=== PATIENT | male | born 1965 | race Caucasian/White ===

== ENCOUNTER 2024-01-01 14:56 | Outpatient (POV) | payer OTHER, SELFPAY ==
--- NOTE | 2024-01-01 15:05 | EXP.PAIN.OV ---
HPI Data of Consult Patient: new to practice Consult date: 01/01/24 Requesting Physician: Vanessa Sanchez APRN Consult Narrative History of present illness: Mr. Thomson is a 58 year old male who presents today as a new patient. He is a referral from the [facility] location. Today he rates his pain a 5 out of 10. Patient states he continues to have pain in his low back. We were previously treating the patient for low back pain, degenerative disc disease of lumbar spine with lumbar spinal stenosis, bilateral hip pain. Patient describes this as an aching, throbbing sensation. He does state the pain interferes with his ability to perform activities of daily living such as cooking and cleaning. Patient has had injections including a lumbar RFA in the past from Dr. Thomas. At the last appointment with Dr. Thomas he was positive for bilateral SI pain however insurance denied these injections. Patient does state today he continues to have the low back pain that is the most bothersome however he does continue to have leg weakness. Patient has tried [id number] medications, heat and ice, topicals, previous PT with no additional improvement. Patient has tried multiple injections however they are temporary. He is currently prescribed tramadol 50 mg 4 times a day and pregabalin 150 mg 3 times a day from an outside provider. Patient does state that he is in the process of getting weight loss surgery and is seeing a provider next week during [place]. Patient does also state he has recently had an injection in his left shoulder due to a fall and that his orthopedic provider was talked about ordering advanced imaging of this joint. His Julian has been reviewed and is appropriate. CC: Vanessa Sanchez APRN [facility] Disclaimer: The information contained in this section may have been updated after the patient was seen, as this information can be updated by other users. Medical History (Updated 01/01/24 @ 15:43 by Vanessa Sanchez APRN) Migraine History of chest pain CAD (coronary artery disease) HLD (hyperlipidemia) HTN (hypertension) Family History (Updated 01/01/24 @ 15:25 by Belgica Cochran RN) Other No significant family history Social History Smoking Status: Unknown if ever smoked alcohol intake: never current occupational status: other Travel in the last 8 weeks: None Review of Systems Review of Systems Review of systems:: pertinent systems reviewed and negative unless documented below Review of systems (narrative): Review of Systems: General: No recent weight changes, no fever, no sleep disturbances Respiratory: No cough, no shortness of air, no recurring pulmonary infections Cardiovascular/peripheral vascular: No chest pain, no palpitations, no edema, no shortness of breath Gastrointestinal: No new onset incontinence, normal bowel movements reported Genitourinary: No new onset incontinence Musculoskeletal: Low back pain, leg pain Psychiatric: [Normal mood/affect] Neurological: [Denies weakness in extremities], [denies balance issues] Meds Home Medications and Allergies Home Medications Medication Instructions Recorded Confirmed Type atorvastatin 40 mg tablet 40 mg PO HS 01/01/24 01/01/24 History cholecalciferol (vitamin D3) 1,250 1,250 mcg PO DAILY 01/01/24 01/01/24 History mcg (50,000 unit) capsule clopidogrel 75 mg tablet 75 mg PO DAILY 01/01/24 01/01/24 History lisinopril 40 mg tablet 40 mg PO DAILY 01/01/24 01/01/24 History metoprolol succinate 100 mg 100 mg PO DAILY 01/01/24 01/01/24 History tablet,extended release 24 hr pregabalin 150 mg capsule 150 - 300 mg PO BID 01/01/24 01/01/24 History New Prescriptions to Start Prescriptions: Allergies Allergy/AdvReac Type Severity Reaction Status Date / Time No Known Allergies Allergy Verified 01/01/24 15:21 Objective Narrative: Physical Exam: General: Alert and oriented x3, no acute distress, pleasant and cooperative Lungs: Respirations even and unlabored, symmetrical chest expansion Eyes: PERRL Musculoskeletal: Flexion and extension of lumbar [spine] somewhat guarded secondary to pain, [antalgic gait noted] Neurological: Speech clear, no gross sensory deficit Assessment and Plan *Assessment and plan (1) Chronic pain syndrome: Status: Acute Category: Medical Code(s): G89.4 - Chronic pain syndrome (2) Degenerative disc disease, lumbar: Status: Acute Category: Medical Code(s): M51.36 - Other intervertebral disc degeneration, lumbar region (3) Lumbar radiculopathy: Status: Acute Category: Medical Code(s): M54.16 - Radiculopathy, lumbar region (4) Lumbar facet arthropathy: Status: Acute Category: Medical Code(s): M47.816 - Spondylosis without myelopathy or radiculopathy, lumbar region Plan Patient continues to experience significant pain throughout his low back and his legs. Patient had limited range of motion of his lumbar spine. I did discuss with the patient that he may benefit from additional lumbar epidurals and/or intrathecal pain pump trial in the future. Risk and benefits were discussed with the patient and he would like to proceed forward with the intrathecal pain pump trial. I have given him a brochure regarding this device. We will submit for a psychological evaluation and if he is deemed an appropriate candidate we will proceed forward with this trial at a later date. Patient will return to clinic in 1 month for reevaluation of symptoms and plan of care. We will also reach out to [facility] for a copy of his last lumbar MRI. Patient has been instructed to contact the clinic with any concerns before the next appointment. Dr. Thomas has reviewed this note and agrees with this plan of care. This note was dictated using voice recognition software and make contain errors or omissions.
[2024-01-01 15:21] VITALS: BP 186/100; PULSE 71; RESP 20; O2SAT 94; BMI 58.6
== END 2024-01-01 23:59 ==
LOC: SC.PAIN 14:58
PROVIDERS: Visit Provider Nurse Practitioner Family
DX: G89.4 Chronic pain syndrome (principal); M51.16 Intervertebral disc disorders with radiculopathy, lumbar region; M47.26 Other spondylosis with radiculopathy, lumbar region
CPT/HCPCS: 99202; G0463

== ENCOUNTER 2024-02-02 14:11 | Outpatient (POV) | payer OTHER, SELFPAY ==
[2024-02-02 14:20] VITALS: BP 143/75; PULSE 78; RESP 18; O2SAT 94; BMI 55.7
--- NOTE | 2024-02-02 15:05 | EXP.PAIN.SOA ---
[facility] Pain Management SOAP Note Subjective:: Patient is a pleasant 58-year-old male who presents today for follow-up of psychological evaluation. Patient rates his pain today a 4 out of 10. He denies any new trauma or injury from our last visit. He does state that he continues to experience chronic pain throughout his low back. He states that this pain is a aching, throbbing sensation that does interfere with his ability perform activities of daily living such as cooking and cleaning. Patient does state that he went last week for her psychological evaluation and that the provider did say that he was an appropriate candidate. Patient does state that he reviewed over the additional materials that we did give him at his last visit regarding this procedure and he would like to proceed forward with intrathecal trial. Patient has tried and failed conservative therapy such as oral medication, heat and ice, topicals, previous physical therapy with no additional relief and continued at home exercise and stretching. Patient is prescribed tramadol and pregabalin from outside providers. He denies any side effects from this medication however states this only minimally helps his symptoms. Patient does continue to use a cane to help with ambulation. Patient is currently on Plavix that is written by his manager academic at [place]. His Julian has been reviewed and is appropriate. Review of Systems: General: No recent weight changes, no fever, no sleep disturbances Respiratory: No cough, no shortness of air, no recurring pulmonary infections Cardiovascular/peripheral vascular: No chest pain, no palpitations, no edema, no shortness of breath Gastrointestinal: No new onset incontinence, normal bowel movements reported Genitourinary: No new onset incontinence Musculoskeletal: Chronic low back pain Psychiatric: [Normal mood/affect] Neurological: [Denies weakness in extremities], [denies balance issues] Objective:: Physical Exam: General: Alert and oriented x3, no acute distress, pleasant and cooperative Lungs: Respirations even and unlabored, symmetrical chest expansion Eyes: PERRL Musculoskeletal: Flexion and extension of lumbar [spine] somewhat guarded secondary to pain, [antalgic gait noted] Neurological: Speech clear, no gross sensory deficit Assessment:: Degenerative disc disease of lumbar spine with lumbar radiculopathy symptoms, chronic low back pain, lumbar spinal stenosis, bilateral hip pain Plan:: Patient continues to experience significant pain in his low back with limited range of motion. I have reviewed over the risk and benefits of the intrathecal pain pump trial and he would like to proceed forward with this plan of care. Patient is currently on Plavix written by his manager academic in [place]. We will reach out to this office and confirm that he can stop this medication prior to this procedure. I will also reach out to [employer] for a copy of his lumbar imaging. Patient has tried and failed conservative therapies such as oral medication, heat and ice, topicals prior physical therapy and at home stretching and exercise for longer than 6 weeks. Patients psychological evaluation has not yet gotten into the computer and we will reach out to their office to confirm that he was an appropriate patient and that we get a copy of these findings to submit to insurance. Patient will be submitted for intrathecal pain pump trial under fluoroscopy. Patient has been instructed to contact the clinic with any concerns before the next appointment. Dr. Thomas has reviewed this note and agrees with this plan of care. This note was dictated using voice recognition software and make contain errors or omissions. [facility] Disclaimer: The information contained in this section may have been updated after the patient was seen, as this information can be updated by other users. Medical History (Updated 01/01/24 @ 15:43 by Vanessa Sanchez APRN) Migraine History of chest pain CAD (coronary artery disease) HLD (hyperlipidemia) HTN (hypertension) Family History (Updated 01/01/24 @ 15:25 by Belgica Cochran RN) Other No significant family history Social History (Updated 01/01/24 @ 15:44 by Vanessa Sanchez APRN) Smoking Status: Unknown if ever smoked alcohol intake: never current occupational status: unemployed Travel in the last 8 weeks: None
== END 2024-02-02 23:59 ==
LOC: SC.PAIN 14:11
PROVIDERS: PCP Nurse Practitioner Family; Visit Provider Nurse Practitioner Family
DX: M51.16 Intervertebral disc disorders with radiculopathy, lumbar region (principal); M54.50 Low back pain, unspecified; G89.29 Other chronic pain; M48.061 Spinal stenosis, lumbar region without neurogenic claudication; M25.551 Pain in right hip; M25.552 Pain in left hip
CPT/HCPCS: 99212; G0463

== ENCOUNTER 2024-05-28 09:13 | Day surgery (SDC) | payer BC, SELFPAY ==
[2024-05-28 09:35] VITALS: BP 159/80; PULSE 80; RESP 18; TEMP 36.4; O2SAT 93; BMI 60.6
--- NOTE | 2024-05-28 11:02 | PC.NURSE ---
pt sitting up in chair, family in room with pt. Pt states no needs at this time.
[2024-05-28] MEDS: CEFAZOLIN SODIUM 1 GM in 0.9 % SODIUM CHLORIDE 50 ML IV (11:18)
[2024-05-28] MEDS: LIDOCAINE 1% 30ML PF VIAL 30 ML (11:19)
[2024-05-28 11:22] VITALS: BP 145/95; PULSE 85; RESP 18; O2SAT 95
[2024-05-28 11:23] VITALS: BP 145/95; PULSE 85; RESP 18; O2SAT 97
[2024-05-28 11:41] VITALS: BP 152/83; PULSE 83; RESP 18; O2SAT 93
--- NOTE | 2024-05-28 11:59 | PC.NURSE ---
Pain pump trial procedure aborted. Refer to Dr. Thomas note.
[2024-05-28 12:03] VITALS: BP 152/80; PULSE 84; RESP 20; TEMP 36.7; O2SAT 91
--- NOTE | 2024-05-28 12:16 | PC.NURSE ---
1205-pt reports pain 01/03. Pt pushed out in wheelchair to car.
--- NOTE | 2024-05-28 12:28 | EXP.PAIN.PRO ---
Procedure Date: 05/28/24 Time: 12:28 Anesthesiologist:: Liu Thomas MD Complications:: None Pre-procedure Diagnosis:: Degenerative disc disease of lumbar spine with lumbar radiculopathy symptoms Post-procedure Diagnosis:: Same Indications for Procedure:: This patient is a pleasant 58-year-old white male who we are seeing for low back pain with lumbar radiculopathy symptoms. He has failed all other conservative therapy he is not gotten long-term relief from injections he has failed physical therapy. He is not a surgical candidate. He had a successful psychological evaluation. He presents for intrathecal pump trial today. Procedure Details:: Informed consent was obtained risk and benefits of the procedure explained the patient. Patient was taken to the procedure room. He is placed prone on the procedure table. Was prepped and draped in sterile fashion. C-arm fluoroscopy was used to view the lumbar spine. After multiple attempts at trying to access the intrathecal space at L4-5 and L5-S1 we aborted the trial. The patient stated weight is 430 pounds. Due to his size and BMI we did not have a needle long enough to access the intrathecal space. Patient was taken back to recovery in stable condition. Patient tolerated the procedure well no complications. Plan and Disposition:: Due to the patient's size we were not able to access the intrathecal space or do the intrathecal pump trial. This patient given his size as not a candidate for intrathecal therapy. I did talk to him about oral medication. We will start him on hydrocodone 7.5 mg twice a day. Patient needs to be under 400 pounds before we attempt any other procedures. Will give him a 1 month supply. Julian and drug screen are all appropriate. Will follow-up with him in 1 month.
== END 2024-05-28 12:05 | disposition home or self-care (01) ==
PROVIDERS: Visit Provider Anesthesiology
DX: M51.16 Intervertebral disc disorders with radiculopathy, lumbar region (principal); Z53.8 Procedure and treatment not carried out for other reasons
CPT/HCPCS: 62323; J0690; J3010

== ENCOUNTER 2024-06-24 09:34 | Outpatient (POV) | payer BC, SELFPAY ==
[2024-06-24 09:51] VITALS: BP 146/93; PULSE 68; RESP 18; O2SAT 92; BMI 60.6
--- NOTE | 2024-06-24 10:28 | EXP.PAIN.SOA ---
[facility] Disclaimer: The information contained in this section may have been updated after the patient was seen, as this information can be updated by other users. Medical History Migraine History of chest pain CAD (coronary artery disease) HLD (hyperlipidemia) HTN (hypertension) Family History Other No significant family history Social History Smoking Status: Unknown if ever smoked alcohol intake: never current occupational status: unemployed Travel in the last 8 weeks: None PM Subjective & Objective Subjective Subjective:: Patient is a pleasant 59-year-old male who presents today for 1 month follow-up. He rates his pain today a 2 out of 10. Patient denies any new trauma or injury. We did try and get him in for a intrathecal pain pump trial however due to his weight we were not unable to perform the procedure. Patient was prescribed [place] 7.5 mg twice a day. He denies any side effects from this medication and does state that it helps take the edge off. He does however state that he has had Percocet in the past and that that medication did seem to help more and is asking if there is anything we could do to change the medication if possible however he does state that the [place] is fine and that it does at least help somewhat. Patient is currently going through the process of gastric bypass surgery. He states he does not have a date and that they are still working on getting this surgery in the future. He is going through [facility]. He is prescribed pregabalin from an outside provider. His Julian has been reviewed and is appropriate. Review of Systems: General: No recent weight changes, no fever, no sleep disturbances Respiratory: No cough, no shortness of air, no recurring pulmonary infections Cardiovascular/peripheral vascular: No chest pain, no palpitations, no edema, no shortness of breath Gastrointestinal: No new onset incontinence, normal bowel movements reported Genitourinary: No new onset incontinence Musculoskeletal: Low back pain Psychiatric: [Normal mood/affect] Neurological: [Denies weakness in extremities], [denies balance issues] Pain at rest (0-10 scale): 2 Objective Objective:: Physical Exam: General: Alert and oriented x3, no acute distress, pleasant and cooperative Lungs: Respirations even and unlabored, symmetrical chest expansion Eyes: PERRL Musculoskeletal: Flexion and extension of lumbar [spine] somewhat guarded secondary to pain, [antalgic gait noted] Neurological: Speech clear, no gross sensory deficit Has patient had previous pain injection?: No Conservative treatment options previously tried: Home exercise plan Length of treatment: Longer than 6 weeks Meds Home Medications and Allergies Home Medications ?Medication ?Instructions ?Recorded ?Confirmed ?Type atorvastatin 40 mg tablet 40 mg PO HS 01/01/24 06/24/24 History cholecalciferol (vitamin D3) 1,250 1,250 mcg PO DAILY 01/01/24 06/24/24 History mcg (50,000 unit) capsule clopidogrel 75 mg tablet 75 mg PO DAILY 01/01/24 06/24/24 History lisinopril 40 mg tablet 40 mg PO DAILY 01/01/24 06/24/24 History metoprolol succinate 100 mg 100 mg PO DAILY 01/01/24 06/24/24 History tablet,extended release 24 hr pregabalin 150 mg capsule 150 - 300 mg PO BID 01/01/24 06/24/24 History tramadol 50 mg tablet 50 mg PO Q6HP PRN Pain 02/02/24 06/24/24 History hydrocodone 5 mg-acetaminophen 325 1 tab PO BID 15 days #30 tabs 05/28/24 06/24/24 Rx mg tablet hydrocodone 7.5 mg-acetaminophen 1 tab PO BID #60 tabs 05/28/24 06/24/24 Rx 325 mg tablet naloxone 4 mg/actuation nasal spray 4 mg intranasal Q2M PRN opioid 06/03/24 06/24/24 Rx overdose #2 ea New Prescriptions to Start Prescriptions: Allergies Allergy/AdvReac Type Severity Reaction Status Date / Time No Known Allergies Allergy Verified 01/01/24 15:21 Assessment and Plan *Assessment and plan (1) Lumbar radiculopathy: Status: Acute Category: Medical Code(s): M54.16 - Radiculopathy, lumbar region (2) Lumbar facet arthropathy: Status: Acute Category: Medical Code(s): M47.816 - Spondylosis without myelopathy or radiculopathy, lumbar region (3) Degenerative disc disease, lumbar: Status: Acute Category: Medical Code(s): M51.36 - Other intervertebral disc degeneration, lumbar region Plan At this time we will keep his current prescription the same. Patient will be sent in with a 1 month supply of the [place]. Patient will return to clinic in 1 month for reevaluation of symptoms and plan of care. Risks and benefits of the medication have been explained in detail to the patient. The patient does understand the risk of dependence on the medication when given over a prolonged period. Patient has been advised of risks of oversedation with the prescribed medication. Narcan has been offered to the paitent in the event of oversedation. Patient has been advised that a family member should also be educated regarding administration of Narcan. The patient has been advised to consult with his/her primary care provider and pharmacist regarding drug-drug interaction of medications currently prescribed. Patient has been prescribed a controlled substance after being counseled on the medication, medication safety, and possible side effects. Opioid contract was reviewed and signed by the patient, and that they have agreed to all of the terms set forth by our compliance program. Patient has been instructed to contact the clinic with any concerns before the next appointment. Dr. Thomas has reviewed this note and agrees with this plan of care. This note was dictated using voice recognition software and make contain errors or omissions.
== END 2024-06-24 23:59 | disposition home or self-care (01) ==
PROVIDERS: Visit Provider Nurse Practitioner Family
DX: M47.26 Other spondylosis with radiculopathy, lumbar region (principal); M51.36 Other intervertebral disc degeneration, lumbar region
CPT/HCPCS: 99212; G0463

== ENCOUNTER 2024-07-22 09:18 | Outpatient (POV) | payer BC, SELFPAY ==
--- NOTE | 2024-07-22 09:38 | A.OFFVIS_ITS ---
[facility] Disclaimer: The information contained in this section may have been updated after the patient was seen, as this information can be updated by other users. Medical History Migraine History of chest pain CAD (coronary artery disease) HLD (hyperlipidemia) HTN (hypertension) Family History Other No significant family history Social History Smoking Status: Unknown if ever smoked alcohol intake: never current occupational status: unemployed Travel in the last 8 weeks: None PM Subjective & Objective Subjective Subjective:: Patient is a pleasant 59-year-old male who presents today for medication refill. Today he rates his pain a 2 out of 10. He denies any new changes. He does state overall he is still in the process of trying to get the gastric bypass surgery scheduled. He is currently managed with [place] 7.5 mg twice a day from our office. He denies any side effects from this medication. His Julian has been reviewed and is appropriate. Review of Systems: General: No recent weight changes, no fever, no sleep disturbances Respiratory: No cough, no shortness of air, no recurring pulmonary infections Cardiovascular/peripheral vascular: No chest pain, no palpitations, no edema, no shortness of breath Gastrointestinal: No new onset incontinence, normal bowel movements reported Genitourinary: No new onset incontinence Musculoskeletal: Low back pain Psychiatric: [Normal mood/affect] Neurological: [Denies weakness in extremities], [denies balance issues] Pain at rest (0-10 scale): 2 Objective Objective:: Physical Exam: General: Alert and oriented x3, no acute distress, pleasant and cooperative Lungs: Respirations even and unlabored, symmetrical chest expansion Eyes: PERRL Musculoskeletal: Flexion and extension of lumbar [spine] somewhat guarded secondary to pain, [antalgic gait noted] Neurological: Speech clear, no gross sensory deficit Has patient had previous pain injection?: No Conservative treatment options previously tried: Home exercise plan Length of treatment: Longer than 6 weeks Meds Home Medications and Allergies Home Medications ?Medication ?Instructions ?Recorded ?Confirmed ?Type atorvastatin 40 mg tablet 40 mg PO HS 01/01/24 06/24/24 History cholecalciferol (vitamin D3) 1,250 1,250 mcg PO DAILY 01/01/24 06/24/24 History mcg (50,000 unit) capsule clopidogrel 75 mg tablet 75 mg PO DAILY 01/01/24 06/24/24 History lisinopril 40 mg tablet 40 mg PO DAILY 01/01/24 06/24/24 History metoprolol succinate 100 mg 100 mg PO DAILY 01/01/24 06/24/24 History tablet,extended release 24 hr pregabalin 150 mg capsule 150 - 300 mg PO BID 01/01/24 06/24/24 History tramadol 50 mg tablet 50 mg PO Q6HP PRN Pain 02/02/24 06/24/24 History hydrocodone 5 mg-acetaminophen 325 1 tab PO BID 15 days #30 tabs 05/28/24 06/24/24 Rx mg tablet naloxone 4 mg/actuation nasal spray 4 mg intranasal Q2M PRN opioid 06/03/24 06/24/24 Rx overdose #2 ea hydrocodone 7.5 mg-acetaminophen 1 tab PO BID #60 tabs 06/24/24 Rx 325 mg tablet New Prescriptions to Start Prescriptions: Allergies Allergy/AdvReac Type Severity Reaction Status Date / Time No Known Allergies Allergy Verified 01/01/24 15:21 Assessment and Plan *Assessment and plan (1) Lumbar radiculopathy: Status: Acute Category: Medical Code(s): M54.16 - Radiculopathy, lumbar region (2) Degenerative disc disease, lumbar: Status: Acute Category: Medical Code(s): M51.36 - Other intervertebral disc degeneration, lumbar region Plan I will refill his Bishop and provide a 1 month supply of this medication. Patient will return to clinic in 1 month for reevaluation of symptoms and plan of care. Risks and benefits of the medication have been explained in detail to the patient. The patient does understand the risk of dependence on the medication when given over a prolonged period. Patient has been advised of risks of oversedation with the prescribed medication. Narcan has been offered to the paitent in the event of oversedation. Patient has been advised that a family member should also be educated regarding administration of Narcan. The patient has been advised to consult with his/her primary care provider and pharmacist regarding drug-drug interaction of medications currently prescribed. Patient has been prescribed a controlled substance after being counseled on the medication, medication safety, and possible side effects. Opioid contract was reviewed and signed by the patient, and that they have agreed to all of the terms set forth by our compliance program. Patient has been instructed to contact the clinic with any concerns before the next appointment. Dr. Thomas has reviewed this note and agrees with this plan of care. This note was dictated using voice recognition software and make contain errors or omissions.
[2024-07-22 09:46] VITALS: BP 152/84; PULSE 73; RESP 18; O2SAT 92; BMI 60.0
== END 2024-07-22 23:59 | disposition home or self-care (01) ==
PROVIDERS: PCP Nurse Practitioner Family; Visit Provider Nurse Practitioner Family
DX: M51.16 Intervertebral disc disorders with radiculopathy, lumbar region (principal)
CPT/HCPCS: 99212; G0463

== ENCOUNTER 2024-08-23 08:38 | Outpatient (POV) | payer BC, SELFPAY ==
--- NOTE | 2024-08-23 09:01 | A.OFFVIS_ITS ---
[facility] Disclaimer: The information contained in this section may have been updated after the patient was seen, as this information can be updated by other users. Medical History Migraine History of chest pain CAD (coronary artery disease) HLD (hyperlipidemia) HTN (hypertension) Family History Other No significant family history Social History Smoking Status: Unknown if ever smoked alcohol intake: never current occupational status: unemployed Travel in the last 8 weeks: None PM Subjective & Objective Subjective Subjective:: Patient is a pleasant 59-year-old male who presents today for medication refill. Today he rates his pain a 3 out of 10. He states he has been doing well the last month and denies any new changes. Patient is currently managed with [place] 7.5 mg twice a day from our office. He denies any side effects. His Julian has been reviewed and is appropriate. Review of Systems: General: No recent weight changes, no fever, no sleep disturbances Respiratory: No cough, no shortness of air, no recurring pulmonary infections Cardiovascular/peripheral vascular: No chest pain, no palpitations, no edema, no shortness of breath Gastrointestinal: No new onset incontinence, normal bowel movements reported Genitourinary: No new onset incontinence Musculoskeletal: Low back pain Psychiatric: [Normal mood/affect] Neurological: [Denies weakness in extremities], [denies balance issues] Pain at rest (0-10 scale): 3 Objective Objective:: Physical Exam: General: Alert and oriented x3, no acute distress, pleasant and cooperative Lungs: Respirations even and unlabored, symmetrical chest expansion Eyes: PERRL Musculoskeletal: Flexion and extension of lumbar [spine] somewhat guarded secondary to pain, [antalgic gait noted] Neurological: Speech clear, no gross sensory deficit Has patient had previous pain injection?: No Conservative treatment options previously tried: Prescription medications Length of treatment: Longer than 6 weeks Meds Home Medications and Allergies Home Medications ?Medication ?Instructions ?Recorded ?Confirmed ?Type atorvastatin 40 mg tablet 40 mg PO HS 01/01/24 07/22/24 History cholecalciferol (vitamin D3) 1,250 1,250 mcg PO DAILY 01/01/24 07/22/24 History mcg (50,000 unit) capsule clopidogrel 75 mg tablet 75 mg PO DAILY 01/01/24 07/22/24 History lisinopril 40 mg tablet 40 mg PO DAILY 01/01/24 07/22/24 History metoprolol succinate 100 mg 100 mg PO DAILY 01/01/24 07/22/24 History tablet,extended release 24 hr pregabalin 150 mg capsule 150 - 300 mg PO BID 01/01/24 07/22/24 History tramadol 50 mg tablet 50 mg PO Q6HP PRN Pain 02/02/24 07/22/24 History hydrocodone 5 mg-acetaminophen 325 1 tab PO BID 15 days #30 tabs 05/28/24 07/22/24 Rx mg tablet naloxone 4 mg/actuation nasal spray 4 mg intranasal Q2M PRN opioid 06/03/24 07/22/24 Rx overdose #2 ea hydrocodone 7.5 mg-acetaminophen 1 tab PO BID #60 tabs 07/22/24 Rx 325 mg tablet New Prescriptions to Start Prescriptions: Allergies Allergy/AdvReac Type Severity Reaction Status Date / Time No Known Allergies Allergy Verified 01/01/24 15:21 Assessment and Plan *Assessment and plan (1) Lumbar facet arthropathy: Status: Acute Category: Medical Code(s): M47.816 - Spondylosis without myelopathy or radiculopathy, lumbar region (2) Lumbar radiculopathy: Status: Acute Category: Medical Code(s): M54.16 - Radiculopathy, lumbar region (3) Degenerative disc disease, lumbar: Status: Acute Category: Medical Code(s): M51.36 - Other intervertebral disc degeneration, lumbar region Plan I will refill the patient's [place] and provide a 1 month supply of this medication. Patient will return to clinic in 1 month for reevaluation of symptoms and plan of care. Risks and benefits of the medication have been explained in detail to the patien t. The patient does understand the risk of dependence on the medication when given over a prolonged period. Patient has been advised of risks of oversedation with the prescribed medication. Narcan has been offered to the paitent in the event of oversedation. Patient has been advised that a family member should also be educated regarding administration of Narcan. The patient has been advised to consult with his/her primary care provider and pharmacist regarding drug-drug interaction of medications currently prescribed. Patient has been prescribed a controlled substance after being counseled on the medication, medication safety, and possible side effects. Opioid contract was reviewed and signed by the patient, and that they have agreed to all of the terms set forth by our compliance program. Patient has been instructed to contact the clinic with any concerns before the next appointment. Dr. Thomas has reviewed this note and agrees with this plan of care. This note was dictated using voice recognition software and make contain errors or omissions.
[2024-08-23 09:36] VITALS: BP 153/96; PULSE 69; RESP 18; O2SAT 93; BMI 60.6
== END 2024-08-23 23:59 | disposition home or self-care (01) ==
PROVIDERS: PCP Nurse Practitioner Family; Visit Provider Nurse Practitioner Family
DX: M47.26 Other spondylosis with radiculopathy, lumbar region (principal); M51.16 Intervertebral disc disorders with radiculopathy, lumbar region
CPT/HCPCS: 99212; G0463

== ENCOUNTER 2024-09-27 08:55 | Outpatient (POV) | payer BC, SELFPAY ==
[2024-09-27 09:15] VITALS: BP 145/82; PULSE 71; RESP 14; O2SAT 93; BMI 60.6
--- NOTE | 2024-09-27 09:33 | EXP.PAIN.SOA ---
[facility] Disclaimer: The information contained in this section may have been updated after the patient was seen, as this information can be updated by other users. Medical History Migraine History of chest pain CAD (coronary artery disease) HLD (hyperlipidemia) HTN (hypertension) Family History Other No significant family history Social History Smoking Status: Unknown if ever smoked alcohol intake: never current occupational status: other PM Subjective & Objective Subjective Subjective:: Patient is a pleasant 59-year-old male who presents today for 1 month follow-up and medication refill. Today he rates his pain a 3 out of 10. He denies any new changes or new injuries. Patient is currently managed with [place] 7.5 mg twice a day from our office. He denies any side effects. His Julian has been reviewed and is appropriate. Review of Systems: General: No recent weight changes, no fever, no sleep disturbances Respiratory: No cough, no shortness of air, no recurring pulmonary infections Cardiovascular/peripheral vascular: No chest pain, no palpitations, no edema, no shortness of breath Gastrointestinal: No new onset incontinence, normal bowel movements reported Genitourinary: No new onset incontinence Musculoskeletal: Low back pain Psychiatric: [Normal mood/affect] Neurological: [Denies weakness in extremities], [denies balance issues] Pain at rest (0-10 scale): 3 Objective Objective:: Physical Exam: General: Alert and oriented x3, no acute distress, pleasant and cooperative Lungs: Respirations even and unlabored, symmetrical chest expansion Eyes: PERRL Musculoskeletal: Flexion and extension of lumbar [spine] somewhat guarded secondary to pain, [antalgic gait noted] Neurological: Speech clear, no gross sensory deficit Has patient had previous pain injection?: No Conservative treatment options previously tried: Home exercise plan Length of treatment: longer than 12-week Meds Home Medications and Allergies Home Medications ?Medication ?Instructions ?Recorded ?Confirmed ?Type atorvastatin 40 mg tablet 40 mg PO HS 01/01/24 09/27/24 History cholecalciferol (vitamin D3) 1,250 1,250 mcg PO DAILY 01/01/24 09/27/24 History mcg (50,000 unit) capsule clopidogrel 75 mg tablet 75 mg PO DAILY 01/01/24 09/27/24 History lisinopril 40 mg tablet 40 mg PO DAILY 01/01/24 09/27/24 History metoprolol succinate 100 mg 100 mg PO DAILY 01/01/24 09/27/24 History tablet,extended release 24 hr pregabalin 150 mg capsule 150 - 300 mg PO BID 01/01/24 09/27/24 History tramadol 50 mg tablet 50 mg PO Q6HP PRN Pain 02/02/24 09/27/24 History hydrocodone 5 mg-acetaminophen 325 1 tab PO BID 15 days #30 tabs 05/28/24 09/27/24 Rx mg tablet naloxone 4 mg/actuation nasal spray 4 mg intranasal Q2M PRN opioid 06/03/24 09/27/24 Rx overdose #2 ea hydrocodone 7.5 mg-acetaminophen 1 tab PO BID #60 tabs 08/23/24 09/27/24 Rx 325 mg tablet New Prescriptions to Start Prescriptions: Allergies Allergy/AdvReac Type Severity Reaction Status Date / Time No Known Allergies Allergy Verified 01/01/24 15:21 Assessment and Plan *Assessment and plan (1) Lumbar facet arthropathy: Status: Acute Category: Medical Code(s): M47.816 - Spondylosis without myelopathy or radiculopathy, lumbar region (2) Lumbar radiculopathy: Status: Acute Category: Medical Code(s): M54.16 - Radiculopathy, lumbar region (3) Degenerative disc disease, lumbar: Status: Acute Category: Medical Code(s): M51.36 - Other intervertebral disc degeneration, lumbar region Plan Patient will be refilled on his [place] and provided a 1 month supply of this medication. Patient will return to clinic in 1 month for reevaluation of symptoms and plan of care. Risks and benefits of the medication have been explained in detail to the patient. The patient does understand the risk of dependence on the medication when given over a prolonged period. Patient has been advised of risks of oversedation with the prescribed medication. Narcan has been offered to the paitent in the event of oversedation. Patient has been advised that a family member should also be educated regarding administration of Narcan. The patient has been advised to consult with his/her primary care provider and pharmacist regarding drug-drug interaction of medications currently prescribed. Patient has been prescribed a controlled substance after being counseled on the medication, medication safety, and possible side effects. Opioid contract was reviewed and signed by the patient, and that they have agreed to all of the terms set forth by our compliance program. Patient has been instructed to contact the clinic with any concerns before the next appointment. Dr. Thomas has reviewed this note and agrees with this plan of care. This note was dictated using voice recognition software and make contain errors or omissions.
== END 2024-09-27 23:59 | disposition home or self-care (01) ==
PROVIDERS: PCP Nurse Practitioner Family; Visit Provider Nurse Practitioner Family
DX: M47.26 Other spondylosis with radiculopathy, lumbar region (principal); M51.16 Intervertebral disc disorders with radiculopathy, lumbar region; Z79.891 Long term (current) use of opiate analgesic
CPT/HCPCS: 99212; G0463

== ENCOUNTER 2024-10-28 10:00 | Outpatient (POV) | payer OTHER, SELFPAY ==
--- NOTE | 2024-10-28 10:09 | A.OFFVIS_ITS ---
[facility] Disclaimer: The information contained in this section may have been updated after the patient was seen, as this information can be updated by other users. Medical History Migraine History of chest pain CAD (coronary artery disease) HLD (hyperlipidemia) HTN (hypertension) Family History Other No significant family history Social History Smoking Status: Unknown if ever smoked alcohol intake: never current occupational status: other Travel in the last 8 weeks: None PM Subjective & Objective Subjective Subjective:: Patient is a pleasant 59-year-old male who presents today for 1 month follow-up and medication refill. Today he rates his pain a 2 out of 10. He he states he did undergo gastric bypass surgery on the and he has officially lost 30 po unds total. Patient is hoping that this will continue. Patient is currently managed with [place] 7.5 mg twice a day from our office. He denies any side effects. His Julian has been reviewed and is appropriate. Review of Systems: General: No recent weight changes, no fever, no sleep disturbances Respiratory: No cough, no shortness of air, no recurring pulmonary infections Cardiovascular/peripheral vascular: No chest pain, no palpitations, no edema, no shortness of breath Gastrointestinal: No new onset incontinence, normal bowel movements reported Genitourinary: No new onset incontinence Musculoskeletal: Low back pain Psychiatric: [Normal mood/affect] Neurological: [Denies weakness in extremities], [denies balance issues] Pain at rest (0-10 scale): 2 Objective Objective:: Physical Exam: General: Alert and oriented x3, no acute distress, pleasant and cooperative Lungs: Respirations even and unlabored, symmetrical chest expansion Eyes: PERRL Musculoskeletal: Flexion and extension of lumbar [spine] somewhat guarded secondary to pain, [antalgic gait noted] Neurological: Speech clear, no gross sensory deficit Has patient had previous pain injection?: No Conservative treatment options previously tried: Home exercise plan Length of treatment: Longer than 12 weeks and Prescription medications Length of treatment: Longer than 12 weeks Meds Home Medications and Allergies Home Medications ?Medication ?Instructions ?Recorded ?Confirmed ?Type atorvastatin 40 mg tablet 40 mg PO HS 01/01/24 09/27/24 History cholecalciferol (vitamin D3) 1,250 1,250 mcg PO DAILY 01/01/24 09/27/24 History mcg (50,000 unit) capsule clopidogrel 75 mg tablet 75 mg PO DAILY 01/01/24 09/27/24 History lisinopril 40 mg tablet 40 mg PO DAILY 01/01/24 09/27/24 History metoprolol succinate 100 mg 100 mg PO DAILY 01/01/24 09/27/24 History tablet,extended release 24 hr pregabalin 150 mg capsule 150 - 300 mg PO BID 01/01/24 09/27/24 History tramadol 50 mg tablet 50 mg PO Q6HP PRN Pain 02/02/24 09/27/24 History hydrocodone 5 mg-acetaminophen 325 1 tab PO BID 15 days #30 tabs 05/28/24 09/27/24 Rx mg tablet naloxone 4 mg/actuation nasal spray 4 mg intranasal Q2M PRN opioid 06/03/24 09/27/24 Rx overdose #2 ea hydrocodone 7.5 mg-acetaminophen 1 tab PO BID #60 tabs 09/27/24 Rx 325 mg tablet New Prescriptions to Start Prescriptions: Allergies Allergy/AdvReac Type Severity Reaction Status Date / Time No Known Allergies Allergy Verified 01/01/24 15:21 Assessment and Plan *Assessment and plan (1) Lumbar facet arthropathy: Status: Acute Category: Medical Code(s): M47.816 - Spondylosis without myelopathy or radiculopathy, lumbar region (2) Lumbar radiculopathy: Status: Acute Category: Medical Code(s): M54.16 - Radiculopathy, lumbar region (3) Degenerative disc disease, lumbar: Status: Acute Category: Medical Code(s): M51.369 - Other intervertebral disc degeneration, lumbar region without mention of lumbar back pain or lower extremity pain (4) Chronic pain syndrome: Status: Acute Category: Medical Code(s): G89.4 - Chronic pain syndrome Plan We will refill the patient's [place] and provide a 1 month supply of this medication. Patient will return to clinic in 1 month for reevaluation of symptoms and plan of care. Risks and benefits of the medication have been explained in detail to the patient. The patient does understand the risk of dependence on the medication when given over a prolonged period. Patient has been advised of risks of oversedation with the prescribed medication. Narcan has been offered to the paitent in the event of oversedation. Patient has been advised that a family member should also be educated regarding administration of Narcan. The patient has been advised to consult with his/her primary care provider and pharmacist regarding drug-drug interaction of medications currently prescribed. Patient has been prescribed a controlled substance after being counseled on the medication, medication safety, and possible side effects. Opioid contract was reviewed and signed by the patient, and that they have agreed to all of the terms set forth by our compliance program. A UDS is needed to verify patient's compliance with our office pain contract. This is ordered based off specific treatments related to chronic pain with the potential to abuse certain medications. Patient has been instructed to contact the clinic with any concerns before the next appointment. Dr. Thomas has reviewed this note and agrees with this plan of care. This note was dictated using voice recognition software and make contain errors or omissions.
[2024-10-28 10:56] VITALS: BP 140/78; PULSE 78; RESP 16; O2SAT 92; BMI 55.6
== END 2024-10-28 23:59 | disposition home or self-care (01) ==
PROVIDERS: PCP Nurse Practitioner Family; Visit Provider Nurse Practitioner Family
DX: M47.26 Other spondylosis with radiculopathy, lumbar region (principal); M51.16 Intervertebral disc disorders with radiculopathy, lumbar region; G89.4 Chronic pain syndrome
CPT/HCPCS: 99212; G0463

== ENCOUNTER 2024-11-29 10:03 | Outpatient (POV) | payer OTHER, SELFPAY ==
--- NOTE | 2024-11-29 10:15 | EXP.PAIN.SOA ---
[facility] Disclaimer: The information contained in this section may have been updated after the patient was seen, as this information can be updated by other users. Medical History Migraine History of chest pain CAD (coronary artery disease) HLD (hyperlipidemia) HTN (hypertension) Family History Other No significant family history Social History Smoking Status: Unknown if ever smoked alcohol intake: never current occupational status: other Travel in the last 8 weeks: None Have you lived/traveled outside [place] in past 30 days?: No Contact w/someone who lives/traveled outside [place] past 30 days?: No Exposure to someone with infectious disease in past 14 days?: No Do you have a fever (greater than 100.4 F or 38 C)?: No Have you tested positive for COVID-19: No Exposed to someone with COVID-19 in past 14 days?: No Do you have a sore throat?: No Do you have a cough?: No Do you have any weakness?: No Do you have any diarrhea?: No Are you experiencing any unusual bleeding?: No Do you have any muscle aches/pain?: No Do you have any abdominal pain?: No Are you experiencing loss of taste or smell?: No PM Subjective & Objective Subjective Subjective:: Patient is a pleasant 59-year-old male who presents today for 1 month follow-up and medication refill. Today he rates his pain a 3 out of 10. He he states he did undergo gastric bypass surgery on the and he has officially lost 50 pounds total now. Patient is currently managed with [place] 7.5 mg twice a day from our office. He denies any side effects. His Julian has been reviewed and is appropriate. Review of Systems: General: No recent weight changes, no fever, no sleep disturbances Respiratory: No cough, no shortness of air, no recurring pulmonary infections Cardiovascular/peripheral vascular: No chest pain, no palpitations, no edema, no shortness of breath Gastrointestinal: No new onset incontinence, normal bowel movements reported Genitourinary: No new onset incontinence Musculoskeletal: Low back pain Psychiatric: [Normal mood/affect] Neurological: [Denies weakness in extremities], [denies balance issues] Pain at rest (0-10 scale): 3 Objective Objective:: Physical Exam: General: Alert and oriented x3, no acute distress, pleasant and cooperative Lungs: Respirations even and unlabored, symmetrical chest expansion Eyes: PERRL Musculoskeletal: Flexion and extension of lumbar [spine] somewhat guarded secondary to pain, [antalgic gait noted] Neurological: Speech clear, no gross sensory deficit Has patient had previous pain injection?: No Conservative treatment options previously tried: Prescription medications Length of treatment: Longer than 12 weeks Meds Home Medications and Allergies Home Medications ?Medication ?Instructions ?Recorded ?Confirmed ?Type atorvastatin 40 mg tablet 40 mg PO HS 01/01/24 10/28/24 History cholecalciferol (vitamin D3) 1,250 1,250 mcg PO DAILY 01/01/24 10/28/24 History mcg (50,000 unit) capsule clopidogrel 75 mg tablet 75 mg PO DAILY 01/01/24 10/28/24 History lisinopril 40 mg tablet 40 mg PO DAILY 01/01/24 10/28/24 History metoprolol succinate 100 mg 100 mg PO DAILY 01/01/24 10/28/24 History tablet,extended release 24 hr pregabalin 150 mg capsule 150 - 300 mg PO BID 01/01/24 10/28/24 History tramadol 50 mg tablet 50 mg PO Q6HP PRN Pain 02/02/24 10/28/24 History hydrocodone 5 mg-acetaminophen 325 1 tab PO BID 15 days #30 tabs 05/28/24 10/28/24 Rx mg tablet naloxone 4 mg/actuation nasal spray 4 mg intranasal Q2M PRN opioid 06/03/24 10/28/24 Rx overdose #2 ea hydrocodone 7.5 mg-acetaminophen 1 tab PO BID #60 tabs 10/28/24 Rx 325 mg tablet New Prescriptions to Start Prescriptions: Allergies Allergy/AdvReac Type Severity Reaction Status Date / Time No Known Allergies Allergy Verified 01/01/24 15:21 Assessment and Plan *Assessment and plan (1) Lumbar facet arthropathy: Status: Acute Category: Medical Code(s): M47.816 - Spondylosis without myelopathy or radiculopathy, lumbar region (2) Lumbar radiculopathy: Status: Acute Category: Medical Code(s): M54.16 - Radiculopathy, lumbar region (3) Degenerative disc disease, lumbar: Status: Acute Category: Medical Code(s): M51.369 - Other intervertebral disc degeneration, lumbar region without mention of lumbar back pain or lower extremity pain Plan I will refill his [place] and provide a 1 month supply of this medication. Patient will return to clinic in 1 month. I did discuss with patient if he would still like to proceed forward with the pump trial and that option in future we can definitely do this. Patient was deemed an appropriate candidate in the past however due to his BMI we did have difficulty accessing the epidural space. Patient acknowledges understanding agrees with plan of care. Risks and benefits of the medication have been explained in detail to the patient. The patient does understand the risk of dependence on the medication when given over a prolonged period. Patient has been advised of risks of oversedation with the prescribed medication. Narcan has been offered to the paitent in the event of oversedation. Patient has been advised that a family member should also be educated regarding administration of Narcan. The patient has been advised to consult with his/her primary care provider and pharmacist regarding drug-drug interaction of medications currently prescribed. Patient has been prescribed a controlled substance after being counseled on the medication, medication safety, and possible side effects. Opioid contract was reviewed and signed by the patient, and that they have agreed to all of the terms set forth by our compliance program. A UDS is needed to verify patient's compliance with our office pain contract. This is ordered based off specific treatments related to chronic pain with the potential to abuse certain medications. Patient has been instructed to contact the clinic with any concerns before the next appointment. Dr. Thomas has reviewed this note and agrees with this plan of care. This note was dictated using voice recognition software and make contain errors or omissions.
[2024-11-29 10:22] VITALS: BP 152/76; PULSE 75; RESP 14; O2SAT 93; BMI 50.9
== END 2024-11-29 23:59 | disposition home or self-care (01) ==
PROVIDERS: PCP Nurse Practitioner Family; Visit Provider Nurse Practitioner Family
DX: M47.26 Other spondylosis with radiculopathy, lumbar region (principal); M51.16 Intervertebral disc disorders with radiculopathy, lumbar region
CPT/HCPCS: 99212; G0463

== ENCOUNTER 2024-12-27 11:27 | Outpatient (POV) | payer OTHER, MEDICARE, SELFPAY ==
--- NOTE | 2024-12-27 11:39 | A.OFFVIS_ITS ---
[facility] Disclaimer: The information contained in this section may have been updated after the patient was seen, as this information can be updated by other users. Medical History Migraine History of chest pain CAD (coronary artery disease) HLD (hyperlipidemia) HTN (hypertension) Family History Other No significant family history Social History Smoking Status: Unknown if ever smoked alcohol intake: never current occupational status: other Travel in the last 8 weeks: None PM Subjective & Objective Subjective Subjective:: Patient is a pleasant 59-year-old male who presents today for medication refill. Today he rates his pain a 3 out of 10. He denies any new falls or injuries. He states he is still continuing to lose weight. Patient is currently managed with [place] 7.5 mg twice a day from our office. He denies any side effects. His Julian has been reviewed and is appropriate. Review of Systems: General: No recent weight changes, no fever, no sleep disturbances Respiratory: No cough, no shortness of air, no recurring pulmonary infections Cardiovascular/peripheral vascular: No chest pain, no palpitations, no edema, no shortness of breath Gastrointestinal: No new onset incontinence, normal bowel movements reported Genitourinary: No new onset incontinence Musculoskeletal: Low back pain Psychiatric: [Normal mood/affect] Neurological: [Denies weakness in extremities], [denies balance issues] Pain at rest (0-10 scale): 3 Objective Objective:: Physical Exam: General: Alert and oriented x3, no acute distress, pleasant and cooperative Lungs: Respirations even and unlabored, symmetrical chest expansion Eyes: PERRL Musculoskeletal: Flexion and extension of lumbar [spine] somewhat guarded secondary to pain, [antalgic gait noted] Neurological: Speech clear, no gross sensory deficit Has patient had previous pain injection?: No Conservative treatment options previously tried: Prescription medications Length of treatment: Longer than 12 weeks Meds Home Medications and Allergies Home Medications ?Medication ?Instructions ?Recorded ?Confirmed ?Type atorvastatin 40 mg tablet 40 mg PO HS 01/01/24 11/29/24 History cholecalciferol (vitamin D3) 1,250 1,250 mcg PO DAILY 01/01/24 11/29/24 History mcg (50,000 unit) capsule clopidogrel 75 mg tablet 75 mg PO DAILY 01/01/24 11/29/24 History lisinopril 40 mg tablet 40 mg PO DAILY 01/01/24 11/29/24 History metoprolol succinate 100 mg 100 mg PO DAILY 01/01/24 11/29/24 History tablet,extended release 24 hr pregabalin 150 mg capsule 150 - 300 mg PO BID 01/01/24 11/29/24 History tramadol 50 mg tablet 50 mg PO Q6HP PRN Pain 02/02/24 11/29/24 History hydrocodone 5 mg-acetaminophen 325 1 tab PO BID 15 days #30 tabs 05/28/24 11/29/24 Rx mg tablet naloxone 4 mg/actuation nasal spray 4 mg intranasal Q2M PRN opioid 06/03/24 11/29/24 Rx overdose #2 ea hydrocodone 7.5 mg-acetaminophen 1 tab PO BID #60 tabs 11/29/24 Rx 325 mg tablet New Prescriptions to Start Prescriptions: Allergies Allergy/AdvReac Type Severity Reaction Status Date / Time No Known Allergies Allergy Verified 01/01/24 15:21 Assessment and Plan *Assessment and plan (1) Degenerative disc disease, lumbar: Status: Acute Category: Medical Code(s): M51.369 - Other intervertebral disc degeneration, lumbar region without mention of lumbar back pain or lower extremity pain (2) Lumbar radiculopathy: Status: Acute Category: Medical Code(s): M54.16 - Radiculopathy, lumbar region Plan I will refill his [place] and provide a 1 month supply of this medication. Patient will return to clinic in 1 month. Risks and benefits of the medication have been explained in detail to the patient. The patient does understand the risk of dependence on the medication when given over a prolonged period. Patient has been advised of risks of oversedation with the prescribed medication. Narcan has been offered to the paitent in the event of oversedation. Patient has been advised that a family member should also be educated regarding administration of Narcan. The patient has been advised to consult with his/her primary care provider and pharmacist regarding drug-drug interaction of medications currently prescribed. Patient has been prescribed a controlled substance after being counseled on the medication, medication safety, and possible side effects. Opioid contract was reviewed and signed by the patient, and that they have agreed to all of the terms set forth by our compliance program. A UDS is needed to verify patient's compliance with our office pain contract. This is ordered based off specific treatments related to chronic pain with the potential to abuse certain medications. Patient has been instructed to contact the clinic with any concerns before the next appointment. Dr. Thomas has reviewed this note and agrees with this plan of care. This note was dictated using voice recognition software and make contain errors or omissions.
[2024-12-27 11:44] VITALS: BP 157/93; PULSE 65; RESP 16; O2SAT 93; BMI 49.2
== END 2024-12-27 23:59 | disposition home or self-care (01) ==
PROVIDERS: Visit Provider Nurse Practitioner Family
DX: M51.16 Intervertebral disc disorders with radiculopathy, lumbar region (principal)
CPT/HCPCS: 99212; G0463

== ENCOUNTER 2025-01-27 09:38 | Outpatient (POV) | payer MEDICARE, OTHER, SELFPAY ==
--- NOTE | 2025-01-27 10:00 | EXP.PAIN.SOA ---
[facility] Disclaimer: The information contained in this section may have been updated after the patient was seen, as this information can be updated by other users. Medical History Migraine History of chest pain CAD (coronary artery disease) HLD (hyperlipidemia) HTN (hypertension) Family History Other No significant family history Social History Smoking Status: Unknown if ever smoked alcohol intake: never current occupational status: other Travel in the last 8 weeks: None Have you lived/traveled outside [place] in past 30 days?: No Contact w/someone who lives/traveled outside [place] past 30 days?: No Exposure to someone with infectious disease in past 14 days?: No Do you have a fever (greater than 100.4 F or 38 C)?: No Have you tested positive for COVID-19: No Exposed to someone with COVID-19 in past 14 days?: No Do you have a sore throat?: No Do you have a cough?: No Do you have any weakness?: No Do you have any diarrhea?: No Are you experiencing any unusual bleeding?: No Do you have any muscle aches/pain?: No Do you have any abdominal pain?: No Are you experiencing loss of taste or smell?: No PM Subjective & Objective Subjective Subjective:: Patient is a pleasant 59-year-old male who presents today for medication refill and follow-up. Today he rates his pain a 3 out of 10. He does state that his low back is bothering him today however the medicine we do prescribe is continuing to help. Patient has also still been losing weight and he is now down 90 pounds. Patient denies any other changes. Patient is currently managed with [place] 7.5 mg twice a day from our office. His Julian has been reviewed and is appropriate. Review of Systems: General: No recent weight changes, no fever, no sleep disturbances Respiratory: No cough, no shortness of air, no recurring pulmonary infections Cardiovascular/peripheral vascular: No chest pain, no palpitations, no edema, no shortness of breath Gastrointestinal: No new onset incontinence, normal bowel movements reported Genitourinary: No new onset incontinence Musculoskeletal: Low back pain Psychiatric: [Normal mood/affect] Neurological: [Denies weakness in extremities], [denies balance issues] Pain at rest (0-10 scale): 3 Objective Objective:: Physical Exam: General: Alert and oriented x3, no acute distress, pleasant and cooperative Lungs: Respirations even and unlabored, symmetrical chest expansion Eyes: PERRL Musculoskeletal: Flexion and extension of lumbar [spine] somewhat guarded secondary to pain, [antalgic gait noted] Neurological: Speech clear, no gross sensory deficit Has patient had previous pain injection?: No Conservative treatment options previously tried: Home exercise plan Length of treatment: Longer than 12 weeks Meds Home Medications and Allergies Home Medications ?Medication ?Instructions ?Recorded ?Confirmed ?Type atorvastatin 40 mg tablet 40 mg PO HS 01/01/24 12/27/24 History cholecalciferol (vitamin D3) 1,250 1,250 mcg PO DAILY 01/01/24 12/27/24 History mcg (50,000 unit) capsule clopidogrel 75 mg tablet 75 mg PO DAILY 01/01/24 12/27/24 History lisinopril 40 mg tablet 40 mg PO DAILY 01/01/24 12/27/24 History metoprolol succinate 100 mg 100 mg PO DAILY 01/01/24 12/27/24 History tablet,extended release 24 hr pregabalin 150 mg capsule 150 - 300 mg PO BID 01/01/24 12/27/24 History tramadol 50 mg tablet 50 mg PO Q6HP PRN Pain 02/02/24 12/27/24 History hydrocodone 5 mg-acetaminophen 325 1 tab PO BID 15 days #30 tabs 05/28/24 12/27/24 Rx mg tablet naloxone 4 mg/actuation nasal spray 4 mg intranasal Q2M PRN opioid 06/03/24 12/27/24 Rx overdose #2 ea hydrocodone 7.5 mg-acetaminophen 1 tab PO BID #60 tabs 12/27/24 Rx 325 mg tablet New Prescriptions to Start Prescriptions: Allergies Allergy/AdvReac Type Severity Reaction Status Date / Time No Known Allergies Allergy Verified 01/01/24 15:21 Assessment and Plan *Assessment and plan (1) Lumbar facet arthropathy: Status: Acute Category: Medical Code(s): M47.816 - Spondylosis without myelopathy or radiculopathy, lumbar region (2) Lumbar radiculopathy: Status: Acute Category: Medical Code(s): M54.16 - Radiculopathy, lumbar region (3) Degenerative disc disease, lumbar: Status: Acute Category: Medical Code(s): M51.369 - Other intervertebral disc degeneration, lumbar region without mention of lumbar back pain or lower extremity pain (4) Chronic pain syndrome: Status: Acute Category: Medical Code(s): G89.4 - Chronic pain syndrome Plan I will refill the patient's [place] and provide a 1 month supply of this medication. Patient will return to clinic in 1 month. Risks and benefits of the medication have been explained in detail to the patient. The patient does understand the risk of dependence on the medication when given over a prolonged period. Patient has been advised of risks of oversedation with the prescribed medication. Narcan has been offered to the paitent in the event of oversedation. Patient has been advised that a family member should also be educated regarding administration of Narcan. The patient has been advised to consult with his/her primary care provider and pharmacist regarding drug-drug interaction of medications currently prescribed. Patient has been prescribed a controlled substance after being counseled on the medication, medication safety, and possible side effects. Opioid contract was reviewed and signed by the patient, and that they have agreed to all of the terms set forth by our compliance program. A UDS is needed to verify patient's compliance with our office pain contract. This is ordered based off specific treatments related to chronic pain with the potential to abuse certain medications. Patient has been instructed to contact the clinic with any concerns before the next appointment. Dr. Thomas has reviewed this note and agrees with this plan of care. This note was dictated using voice recognition software and make contain errors or omissions.
[2025-01-27 10:01] VITALS: BP 135/80; PULSE 62; RESP 14; O2SAT 95; BMI 48.1
== END 2025-01-27 23:59 | disposition home or self-care (01) ==
PROVIDERS: PCP Nurse Practitioner Family; Visit Provider Nurse Practitioner Family
DX: G89.4 Chronic pain syndrome (principal); M47.26 Other spondylosis with radiculopathy, lumbar region; M51.16 Intervertebral disc disorders with radiculopathy, lumbar region
CPT/HCPCS: 99212; G0463

== ENCOUNTER 2025-02-24 09:45 | Outpatient (POV) | payer MEDICARE, OTHER, SELFPAY ==
--- OUTSIDE RECORDS SUMMARY | 2025-02-24 09:48 | XMS_ITS | Continuity of Care Document ---
Author Organization [facility] & [place], [facility] Address [address] [place] [address] [place] [address] Care Team Providers Care Tents Assembler Name Role Phone LANDEN IYER Primary Care Provider [phone] Assessment No assessment recorded. Plan of Treatment Reminders Order Date Submit Date Provider Last Modified By Organization Details Last Modified Time Details Appointments INJ ONLY 15 2024 01:00P M STACEY COYNE NP Not available Not available Not available OV EST 2024 09:20A M Ruddy Acharya, DNP, CAR RACER, DROP MACHINE OPERATOR-C Not available Not available Not available INJ ONLY 15 2024 09:15A M Stanislaw Medeiros MD Not available Not available Not available Lab None recorded. Referral None recorded. Procedures None recorded. Surgeries None recorded. Imaging XR, knee 2024 025 [email or web address] [facility], [address] [place] [address] [place], [address], 02/03/2025 07:36:03 Medication Orders Kenalog 10 mg/mL suspensio n for injection 2024 025 [email or web address] Not available 02/03/2025 07:36:03 bupivacai ne HCl 0.5 % (5 mg/mL) injection solution 2024 025 [email or web address] Not available 02/03/2025 07:36:03 Kenalog 10 mg/mL suspensio n for injection 2024 025 [email or web address] Not available 02/03/2025 07:36:03 bupivacai ne HCl 0.5 % (5 mg/mL) injection solution 2024 025 [email or web address] Not available 02/03/2025 07:36:03 Patient TargetsNo targets recorded. Patient InstructionsNo instructions recorded. Reason for Referral None Reported. Results Created Date Observation Date Name Description Value Unit Range Abnormal Flag Note LastModifiedBy Organization Detail LastModifiedTime 02/02/20 25 XR, knee No observ ation record ed. DRAGAN Evangelista [facility] [address] [facility] , [place], [address], 02/01/2025 11:40:02 Result Notes None recorded. Problems Name Problem SNOMED Code Status Onset Date Resolution Date Notes Provider Name and Address Organization Details Recorded Time Postoperat jose pain 374895349 Active 2023 MARIANA Rosen [address] [facility], [place], [address] , [place] - [facility] - [place] & [place] 4 09:18:44 Cyst of scalp 971500406 Active 2021 Chela [place]ray, [place] [facility] [place] & [place] 3 14:04:29 Mass of subcutaneo us tissue 1064854434189 9102 Active 2021 Chela Langley null[place] [facility] [place] 3 14:04:29 Morbid obesity 120204950 Active 2018 Chel[place] null[place] [facility] [place] 3 14:04:00 Unintentio nal weight gain 2415568205526 04 Active 2022 Chela Langley null, [place] [facility] - [place] & [place] 3 14:04:29 Disorder of function of stomach 833587326 Active 2022 Chela [place] - [place] [place] & [place] 3 14:04:29 Hyperlipid emia 13638223 Active 2022 Chela Korin null[place] & [place] 3 14:04:29 Essential hypertensi on 93123246 Active 2019 Chela Calvinis null[place] [place] & [place] 3 14:04:01 Pain in bilateral legs 8032699174704 9108 Active 2022 Chela Calvinis null[place] [place] & [place] 3 14:04:29 Congestive heart failure 77193168 Active 2021 Chela Calvinis null[place] [facility] [place] & [place] 3 14:04:01 Long-term current use of anticoagul ant 738105158 Active 2022 Chela Langley null[place] [facility] - [place] & [place] 3 14:04:30 Degenerati on of lumbar interverte bral disc 37611954 Active 2021 Chela [place]angley null[place] [facility] [place] & [place] 3 14:04:00 Compressio n of lumbar nerve root 258854281 Active 2021 Chela [place]angle[place] null[place] [facility] [place] & [place] 3 14:04:00 Hypertensi ve disorder 72946806 Active 2018 Chela [place] null[place] [place] & [place] 3 14:04:01 History of cardiac catheteriz ation 3581458530633 0 Active Chela [place] null[place] [facility] [place] & [place] 3 14:04:01 Prediabete s 878449524 Active 2021 Chela [place] null[place] & [place] 3 14:04:01 Iron deficiency 52076699 Active 2022 Chela aLngley null, [place] [facility] [place] & [place] 3 14:04:29 Vitamin D deficiency 38136491 Active 2022 Chela [place] null[place] [facility] - [place] & [place] 3 14:04:29 Preinfarct ion syndrome 8829412 Active Chela murray, PERRY Hollis [facility] - [place] & [place] 3 14:04:29 Migraine 70658527 Active 2022 PERRY Lewis [facility] - [place] & [place] 3 14:04:29 Notes:Some problems listed i n Documents: #[id number], #[id number], #[id number] could not be added to this patient's chart. Please review these documents and add these problems to the patient's chart manually as needed. Problem Notes None recorded. Procedures Surgical History Date Name Laterality Status Provider Name and Address Organization Details Recorded Time cardiac [facility]ization [facility] [place] [facility] [place] & [place] 3 08:15:10 Other completed Ruddy Acharya, DNP, CAR RACER, DROP MACHINE OPERATOR-C [address] [facility], [place], [address] , [place] - [facility] - [place] & [place] 3 10:33:42 esophagogastroduodenoscopy completed Soniakaiden AMADOR - NT [facility] & [place] 4 10:05:16 Colonoscopy completed Sonia AMADOR - [place] - [place] & [place] 4 10:05:25 procedure on duodenum completed Bandar in Ghazal AMADOR - LP[facility] & [place] 4 08:12:56 Imaging Results Imaging Date Name Status LastModified by Organiz ation Details LastModified Time 02/01/2025 XR, knee completed DRAGAN Evangelista [facility] [address] [facility] , [place], [address], 02/01/2025 11:40:02 Procedure Notes None recorded. Medical Equipment None Reported. Allergies No known drug allergies Medications Name Sig Start Date Stop Date Status Note LastModified by Organization Details LastModified Time cyclobenzap rine 10 mg tablet TAKE 1 TABLET BY MOUTH THREE (3) TIMES DAILY NEEDED 09/02 completed Not Available Not Available Not Available amoxicillin 500 mg capsule TAKE TWO (2) CAPSULES EVERY 12 HOURS BY ORAL ROUTE FOR 14 DAYS. 09/21 completed Not Available Not Available Not Available atorvastati n 40 mg tablet TAKE ONE (1) TABLET (40 MG) BY ORAL ROUTE ONCE DAILY AT BED TIME 11/26 completed Not Available Not Available Not Available methocarbam ol 500 mg tablet 12/31 completed Not Available Not Available Not Available clonidine HCl 0.1 mg tablet TAKE ONE (1) TABLET FOR BLOOD PRESSURE GREATER THAN 160/100 MAY REPEAT DOSE IN 30 MINUTES IF REMAINS ELEVATED. 06/04 completed Not Available Not Available Not Available metoprolol succinate ER 50 mg tablet,exte nded release 24 hr Take 1 tablet every day by oral route as directed for 30 days. 04/16 completed Not Available Not Available Not Available hydrochloro thiazide 50 mg tablet Take 1 tablet every day by oral route for 30 days. 04/24 completed Not Available Not Available Not Available clarithromy janette 500 mg tablet TAKE ONE (1) TABLET EVERY 12 HOURS BY ORAL ROUTE FOR 14 DAYS. 09/21 completed Not Available Not Available Not Available sumatriptan 100 mg tablet TAKE ONE (1) TABLET BY MOUTH AT ONSET OF MIGRAINE, MAY REPEAT IN TWO (2) HOURS IF NEEDED (MAX TWO (2) TABS/24 HOURS) active Not Available Not Available No t Available lisinopril 20 mg tablet TAKE 1 TABLET BY MOUTH EVERY DAY 09/02 completed Not Available Not Available Not Available bupivacaine HCl 0.5 % (5 mg/mL) injection solution Take 10 mg by injection route. 2024 active Not Available Not Available Not Avai lable prednisone 20 mg tablet TAKE 1 TABLET BY MOUTH TWICE DAILY 07/11 completed Not Available Not Available Not Available isosorbide mononitrate ER 30 mg tablet,exte nded release 24 hr TAKE ONE TABLET BY MOUTH EVERY MORNING active Not Available Not Available No t Available metoprolol succinate ER 100 mg tablet,exte nded release 24 hr TAKE ONE TABLET BY MOUTH EVERY DAY active Not Available Not Available No t Available phentermine 37.5 mg tablet Take 1 tablet every day by oral route. 04/24 completed Not Available Not Available Not Available clopidogrel 75 mg tablet TAKE ONE TABLET BY MOUTH EVERY DAY active Not Available Not Available No t Available amlodipine 5 mg tablet TAKE ONE (1) TABLET BY ORAL ROUTE ONCE DAILY 10/10 completed Not Available Not Available Not Available sulfamethox azole 800 mg-trimetho prim 160 mg tablet Take 2 tablets every 12 hours by oral route for 10 days. 03/01 completed Not Available Not Available Not Available aspirin 81 mg tablet,marge yed release TAKE ONE TABLET BY MOUTH EVERY DAY active Not Available Not Available No t Available tramadol 50 mg tablet TAKE ONE (1) TABLET EVERY SIX (6) HOURS BY ORAL ROUTE NEEDED FOR 30 DAYS. 05/07 completed Not Available Not Available Not Available amoxicillin 500 mg tablet Take 2 tablets every 12 hours by oral route for 14 days. 09/21 completed Not Available Not Available Not Available simvastatin 40 mg tablet 40 mg by oral route. 08/22 completed Not Available Not Available Not Available ceftriaxone 1 gram solution for injection Take 1 g by injection route. 12/08 completed Not Available Not Available Not Available famotidine 20 mg tablet TAKE 1 TABLET BY MOUTH TWICE DAILY 09/21 completed Not Available Not Available Not Available ascorbic acid (vitamin C) 500 mg tablet 500 mg by oral route. 05/07 completed Not Available Not Available Not Available aspirin 325 mg tablet,marge yed release 325 mg by oral route. 08/22 completed Not Available Not Available Not Available Kenalog 10 mg/mL suspension for injection Take 20 mg by injection route. 2024 active Not Available Not Available Not Avai lable hydrocodone 7.5 mg-acetamin ophen 325 mg tablet TAKE ONE TABLET BY MOUTH TWICE DAILY active Not Available Not Available No t Available cephalexin 500 mg capsule Take 1 capsule every 6 hours by oral route. 12/08 completed Not Available Not Available Not Available pantoprazol e 40 mg tablet,marge yed release 40 mg by oral route. 08/22 completed Not Available Not Available Not Available cyanocobala min (vit B-12) 1,000 mcg/mL injection solution INJECT ONE (1) ML EVERY WEEK BY SUBCUTANE OUS ROUTE FOR 42 DAYS. 09/21 completed Not Available Not Available Not Available ferrous sulfate 325 mg (65 mg iron) tablet 325 mg by oral route. 05/07 completed Not Available Not Available Not Available lisinopril 10 mg tablet 10 mg by oral route. 08/22 completed Not Available Not Available Not Available BD Luer-Ailyn Syringe 3 mL 25 gauge x 1 DIRECTED 09/21 completed Not Available Not Available Not Available nitroglycer in 0.[address] 0.4 mg by sublingua l route. 09/21 completed Not Available Not Available Not Available gabapentin 300 mg capsule 300 mg by oral route. 02/10 completed Not Available Not Available Not Available omeprazole 20 mg capsule,del ayed release TAKE ONE (1) CAPSULE EVERY DAY BY MOUTH active Not Available Not Available No t Available aspirin 81 mg chewable tablet 81 mg by oral route. 12/31 completed Not Available Not Available Not Available bumetanide 1 mg tablet TAKE ONE (1) TABLET TWICE A DAY BY ORAL ROUTE active Not Available Not Available No t Available hydrochloro thiazide 25 mg tablet Take 1 tablet every day by oral route for 30 days. 07/17 completed Not Available Not Available Not Available mupirocin 2 % topical ointment APPLY A SMALL AMOUNT TO THE AFFECTED AREA BY TOPICAL ROUTE THREE (3) TIMES PER DAY 11/26 completed Not Available Not Available Not Available furosemide 20 mg tablet TAKE ONE (1) TABLET (20 MG) BY ORAL ROUTE ONCE DAILY 09/02 completed Not Available Not Available Not Available metoprolol succinate ER 25 mg tablet,exte nded release 24 hr 25 mg by oral route. 08/22 completed Not Available Not Available Not Available methylpredn isolone 4 mg tablets in a dose pack TAKE ONE (1) DOSE PACKET BY ORAL ROUTE. 05/07 completed Not Available Not Available Not Available celecoxib 100 mg capsule TAKE 1 CAPSULE BY MOUTH TWICE DAILY 11/26 completed Not Available Not Available Not Available lisinopril 40 mg tablet TAKE ONE TABLET BY MOUTH EVERY DAY active Not Available Not Available No t Available cefdinir 300 mg capsule TAKE ONE (1) CAPSULE EVERY 12 HOURS BY ORAL ROUTE FOR 10 DAYS. 05/07 completed Not Available Not Available Not Available enoxaparin 60 mg/0.6 mL subcutaneou s syringe Inject 0.6 mL every 12 hours by subcutane ous route. 11/26 completed Not Available Not Available Not Available bupivacaine (PF) 0.25 % (2.5 mg/mL) injection solution Take 2 mg by injection route. 12/31 completed Not Available Not Available Not Available bupivacaine (PF) 0.5 % (5 mg/mL) injection solution Take 2 mL by injection route. 10/13 completed Not Available Not Available Not Available pregabalin 75 mg capsule Take by oral route for 30 days. 05/07 completed Not Available Not Available Not Available pregabalin 150 mg capsule TAKE TWO (2) CAPSULES BY MOUTH TWICE A DAY 09/21 completed Not Available Not Available Not Available pregabalin 300 mg capsule TAKE ONE CAPSULE BY MOUTH TWICE DAILY active Not Available Not Available No t Available aspirin 81mg 01/24 completed Not Available Not Available Not Available clopidogrel 01/24 completed Not Available Not Available Not Available peg 3350-electr olytes 236 gram-22.74 gram-6.74 gram-5.86 gram solution MIX AND TAKE DIRECTED 05/07 completed Not Available Not Available Not Available cholecalcif clovis (vitamin D3) 1,250 mcg (50,000 unit) capsule TAKE ONE (1) CAPSULE EVERY WEEK BY ORAL ROUTE. 11/26 completed Not Available Not Available Not Available melatonin 5 mg tablet TAKE ONE (1) TABLET EVERY DAY BY ORAL ROUTE AT BEDTIME FOR 30 DAYS. 08/26 completed Not Available Not Available Not Available Suprep Bowel Prep Kit 17.5 gram-3.13 gram-1.6 gram oral solution take as directed per office instructi ons active Not Available Not Available No t Available potassium chloride ER 20 mEq tablet,exte nded release TAKE ONE TABLET BY MOUTH TWICE DAILY FOR FIVE DAYS THEN ONCE DAILY FOR FIVE DAYS active Not Available Not Available No t Available naloxone 4 mg/actuatio n nasal spray FOUR (4) MG INTRANASA LLY EVERY TWO (2) MINUTES NEEDED FOR OPIOID OVERDOSE; SPRAY ONE (1) DOSE INTO ONE NOSTRIL; ALTERNATE NOSTRILS WEEKLY EACH DOSE UNTIL HELP ARRIVES 09/21 completed Not Available Not Available Not Available Wegovy 0.25 mg/0.5 mL subcutaneou s pen injector Inject 0.25 mg every week by subcutane ous route for 28 days. 05/07 completed Not Available Not Available Not Available aspirin 81 mg capsule Take 1 capsule every day by oral route. 04/09 completed Not Available Not Available Not Available Vitals None Recorded Social History Question Answer Notes LastModified by Organizat ion Details LastModified Time Tobacco Smoking Status Former Smoker Chela [place]ray, [place] - [facility] - [place] & [place] 04/11/2023 08:53:09 Do You Have An Advance Directive? No Information not available 01/09/2023 What Is Your Level Of Alcohol Consumption? None Information not available 01/09/2023 Are You Blind Or Do You Have Difficulty Seeing? No Information not available 01/09/2023 What Was The Date Of Your Most Recent Tobacco Screening? 12/31/2022 Information not available 04/11/2023 Are You Passively Exposed To Smoke? No Information no t available 01/09/2023 Do You Or Have You Ever Used Smokeless Tobacco? Currently Chews Tobacco Information not available 04/11/2023 How Much Tobacco Do You Smoke? 1 PPD Information not available 04/11/2023 Do You Feel Stressed (tense, Restless, Nervous, Or Anxious, Or Unable To Sleep At Night)? [id number] Information not available 04/11/2023 Do You Use Any Illicit Or Recreational Drugs? No Information not available 01/09/2023 How Many Years Have You Smoked Tobacco? 8 Yrs Information not available 04/11/2023 Sex: Male Functional Status Question Answer Note LastModified by Organizat ion Details LastModified Time What is your exercise level? Occasional Information not available 01/09/2023 Mental Status None recorded. Family History Relationship Description Onset Age of this Age Resolved Age Notes LastModified by Organization Details LastModified Time Mother Diabetes mellitus [email or web address] Not available 2024 10:38:38 Mother Heart disease CHART_[email or web address] Not available 06/28 10:17:14 Mother Disorder of endocrine system pt. added direct ly (09/14) [email or web address] Not available 09/14/2024 12:19:58 Father Heart disease CHART_MERGE Not available 06/28 10:17:14 Father Essential hypertension [email or web address] Not available 05/2025 10:38:38 Brother Heart disease CHART_MERGE Not available 06/28 10:17:14 Son Disorder of endocrine system pt. added direct ly (09/14) [email or web address] Not available 09/14/2024 12:19:58 Daughter Disorder of endocrine system pt. added direct ly (09/14) [email or web address] Not available 09/14/2024 12:19:58 Medical History Condition Response Muscle, Joint, or Bone Problems Y Other Y Congestive Heart Failure (CHF) Y Back Problems Y Reflux/GERD Y High Cholesterol Y Heart Attack (MA) Y Heart Disease Y Headaches Y Hypertension Y Obstructive Sleep Apnea Y Immunizations Vaccine Type Date Status Note Provider Nam e and Address Organization Details Recorded Time Influenza, split virus, quadrivalent, preservative 0 completed PERRY Lewis - [facility] & [place] 10/13/2023 14:04:35 Influenza, split virus, quadrivalent, preservative 2 completed PERRY Lewis - [facility] - [place] & [place] 10/13/2023 14:04:35 Past Encounters Encounter ID Performer Location Encounter Start Date Encounter Closed Date Diagnosis/Indication Diagnosis SNOMED-CT Code Diagnosis ICD10 Code Diagnosis Note [id number] Ruddy Acharya, DNP, CAR RACER, DROP MACHINE OPERATOR-C [facility] [address] [place] [address] [address] [place] [address] 01/24/2025 14:45:59 01/24/2025 15:26:50 History of bariatric surgical procedure 100624344 Z98.84 The patient is doing well. The patient is instructed to continue their vitamins as directed. They are to continue advancing their diet as directed. They may start exercising but keep lifting less than 25 pounds for 2 more weeks. I will see them back in 3 weeks or one month from surgery. We will order their first set of labs at that time. I summarized the expectatio ns for the upcoming year. We will check labs at their one month visit from surgery, 3 months from surgery as well as at 6, 9, and 12 months from surgery. These labs will be ordered on the day of their appointmen t. They have the option to come to the appointmen t fasting and labs can be drawn that day at the hospital. If not, I expect these labs to be drawn within the week of ordering them. If they choose to have them drawn at another [facility] they are to make sure that the labs are sent to my office. These labs will be reviewed once received and the patient will be called with any significan t abnormalit ies and how they should be addressed. If they would like a copy of their labs they are welcome to request these and we will send a copy to them. If their labs and vitamin levels are adequate at 12 months then they will need lab checks every 6mth-12mth . They consent to understand this plan and agree to comply. Intentiona l weight loss 936293566 R63.8 History of gastrectomy 491618600 Z90.3 Advised qid intake 50% protein 6619-8092 calories/d y less than 100 carbs/dy Long discussion today of [employer] results including PBF(percen t body fat) SMM (skeletal muscle mass) Visceral fat level level BMR Segmental Fat Analysis and Segmental Lean Analysis. Encouraged pt to take minimal calories as per BMR and to anticipate changes in SMM and PBF values not just total weight. Follow-up with Repeat NIDHI in 3mth suggested Patient is status post bariatric surgery and at increased risk for vitamin deficienci es and malnutriti on. Bariatric vitamin panel ordered today. Patient will be contacted to correct any vitamin deficienci es. [facility] risk of nutritional deficit 552276270 Z91.89 Congestive heart failure 98611641 I50.9 Essential hypertension 64926069 I10 Hyperlipidemia 82520303 E78.5 Iron deficiency 27775246 E61.1 Prediabetes 565078330 R7 3.03 Vitamin D deficiency 347 47261 E55.9 [id number] Stanislaw Medeiros MD MV Nuria albrecht [facility] [address] [place] [address] 02/01/2025 10:36:27 02/01/2025 12:06:12 Osteoarthritis of right knee joint 2156400853 67462 M17.11 Primary go narthrosis, bilateral 995706762 M17.0 Osteoarthr itis of joint of right ankle and/or foot 2986880643 07314 M19.071 Health Concerns Section Related Observation LastModified by Organization Detai ls LastModified Time None Recorded Concern Status LastModified by Organization Details LastModified Time None Recorded Payers Encounter Date Sequence Insurance Name Policy Number Policy Finn Covered Member ID Finn Member ID Guarantor Name 02/01/[address] [facility] - DUAL COMPLETE - DUAL ELIGIBLE - [place] (MEDICARE-MEDI CAID REPLACEMENT HMO) [id number] Addy Alix [id number] Addy Thomson Notes Date Note Type Note Provider Name and Address Organization Details Recorded Time 02/01/2025 text/html This 59 year old male patient presents in the office today for RIGHT knee pain that has been ongoing for over 1 week. He denies injury. He describes aching sensation to the RIGHT knee and has been taking tylenol as needed. We are getting x-rays of the RIGHT knee. He also is here for follow up post injections to LEFT knee and RIGHT ankle that he reports was effective in relieving his pain. CHE1 Stanislaw Medeiros MD [address] [place] [address],[address], [place], [address], [place] [facility] - [place] & [place] 02/02/2025 07:56:15
--- OUTSIDE RECORDS SUMMARY | 2025-02-24 09:48 | XMS_ITS | Data Portability ---
Author Organization [facility] ADMIN Address [address] [place] [id number] Care Team Providers Care Rustic Fence Builder Name Role Phone LANDEN IYER Primary Care Provider Assessment No assessment recorded. Plan of Treatment Reminders Order Date Submit Date Provider Last Modified By Organization Details Last Modified Time Details Appointments INJ ONLY 15 2024 01:00P M STACEY COYNE NP Not available Not available Not available OV EST 20 2024 09:20A M Ruddy Acharya, DNP, CLOTH WEIGHER, BONE COOKING OPERATOR-C Not available Not available Not available INJ ONLY 15 2024 09:15A M Stanislaw Medeiros MD Not available Not available Not available Lab vitamin D, 25-hydrox y, total, serum 2024 025 [email or web address] [facility], [address], [address], [place], [address], 01/31/2025 15:07:46 HbA1c (hemoglob in A1c), blood 2024 025 [email or web address] [facility], [address], [address], [place], [address], 01/31/2025 15:07:46 copper, serum or plasma 2024 025 [email or web address] [facility], [address], [address], [place], [address], 01/31/2025 15:07:45 selenium, quantitat jose, blood 2024 025 [email or web address] [facility], [address], [address], [place], [address], 01/31/2025 15:07:45 zinc, serum or plasma 2024 025 [facility], [address], [address], [place], [address], 01/31/2025 15:07:45 iron + TIBC + ferritin, serum 2024 025 [email or web address] [facility], [address], [address], [place], [address], 01/31/2025 15:07:45 folate, serum 2024 025 [facility], [address], [address], [place], [address], 01/31/2025 15:07:46 vitamin E, serum 2024 025 [email or web address] [facility], [address], [address], [place], [address], 01/31/2025 15:07:46 vitamin A (retinol) , serum 2024 025 [email or web address] [facility], [address], [address], [place], [address], 01/31/2025 15:07:46 prealbumi n, serum 2024 025 [email or web address] [facility], [address], [address], [place], [address], 01/31/2025 15:07:46 thiamine, QN, blood 2024 025 [email or web address] [facility], [address], [address], [place], [address], 01/31/2025 15:07:46 methylmal linh, QN, serum or plasma 2024 025 [email or web address] [facility], [address], [address], [place], [address], 01/31/2025 15:07:46 CBC w/ auto diff 2024 025 [email or web address] [facility], [address], [address], [place], [address], 01/31/2025 15:07:46 CMP, serum or plasma 2024 025 [email or web address] [facility], [address], [address], [place], [address], 01/31/2025 15:07:46 TSH + free T4, serum 2024 025 [email or web address] [facility], [address], [address], [place], [address], 01/31/2025 15:07:47 lipid panel, serum 2024 025 [email or web address] [facility], [address], [address], [place], [address], 01/31/2025 15:07:47 iron + TIBC + ferritin, serum 2024 025 DRAGAN [facility], [address], [address], [place], [address], 12/03/2024 03:37:23 folate, serum 2024 025 DRAGAN [facility], [address], [address], [place], [address], 12/03/2024 03:37:30 vitamin D, 25-hydrox y, total, serum 2024 025 DRAGAN [facility], [address], [address], [place], [address], 12/03/2024 03:37:32 HbA1c (hemoglob in A1c), blood 2024 025 DRAGAN [facility], [address], [address], [place], [address], 12/03/2024 03:37:29 copper, serum or plasma 2024 025 DRAGAN [facility], [address], [address], [place], [address], 12/03/2024 03:37:34 selenium, quantitat jose, blood 2024 025 DRAGAN [facility], [address], [address], [place], [address], 12/03/2024 03:37:37 zinc, serum or plasma 2024 025 DRAGAN [facility], [address], [address], [place], [address], 12/03/2024 03:37:35 vitamin E, serum 2024 025 DRAGAN [facility], [address], [address], [place], [address], 12/03/2024 03:37:28 vitamin A (retinol) , serum 2024 025 DRAGAN [facility], [address], [address], [place], [address], 12/03/2024 03:37:31 prealbumi n, serum 2024 025 DRAGAN [facility], [address], [address], [place], [address], 12/03/2024 03:37:36 thiamine, QN, blood 2024 025 DRAGAN [facility], [address], [address], [place], [address], 12/03/2024 03:37:33 methylmal linh, QN, serum or plasma 2024 025 MORAN [facility], [address], [address], [place], [address], 12/03/2024 03:37:33 CBC w/ auto diff 2024 025 DRAGAN [facility], [address], [address], [place], [address], 12/03/2024 03:37:25 CMP, serum or plasma 2024 025 MORAN [facility], [address], [address], [place], [address], 12/03/2024 03:37:26 TSH + free T4, serum 2024 025 MORAN [facility], [address], [address], [place], [address], 12/03/2024 03:37:24 lipid panel, serum 2024 025 MORAN [facility], [address], [address], [place], [address], 12/03/2024 03:37:27 Referral None recorded. Procedures None recorded. Surgeries None recorded. Imaging XR, knee 2024 025 calin [facility], [address] [place] [address] [place], [address], 02/03/2025 07:36:03 Medication Orders Kenalog 10 mg/mL suspensio n for injection 2024 025 Not available 02/03/2025 07:36:03 bupivacai ne HCl 0.5 % (5 mg/mL) injection solution 2024 025 Not available 02/03/2025 07:36:03 Kenalog 10 mg/mL suspensio n for injection 2024 025 Not available 02/03/2025 07:36:03 bupivacai ne HCl 0.5 % (5 mg/mL) injection solution 2024 025 Not available 02/03/2025 07:36:03 Kenalog 10 mg/mL suspensio n for injection 2023 [email or web address], [address], 01/24/2025 14:58:37 bupivacai ne HCl 0.5 % (5 mg/mL) injection solution 2023 [email or web address], [address], 01/24/2025 14:58:29 Kenalog 10 mg/mL suspensio n for injection 2023 025 [email or web address] Not available 01/24/2025 14:58:37 bupivacai ne HCl 0.5 % (5 mg/mL) injection solution 2023 025 [email or web address] Not available 01/24/2025 14:58:29 Patient TargetsNo targets recorded. Patient InstructionsNo instructions recorded. Reason for Referral None Reported. Results Created Date Observation Date Name Description Value Unit Range Abnormal Flag Note LastModifiedBy Organization Detail LastModifiedTime 11/26/19 25 11/27/2024 FE+TI BC+FE R iron bind.cap.(TI BC) 254 ug/dL 250-45 0 normal Not Available [facility] ([facility]) [address] [facility], [place], [address], 12/03/2024 03:37:23 11/26/19 25 11/27/2024 FE+TI BC+FE R UIBC 221 ug/dL 111-34 3 normal Not Available [facility] ([facility]) [address] [facility], [place], [address], 12/03/2024 03:37:23 11/26/19 25 11/27/2024 FE+TI BC+FE R iron 33 ug/dL 38-169 below low normal Not Available [facility] ([facility]) [address] [place], [address], 12/03/2024 03:37:23 11/26/19 25 11/27/2024 FE+TI BC+FE R iron saturation 13 % 15-55 below low normal Not Available [facility] ([facility]) [address] [place], [address], 12/03/2024 03:37:23 11/26/19 25 11/27/2024 FE+TI BC+FE R ferritin 154 NG/mL 30-400 normal Not Available [facility] ([facility]) [address] [place], [address], 12/03/2024 03:37:23 11/26/19 25 11/27/2024 TSH+F REE T4 TSH 2.920 uIU/m L 0.450- 4.500 normal Not Available [facility] ([facility]) [address] [place], [address], 12/03/2024 03:37:24 11/26/19 25 11/27/2024 TSH+F REE T4 T4,free(dire ct) 1.44 NG/dL 0.82-1 .77 normal Not Available [facility] ([facility]) [address] [place], [address], 12/03/2024 03:37:24 11/26/19 25 11/27/2024 CBC WITH DIFFE RENTI AL/PL ATELE T WBC 9.0 x10e3 /uL 3.4-10 .8 normal Not Available [facility] ([facility]) [address] [place], [address], 12/03/2024 03:37:25 11/26/19 25 11/27/2024 CBC WITH DIFFE RENTI AL/PL ATELE T RBC 5.49 x10e6 /uL 4.14-5 .80 normal Not Available [facility] ([facility]) [address] [place], [address], 12/03/2024 03:37:25 11/26/19 25 11/27/2024 CBC WITH DIFFE RENTI AL/PL ATELE T hemoglobin 15.4 g/dL 13.0-1 7.7 normal Not Available [facility] ([facility]) [address] [place], [address], 12/03/2024 03:37:25 11/26/19 25 11/27/2024 CBC WITH DIFFE RENTI AL/PL ATELE T hematocrit 48.5 % 37.5-5 1.0 normal Not Available [facility] ([facility]) [address] [place], [address], 12/03/2024 03:37:25 11/26/19 25 11/27/2024 CBC WITH DIFFE RENTI AL/PL ATELE T MCV 88 fL 79-97 normal Not Available [facility] ([facility]) [address] [place], [address], 12/03/2024 03:37:25 11/26/19 25 11/27/2024 CBC WITH DIFFE RENTI AL/PL ATELE T MCH 28.1 pg 26.6-3 3.0 normal Not Available [facility] ([facility]) [address] [place], [address], 12/03/2024 03:37:25 11/26/19 25 11/27/2024 CBC WITH DIFFE RENTI AL/PL ATELE T MCHC 31.8 g/dL 31.5-3 5.7 normal Not Available [facility] ([facility]) [address] [place], [address], 12/03/2024 03:37:25 11/26/19 25 11/27/2024 CBC WITH DIFFE RENTI AL/PL ATELE T RDW 13.4 % 11.6-1 5.4 Not Available [facility] ([facility]) [address] [facility], [place], [address], 12/03/2024 03:37:25 11/26/19 25 11/27/2024 CBC WITH DIFFE RENTI AL/PL ATELE T platelets 253 x10e3 /uL 150-45 0 normal Not Available [facility] ([facility]) [address] [facility], [place], [address], 12/03/2024 03:37:25 11/26/19 25 11/27/2024 CBC WITH DIFFE RENTI AL/PL ATELE T neutrophils 72 % not estab. normal Not Available [facility] ([facility]) [address] [facility], [place], [address], 12/03/2024 03:37:25 11/26/19 25 11/27/2024 CBC WITH DIFFE RENTI AL/PL ATELE T lymphs 19 % not estab. normal Not Available [facility] ([facility]) [address] [place], [address], 12/03/2024 03:37:25 11/26/19 25 11/27/2024 CBC WITH DIFFE RENTI AL/PL ATELE T monocytes 7 % not estab. normal Not Available [facility] ([facility]) [address] [place], [address], 12/03/2024 03:37:25 11/26/19 25 11/27/2024 CBC WITH DIFFE RENTI AL/PL ATELE T eos 2 % not estab. normal Not Available [facility] ([facility]) [address] [place], [address], 12/03/2024 03:37:25 11/26/19 25 11/27/2024 CBC WITH DIFFE RENTI AL/PL ATELE T basos 0 % not estab. normal Not Available [facility] ([facility]) [address] [facility], [place], [address], 12/03/2024 03:37:25 11/26/19 25 11/27/2024 CBC WITH DIFFE RENTI AL/PL ATELE T immature cells BONE COOKING OPERATOR Not Available [facility] ([facility]) [address] [place], [address], 12/03/2024 03:37:25 11/26/19 25 11/27/2024 CBC WITH DIFFE RENTI AL/PL ATELE T neutrophils (absolute) 6.4 x10e3 /uL 1.4-7. 0 normal Not Available [facility] ([facility]) [address] [place], [address], 12/03/2024 03:37:25 11/26/19 25 11/27/2024 CBC WITH DIFFE RENTI AL/PL ATELE T lymphs (absolute) 1.7 x10e3 /uL 0.7-3. 1 normal Not Available [facility] ([facility]) [address] [place], [address], 12/03/2024 03:37:25 11/26/19 25 11/27/2024 CBC WITH DIFFE RENTI AL/PL ATELE T monocytes(ab solute) 0.7 x10e3 /uL 0.1-0. 9 normal Not Available [facility] ([facility]) [address] [place], [address], 12/03/2024 03:37:25 11/26/19 25 11/27/2024 CBC WITH DIFFE RENTI AL/PL ATELE T eos (absolute) 0.2 x10e3 /uL 0.0-0. 4 normal Not Available [facility] ([facility]) [address] [place], [address], 12/03/2024 03:37:25 11/26/19 25 11/27/2024 CBC WITH DIFFE RENTI AL/PL ATELE T baso (absolute) 0.0 x10e3 /uL 0.0-0. 2 normal Not Available [facility] ([facility]) [address] [facility], [place], [address], 12/03/2024 03:37:25 11/26/19 25 11/27/2024 CBC WITH DIFFE RENTI AL/PL ATELE T immature granulocytes 0 % not estab. Not Available [facility] ([facility]) [address] [place], [address], 12/03/2024 03:37:25 11/26/19 25 11/27/2024 CBC WITH DIFFE RENTI AL/PL ATELE T immature grans (abs) 0.0 x10e3 /uL 0.0-0. 1 Not Available [facility] ([facility]) [address] [place], [address], 12/03/2024 03:37:25 11/26/19 25 11/27/2024 CBC WITH DIFFE RENTI AL/PL ATELE T NRBC BONE COOKING OPERATOR Not Available [facility] ([facility]) [address] [place], [address], 12/03/2024 03:37:25 11/26/19 25 11/27/2024 CBC WITH DIFFE RENTI AL/PL ATELE T hematology comments: BONE COOKING OPERATOR Not Available [facility] ([facility]) [address] [place], [address], 12/03/2024 03:37:25 11/26/19 25 11/27/2024 COMP. METAB OLIC PANEL (14) glucose 92 mg/dL 70-99 normal Not Available [facility] ([facility]) [address] [place], [address], 12/03/2024 03:37:26 11/26/19 25 11/27/2024 COMP. METAB OLIC PANEL (14) BUN 15 mg/dL 6-24 normal Not Available [facility] ([facility]) [address] [place], [address], 12/03/2024 03:37:26 11/26/19 25 11/27/2024 COMP. METAB OLIC PANEL (14) creatinine 0.72 mg/dL 0.76-1 .27 below low normal Not Available [facility] ([facility]) [address] [place], [address], 12/03/2024 03:37:26 11/26/19 25 11/27/2024 COMP. METAB OLIC PANEL (14) eGFR 106 mL/mi n/1.7 3 >59 normal Not Available [facility] ([facility]) [address] [place], [address], 12/03/2024 03:37:26 11/26/19 25 11/27/2024 COMP. METAB OLIC PANEL (14) BUN/creatini ne ratio 21 9-20 above high normal Not Available [facility] ([facility]) [address] [place], [address], 12/03/2024 03:37:26 11/26/19 25 11/27/2024 COMP. METAB OLIC PANEL (14) sodium 140 mmol/ L 134-14 4 normal Not Available [facility] ([facility]) [address] [place], [address], 12/03/2024 03:37:26 11/26/19 25 11/27/2024 COMP. METAB OLIC PANEL (14) potassium 3.7 mmol/ L 3.5-5. 2 normal Not Available [facility] ([facility]) [address] [place], [address], 12/03/2024 03:37:26 11/26/19 25 11/27/2024 COMP. METAB OLIC PANEL (14) chloride 97 mmol/ L 96-106 normal Not Available [facility] ([facility]) [address] [place], [address], 12/03/2024 03:37:26 11/26/19 25 11/27/2024 COMP. METAB OLIC PANEL (14) carbon dioxide, total 27 mmol/ L 20-29 normal Not Available [facility] ([facility]) [address] [place], [address], 12/03/2024 03:37:26 11/26/19 25 11/27/2024 COMP. METAB OLIC PANEL (14) calcium 9.3 mg/dL 8.7-10 .2 normal Not Available [facility] ([facility]) [address] [place], [address], 12/03/2024 03:37:26 11/26/19 25 11/27/2024 COMP. METAB OLIC PANEL (14) protein, total 7.3 g/dL 6.0-8. 5 normal Not Available [facility] ([facility]) [address] [place], [address], 12/03/2024 03:37:26 11/26/19 25 11/27/2024 COMP. METAB OLIC PANEL (14) albumin 4.3 g/dL 3.8-4. 9 normal Not Available [facility] ([facility]) [address] [place], [address], 12/03/2024 03:37:26 11/26/19 25 11/27/2024 COMP. METAB OLIC PANEL (14) globulin, total 3.0 g/dL 1.5-4. 5 Not Available [facility] ([facility]) [address] [place], [address], 12/03/2024 03:37:26 11/26/19 25 11/27/2024 COMP. METAB OLIC PANEL (14) bilirubin, total 0.8 mg/dL 0.0-1. 2 normal Not Available [facility] ([facility]) [address] [facility] [place], [address], 12/03/2024 03:37:26 11/26/19 25 11/27/2024 COMP. METAB OLIC PANEL (14) alkaline phosphatase 81 IU/L 44-121 normal Not Available [facility] ([facility]) [address] [facility] [place], [address], 12/03/2024 03:37:26 11/26/19 25 11/27/2024 COMP. METAB OLIC PANEL (14) AST (SGOT) 22 IU/L 0-40 normal Not Available [facility] ([facility]) [address] [place], [address], 12/03/2024 03:37:26 11/26/19 25 11/27/2024 COMP. METAB OLIC PANEL (14) ALT (SGPT) 23 IU/L 0-44 normal Not Available [facility] ([facility]) [address] [place], [address], 12/03/2024 03:37:26 11/26/19 25 11/27/2024 LIPID PANEL cholesterol, total 168 mg/dL 100-19 9 normal Not Available [facility] ([facility]) [address] [place], [address], 12/03/2024 03:37:27 11/26/19 25 11/27/2024 LIPID PANEL triglyceride s 183 mg/dL 0-149 above high normal Not Available [facility] ([facility]) [address] [place], [address], 12/03/2024 03:37:27 11/26/19 25 11/27/2024 LIPID PANEL HDL cholesterol 24 mg/dL >39 below low normal Not Available [facility] ([facility]) [address] [place], [address], 12/03/2024 03:37:27 11/26/19 25 11/27/2024 LIPID PANEL VLDL cholesterol trey 33 mg/dL 5-40 Not Available [facility] ([facility]) [address] [place], [address], 12/03/2024 03:37:27 11/26/19 25 11/27/2024 LIPID PANEL LDL chol calc ([facility]) 111 mg/dL 0-99 above high normal Not Available [facility] ([facility]) [address] [place], [address], 12/03/2024 03:37:27 11/26/19 25 11/27/2024 LIPID PANEL LDL calc comment: BONE COOKING OPERATOR Not Available [facility] ([facility]) [address] [place], [address], 12/03/2024 03:37:27 11/26/19 25 12/02/2024 VITAM IN E vitamin E(alpha tocopherol) 8.2 mg/L 7.0-25 .1 Not Available [facility] ([facility]) [address] [place], [address], 12/03/2024 03:37:28 11/26/19 25 12/02/2024 VITAM IN E vitamin E(gamma tocopherol) 0.8 mg/L 0.5-5. 5 Refer ence inter vals for alpha and gamma -toco phero l deter mined from [facility]ion Exami natio n Surve y, 2004- 2005. Indiv idual s with alpha -toco phero l level s less than 5.0 mg/L are consi dered vitam in E defic ient. Not Available [facility] ([facility]) [address] [place], [address], 12/03/2024 03:37:28 11/26/1911/27/2024 HEMOG LOBIN A1C hemoglobin A1C 5.8 % 4.8-5. 6 above high normal Predi abete s: 5.7 - 6.4 Diabe cecille: >6.4 Glyce rhona contr ol for adult s with diabe cecille: <7.0 Not Available [facility] ([facility]) [address] [facility], [place], [address], 12/03/2024 03:37:29 11/26/19 25 11/27/2024 FOLAT E (FOLI C ACID) , SERUM folate (folic acid), serum 9.0 NG/mL >3.0 normal A serum folat e michele ntrat ion of less than 3.1 ng/mL is consi dered to repre sent clini trey defic iency . Not Available [facility] ([facility]) [address] [facility], [place], [address], 12/03/2024 03:37:30 11/26/1912/02/2024 VITAM IN A, SERUM vitamin A 33.5 ug/dL 20.1-6 2.0 Refer ence inter vals for vitam in A deter mined from [facility] inter nal studi es. Indiv idual s with vitam in A less than 20 ug/dL are consi dered vitam in A defic ient and those with serum michele ntrat ions less than 10 ug/dL are consi dered sever yesenia defic ient. This test was devel oped and its perfo rmanc e marlys cteri stics deter mined by [facility]. It has not been clear ed or appro wendy by the Food and Drug Admin istra tion. Not Available [facility] ([facility]) [address] [facility], [place], [address], 12/03/2024 03:37:31 11/26/19 25 11/27/2024 VITAM IN D, 25-HY DROXY vitamin D, 25-hydroxy 47.8 NG/mL 30.0-1 00.0 Vitam in D defic iency has been defin ed by the Insti tute of Medic ine and an Endoc rine Socie ty pract ice guide line as a level of serum 25-OH vitam in D less than 20 ng/mL (1,2) . The Endoc rine Socie ty went on to [facility] er defin e vitam in D insuf ficie ncy as a level betwe en 21 and 29 ng/mL (2). 1. IOM (Inst itute of Medic ine). 2010. Dieta ry refer ence intak es for calci um and D. Baylee acosta [place]: [facility] . 2. Marcela argueta [place], Brigid packer [place], Jing off-F shyam i CARCAMO, et al. Evalu ation , treat ment, and preve ntion of vitam in D defic iency : an Endoc rine Socie ty clini trey pract ice guide line. JCEM. 2010; 96(7) :1911 -30. Not Available [facility] ([facility]) [address] [place], [address], 12/03/2024 03:37:32 11/26/19 25 12/01/2024 VITAM IN B1 (THIA MINE) , BLOOD vit. B1, whole blood 186.1 nmol/ L 66.5-2 00.0 Not Available [facility] ([facility]) [address] [place], [address], 12/03/2024 03:37:33 11/26/19 25 11/30/2024 METHY LMALO ARLETTE ACID, SERUM methylmaloni c acid, serum 134 nmol/ L 0-378 Not Available [facility] ([facility]) [address] [place], [address], 12/03/2024 03:37:33 11/26/19 25 11/29/2024 COPPE R, SERUM OR PLASM A copper, serum or plasma 114 ug/dL 69-132 Detec tion Limit = 5 Not Available [facility] ([facility]) [address] [place], [address], 12/03/2024 03:37:34 11/26/19 25 11/29/2024 ZINC, PLASM A OR SERUM zinc, plasma or serum 62 ug/dL 44-115 normal Detec tion Limit = 5 Not Available [facility] ([facility]) [address] [place], [address], 12/03/2024 03:37:35 11/26/19 25 11/27/2024 PREAL BUMIN prealbumin 16 mg/dL 10-36 Not Available [facility] ([facility]) [address] [place], [address], 12/03/2024 03:37:36 11/26/19 25 12/02/2024 SELEN IUM, BLOOD selenium, blood 126 ug/L 100-34 0 Detec tion Limit = 10 Not Available [facility] ([facility]) [address] [facility], [place], [address], 12/03/2024 03:37:37 01/25/20 25 01/25/2025 FE+TI BC+FE R iron bind.cap.(TI BC) 229 ug/dL 250-45 0 below low normal Not Available [facility] ([facility]) [address] [place], [address], 01/31/2025 16:14:00 01/25/20 25 01/25/2025 FE+TI BC+FE R UIBC 201 ug/dL 111-34 3 normal Not Available [facility] ([facility]) [address] [place], [address], 01/31/2025 16:14:00 01/25/20 25 01/25/2025 FE+TI BC+FE R iron 28 ug/dL 38-169 below low normal Not Available [facility] ([facility]) [address] [place], [address], 01/31/2025 16:14:00 01/25/20 25 01/25/2025 FE+TI BC+FE R iron saturation 12 % 15-55 below low normal Not Available [facility] ([facility]) [address] [place], [address], 01/31/2025 16:14:00 01/25/20 25 01/25/2025 FE+TI BC+FE R ferritin 148 NG/mL 30-400 normal Not Available [facility] ([facility]) [address] [place], [address], 01/31/2025 16:14:00 01/25/20 25 01/25/2025 TSH+F REE T4 TSH 2.470 uIU/m L 0.450- 4.500 normal Not Available [facility] ([facility]) [address] [place], [address], 01/31/2025 16:14:01 01/25/20 25 01/25/2025 TSH+F REE T4 T4,free(dire ct) 1.37 NG/dL 0.82-1 .77 normal Not Available [facility] ([facility]) [address] [place], [address], 01/31/2025 16:14:01 01/25/20 25 01/25/2025 CBC WITH DIFFE RENTI AL/PL ATELE T WBC 8.6 x10e3 /uL 3.4-10 .8 normal Not Available [facility] ([facility]) [address] [place], [address], 01/31/2025 16:14:02 01/25/20 25 01/25/2025 CBC WITH DIFFE RENTI AL/PL ATELE T RBC 5.17 x10e6 /uL 4.14-5 .80 normal Not Available [facility] ([facility]) [address] [place], [address], 01/31/2025 16:14:02 01/25/20 25 01/25/2025 CBC WITH DIFFE RENTI AL/PL ATELE T hemoglobin 14.2 g/dL 13.0-1 7.7 normal Not Available [facility] ([facility]) [address] [place], [address], 01/31/2025 16:14:02 01/25/20 25 01/25/2025 CBC WITH DIFFE RENTI AL/PL ATELE T hematocrit 44.5 % 37.5-5 1.0 normal Not Available [facility] ([facility]) [address] [place], [address], 01/31/2025 16:14:02 01/25/20 25 01/25/2025 CBC WITH DIFFE RENTI AL/PL ATELE T MCV 86 fL 79-97 normal Not Available [facility] ([facility]) [address] [place], [address], 01/31/2025 16:14:02 01/25/20 25 01/25/2025 CBC WITH DIFFE RENTI AL/PL ATELE T MCH 27.5 pg 26.6-3 3.0 normal Not Available [facility] ([facility]) [address] [place], [address], 01/31/2025 16:14:02 01/25/20 25 01/25/2025 CBC WITH DIFFE RENTI AL/PL ATELE T MCHC 31.9 g/dL 31.5-3 5.7 normal Not Available [facility] ([facility]) [address] [place], [address], 01/31/2025 16:14:02 01/25/20 25 01/25/2025 CBC WITH DIFFE RENTI AL/PL ATELE T RDW 14.3 % 11.6-1 5.4 Not Available [facility] ([facility]) [address] [place], [address], 01/31/2025 16:14:02 01/25/20 25 01/25/2025 CBC WITH DIFFE RENTI AL/PL ATELE T platelets 265 x10e3 /uL 150-45 0 normal Not Available [facility] ([facility]) [address] [place], [address], 01/31/2025 16:14:02 01/25/20 25 01/25/2025 CBC WITH DIFFE RENTI AL/PL ATELE T neutrophils 71 % not estab. normal Not Available [facility] ([facility]) [address] [facility], [place], [address], 01/31/2025 16:14:02 01/25/20 25 01/25/2025 CBC WITH DIFFE RENTI AL/PL ATELE T lymphs 19 % not estab. normal Not Available [facility] [facility] [address] [place], [address], 01/31/2025 16:14:02 01/25/20 25 01/25/2025 CBC WITH DIFFE RENTI AL/PL ATELE T monocytes 7 % not estab. normal Not Available [facility] ([facility]) [address] [place], [address], 01/31/2025 16:14:02 01/25/20 25 01/25/2025 CBC WITH DIFFE RENTI AL/PL ATELE T eos 2 % not estab. normal Not Available [facility] ([facility]) [address] [place], [address], 01/31/2025 16:14:02 01/25/20 25 01/25/2025 CBC WITH DIFFE RENTI AL/PL ATELE T basos 1 % not estab. 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 0 normal Not Available [facility] ([facility]) [address] [facility], [place], [address], 01/31/2025 16:14:02 01/25/20 25 01/25/2025 CBC WITH DIFFE RENTI AL/PL ATELE T lymphs (absolute) 1.6 x10e3 /uL 0.7-3. 1 normal Not Available [facility] ([facility]) [address] [facility], [place], [address], 01/31/2025 16:14:02 01/25/20 25 01/25/2025 CBC WITH DIFFE RENTI AL/PL ATELE T monocytes(ab solute) 0.6 x10e3 /uL 0.1-0. 9 normal Not Available [facility] ([facility]) [address] [place], [address], 01/31/2025 16:14:02 01/25/20 25 01/25/2025 CBC WITH DIFFE RENTI AL/PL ATELE T eos (absolute) 0.2 x10e3 /uL 0.0-0. 4 normal Not Available [facility] ([facility]) [address] [facility], [place], [address], 01/31/2025 16:14:02 01/25/20 25 01/25/2025 CBC WITH DIFFE RENTI AL/PL ATELE T baso (absolute) 0.0 x10e3 /uL 0.0-0. 2 normal Not Available [facility] ([facility]) [address] [place], [address], 01/31/2025 16:14:02 01/25/20 25 01/25/2025 CBC WITH DIFFE RENTI AL/PL ATELE T immature granulocytes 0 % not estab. Not Available [facility] ([facility]) [address] [facility], [place], [address], 01/31/2025 16:14:02 01/25/20 25 01/25/2025 CBC WITH DIFFE RENTI AL/PL ATELE T immature grans (abs) 0.0 x10e3 /uL 0.0-0. 1 Not Available [facility] ([facility]) [address] [facility], [place], [address], 01/31/2025 16:14:02 01/25/20 25 01/25/2025 CBC WITH DIFFE RENTI AL/PL ATELE T NRBC BONE COOKING OPERATOR Not Available [facility] ([facility]) [address] [facility], [place], [address], 01/31/2025 16:14:02 01/25/20 25 01/25/2025 CBC WITH DIFFE RENTI AL/PL ATELE T hematology comments: BONE COOKING OPERATOR Not Available [facility] ([facility]) [address] [facility], [place], [address], 01/31/2025 16:14:02 01/25/20 25 01/25/2025 COMP. METAB OLIC PANEL (14) glucose 88 mg/dL 70-99 normal Not Available [facility] ([facility]) [address] [facility], [place], [address], 01/31/2025 16:14:04 01/25/20 25 01/25/2025 COMP. METAB OLIC PANEL (14) BUN 13 mg/dL 6-24 normal Not Available [facility] ([facility]) [address] [facility], [place], [address], 01/31/2025 16:14:04 01/25/20 25 01/25/2025 COMP. METAB OLIC PANEL (14) creatinine 0.64 mg/dL 0.76-1 .27 below low normal Not Available [facility] ([facility]) [address], [place], [address], 01/31/2025 16:14:04 01/25/20 25 01/25/2025 COMP. METAB OLIC PANEL (14) eGFR 110 mL/mi n/1.7 3 >59 normal Not Available [facility] ([facility]) [address], [place], [address], 01/31/2025 16:14:04 01/25/20 25 01/25/2025 COMP. METAB OLIC PANEL (14) BUN/creatini ne ratio 20 9-20 normal Not Available [facility] ([facility]) [address] [facility], [place], [address], 01/31/2025 16:14:04 01/25/20 25 01/25/2025 COMP. METAB OLIC PANEL (14) sodium 142 mmol/ L 134-14 4 normal Not Available [facility] ([facility]) [address] [facility], [place], [address], 01/31/2025 16:14:04 01/25/20 25 01/25/2025 COMP. METAB OLIC PANEL (14) potassium 3.4 mmol/ L 3.5-5. 2 below low normal Not Available [facility] ([facility]) [address] [facility], [place], [address], 01/31/2025 16:14:04 01/25/20 25 01/25/2025 COMP. METAB OLIC PANEL (14) chloride 100 mmol/ L 96-106 normal Not Available [facility] ([facility] [place] [facility]) [address] [place], [address], 01/31/2025 16:14:04 01/25/20 25 01/25/2025 COMP. METAB OLIC PANEL (14) carbon dioxide, total 28 mmol/ L 20-29 normal Not Available [facility] ([facility]) [address] [place], [address], 01/31/2025 16:14:04 01/25/20 25 01/25/2025 COMP. METAB OLIC PANEL (14) calcium 8.8 mg/dL 8.7-10 .2 normal Not Available [facility] ([facility]) [address] [facility], [place], [address], 01/31/2025 16:14:04 01/25/20 25 01/25/2025 COMP. METAB OLIC PANEL (14) protein, total 6.5 g/dL 6.0-8. 5 normal Not Available [facility] ([facility]) [address] [facility] [place], [address], 01/31/2025 16:14:04 01/25/20 25 01/25/2025 COMP. METAB OLIC PANEL (14) albumin 4.0 g/dL 3.8-4. 9 normal Not Available [facility] ([facility]) [address] [place], [address], 01/31/2025 16:14:04 01/25/20 25 01/25/2025 COMP. METAB OLIC PANEL (14) globulin, total 2.5 g/dL 1.5-4. 5 Not Available [facility] ([facility]) [address] [facility], [place], [address], 01/31/2025 16:14:04 01/25/20 25 01/25/2025 COMP. METAB OLIC PANEL (14) bilirubin, total 0.7 mg/dL 0.0-1. 2 normal Not Available [facility] ([facility]) [address] [place], [address], 01/31/2025 16:14:04 01/25/20 25 01/25/2025 COMP. METAB OLIC PANEL (14) alkaline phosphatase 76 IU/L 44-121 normal Not Available [facility] ([facility]) [address] [place], [address], 01/31/2025 16:14:04 03/31/20 25 01/25/2025 COMP. METAB OLIC PANEL (14) AST (SGOT) 24 IU/L 0-40 normal Not Available [facility] ([facility]) [address] [place], [address], 01/31/2025 16:14:04 01/25/20 25 01/25/2025 COMP. METAB OLIC PANEL (14) ALT (SGPT) 20 IU/L 0-44 normal Not Available [facility] ([facility]) [address] [place], [address], 01/31/2025 16:14:04 01/25/20 25 01/25/2025 LIPID PANEL cholesterol, total 147 mg/dL 100-19 9 normal Not Available [facility] ([facility]) [address] [place], [address], 01/31/2025 16:14:05 01/25/20 25 01/25/2025 LIPID PANEL triglyceride s 168 mg/dL 0-149 above high normal Not Available [facility] ([facility]) [address] [place], [address], 01/31/2025 16:14:05 01/25/20 25 01/25/2025 LIPID PANEL HDL cholesterol 21 mg/dL >39 below low normal Not Available [facility] ([facility]) [address] [place], [address], 01/31/2025 16:14:05 01/25/20 25 01/25/2025 LIPID PANEL VLDL cholesterol trey 30 mg/dL 5-40 Not Available [facility] ([facility]) [address] [place], [address], 01/31/2025 16:14:05 01/25/20 25 01/25/2025 LIPID PANEL LDL chol calc ([facility]) 96 mg/dL 0-99 Not Available [facility] ([facility]) [address] [place], [address], 01/31/2025 16:14:05 01/25/20 25 01/25/2025 LIPID PANEL LDL calc comment: BONE COOKING OPERATOR Not Available [facility] ([facility]) [address] [facility], [place], [address], 01/31/2025 16:14:05 01/25/20 25 01/27/2025 VITAM IN E vitamin E(alpha tocopherol) 7.9 mg/L 7.0-25 .1 Not Available [facility] ([facility]) [address] [facility], [place], [address], 01/31/2025 16:14:06 01/25/20 25 01/27/2025 VITAM IN E vitamin E(gamma tocopherol) 0.8 mg/L 0.5-5. 5 Refer ence inter vals for alpha and gamma -toco phero l deter mined from [facility] and Nutri tion Exami natio n Surve y, 2004- 2005. Indiv idual s with alpha -toco phero l level s less than 5.0 mg/L are consi dered vitam in E defic ient. Not Available [facility] ([facility]) [address] [facility], [place], [address], 01/31/2025 16:14:06 01/25/20 25 01/25/2025 HEMOG LOBIN A1C hemoglobin A1C 5.8 % 4.8-5. 6 above high normal Predi abete s: 5.7 - 6.4 Diabe cecille: >6.4 Glyce rhona contr ol for adult s with diabe cecille: <7.0 Not Available [facility] ([facility]) [address] [facility], [place], [address], 01/31/2025 16:14:07 01/25/20 25 01/25/2025 FOLAT E (FOLI C ACID) , SERUM folate (folic acid), serum 12.2 NG/mL >3.0 normal A serum folat e michele ntrat ion of less than 3.1 ng/mL is consi dered to repre sent clini trey defic iency . Not Available [facility] ([facility]) [address] [facility], [place], [address], 01/31/2025 16:14:09 01/25/20 25 01/27/2025 VITAM IN A, SERUM vitamin A 29.2 ug/dL 20.1-6 2.0 Refer ence inter vals for vitam in A deter mined from [facility] inter nal studi es. Indiv idual s with vitam in A less than 20 ug/dL are consi dered vitam in A defic ient and those with serum michele ntrat ions less than 10 ug/dL are consi dered sever yesenia defic ient. This test was devel oped and its perfo rmanc e marlys cteri stics deter mined by [facility]. It has not been clear ed or appro wendy by the Food and Drug Admin istra tion. Not Available [facility] ([facility]) [address] [facility], [place], [address], 01/31/2025 16:14:10 01/25/20 25 01/25/2025 VITAM IN D, 25-HY DROXY vitamin D, 25-hydroxy 41.5 NG/mL 30.0-1 00.0 Vitam in D defic iency has been defin ed by the Insti tute of Medic ine and an Endoc rine Socie ty pract ice guide line as a level of serum 25-OH vitam in D less than 20 ng/mL (1,2) . The Endoc rine Socie ty went on to furth er defin e vitam in D insuf ficie ncy as a level betwe en 21 and 29 ng/mL (2). 1. IOM (Inst itute of Medic ine). 2009. Dieta ry refer ence intak es for calci um and D. Baylee acosta [place]: The Natio nal [facility] Press . 2. Marcela argueta MF, Brigid ey [place], Jing off-F errar i CARCAMO, et al. Evalu ation , treat ment, and preve ntion of vitam in D defic iency : an Endoc rine Socie ty clini trey pract ice guide line. JCEM. 2010; 96(7) :1911 -30. Not Available [facility] ([facility]) [address] [facility], [place], [address], 01/31/2025 16:14:11 01/25/20 25 01/27/2025 VITAM IN B1 (THIA MINE) , BLOOD vit. B1, whole blood 192.8 nmol/ L 66.5-2 00.0 Not Available [facility] ([facility]) [address] [place], [address], 01/31/2025 16:14:12 01/25/20 25 01/31/2025 METHY LMALO ARLETTE ACID, SERUM methylmaloni c acid, serum 164 nmol/ L 0-378 Not Available [facility] ([facility]) [address] [place], [address], 01/31/2025 16:14:13 01/25/20 25 01/28/2025 COPPE R, SERUM OR PLASM A copper, serum or plasma 107 ug/dL 69-132 Detec tion Limit = 5 Not Available [facility] ([facility]) [address] [place], [address], 01/31/2025 16:14:14 01/25/20 25 01/28/2025 ZINC, PLASM A OR SERUM zinc, plasma or serum 47 ug/dL 44-115 normal Detec tion Limit = 5 Not Available [facility] ([facility]) [address] [place], [address], 01/31/2025 16:14:15 01/25/20 25 01/25/2025 PREAL BUMIN prealbumin 14 mg/dL 10-36 Not Available [facility] ([facility]) [address] [place], [address], 01/31/2025 16:14:16 01/25/20 25 01/26/2025 SELEN IUM, BLOOD selenium, blood 137 ug/L 100-34 0 Detec tion Limit = 10 Not Available [facility] ([facility]) [address], [place], [address], 01/31/2025 16:14:18 02/02/20 25 XR, knee No observ ation record ed. DRAGAN [facility] [address] [facility] , [place], [address], 02/01/2025 11:40:02 Result Notes None recorded. Problems Name Problem SNOMED Code Status Onset Date Resolution Date Notes Provider Name and Address Organization Details Recorded Time Postoperat jose pain 937341978 Active 2023 MARIANA Rosen [address], [place], [address] , [place] [facility] [place] 4 09:18:44 Cyst of scalp 039994493 Active 2021 Chela Korin null, [place] [facility] [place] 3 14:04:29 Mass of subcutaneo us tissue 2781098041524 9102 Active 2021 Chela [place] [facility] [place] 3 14:04:29 Morbid obesity 055930298 Active 2018 Chel[place] [facility] [place] 3 14:04:00 Unintentio nal weight gain 4698387353792 04 Active 2022 Chela [place] [facility] [place] 3 14:04:29 Disorder of function of stomach 450851758 Active 2022 Chela Calvinis [place] [facility] [place] 3 14:04:29 Hyperlipid emia 65804624 Active 2022 Chela [place]angle[place] [facility] [place] 3 14:04:29 Essential hypertensi on 43210665 Active 2019 Chela [place] [facility] [place] 3 14:04:01 Pain in bilateral legs 2073214432364 9108 Active 2022 Chela [place] [facility] [place] 3 14:04:29 Congestive heart failure 34569338 Active 2021 Chela [place] [facility] [place] 3 14:04:01 Long-term current use of anticoagul ant 170434812 Active 2022 Chela [place] [facility] [place] 3 14:04:30 Degenerati on of lumbar interverte bral disc 27796908 Active 2021 Chela [place]angle[place] null, [place] [facility] [place] 3 14:04:00 Compressio n of lumbar nerve root 003177088 Active 2021 Chela [place] [facility] [place] 3 14:04:00 Hypertensi ve disorder 58420415 Active 2018 Chela [place] [facility] [place] 3 14:04:01 History of cardiac catheteriz ation 4922660040010 0 Active Chela [place] [facility] [place] 3 14:04:01 Prediabete s 768367974 Active 2021 Chela [place] [facility] [place] 3 14:04:01 Iron deficiency 49188096 Active 2022 Chela [place] [facility] [place] 3 14:04:29 Vitamin D deficiency 54802156 Active 2022 Chela [place] [facility] [place] 3 14:04:29 Preinfarct ion syndrome 9265119 Active Chela [place] [facility] [place] 3 14:04:29 Migraine 39236365 Active 2022 Chela murray, [facility] & [place] 3 14:04:29 Notes:Some problems listed i n Documents: #[id number], #[id number], #[id number] could not be added to this patient's chart. Please review these documents and add these problems to the patient's chart manually as needed. Problem Notes None recorded. Procedures Surgical History Date Name Laterality Status Provider Name and Address Organization Details Recorded Time cardiac catheterization completed R obin [facility] & [place] 3 08:15:10 Other completed Ruddy Acharya, DNP, CLOTH WEIGHER, BONE COOKING OPERATOR-C [address], [place], [address] , [facility] & [place] 3 10:33:42 esophagogastroduodenoscopy completed Sonia Jensen [facility] & [place] 4 10:05:16 Colonoscopy completed Sonia Jensen [facility] & [place] 4 10:05:25 procedure on duodenum completed Bandar in [facility] & [place] 4 08:12:56 Imaging Results Imaging Date Name Status LastModified by Organiz ation Details LastModified Time 02/01/2025 XR, knee completed [facility] [address] [place] [address] , [place], [address], 02/01/2025 11:40:02 Procedure Notes None recorded. Medical [...] Not Available Not Available Not Available cholecalcif colvis (vitamin D3) 1,250 mcg (50,000 unit) capsule [...] Not Available Not Available Not Available Vitals Date Recorded Body height Body mass index (BMI) Body weight Body temperature Heart rate Systolic blood pressure Diastolic blood pressure Provider Name and Address Organization Details Last Updated DateTime 5 180.34 cm 51.3 kg/m2 746600. 99 g 99.1 [degF] 78 /min 148 mm[Hg] 85 mm[Hg] Marleni AMADOR [facility] & [place] 5 14:25:10 Date Recorded Body height Body temperature Heart rate Body mass index (BMI) Body weight Systolic blood pressure Diastolic blood pressure Provider Name and Address Organization Details Last Updated DateTime 5 180.34 cm 97.8 [degF] 57 /min 48.5 kg/m2 694759. 71 g 133 mm[Hg] 83 mm[Hg] Marleni AMADOR [facility] & [place] 5 15:00:25 Social History Question Answer Notes LastModified by Organizat ion Details LastModified Time Tobacco Smoking Status Former Smoker PERRY Lewis [facility] & [place] 04/11/2023 08:53:09 Do You Have An Advance [...] Anxious, Or Unable To Sleep At Night)? [id number] Information not available 04/11/2023 Do You Use [...] Y Reflux/GERD Y High Cholesterol Y Heart Disease Y Heart Attack ([place]) Y Headaches Y Obstructive Sleep Apnea Y Hypertension Y Immunizations Vaccine Type Date Status Note Provider Nam e and Address Organization Details Recorded Time Influenza, split virus, quadrivalent, preservative 0 completed Chela murray, PERR[facility] - [facility] [place] & [place] 10/13/2023 14:04:35 Influenza, split virus, quadrivalent, preservative 2 completed Chela murray, PERR[facility] - [facility] - [place] & [place] 10/13/2023 14:04:35 Past Encounters Encounter ID Performer Location Encounter Start Date Encounter Closed Date Diagnosis/Indication Diagnosis SNOMED-CT Code Diagnosis ICD10 Code Diagnosis Note [id number] MD GABI [facility] [address] [place] [address] 09/02/2022 13:24:44 09/02/2022 14:19:15 Cyst of scalp 272855842 L72.9 57-year-ol d male with 2 scalp cysts that he would like to have removed. I have reviewed the procedure with him including the risks, benefits, complicati ons and alternativ es. He had an opportunit y to ask questions have them answered. He is scheduled for an office surgery next week for removal of these. [id number] MD GABI [facility] [address] [place] [address],[address] [address] 09/09/2022 09:20:57 09/09/2022 09:49:42 Mass of subcutaneous tissue 4222185747 0999845 R22.9 patient was taken the procedure room and placed in the beach chair position. The hair over the left-sided scalp lesion was clipped and then both lesions were prepped with Betadine and draped with a fenestrate d drape. 1% lidocaine with epinephrin e was instilled for local anesthesia . Attention was turned to the left-sided lesion 1st. Incision was made over the lesion and this was carried down into the subcutaneo us tissue and the lesion was excised intact and was consistent with a pilar cyst. Skin was closed with 4 0 nylon vertical mattress sutures. Attention was then turned to the right-side d lesion which was anesthetiz ed in a similar fashion. Incision was made over this was carried down to the lesion. It was clearly be multi lobular and with careful sharp and blunt dissection it was dissected free along with a small ellipse of overlying skin. skin was then closed with 4 0 nylon vertical mattress sutures. Both specimens were placed in individual containers and were sent to pathology for evaluation . incisions were covered with antibiotic ointment. Postproced ure instructio ns were discussed with the patient. He is to call for seen problems otherwise follow-up in a week for suture removal and review of pathology. Cyst of scalp 245036038 L72.9 57-year-ol d male with 2 scalp cysts that he would like to have removed. I have reviewed the procedure with him including the risks, benefits, complicati ons and alternativ es. He had an opportunit y to ask questions have them answered. He is scheduled for an office surgery next week for removal of these. [id number] MD GABI [facility]ones [facility] [address] [facility] [address] [place] [address] 09/16/2022 09:56:17 09/16/2022 10:04:32 Postoperative visit [id number] Z09 57-year-ol d male here for 1st postoperat jose visit. Incisions are well-heale d sutures removed. Pathology showed pilar cyst. I told him these were benign and nothing to worry about follow-up as needed. [id number] Ruddy Acharya, DNP, CLOTH WEIGHER, BONE COOKING OPERATOR-C [facility] [address] [facility] [address] [facility] [place] [address] 01/02/2023 07:50:08 01/02/2023 12:22:27 Obesity 593968121 E66.9 The patient will be scheduled for the following. Initial intake lab work, cardiac clearance, and EGD. All risks complicati ons and alternativ es of the upper endoscopy were discussed with the patient and agreed upon. These include but are not limited to, over sedation, bleeding, perforatio n. Patient will be educated by the surgical weight loss team regarding if any medical managed weight loss will be required and they will follow this according to their recommenda tions. patient will follow-up in office after all testing has been completed Disorder o f function of stomach 650682818 K31.89 Morbid obesity 186160128 E66.01 Unintentio nal weight gain 1391006276 71260 R63.5 Congestive heart failure 12462234 I50.9 Essential hypertension 67229125 I10 Hyperlipidemia 58056472 E78.5 Pain in bi lateral legs 5746580945 6849114 M79.604 Long-term current use of anticoagulant 675778888 Z79.01 [id number] MD GABI Elder [facility] [address] [place] [address] 01/09/2023 07:59:23 01/09/2023 09:12:06 Pain of right ankle joint 6595019539 8444743 M25.571 Localized, primary osteoarthritis of the ankle and/or foot 158230244 M19.079 [id number] [facility] [address] [place] [address] 9 04/11/2023 08:41:20 04/11/2023 09:14:48 Localized, primary osteoarthritis of the ankle and/or foot 874587308 M19.079 Osteoarthr itis of left knee joint 2387224147 19340 M17.12 [id number] [facility] [address] [place] [address] 9 07/14/2023 13:21:01 07/14/2023 14:48:05 Localized, primary osteoarthritis of the ankle and/or foot 138738120 M19.079 Osteoarthr itis of left knee joint 3439374975 44925 M17.12 [id number] [facility] [address] [place] [address] 9 10/13/2023 13:44:44 10/13/2023 14:33:08 Localized, primary osteoarthritis of the ankle and/or foot 458461084 M19.079 Osteoarthr itis of left knee joint 5631968011 30392 M17.12 Impingemen t syndrome of left shoulder region 0657399118 65218 M75.42 [id number] MD GABI [facility] [place] [address] 9 11/10/2023 12:52:48 11/10/2023 13:46:16 Cervical radiculitis 88859912 M54.12 [id number] [facility] [address] [place] [address] 9 01/01/2024 08:58:27 01/01/2024 09:35:17 Pain of left shoulder joint 4396429758 3551738 M25.512 Shoulder g irdle weakness 196468587 M99.07 Injury of left shoulder 1961366470 0411275 S49.92XD [id number] [facility] [address] [place] [address] 9 01/12/2024 13:50:12 01/12/2024 14:15:53 Localized, primary osteoarthritis of the ankle and/or foot 965684834 M19.079 Osteoarthr itis of left knee joint 2552728006 47097 M17.12 [id number] [facility] [address] [place] [address] 04/12/2024 13:57:44 04/12/2024 14:31:31 Localized, primary osteoarthritis of the ankle and/or foot 069430239 M19.079 Osteoarthr itis of left knee joint 0849648621 15612 M17.12 [id number] Ruddy Acharya, DNP, CLOTH WEIGHER, BONE COOKING OPERATOR-C [facility] [address] [facility] [address] [place] [address] 05/07/2024 09:59:25 05/07/2024 11:48:13 Congestive heart failure 49460906 I50.9 Essential hypertension 15692004 I10 Hyperlipidemia 40010230 E78.5 Iron deficiency 20769653 E61.1 Long-term current use of anticoagulant 485189304 Z79.01 Prediabetes 797231553 R7 3.03 Vitamin D deficiency 347 06457 E55.9 Morbid obesity 894749729 E66.01 The patient will be scheduled for the following. Initial intake lab work, cardiac clearance, pulmonary clearance, and EGD. All risks complicati ons and alternativ es of the upper endoscopy were discussed with the patient and agreed upon. These include but are not limited to, over sedation, bleeding, perforatio n.Patient will be educated by the surgical weight loss team regarding if any medical managed weight loss will be required and they will follow this according to their recommenda tions. I spent a total of [ 15 ] minutes during this real-time clinical encounter started at [ 1005 ] and ended at [ 1020 ]. Consent was obtained to engage in telehealth service. Greater than 50% of the time spent was devoted to counseling and coordinati ng care including review of patient record, patient lab data and studies as well as discussing diagnostic evaluation and workup, planned therapeuti c interventi on and further dispositio n of care. This include any additional research needed to obtain further informatio n in formulatin g the plan of care for this patient. This includes counseling the patient about their disease and diagnosis, specifical ly as above. The patient was also counseled on the precaution for COVID-19 including importance of hand washing and social distancing . Unintentio nal weight gain 9869612028 04975 R63.5 Pre-surger y evaluation 242093626 Z01.818 Disorder o f function of stomach 642651352 K31.89 [id number] Stanislaw Medeiros MD [facility] [address] [place] [address] 07/13/2024 08:04:01 07/13/2024 08:29:55 Localized, primary osteoarthritis of the ankle and/or foot 267204536 M19.079 Osteoarthr itis of left knee joint 5243659183 01683 M17.12 [id number] Jamee Ware M.D [facility] [address] [place] [address] 09/21/2024 12:50:34 09/21/2024 13:40:37 Preoperative pulmonary examination 073153674 Z01.811 Morbid obesity 358252259 E66.01 Obstructiv e sleep apnea of adult 5537199060 103 G47.33 [id number] VIRIDIANA ANGEL MD [facility] [address] [facility] [address] [place] [address] 10/13/2024 07:46:27 10/13/2024 14:13:28 Essential hypertension 38475465 I10 Congestive heart failure 03337305 I50.9 Morbid obesity 056124113 E66.01 Pre-surger y evaluation 117207333 Z01.818 Postoperative pain 19498 9007 G89.18 Patient will continue Lyrica for postoperat jose pain.Lisa gonzalez also has hydrocodon e 7.5/325 mg prescribed b.i.d. Prophylact ic anticoagulation given 4635529053 57520 Z76.89 Patient is on chronic anticoagul ation Plavix for CAD/PTCA. Patient will stop this 5-7 days prior to surgery and resume postop day 2 to further help prevent DVT due to BMI being greater than 50. They understand the risk of bleeding and will be educated on how to administer this during their hospital stay. They are instructed this is to start once they are discharged from the hospital. [id number] HALLEY ANTONIO [facility] [address] [place] [address] 12/06/2024 12:54:18 12/06/2024 13:37:13 Localized, primary osteoarthritis of the ankle and/or foot 452618570 M19.079 Osteoarthr itis of left knee joint 3152959355 36645 M17.12 [id number] Ruddy Acharya, DNP, CLOTH WEIGHER, BONE COOKING OPERATOR-C [facility] [address] [facility] [address] [place] [address] 10/26/2024 07:59:19 10/26/2024 10:06:20 History of bariatric surgical procedure 255266490 Z98.84 The patient is doing well. The [...] choose to have them drawn at another [facility] they are to make sure that [...] understand this plan and agree to comply. Essential hypertension 00015424 I10 Hyperlipidemia 57749441 E78.5 Iron deficiency 47914229 E61.1 Congestive heart failure 72596570 I50.9 Prediabetes 473266468 R7 3.03 Vitamin D deficiency 347 58529 E55.9 Morbid obesity 476811161 E66.01 [id number] Ruddy Acharya, DNP, CLOTH WEIGHER, BONE COOKING OPERATOR-C [facility] [address] [facility] [place] [address] 11/26/2024 13:44:01 11/26/2024 14:56:49 History of bariatric surgical procedure 969939550 Z98.84 The patient is doing well. The [...] choose to have them drawn at another [facility] they are to make sure that [...] agree to comply. Intentiona l weight loss 668672949 R63.8 History of gastrectomy 058558972 Z90.3 Advised qid intake 50% protein 0020-6814 calories/d y less than 100 carbs/dy Long [...] to correct any vitamin deficienci es. At [facility] risk of nutritional deficit 733198225 Z91.89 Congestive heart failure 71581504 I50.9 Essential hypertension 06912584 I10 Hyperlipidemia 14899461 E78.5 Iron deficiency 60788584 E61.1 Vitamin D deficiency 347 92640 E55.9 Prediabetes 474054290 R7 3.[id number], LD [facility] [address] [facility] [address] [place] [address] 11/26/2024 14:50:10 11/26/2024 15:15:57 Morbid obesity 837257092 E66.01 BMI 51.3 wt loss 17.6# [id number] Ruddy Acharya, DNP, CLOTH WEIGHER, BONE COOKING OPERATOR-C [facility] [address] [facility] [address] [place] [address] 01/24/2025 14:45:59 01/24/2025 15:26:50 History of bariatric surgical procedure 030546879 Z98.84 The patient is doing well. The [...] choose to have them drawn at another institutio n they are to make sure that the [...] agree to comply. Intentiona l weight loss 731728819 R63.8 History of gastrectomy 112369486 Z90.3 Advised qid intake 50% protein 3685-1337 calories/d y less than 100 carbs/dy Long [...] to correct any vitamin deficienci es. At [facility] risk of nutritional deficit 668847530 Z91.89 Congestive heart failure 30439851 I50.9 Essential hypertension 39853004 I10 Hyperlipidemia 48169838 E78.5 Iron deficiency 35751226 E61.1 Prediabetes 663532880 R7 3.03 Vitamin D deficiency 347 11077 E55.9 [id number] MD GABI Elder [address] [address] 02/01/2025 10:36:27 02/01/2025 12:06:12 Osteoarthritis of right knee joint 9335923606 41281 M17.11 Primary go narthrosis, bilateral 586972127 M17.0 Osteoarthr itis of joint of right ankle and/or foot 5944587960 53057 M19.071 Health Concerns Section Related Observation LastModified by Organization Detai ls LastModified Time None Recorded Concern Status LastModified by Organization Details LastModified Time None Recorded Advance Directives Directive N: Payers Encounter Date Sequence Insurance Name Policy Number Policy Finn Covered Member ID Finn Member ID Guarantor Name 11/26/2024 1 [place] [id number] Addy Montelongo Alix [id number] Addy Thomson 11/26/2024 1 [place] [id number] Addy Montelongo Alix [id number] [place]y [place] 12/06/2024 2 [facility] [id number] Addy Alix [id number] Addy Alix 01/24/2025 2 [facility] [id number]y [place] [id number] Addy Alix 01/24/2025 1 [place] Addy Jayda Alix [id number] Addy [place] 02/01/2025 1 [facility] DUAL COMPLETE - DUAL ELIGIBLE - [place] (MEDICARE-MEDI CAID REPLACEMENT HMO) [id number] Addy [place] [id number] Addy Thomson Notes Date Note Type Note Provider Name and Address Organization Details Recorded Time 11/26/2024 text/html Patient presents the office today for routine 1 month follow-up status post bariatric gastric duodenal switch ROBOTIC ASSISTED performed on 2023. Patient doing well. Reports q.i.d. small meal intake. Reports 60g/dy protein intake and good hydration.Patient is drinking 64 ounces of water a day.Daily Calories 800-1000Taking routine vitamins as advised.Heartburn/gas troesophageal reflux: deniesPt Denies : abdominal pain, prandial issues Nausea, Vomiting, bowel or bladder issuesTotal Weight loss Since last office visit has been 31.8 lbsPt is happy with their quality of life after Weight loss Surgery. Ruddy Acharya, VAIBHAV, CLOTH WEIGHER, BONE COOKING OPERATOR-C [address], [place], [address], [facility] - [place] & [place] 11/26/2024 14:51:18 11/26/2024 text/html ADIME TemplateA: RADHA met w/Lito Thomson for 1 month f/up via office visit s/p Favian Cullen Pt weight at MD Consult: 417.1#Current Weight: 399.5#Total Weight Change: -17.6#Notes on weight: Signs/SymptomsN/V/C/D : none Pertinent Labs/Meds/Vitamin regimen: taking vitamins as recommended Physical activity: walking Tracking food/beverages consumed: not tracking Est. daily kcal intake: Est. daily protein intake: 60-70 gm Est. daily fluid intake: 64 oz Meal Pattern: Eating 2 times a day Additional notes/concerns: Encouraged patient to eat every two hours and to start tracking intake. Recommended crystal light and protein powder to help increase protein intake. Patient stated he will try protein water. I: RDN Recommendations/Goals :1. Eat 5-6 times a day2. Try unflavored protein powder to increase protein intake3. Try protein water4. Try smoothies to increase protein and kcal5. Work toward 800-1000 kcal, 85 gm protein Pt verbally agreed to recommendations and goals. Denied further questions/concerns. M/E: RDN will monitor weight loss, labs, and lifestyle modifications. Will f/up as scheduled or PRN. . MARIA DE JESUS ALANIZ RD, LD [address] [facility], [place], [address], [place] [facility] - [place] & [place] 11/26/2024 15:15:32 12/06/2024 text/html 9.17.24- left kn ee and right ankle injectionsKnee injection helped 3 months and ankle injection helped 1.5 [email or web address] Stanislaw Medeiros MD [address] [facility],[address], [place], [address], [place] [facility] - [place] & [place] 12/09/2024 16:12:01 01/24/2025 text/html Patient presents the office today for routine 3 month follow-up status post bariatric gastric duodenal switch ROBOTIC ASSISTED performed on 2023. Patient doing well. Reports q.i.d. small meal intake. Reports 80 g/dy protein intake and good hydration.Patient is drinking 64 ounces of water a day.Daily Calories 1000Taking routine vitamins as advised. Hx of Iron and Vit D deficiencyHeartburn/g astroesophageal reflux: deniesPt Denies : abdominal pain, prandial issues Nausea, Vomiting, bowel or bladder issuesTotal Weight loss Since last office visit has been 69.5 lbsPt is happy with their quality of life after Weight loss Surgery.He has been able to tolerate all foods.Seen [facility] this month and good with results. Today's InBody reveals a skeletal muscle mass = 92.8 lb,body fat mass = 177.4 lb,BMI = 48.5Percent body fat = 51.0Basal Metabolic Rate = 2038 kilo calories Ruddy Acharya, DNP, CLOTH WEIGHER, BONE COOKING OPERATOR-C [address] [facility], [place], [address], [facility] & [place] 01/24/2025 16:00:35 02/01/2025 text/html This 59 year old male [...] relieving his pain. CHE1 Stanislaw Medeiros MD [address] [facility],[address], [place], [address], [facility] & [place] 02/02/2025 07:56:15
--- OUTSIDE RECORDS SUMMARY | 2025-02-24 09:48 | XMS_ITS | Continuity of Care Document ---
Author Organization [facility] Address [address] [facility] [address] [place] [address] Care Team Providers Care Service Station Cashier Name Role Phone LANDEN IYER Primary Care Provider Assessment No assessment recorded. Plan of Treatment Reminders Order Date Submit Date Provider Last Modified By Organization Details Last Modified Time Details Appointments INJ ONLY 15 2024 01:00P M STACEY COYNE NP Not available Not available Not available OV EST 20 2024 09:20A M Ruddy Acharya, DNP, CULTURE ROOM WORKER, CREDIT ANALYSIS MANAGER-C Not available Not available Not available INJ ONLY 15 2024 09:15A M Stanislaw Medeiros MD Not available Not available Not available Lab vitamin D, 25-hydro xy, total, serum 2024 025 [email or web address] [facility], [address], [place], [address], 01/31/2025 15:07:46 HbA1c (hemoglo bin A1c), blood 2024 025 [email or web address] [facility], [address], [address], [place], [address], 01/31/2025 15:07:46 copper, serum or plasma 2024 025 [email or web address] [facility], [address], [address], [place], [address], 01/31/2025 15:07:45 selenium , quantita tive, blood 2024 025 [id number] [facility], [address], [address], [place], [address], 01/31/2025 15:07:45 zinc, serum or plasma 2024 025 [email or web address] [facility], [address], [address], [place], [address], 01/31/2025 15:07:45 iron + TIBC + ferritin , serum 2024 025 [email or web address] [facility], [address], [address], [place], [address], 01/31/2025 15:07:45 folate, serum 2024 025 [email or web address] [facility], [address], [address], [place], [address], 01/31/2025 15:07:46 vitamin E, serum 2024 025 [id number] [facility], [address], [address], [place], [address], 01/31/2025 15:07:46 vitamin A (retinol ), serum 2024 025 [facility], [address], [address], [place], [address], 01/31/2025 15:07:46 prealbum in, serum 2024 025 [email or web address] [facility], [address], [address], [place], [address], 01/31/2025 15:07:46 thiamine , QN, blood 2024 025 [id number] [facility], [address], [address], [place], [address], 01/31/2025 15:07:46 methylma lonate, QN, serum or plasma 2024 025 [email or web address] [facility], [address], [address], [place], [address], 01/31/2025 15:07:46 CBC w/ auto diff 2024 025 [email or web address] [facility], [address], [address], [place], [address], 01/31/2025 15:07:46 CMP, serum or plasma 2024 025 [email or web address] [facility], [address], [address], [place], [address], 01/31/2025 15:07:46 TSH + free T4, serum 2024 025 [facility], [address], [address], [place], [address], 01/31/2025 15:07:47 lipid panel, serum 2024 025 [email or web address] [facility], [address], [address], [place], [address], 01/31/2025 15:07:47 Referral None recorded . Procedures None recorded . Surgeries None recorded . Imaging None recorded . Medication Orders None recorded . Patient TargetsNo targets recorded. Patient InstructionsNo instructions recorded. Reason for Referral None Reported. Results Created Date Observation Date Name Description Value Unit Range Abnormal Flag Note LastModifiedBy Organization Detail LastModifiedTime 02/02/20 25 XR, knee No observ ation record ed. DRAGAN Evangelista [address] , [place], [address], 02/01/2025 11:40:02 Result Notes None recorded. Problems Name Problem SNOMED Code Status Onset Date Resolution Date Notes Provider Name and Address Organization Details Recorded Time Postoperat jose pain 446455309 Active 2023 MARIANA Rosen [address] , [place], [address] , [place] - [facility] - [place] & [place] 4 09:18:44 Cyst of scalp 483314683 Active 2021 Chela Langley null, [place] [facility] [place] & [place] 3 14:04:29 Mass of subcutaneo us tissue 7867524793964 9102 Active 2021 Chela Langley null, [place] [facility] [place] & [place] 3 14:04:29 Morbid obesity 632098849 Active 2018 Chela Langley null, [place] [facility] [place] & [place] 3 14:04:00 Unintentio nal weight gain 1991182715313 04 Active 2022 Chela Langley null[place] [place] 3 14:04:29 Disorder of function of stomach 103243216 Active 2022 Chela [place]angle[place] null[place] [place] 3 14:04:29 Hyperlipid emia 39959679 Active 2022 Chela [place]angle[place] null, [place] [place] & [place] 3 14:04:29 Essential hypertensi on 76127292 Active 2019 Chela Langley null, [place] [facility] [place] & [place] 3 14:04:01 Pain in bilateral legs 6789859243644 9108 Active 2022 Chela Langley null, [place] [facility] [place] 3 14:04:29 Congestive heart failure 15883732 Active 2021 Chela Langley null, [place] [facility] [place] & [place] 3 14:04:01 Long-term current use of anticoagul ant 631836597 Active 2022 Chela murray, [place] - [facility] - [place] & [place] 3 14:04:30 Degenerati on of lumbar interverte bral disc 16888440 Active 2021 Chela Langley null, [place] - [facility] - [place] & [place] 3 14:04:00 Compressio n of lumbar nerve root 987840223 Active 2021 Chela Langley null, [place] - [facility] - [place] & [place] 3 14:04:00 Hypertensi ve disorder 74732927 Active 2018 Chela Langley null, [place] - [facility] - [place] & [place] 3 14:04:01 History of cardiac catheteriz ation 9497098527540 0 Active Chela Langley null, [place] - [facility] - [place] & [place] 3 14:04:01 Prediabete s 883615037 Active 2021 Chela Langley null, [place] - [facility] - [place] & [place] 3 14:04:01 Iron deficiency 07850106 Active 2022 Chela Langley null, [place] - [facility] - [place] & [place] 3 14:04:29 Vitamin D deficiency 27329931 Active 2022 Chela Langley null, [place] - [facility] - [place] & [place] 3 14:04:29 Preinfarct ion syndrome 7105538 Active Chela Langley null, [place] - [facility] - [place] & [place] 3 14:04:29 Migraine 83436874 Active 2022 Chela Langley null, [place] - [facility] - [place] & [place] 3 14:04:29 Notes:Some problems listed i n Documents: #[id number], #[id number], #[id number] could not be added to this patient's chart. Please review these documents and add these problems to the patient's chart manually as needed. Problem Notes None recorded. Procedures Surgical History Date Name Laterality Status Provider Name and Address Organization Details Recorded Time cardiac catheterization completed [place] - [place] - [facility] & [place] 3 08:15:10 Other completed Ruddy Acharya, DNP, CULTURE ROOM WORKER, CREDIT ANALYSIS MANAGER-C [address], [place], [address] , [place] - [facility] - [place] & [place] 3 10:33:42 esophagogastroduodenoscopy completed Sonia AMAD[place] - [facility] & [place] 4 10:05:16 Colonoscopy completed Sonia AMADOR - [facility] & [place] 4 10:05:25 procedure on duodenum completed Bandar in [facility] [place] - [facility] - [place] & [place] 4 08:12:56 Imaging Results None recorded. Procedure Notes None recorded. Medical Equipment None [...] Available Vitals Date Recorded Body height Body temperature Heart rate Body mass index (BMI) Body weight Systolic blood pressure Diastolic blood pressure Provider Name and Address Organization Details Last Updated DateTime 5 180.34 cm 97.8 [degF] 57 /min 48.5 kg/m2 699092. 71 g 133 mm[Hg] 83 mm[Hg] Marleni Bashir [facility] & [place] 15:00:25 Social History Question Answer Notes LastModified by Organizat ion Details LastModified Time Tobacco Smoking Status Former Smoker Chela murray [facility] & [place] 04/11/2023 08:53:09 Do You Have An Advance [...] Anxious, Or Unable To Sleep At Night)? [id number] Information not available 04/11/2023 Do You Use [...] Reflux/GERD Y High Cholesterol Y Heart Attack ([place]) Y Heart Disease Y Headaches Y Obstructive Sleep Apnea Y Hypertension Y Immunizations Vaccine Type Date Status Note Provider Dino kitchen and Address Organization Details Recorded Time Influenza, split virus, quadrivalent, preservative 0 completed PERRY Lewis - [place] & [place] 10/13/2023 14:04:35 Influenza, split virus, quadrivalent, preservative 2 completed PERRY Lewis - [place] & [place] 10/13/2023 14:04:35 Past Encounters Encounter ID Performer Location Encounter Start Date Encounter Closed Date Diagnosis/Indication Diagnosis SNOMED-CT Code Diagnosis ICD10 Code Diagnosis Note [id number] Ruddy Acharya, DNP, CULTURE ROOM WORKER, CREDIT ANALYSIS MANAGER-C [facility] [address] [place] [address] 01/24/2025 14:45:59 01/24/2025 15:26:50 History of bariatric surgical procedure 907274773 Z98.84 The patient is doing well. The [...] choose to have them drawn at another [facility] they are to make sure that [...] agree to comply. Intentiona l weight loss 061541734 R63.8 History of gastrectomy 269654804 Z90.3 Advised qid intake 50% protein 1342-6615 calories/d y less than 100 carbs/dy Long [...] to correct any vitamin deficienci es. At [facility] risk of nutritional deficit 068345909 Z91.89 Congestive heart failure 67892730 I50.9 Essential hypertension 07065846 I10 Hyperlipidemia 01137530 E78.5 Iron deficiency 81547965 E61.1 Prediabetes 381097951 R7 3.03 Vitamin D deficiency 347 02730 E55.9 Health Concerns Section Related Observation LastModified by Organization Detai ls LastModified Time None Recorded Concern Status LastModified by Organization Details LastModified Time None Recorded Payers Encounter Date Sequence Insurance Name Policy Number Policy Finn Covered Member ID Finn Member ID Guarantor Name 01/24/2025 2 [facility] [place] Addy Thomson [id number] Addy Thomson 01/24/2025 1 [place] Addy Thomson [id number] Addy Thomson Notes Date Note Type Note Provider Name and Address Organization Details Recorded Time 01/24/2025 text/html Patient presents the office today for routine 3 month follow-up status post bariatric gastric duodenal switch ROBOTIC ASSISTED performed on 2023. Patient doing well. Reports q.i.d. small meal intake. Reports 80 g/dy protein intake and good hydration.Patient is drinking 64 ounces of water a day.Daily Calories 1000Taking routine vitamins as advised. Hx of Iron and Vit D deficiencyHeartbu rn/gastroesophage al reflux: deniesPt Denies : abdominal pain, prandial [...] 51.0Basal Metabolic Rate = 2038 kilo calories Rudyd Acharya, DNP, CULTURE ROOM WORKER, CREDIT ANALYSIS MANAGER-C [address], [place], [address], [facility] - [place] - [place] & [place] 01/24/2025 16:00:35
--- NOTE | 2025-02-24 10:07 | EXP.PAIN.SOA ---
[facility] Disclaimer: The information contained in this section may have been updated after the patient was seen, as this information can be updated by other users. Medical History Migraine History of chest pain CAD (coronary artery disease) HLD (hyperlipidemia) HTN (hypertension) Family History Other No significant family history Social History Smoking Status: Unknown if ever smoked alcohol intake: never current occupational status: other Travel in the last 8 weeks?: None PM Subjective & Objective Subjective Subjective:: Patient is a pleasant 59-year-old male who presents today for 1 month follow-up and medication refill. Today he rates his pain a 3 out of 10. He denies any new falls or injuries. He is currently managed with Mackinaw 7.5 mg twice a day from our office. He denies any side effects or changes to his pharmacy. His Julian has been reviewed and is appropriate. Review of Systems: General: No recent weight changes, no fever, no sleep disturbances Respiratory: No cough, no shortness of air, no recurring pulmonary infections Cardiovascular/peripheral vascular: No chest pain, no palpitations, no edema, no shortness of breath Gastrointestinal: No new onset incontinence, normal bowel movements reported Genitourinary: No new onset incontinence Musculoskeletal: Low back pain Psychiatric: [Normal mood/affect] Neurological: [Denies weakness in extremities], [denies balance issues] Pain at rest (0-10 scale): 3 Objective Objective:: Physical Exam: General: Alert and oriented x3, no acute distress, pleasant and cooperative Lungs: Respirations even and unlabored, symmetrical chest expansion Eyes: PERRL Musculoskeletal: Flexion and extension of lumbar [spine] somewhat guarded secondary to pain, [antalgic gait noted] Neurological: Speech clear, no gross sensory deficit Has patient had previous pain injection?: No Conservative treatment options previously tried: Prescription medications Length of treatment: Longer than 12 weeks Meds Home Medications and Allergies Home Medications ?Medication ?Instructions ?Recorded ?Confirmed ?Type atorvastatin 40 mg tablet 40 mg PO HS 01/01/24 01/27/25 History cholecalciferol (vitamin D3) 1,250 1,250 mcg PO DAILY 01/01/24 01/27/25 History mcg (50,000 unit) capsule clopidogrel 75 mg tablet 75 mg PO DAILY 01/01/24 01/27/25 History lisinopril 40 mg tablet 40 mg PO DAILY 01/01/24 01/27/25 History metoprolol succinate 100 mg 100 mg PO DAILY 01/01/24 01/27/25 History tablet,extended release 24 hr pregabalin 150 mg capsule 150 - 300 mg PO BID 01/01/24 01/27/25 History tramadol 50 mg tablet 50 mg PO Q6HP PRN Pain 02/02/24 01/27/25 History hydrocodone 5 mg-acetaminophen 325 1 tab PO BID 15 days #30 tabs 05/28/24 01/27/25 Rx mg tablet naloxone 4 mg/actuation nasal spray 4 mg intranasal Q2M PRN opioid 06/03/24 01/27/25 Rx overdose #2 ea hydrocodone 7.5 mg-acetaminophen 1 tab PO BID #60 tabs 01/27/25 Rx 325 mg tablet New Prescriptions to Start Prescriptions: Allergies Allergy/AdvReac Type Severity Reaction Status Date / Time No Known Allergies Allergy Verified 01/01/24 15:21 Assessment and Plan *Assessment and plan (1) Degenerative disc disease, lumbar: Status: Acute Category: Medical Code(s): M51.369 - Other intervertebral disc degeneration, lumbar region without mention of lumbar back pain or lower extremity pain (2) Lumbar radiculopathy: Status: Acute Category: Medical Code(s): M54.16 - Radiculopathy, lumbar region Plan I will refill the patient's Mackinaw and provide a 1 month supply of this medication. Patient will return to clinic in 1 month. Risks and benefits of the medication have been explained in detail to the patient. The patient does understand the risk of dependence on the medication when given over a prolonged period. Patient has been advised of risks of oversedation with the prescribed medication. Narcan has been offered to the paitent in the event of oversedation. Patient has been advised that a family member should also be educated regarding administration of Narcan. The patient has been advised to consult with his/her primary care provider and pharmacist regarding drug-drug interaction of medications currently prescribed. Patient has been prescribed a controlled substance after being counseled on the medication, medication safety, and possible side effects. Opioid contract was reviewed and signed by the patient, and that they have agreed to all of the terms set forth by our compliance program. A UDS is needed to verify patient's compliance with our office pain contract. This is ordered based off specific treatments related to chronic pain with the potential to abuse certain medications. Patient has been instructed to contact the clinic with any concerns before the next appointment. Dr. Thomas has reviewed this note and agrees with this plan of care. This note was dictated using voice recognition software and make contain errors or omissions.
[2025-02-24 10:21] VITALS: BP 118/68; PULSE 66; RESP 16; O2SAT 96; BMI 46.0
== END 2025-02-24 23:59 | disposition home or self-care (01) ==
PROVIDERS: PCP Nurse Practitioner Family; Visit Provider Nurse Practitioner Family
DX: M51.16 Intervertebral disc disorders with radiculopathy, lumbar region (principal)
CPT/HCPCS: 99212; G0463

== ENCOUNTER 2025-03-28 11:36 | Outpatient (POV) | payer MEDICARE, SELFPAY ==
--- OUTSIDE RECORDS SUMMARY | 2025-03-28 11:43 | XMS_ITS | Continuity of Care Document ---
Author Organization [place] - [facility] & [place], [facility] Address [address] [place] [address] Care Team Providers Care Chicle Grinder Feeder Name Role Phone LANDEN IYER Primary Care Provider Assessment No assessment recorded. Plan of Treatment Reminders Order Date Submit Date Provider Last Modified By Organization Details Last Modified Time Details Appointments OV EST 20 2024 09:20A M Ruddy Acharya, DNP, ANALYTICS CONSULTANT, GETTER FILLER-C Not available Not available Not available INJ ONLY 15 2024 09:15A M Stanislaw Medeiros MD Not available Not available Not available Lab None recorded. Referral None recorded. Procedures None recorded. Surgeries None recorded. Imaging XR, knee 2024 025 [email or web address] [facility], [address] [place], [address], 02/03/2025 07:36:03 Medication Orders Kenalog 10 mg/mL suspensio n for injection 2024 025 [email or web address] Not available 02/03/2025 07:36:03 bupivacai ne HCl 0.5 % (5 mg/mL) injection solution 2024 025 [id number] Not available 02/03/2025 07:36:03 Kenalog 10 mg/mL suspensio n for injection 2024 025 Not available 02/03/2025 07:36:03 bupivacai ne HCl 0.5 % (5 mg/mL) injection solution 2024 025 Not available 02/03/2025 07:36:03 Patient TargetsNo targets recorded. Patient InstructionsNo instructions recorded. Reason for Referral None Reported. Results Created Date Observation Date Name Description Value Unit Range Abnormal Flag Note LastModifiedBy Organization Detail LastModifiedTime 02/02/20 25 XR, knee No observ ation record ed. DRAGAN Evangelista [facility] [address] , [place], [address], 02/01/2025 11:40:02 Result Notes None recorded. Problems Name Problem SNOMED Code Status Onset Date Resolution Date Notes Provider Name and Address Organization Details Recorded Time Postoperat jose pain 094095146 Active 2023 MARIANA Rosen [address] [facility], [place], [address] , [place] - [facility] - [place] & [place] 4 09:18:44 Cyst of scalp 014760762 Active 2021 hCela Langley null, [place] - [facility] & [place] 3 14:04:29 Mass of subcutaneo us tissue 7591512520858 9102 Active 2021 Chela Langley null, [place] [facility] [place] 3 14:04:29 Morbid obesity 847195073 Active 2018 Chela Langley [place], [place] [facility] & [place] 3 14:04:00 Unintentio nal weight gain 5375525510493 04 Active 2022 Chela Langley [place], [place] [facility] [place] & [place] 3 14:04:29 Disorder of function of stomach 057874138 Active 2022 Chela Langley [place], [place] [facility] & [place] 3 14:04:29 Hyperlipid emia 50663030 Active 2022 Chela Langle[place] [facility] & [place] 3 14:04:29 Essential hypertensi on 86739181 Active 2019 Chela Langley [place] [facility] [place] & [place] 3 14:04:01 Pain in bilateral legs 1717703201635 9108 Active 2022 Chela Calvinis [place] [facility] [place] & [place] 3 14:04:29 Congestive heart failure 12260359 Active 2021 Chela Langley [place] [facility] [place] & [place] 3 14:04:01 Long-term current use of anticoagul ant 483819960 Active 2022 Chela Langley [place], [place] [facility] [place] & [place] 3 14:04:30 Degenerati on of lumbar interverte bral disc 23817998 Active 2021 Chela Langley [place], [place] [facility] [place] & [place] 3 14:04:00 Compressio n of lumbar nerve root 296729962 Active 2021 Chela Langley [place] [facility] [place] & [place] 3 14:04:00 Hypertensi ve disorder 71765051 Active 2018 Chela Langley [place] [facility] [place] & [place] 3 14:04:01 History of cardiac catheteriz ation 1739603904074 0 Active Chela Langley [place] [facility] [place] & [place] 3 14:04:01 Prediabete s 854927532 Active 2021 Chela Langley [place] [facility] [place] & [place] 3 14:04:01 Iron deficiency 96970546 Active 2022 Chela Calvinis [place] [facility] [place] 3 14:04:29 Vitamin D deficiency 75301507 Active 2022 Chela Langley [place] [facility] [place] & [place] 3 14:04:29 Preinfarct ion syndrome 9542100 Active Chela Langley [place] [facility] [place] 3 14:04:29 Migraine 26835086 Active 2022 Chela murray, [facility] & [place] 3 14:04:29 Notes:Some problems listed i n Documents: #[id number], #[id number], #[id number] could not be added to this patient's chart. Please review these documents and add these problems to the patient's chart manually as needed. Problem Notes None recorded. Procedures Surgical History Date Name Laterality Status Provider Name and Address Organization Details Recorded Time cardiac catheterization completed [facility] & [place] 3 08:15:10 Other completed Ruddy Acharya, DNP, ANALYTICS CONSULTANT, GETTER FILLER-C [address] [facility], [place], [address] , [facility] & [place] 3 10:33:42 esophagogastroduodenoscopy completed Sonia Jensen [facility] & [place] 4 10:05:16 Colonoscopy completed Sonia Jensen [facility] & [place] 4 10:05:25 procedure on duodenum completed [facility] & [place] 4 08:12:56 Imaging Results None recorded. Procedure [...] Time Tobacco Smoking Status Former Smoker Chela Langley [facility], [place] - [facility] - [place] & [place] 04/11/2023 08:53:09 Do You Have An Advance Directive? No Information not available 01/09/2023 Are You Blind Or Do You Have Difficulty Seeing? No Information not available 01/09/2023 What Was The Date Of Your Most Recent Tobacco Screening? 12/31/2022 Information not available 04/11/2023 Are You Passively Exposed To Smoke? No Information not available 01/09/2023 How Much Tobacco Do You Smoke? 1 PPD Information not available 04/11/2023 How Many Years Have You Smoked Tobacco? 8 Yrs Information not available 04/11/2023 Sex: Male Functional Status Question Answer Note LastModified by Organizat ion Details LastModified Time Do you use any illicit or recreational drugs? No Information not available 01/09/2023 What is your level of alcohol consumption? None Information not available 01/09/2023 Do you or have you ever used smokeless tobacco? Currently chews tobacco Information not available 04/11/2023 What is your exercise level? Occasional Information not available 01/09/2023 Mental Status Question Answer Note LastModified by Organization D etails LastModified Time Do you feel stressed (tense, restless, nervous, or anxious, or unable to sleep at night)? [id number] Information not available 04/11/2023 Family History Relationship Description Onset Age of [...] available 09/14/2024 12:19:58 Medical History Condition Response Other Y Obstructive Sleep Apnea Y Muscle, Joint, or Bone Problems Y High Cholesterol Y Headaches Y Heart Attack (PA) Y Congestive Heart Failure (CHF) Y Back Problems Y Reflux/GERD Y Heart Disease Y Hypertension Y Immunizations Vaccine Type Date Status Note Provider Dino kitchen and Address Organization Details Recorded Time Influenza, split virus, quadrivalent, preservative 0 completed PERRY Lewis - JOMAR [facility] & [place] 10/13/2023 14:04:35 Influenza, split virus, quadrivalent, preservative 2 completed Chela murray, PERRY - [facility] - [place] & [place] 10/13/2023 14:04:35 Past Encounters Encounter ID Performer Location Encounter Start Date Encounter Closed Date Diagnosis/Indication Diagnosis SNOMED-CT Code Diagnosis ICD10 Code Diagnosis Note [id number] Ruddy Acharya, DNP, ANALYTICS CONSULTANT, GETTER FILLER-C [facility] [address] [facility] [address] [place] [address] 01/24/2025 14:45:59 01/24/2025 15:26:50 History of bariatric surgical procedure 154584083 Z98.84 The patient is doing well. The [...] choose to have them drawn at another [facility] they are to make sure that the [...] agree to comply. Intentiona l weight loss 099560516 R63.8 History of gastrectomy 778024658 Z90.3 Advised qid intake 50% protein 1156-4122 calories/d y less than 100 carbs/dy Long [...] to correct any vitamin deficienci es. At [facility] risk of nutritional deficit 897380637 Z91.89 Congestive heart failure 81681182 I50.9 Essential hypertension 89745422 I10 Hyperlipidemia 53874973 E78.5 Iron deficiency 14196107 E61.1 Prediabetes 678186227 R7 3.03 Vitamin D deficiency 347 49872 E55.9 [id number] [facility] [address] [address] 02/01/2025 10:36:27 02/01/2025 12:06:12 Osteoarthritis of right knee joint 1936160098 85086 M17.11 Primary go narthrosis, bilateral 963421912 M17.0 Osteoarthr itis of joint of right ankle and/or foot 6559394148 26064 M19.071 Health Concerns Section Related Observation LastModified by Organization Detai ls LastModified Time None Recorded Concern Status LastModified by Organization Details LastModified Time None Recorded Payers Encounter Date Sequence Insurance Name Policy Number Policy Finn Covered Member ID Finn Member ID Guarantor Name 02/01/2025 1 [facility] - DUAL ELIGIBLE (MEDICARE REPLACEMENT/A DVANTAGE - HMO) [id number] Addy Thomson [id number] Addy Thomson Notes Date Note Type Note [...] relieving his pain. CHE1 Stanislaw Medeiros MD [address] [place] [address],[address], [place], [address], [place] - [facility] [place] & [place] 02/02/2025 07:56:15
--- OUTSIDE RECORDS SUMMARY | 2025-03-28 11:43 | XMS_ITS | Data Portability ---
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 Plan of Treatment Reminders Order Date Submit Date Provider Last Modified By Organization Details Last Modified Time Details Appointments OV EST 20 2024 09:20A M Ruddy Acharya, DNP, EMULSION COATER, FLATTENING PRESS OPERATOR-C Not available Not available Not available INJ ONLY 15 2024 09:15A M Stanislaw Medeiros MD Not available Not available Not available Lab vitamin D, 25-hydrox y, total, serum 2024 025 [facility], [address], [address], [place], [address], 01/31/2025 15:07:46 HbA1c (hemoglob in A1c), blood 2024 025 [email or web address] [facility], [address], [address], [place], [address], 01/31/2025 15:07:46 copper, serum or plasma 2024 025 [email or web address] [facility], [address], [address], [place], [address], 01/31/2025 15:07:45 selenium, quantitat jose, blood 2024 025 [email or web address] [facility], [address], [address], [place], [address], 01/31/2025 15:07:45 zinc, serum or plasma 2024 025 [email or web address] [facility], [address], [address], [place], [address], 01/31/2025 15:07:45 iron + TIBC + ferritin, serum 2024 025 [email or web address] [facility], [address], [address], [place], [address], 01/31/2025 15:07:45 folate, serum 2024 025 [email or web address] [facility], [address], [address], [place], [address], 01/31/2025 15:07:46 vitamin E, serum 2024 025 [email or web address] [facility], [address], [address], [place], [address], 01/31/2025 15:07:46 vitamin A (retinol) , serum 2024 [email or web address] [facility], [address], [address], [place], [address], 01/31/2025 15:07:46 prealbumi n, serum 2024 025 [facility], [address], [address], [place], [address], 01/31/2025 15:07:46 thiamine, QN, blood 2024 [facility], [address], [address], [place], [address], 01/31/2025 15:07:46 methylmal linh, QN, serum or plasma 2024 025 [email or web address] [facility], [address], [address], [place], [address], 01/31/2025 15:07:46 CBC w/ auto diff 2024 025 [email or web address] [facility], [address], [address], [place], [address], 01/31/2025 15:07:46 CMP, serum or plasma 2024 025 [email or web address] [facility], [address], [address], [place], [address], 01/31/2025 15:07:46 TSH + free T4, serum 2024 025 [email or web address] [facility], [address], [address], [place], [address], 01/31/2025 15:07:47 lipid panel, serum 2024 025 [email or web address] [facility], [address], [address], [place], [address], 01/31/2025 15:07:47 iron + TIBC + ferritin, serum 2024 025 DRAGAN [facility], [address], [address], [place], [address], 12/03/2024 03:37:23 folate, serum 2024 025 DRAGAN [facility], [address], [address], [place], [address], 12/03/2024 03:37:30 vitamin D, 25-hydrox y, total, serum 2024 025 DRAGAN [facility], [address], [address], [place], [address], 12/03/2024 03:37:32 HbA1c (hemoglob in A1c), blood 2024 025 DRAGAN [facility], [address], [address], [place], [address], 12/03/2024 03:37:29 copper, serum or plasma 2024 025 DRAGAN [facility], [address], [address], [place], [address], 12/03/2024 03:37:34 selenium, quantitat jose, blood 2024 025 DRAGAN [facility], [address], [address], [place], [address], 12/03/2024 03:37:37 zinc, serum or plasma 2024 025 DRAGAN [facility], [address], [address], [place], [address], 12/03/2024 03:37:35 vitamin E, serum 2024 025 DARGAN [facility], [address], [address], [place], [address], 12/03/2024 03:37:28 vitamin A (retinol) , serum 2024 025 DRAGAN [facility], [address], [address], [place], [address], 12/03/2024 03:37:31 prealbumi n, serum 2024 025 DRAGAN [facility], [address], [address], [place], [address], 12/03/2024 03:37:36 thiamine, QN, blood 2024 025 DRAGAN [facility], [address], [address], [place], [address], 12/03/2024 03:37:33 methylmal linh, QN, serum or plasma 2024 025 DRAGAN [facility], [address], [address], [place], [address], 12/03/2024 03:37:33 CBC w/ auto diff 2024 025 DRAGAN [facility], [address], [address], [place], [address], 12/03/2024 03:37:25 CMP, serum or plasma 2024 025 ALL[place]ON [facility], [address], [address], [place], [address], 12/03/2024 03:37:26 TSH + free T4, serum 2024 025 [place] [facility], [address], [address], [place], [address], 12/03/2024 03:37:24 lipid panel, serum 2024 025 [place], [address], [address], [place], [address], 12/03/2024 03:37:27 Referral None recorded. Procedures None recorded. Surgeries None recorded. Imaging XR, knee 2024 025 calin [facility], [address] [place] [address] , [place], [address], 02/03/2025 07:36:03 Medication Orders Kenalog 10 mg/mL suspensio n for injection 2024 Kaatrina layton Not available 02/03/2025 07:36:03 bupivacai ne HCl 0.5 % (5 mg/mL) injection solution 2024 025 [email or web address] Not available 02/03/2025 07:36:03 Kenalog 10 mg/mL suspensio n for injection 2024 025 [email or web address] Not available 02/03/2025 07:36:03 bupivacai ne HCl 0.5 % (5 mg/mL) injection solution 2024 025 [email or web address] Not available 02/03/2025 07:36:03 Kenalog 10 mg/mL suspensio n for injection 2023 [email or web address], [address], 01/24/2025 14:58:37 bupivacai ne HCl 0.5 % (5 mg/mL) injection solution 2023 [email or web address], [address], 01/24/2025 14:58:29 Kenalog 10 mg/mL suspensio n for injection 2023 025 Not available 01/24/2025 14:58:37 bupivacai ne HCl 0.5 % (5 mg/mL) injection solution 2023 025 [email or web address] Not available 01/24/2025 14:58:29 Patient TargetsNo targets recorded. Patient InstructionsNo instructions recorded. Reason for Referral None Reported. Results Created Date Observation Date Name Description Value Unit Range Abnormal Flag Note LastModifiedBy Organization Detail LastModifiedTime 11/26/1911/27/2024 FE+TI BC+FE R iron bind.cap.(TI BC) 254 ug/dL 250-45 0 normal Not Available [facility] ([facility]) [address] [facility], [place], [address], 12/03/2024 03:37:23 11/26/19 25 11/27/2024 FE+TI BC+FE R UIBC 221 ug/dL 111-34 3 normal Not Available [facility] ([facility]) [address] [place], [address], 12/03/2024 03:37:23 11/26/19 25 11/27/2024 FE+TI BC+FE R iron 33 ug/dL 38-169 below low normal Not Available [facility] ([facility]) [address] [place], [address], 12/03/2024 03:37:23 11/26/19 25 11/27/2024 FE+TI BC+FE R iron saturation 13 % 15-55 below low normal Not Available [facility] ([facility]) [address] [place], [address], 12/03/2024 03:37:23 11/26/19 25 11/27/2024 FE+TI BC+FE R ferritin 154 NG/mL 30-400 normal Not Available [facility] ([facility]) [address] [place], [address], 12/03/2024 03:37:23 11/26/19 25 11/27/2024 TSH+F REE T4 TSH 2.920 uIU/m L 0.450- 4.500 normal Not Available [facility] ([facility]) [address] [place], [address], 12/03/2024 03:37:24 11/26/19 25 11/27/2024 TSH+F REE T4 T4,free(dire ct) 1.44 NG/dL 0.82-1 .77 normal Not Available [facility] ([facility]) [address] [place], [address], 12/03/2024 03:37:24 11/26/19 25 11/27/2024 CBC WITH DIFFE RENTI AL/PL ATELE T WBC 9.0 x10e3 /uL 3.4-10 .8 normal Not Available [facility] ([facility]) [address] [place], [address], 12/03/2024 03:37:25 11/26/19 25 11/27/2024 CBC WITH DIFFE RENTI AL/PL ATELE T RBC 5.49 x10e6 /uL 4.14-5 .80 normal Not Available [facility] ([facility]) [address] [facility], [place], [address], 12/03/2024 03:37:25 11/26/19 25 11/27/2024 CBC WITH DIFFE RENTI AL/PL ATELE T hemoglobin 15.4 g/dL 13.0-1 7.7 normal Not Available [facility] ([facility]) [address] [facility], [place], [address], 12/03/2024 03:37:25 11/26/19 25 11/27/2024 CBC WITH DIFFE RENTI AL/PL ATELE T hematocrit 48.5 % 37.5-5 1.0 normal Not Available [facility] ([facility]) [address] [place], [address], 12/03/2024 03:37:25 11/26/19 25 11/27/2024 CBC WITH DIFFE RENTI AL/PL ATELE T MCV 88 fL 79-97 normal Not Available [facility] ([facility]) [address] [place], [address], 12/03/2024 03:37:25 11/26/19 25 11/27/2024 CBC WITH DIFFE RENTI AL/PL ATELE T MCH 28.1 pg 26.6-3 3.0 normal Not Available [facility] ([facility]) [address] [place], [address], 12/03/2024 03:37:25 11/26/19 25 11/27/2024 CBC WITH DIFFE RENTI AL/PL ATELE T MCHC 31.8 g/dL 31.5-3 5.7 normal Not Available [facility] ([facility]) [address] [facility], [place], [address], 12/03/2024 03:37:25 11/26/19 25 11/27/2024 CBC WITH DIFFE RENTI AL/PL ATELE T RDW 13.4 % 11.6-1 5.4 Not Available [facility] ([facility]) [address] [facility], [place], [address], 12/03/2024 03:37:25 11/26/19 25 11/27/2024 CBC WITH DIFFE RENTI AL/PL ATELE T platelets 253 x10e3 /uL 150-45 0 normal Not Available [facility] ([facility]) [address] [facility], [place], [address], 12/03/2024 03:37:25 11/26/19 25 11/27/2024 CBC WITH DIFFE RENTI AL/PL ATELE T neutrophils 72 % not estab. normal Not Available [facility] ([facility]) [address] [facility], [place], [address], 12/03/2024 03:37:25 11/26/19 25 11/27/2024 CBC WITH DIFFE RENTI AL/PL ATELE T lymphs 19 % not estab. normal Not Available [facility] ([facility]) [address] [facility], [place], [address], 12/03/2024 03:37:25 11/26/19 25 11/27/2024 CBC WITH DIFFE RENTI AL/PL ATELE T monocytes 7 % not estab. normal Not Available [facility] ([facility]) [address] [place], [address], 12/03/2024 03:37:25 11/26/19 25 11/27/2024 CBC WITH DIFFE RENTI AL/PL ATELE T eos 2 % not estab. normal Not Available [facility] ([facility]) [address] [facility], [place], [address], 12/03/2024 03:37:25 11/26/19 25 11/27/2024 CBC WITH DIFFE RENTI AL/PL ATELE T basos 0 % not estab. normal Not Available [facility] ([facility]) [address] [facility], [place], [address], 12/03/2024 03:37:25 11/26/19 25 11/27/2024 CBC WITH DIFFE RENTI AL/PL ATELE T immature cells FLATTENING PRESS OPERATOR Not Available [facility] ([facility]) [address] [place], [address], 12/03/2024 03:37:25 11/26/19 25 11/27/2024 CBC WITH DIFFE RENTI AL/PL ATELE T neutrophils (absolute) 6.4 x10e3 /uL 1.4-7. 0 normal Not Available [facility] ([facility]) [address] [place], [address], 12/03/2024 03:37:25 11/26/19 25 11/27/2024 CBC WITH DIFFE RENTI AL/PL ATELE T lymphs (absolute) 1.7 x10e3 /uL 0.7-3. 1 normal Not Available [facility] ([facility]) [address] [place], [address], 12/03/2024 03:37:25 11/26/19 25 11/27/2024 CBC WITH DIFFE RENTI AL/PL ATELE T monocytes(ab solute) 0.7 x10e3 /uL 0.1-0. 9 normal Not Available [facility] ([facility]) [address] [place], [address], 12/03/2024 03:37:25 11/26/19 25 11/27/2024 CBC WITH DIFFE RENTI AL/PL ATELE T eos (absolute) 0.2 x10e3 /uL 0.0-0. 4 normal Not Available [facility] ([facility]) [address] [facility], [place], [address], 12/03/2024 03:37:25 11/26/19 25 11/27/2024 CBC WITH DIFFE RENTI AL/PL ATELE T baso (absolute) 0.0 x10e3 /uL 0.0-0. 2 normal Not Available [facility] ([facility]) [address] [facility], [place], [address], 12/03/2024 03:37:25 11/26/19 25 11/27/2024 CBC WITH DIFFE RENTI AL/PL ATELE T immature granulocytes 0 % not estab. Not Available [facility] ([facility]) [address] [place], [address], 12/03/2024 03:37:25 11/26/19 25 11/27/2024 CBC WITH DIFFE RENTI AL/PL ATELE T immature grans (abs) 0.0 x10e3 /uL 0.0-0. 1 Not Available [facility] ([facility]) [address] [place], [address], 12/03/2024 03:37:25 11/26/19 25 11/27/2024 CBC WITH DIFFE RENTI AL/PL ATELE T NRBC FLATTENING PRESS OPERATOR Not Available [facility] ([facility]) [address] [place], [address], 12/03/2024 03:37:25 11/26/19 25 11/27/2024 CBC WITH DIFFE RENTI AL/PL ATELE T hematology comments: FLATTENING PRESS OPERATOR Not Available [facility] ([facility]) [address] [place], [address], 12/03/2024 03:37:25 11/26/19 25 11/27/2024 COMP. METAB OLIC PANEL (14) glucose 92 mg/dL 70-99 normal Not Available [facility] ([facility]) [address] [place], [address], 12/03/2024 03:37:26 11/26/19 25 11/27/2024 COMP. METAB OLIC PANEL (14) BUN 15 mg/dL 6-24 normal Not Available [facility] ([facility]) [address] [facility] [place], [address], 12/03/2024 03:37:26 11/26/19 25 11/27/2024 COMP. METAB OLIC PANEL (14) creatinine 0.72 mg/dL 0.76-1 .27 below low normal Not Available [facility] ([facility]) [address] [place], [address], 12/03/2024 03:37:26 11/26/19 25 11/27/2024 COMP. METAB OLIC PANEL (14) eGFR 106 mL/mi n/1.7 3 >59 normal Not Available [facility] ([facility]) [address] [place], [address], 12/03/2024 03:37:26 11/26/19 25 11/27/2024 COMP. METAB OLIC PANEL (14) BUN/creatini ne ratio 21 9-20 above high normal Not Available [facility] ([facility]) [address] [place], [address], 12/03/2024 03:37:26 11/26/19 25 11/27/2024 COMP. METAB OLIC PANEL (14) sodium 140 mmol/ L 134-14 4 normal Not Available [facility] ([facility]) [address] [place], [address], 12/03/2024 03:37:26 11/26/19 25 11/27/2024 COMP. METAB OLIC PANEL (14) potassium 3.7 mmol/ L 3.5-5. 2 normal Not Available [facility] ([facility]) [address] [place], [address], 12/03/2024 03:37:26 11/26/19 25 11/27/2024 COMP. METAB OLIC PANEL (14) chloride 97 mmol/ L 96-106 normal Not Available [facility] ([facility]) [address] [place], [address], 12/03/2024 03:37:26 11/26/19 25 11/27/2024 COMP. METAB OLIC PANEL (14) carbon dioxide, total 27 mmol/ L 20-29 normal Not Available [facility] ([facility]) [address] [place], [address], 12/03/2024 03:37:26 11/26/19 25 11/27/2024 COMP. METAB OLIC PANEL (14) calcium 9.3 mg/dL 8.7-10 .2 normal Not Available [facility] ([facility]) [address] [place], [address], 12/03/2024 03:37:26 11/26/19 25 11/27/2024 COMP. METAB OLIC PANEL (14) protein, total 7.3 g/dL 6.0-8. 5 normal Not Available [facility] ([facility]) [address] [place], [address], 12/03/2024 03:37:26 11/26/19 25 11/27/2024 COMP. METAB OLIC PANEL (14) albumin 4.3 g/dL 3.8-4. 9 normal Not Available [facility] ([facility]) [address] [place], [address], 12/03/2024 03:37:26 11/26/19 25 11/27/2024 COMP. METAB OLIC PANEL (14) globulin, total 3.0 g/dL 1.5-4. 5 Not Available [facility] ([facility]) [address] [place], [address], 12/03/2024 03:37:26 11/26/19 25 11/27/2024 COMP. METAB OLIC PANEL (14) bilirubin, total 0.8 mg/dL 0.0-1. 2 normal Not Available [facility] ([facility]) [address] [place], [address], 12/03/2024 03:37:26 11/26/19 25 11/27/2024 COMP. METAB OLIC PANEL (14) alkaline phosphatase 81 IU/L 44-121 normal Not Available [facility] ([facility]) [address] [place], [address], 12/03/2024 03:37:26 11/26/19 25 11/27/2024 COMP. METAB OLIC PANEL (14) AST (SGOT) 22 IU/L 0-40 normal Not Available [facility] ([facility]) [address] [place], [address], 12/03/2024 03:37:26 11/26/19 25 11/27/2024 COMP. METAB OLIC PANEL (14) ALT (SGPT) 23 IU/L 0-44 normal Not Available [facility] ([facility]) [address] [place], [address], 12/03/2024 03:37:26 11/26/19 25 11/27/2024 LIPID PANEL cholesterol, total 168 mg/dL 100-19 9 normal Not Available [facility] ([facility]) [address] [place], [address], 12/03/2024 03:37:27 11/26/19 25 11/27/2024 LIPID PANEL triglyceride s 183 mg/dL 0-149 above high normal Not Available [facility] ([facility]) [address] [place], [address], 12/03/2024 03:37:27 11/26/19 25 11/27/2024 LIPID PANEL HDL cholesterol 24 mg/dL >39 below low normal Not Available [facility] ([facility]) [address] [facility], [place], [address], 12/03/2024 03:37:27 11/26/19 25 11/27/2024 LIPID PANEL VLDL cholesterol trey 33 mg/dL 5-40 Not Available [facility] ([facility]) [address] [place], [address], 12/03/2024 03:37:27 11/26/19 25 11/27/2024 LIPID PANEL LDL chol calc ([facility]) 111 mg/dL 0-99 above high normal Not Available [facility] ([facility]) [address] [place], [address], 12/03/2024 03:37:27 11/26/19 25 11/27/2024 LIPID PANEL LDL calc comment: FLATTENING PRESS OPERATOR Not Available [facility] ([facility]) [address] [place], [address], 12/03/2024 03:37:27 11/26/19 25 12/02/2024 VITAM IN E vitamin E(alpha tocopherol) 8.2 mg/L 7.0-25 .1 Not Available [facility] ([facility]) [address] [facility], [place], [address], 12/03/2024 03:37:28 11/26/19 25 12/02/2024 VITAM IN [...] in E defic ient. Not Available [facility] ([facility]) [address] [facility], [place], [address], 12/03/2024 03:37:28 11/26/19 25 11/27/2024 HEMOG LOBIN A1C hemoglobin A1C 5.8 % 4.8-5. 6 above high normal Predi abete s: 5.7 - 6.4 Diabe cecille: >6.4 Glyce rhona contr ol for adult s with diabe cecille: <7.0 Not Available [facility] ([facility]) [address] [facility], [place], [address], 12/03/2024 03:37:29 11/26/1911/27/2024 FOLAT E (FOLI C ACID) , SERUM folate (folic acid), serum 9.0 NG/mL >3.0 normal A serum folat e michele ntrat ion of less than 3.1 ng/mL is consi dered to repre sent clini trey defic iency . Not Available [facility] ([facility]) [address] [facility], [place], [address], 12/03/2024 03:37:30 11/26/1912/02/2024 VITAM IN A, SERUM [...] e marlys cteri stics deter mined by [employer]. It has not been clear ed or appro wendy by the Food and Drug Admin istra tion. Not Available [facility] ([facility]) [address] [facility], [place], [address], 12/03/2024 03:37:31 11/26/1911/27/2024 VITAM IN D, 25-HY DROXY vitamin D, [...] Medic ine). 2010. Dieta ry refer ence monroe es for calci um and D. Baylee acosta [place]: The [facility] . 2. Marcela argueta [place], Brigid packer [place], Bisch off-F errar i CARCAMO, et al. Evalu ation , treat ment, and preve ntion of vitam in D defic iency : an Endoc rine Socie ty clini trey pract ice guide line. JCEM. 2010; 96(7) :1911 -30. Not Available [facility] ([facility]) [address] [place], [address], 12/03/2024 03:37:32 11/26/19 25 12/01/2024 VITAM IN B1 (THIA MINE) , BLOOD vit. B1, whole blood 186.1 nmol/ L 66.5-2 00.0 Not Available [facility] ([facility]) [address] [place], [address], 12/03/2024 03:37:33 11/26/19 25 11/30/2024 METHY LMALO ARLETTE ACID, SERUM methylmaloni c acid, serum 134 nmol/ L 0-378 Not Available [facility] ([facility]) [address] [place], [address], 12/03/2024 03:37:33 11/26/19 25 11/29/2024 COPPE R, SERUM OR PLASM A copper, serum or plasma 114 ug/dL 69-132 Detec tion Limit = 5 Not Available [facility] ([facility]) [address] [place], [address], 12/03/2024 03:37:34 11/26/19 25 11/29/2024 ZINC, PLASM A OR SERUM zinc, plasma or serum 62 ug/dL 44-115 normal Detec tion Limit = 5 Not Available [facility] ([facility]) [address] [place], [address], 12/03/2024 03:37:35 11/26/19 25 11/27/2024 PREAL BUMIN prealbumin 16 mg/dL 10-36 Not Available [facility] ([facility]) [address] [place], [address], 12/03/2024 03:37:36 11/26/19 25 12/02/2024 SELEN IUM, BLOOD selenium, blood 126 ug/L 100-34 0 Detec tion Limit = 10 Not Available [facility] ([facility]) [address] [place], [address], 12/03/2024 03:37:37 01/25/20 25 01/25/2025 FE+TI BC+FE R iron bind.cap.(TI BC) 229 ug/dL 250-45 0 below low normal Not Available [facility] ([facility]) [address] [place], [address], 01/31/2025 16:14:00 01/25/20 25 01/25/2025 FE+TI BC+FE R UIBC 201 ug/dL 111-34 3 normal Not Available [facility] ([facility]) [address] [place], [address], 01/31/2025 16:14:00 01/25/20 25 01/25/2025 FE+TI BC+FE R iron 28 ug/dL 38-169 below low normal Not Available [facility] ([facility]) [address] [place], [address], 01/31/2025 16:14:00 01/25/20 25 01/25/2025 FE+TI BC+FE R iron saturation 12 % 15-55 below low normal Not Available [facility] ([facility]) [address] [place], [address], 01/31/2025 16:14:00 01/25/20 25 01/25/2025 FE+TI BC+FE R ferritin 148 NG/mL 30-400 normal Not Available [facility] ([facility]) [address] [place], [address], 01/31/2025 16:14:00 01/25/20 25 01/25/2025 TSH+F REE T4 TSH 2.470 uIU/m L 0.450- 4.500 normal Not Available [facility] ([facility]) [address] [place], [address], 01/31/2025 16:14:01 01/25/20 25 01/25/2025 TSH+F REE T4 T4,free(dire ct) 1.37 NG/dL 0.82-1 .77 normal Not Available [facility] ([facility]) [address] [place], [address], 01/31/2025 16:14:01 01/25/20 25 01/25/2025 CBC WITH DIFFE RENTI AL/PL ATELE T WBC 8.6 x10e3 /uL 3.4-10 .8 normal Not Available [facility] ([facility]) [address] [place], [address], 01/31/2025 16:14:02 01/25/20 25 01/25/2025 CBC WITH DIFFE RENTI AL/PL ATELE T RBC 5.17 x10e6 /uL 4.14-5 .80 normal Not Available [facility] ([facility]) [address] [place], [address], 01/31/2025 16:14:02 01/25/20 25 01/25/2025 CBC WITH DIFFE RENTI AL/PL ATELE T hemoglobin 14.2 g/dL 13.0-1 7.7 normal Not Available [facility] ([facility]) [address] [facility], [place], [address], 01/31/2025 16:14:02 01/25/20 25 01/25/2025 CBC WITH DIFFE RENTI AL/PL ATELE T hematocrit 44.5 % 37.5-5 1.0 normal Not Available [facility] ([facility]) [address] [facility], [place], [address], 01/31/2025 16:14:02 01/25/20 25 01/25/2025 CBC WITH DIFFE RENTI AL/PL ATELE T MCV 86 fL 79-97 normal Not Available [facility] ([facility]) [address] [facility], [place], [address], 01/31/2025 16:14:02 01/25/20 25 01/25/2025 CBC WITH DIFFE RENTI AL/PL ATELE T MCH 27.5 pg 26.6-3 3.0 normal Not Available [facility] ([facility]) [address] [place], [address], 01/31/2025 16:14:02 01/25/20 25 01/25/2025 CBC WITH DIFFE RENTI AL/PL ATELE T MCHC 31.9 g/dL 31.5-3 5.7 normal Not Available [facility] ([facility]) [address] [place], [address], 01/31/2025 16:14:02 01/25/20 25 01/25/2025 CBC WITH DIFFE RENTI AL/PL ATELE T RDW 14.3 % 11.6-1 5.4 Not Available [facility] ([facility]) [address] [place], [address], 01/31/2025 16:14:02 01/25/20 25 01/25/2025 CBC WITH DIFFE RENTI AL/PL ATELE T platelets 265 x10e3 /uL 150-45 0 normal Not Available [facility] ([facility]) [address], [place], [address], 01/31/2025 16:14:02 01/25/20 25 01/25/2025 CBC WITH DIFFE RENTI AL/PL ATELE T neutrophils 71 % not estab. normal Not Available [facility] ([facility]) [address] [facility] [facility], [place], [address], 01/31/2025 16:14:02 01/25/20 25 01/25/2025 CBC WITH DIFFE RENTI AL/PL ATELE T lymphs 19 % not estab. normal Not Available [facility] ([facility]) [address] [facility], [place], [address], 01/31/2025 16:14:02 01/25/20 25 01/25/2025 CBC WITH DIFFE RENTI AL/PL ATELE T monocytes 7 % not estab. normal Not Available [facility] ([facility]) [address] [facility], [place], [place], [address], 01/31/2025 16:14:02 01/25/20 25 01/25/2025 CBC WITH DIFFE RENTI AL/PL ATELE T eos 2 % not estab. normal Not Available [facility] ([facility]) [address] [facility], [place], [address], 01/31/2025 16:14:02 01/25/20 25 01/25/2025 CBC WITH DIFFE RENTI AL/PL ATELE T basos 1 % not estab. 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 0 normal Not Available [facility] ([facility]) [address] [facility], [place], [address], 01/31/2025 16:14:02 01/25/20 25 01/25/2025 CBC WITH DIFFE RENTI AL/PL ATELE T lymphs (absolute) 1.6 x10e3 /uL 0.7-3. 1 normal Not Available [facility] ([facility]) [address] [place], [address], 01/31/2025 16:14:02 01/25/20 25 01/25/2025 CBC WITH DIFFE RENTI AL/PL ATELE T monocytes(ab solute) 0.6 x10e3 /uL 0.1-0. 9 normal Not Available [facility] ([facility]) [address] [facility], [place], [address], 01/31/2025 16:14:02 01/25/20 25 01/25/2025 CBC WITH DIFFE RENTI AL/PL ATELE T eos (absolute) 0.2 x10e3 /uL 0.0-0. 4 normal Not Available [facility] ([facility]) [address] [place], [address], 01/31/2025 16:14:02 01/25/20 25 01/25/2025 CBC WITH DIFFE RENTI AL/PL ATELE T baso (absolute) 0.0 x10e3 /uL 0.0-0. 2 normal Not Available [facility] ([facility]) [address] [place], [address], 01/31/2025 16:14:02 01/25/20 25 01/25/2025 CBC WITH DIFFE RENTI AL/PL ATELE T immature granulocytes 0 % not estab. Not Available [facility] ([facility]) [address] [facility], [place], [address], 01/31/2025 16:14:02 01/25/20 25 01/25/2025 CBC WITH DIFFE RENTI AL/PL ATELE T immature grans (abs) 0.0 x10e3 /uL 0.0-0. 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 METAB OLIC PANEL (14) glucose 88 mg/dL 70-99 normal Not Available [facility] ([facility]) [address] [facility], [place], [address], 01/31/2025 16:14:04 01/25/20 25 01/25/2025 COMP. METAB OLIC PANEL (14) BUN 13 mg/dL 6-24 normal Not Available [facility] ([facility]) [address] [facility], [place], [address], 01/31/2025 16:14:04 01/25/20 25 01/25/2025 COMP. METAB OLIC PANEL (14) creatinine 0.64 mg/dL 0.76-1 .27 below low normal Not Available [facility] ([facility]) [address] [facility], [place], [address], 01/31/2025 16:14:04 01/25/20 25 01/25/2025 COMP. METAB OLIC PANEL (14) eGFR 110 mL/mi n/1.7 3 >59 normal Not Available [facility] ([facility]) [address] [facility], [place], [address], 01/31/2025 16:14:04 01/25/20 25 01/25/2025 COMP. METAB OLIC PANEL (14) BUN/creatini ne ratio 20 9-20 normal Not Available [facility] ([facility]) [address] [facility], [place], [address], 01/31/2025 16:14:04 01/25/20 25 01/25/2025 COMP. METAB OLIC PANEL (14) sodium 142 mmol/ L 134-14 4 normal Not Available [facility] ([facility]) [address] [facility], [place], [address], 01/31/2025 16:14:04 01/25/20 25 01/25/2025 COMP. METAB OLIC PANEL (14) potassium 3.4 mmol/ L 3.5-5. 2 below low normal Not Available [facility] ([facility]) [address] [place], [address], 01/31/2025 16:14:04 01/25/20 25 01/25/2025 COMP. METAB OLIC PANEL (14) chloride 100 mmol/ L 96-106 normal Not Available [facility] ([facility]) [address] [place], [address], 01/31/2025 16:14:04 01/25/20 25 01/25/2025 COMP. METAB OLIC PANEL (14) carbon dioxide, total 28 mmol/ L 20-29 normal Not Available [facility] ([facility]) [address] [place], [address], 01/31/2025 16:14:04 01/25/20 25 01/25/2025 COMP. METAB OLIC PANEL (14) calcium 8.8 mg/dL 8.7-10 .2 normal Not Available [facility] ([facility]) [address] [place], [address], 01/31/2025 16:14:04 01/25/20 25 01/25/2025 COMP. METAB OLIC PANEL (14) protein, total 6.5 g/dL 6.0-8. 5 normal Not Available [facility] ([facility]) [address] [place], [address], 01/31/2025 16:14:04 01/25/20 25 01/25/2025 COMP. METAB OLIC PANEL (14) albumin 4.0 g/dL 3.8-4. 9 normal Not Available [facility] ([facility]) [address] [place], [address], 01/31/2025 16:14:04 01/25/20 25 01/25/2025 COMP. METAB OLIC PANEL (14) globulin, total 2.5 g/dL 1.5-4. 5 Not Available [facility] ([facility]) [address] [place], [address], 01/31/2025 16:14:04 01/25/20 25 01/25/2025 COMP. METAB OLIC PANEL (14) bilirubin, total 0.7 mg/dL 0.0-1. 2 normal Not Available [facility] ([facility]) [address] [place], [address], 01/31/2025 16:14:04 01/25/20 25 01/25/2025 COMP. METAB OLIC PANEL (14) alkaline phosphatase 76 IU/L 44-121 normal Not Available [facility] ([facility]) [address] [place], [address], 01/31/2025 16:14:04 01/25/20 25 01/25/2025 COMP. METAB OLIC PANEL (14) AST (SGOT) 24 IU/L 0-40 normal Not Available [facility] ([facility]) [address] [place], [address], 01/31/2025 16:14:04 01/25/20 25 01/25/2025 COMP. METAB OLIC PANEL (14) ALT (SGPT) 20 IU/L 0-44 normal Not Available [facility] ([facility]) [address] [facility], [place], [address], 01/31/2025 16:14:04 01/25/20 25 01/25/2025 LIPID PANEL cholesterol, total 147 mg/dL 100-19 9 normal Not Available [facility] ([facility]) [address] [place], [address], 01/31/2025 16:14:05 01/25/20 25 01/25/2025 LIPID PANEL triglyceride s 168 mg/dL 0-149 above high normal Not Available [facility] ([facility]) [address] [place], [address], 01/31/2025 16:14:05 01/25/20 25 01/25/2025 LIPID PANEL HDL cholesterol 21 mg/dL >39 below low normal Not Available [facility] ([facility]) [address] [place], [address], 01/31/2025 16:14:05 01/25/20 25 01/25/2025 LIPID PANEL VLDL cholesterol trey 30 mg/dL 5-40 Not Available [facility] ([facility]) [address] [place], [address], 01/31/2025 16:14:05 01/25/20 25 01/25/2025 LIPID PANEL LDL chol calc ([facility]) 96 mg/dL 0-99 Not Available [facility] ([facility]) [address] [place], [address], 01/31/2025 16:14:05 01/25/20 25 01/25/2025 LIPID PANEL LDL calc comment: FLATTENING PRESS OPERATOR Not Available [facility] ([facility]) [address] [facility], [place], [address], 01/31/2025 16:14:05 01/25/20 25 01/27/2025 VITAM IN E vitamin E(alpha tocopherol) 7.9 mg/L 7.0-25 .1 Not Available [facility] ([facility]) [address] [facility], [place], [address], 01/31/2025 16:14:06 01/25/20 25 01/27/2025 VITAM IN [...] in E defic ient. Not Available [facility] ([facility]) [address] [facility], [place], [address], 01/31/2025 16:14:06 01/25/20 25 01/25/2025 HEMOG LOBIN A1C hemoglobin A1C 5.8 % 4.8-5. 6 above high normal Predi abete s: 5.7 - 6.4 Diabe cecille: >6.4 Glyce rhona contr ol for adult s with diabe cecille: <7.0 Not Available [facility] ([facility]) [address] [facility], [place], [address], 01/31/2025 16:14:01/25/20 25 01/25/2025 FOLAT E (FOLI C ACID) , SERUM folate (folic acid), serum 12.2 NG/mL >3.0 normal A serum folat e michele ntrat ion of less than 3.1 ng/mL is consi dered to repre sent clini trey defic iency . Not Available [facility] ([facility]) [address] [facility], [place], [address], 01/31/2025 16:14:09 01/25/20 25 01/27/2025 VITAM IN [...] yesenia defic ient. This test was devel katina and its perfo rmanc e marlys cteri stics deter mined by [facility]. It has not been clear ed or appro wendy by the Food and Drug Admin istra tion. Not Available [facility] ([facility]) [address] [facility], [place], [address], 01/31/2025 16:14:10 01/25/20 25 01/25/2025 VITAM IN [...] Baylee acosta DC: The Natio nal [facility] Press . 2. Marcela argueta MF, Brigid ey [place], Jing off-F errar i CARCAMO, et al. Evalu ation , treat ment, and preve ntion of vitam in D defic iency : an Endoc rine Socie ty clini trey pract ice guide line. JCEM. 2010; 96(7) :1911 -30. Not Available [facility] ([facility]) [address] [place], [address], 01/31/2025 16:14:11 01/25/20 25 01/27/2025 VITAM IN B1 (THIA MINE) , BLOOD vit. B1, whole blood 192.8 nmol/ L 66.5-2 00.0 Not Available [facility] ([facility]) [address] [place], [address], 01/31/2025 16:14:12 01/25/20 25 01/31/2025 METHY LMALO ARLETTE ACID, SERUM methylmaloni c acid, serum 164 nmol/ L 0-378 Not Available [facility] ([facility]) [address] [facility], [place], [address], 01/31/2025 16:14:13 01/25/20 25 01/28/2025 COPPE R, SERUM OR PLASM A copper, serum or plasma 107 ug/dL 69-132 Detec tion Limit = 5 Not Available [facility] ([facility]) [address] [place], [address], 01/31/2025 16:14:14 01/25/20 25 01/28/2025 ZINC, PLASM A OR SERUM zinc, plasma or serum 47 ug/dL 44-115 normal Detec tion Limit = 5 Not Available [facility] ([facility]) [address] [place], [address], 01/31/2025 16:14:15 01/25/20 25 01/25/2025 PREAL BUMIN prealbumin 14 mg/dL 10-36 Not Available [facility] ([facility]) [address] [place], [address], 01/31/2025 16:14:16 01/25/20 25 01/26/2025 SELEN IUM, BLOOD selenium, blood 137 ug/L 100-34 0 Detec tion Limit = 10 Not Available [facility] ([facility]) [address], [place], [address], 01/31/2025 16:14:18 02/02/20 25 XR, knee No observ ation record ed. DRAGAN Evangelista [facility] [address] [facility] , [place], [address], 02/01/2025 11:40:02 Result Notes None recorded. Problems Name Problem SNOMED Code Status Onset Date Resolution Date Notes Provider Name and Address Organization Details Recorded Time Postoperat jose pain 774569712 Active 2023 MARIANA Rosen [address], [place], [address] , [place] [facility] [place] & [place] 4 09:18:44 Cyst of scalp 209857266 Active 2021 Chela Langley null, [place] 3 14:04:29 Mass of subcutaneo us tissue 7890432288068 9102 Active 2021 Chela Korin [place] 3 14:04:29 Morbid obesity 722677098 Active 2018 Chela [place] 3 14:04:00 Unintentio nal weight gain 0303149459885 04 Active 2022 Chela [place] 3 14:04:29 Disorder of function of stomach 197666096 Active 2022 Chela Calvinis [place] 3 14:04:29 Hyperlipid emia 90461453 Active 2022 Chela [place] 3 14:04:29 Essential hypertensi on 53219463 Active 2019 Chela [place] 3 14:04:01 Pain in bilateral legs 7791475250654 9108 Active 2022 Chela Calvinis [place] 3 14:04:29 Congestive heart failure 46665495 Active 2021 Chela [place] 3 14:04:01 Long-term current use of anticoagul ant 954318220 Active 2022 Chela [place] 3 14:04:30 Degenerati on of lumbar interverte bral disc 83974645 Active 2021 Chela [place] 3 14:04:00 Compressio n of lumbar nerve root 297441524 Active 2021 Chela [place] 3 14:04:00 Hypertensi ve disorder 06194433 Active 2018 Chela [place] 3 14:04:01 History of cardiac catheteriz ation 1388903222758 0 Active Chela [place] 3 14:04:01 Prediabete s 921332211 Active 2021 Chela [place] 3 14:04:01 Iron deficiency 37284762 Active 2022 Chela [place] 3 14:04:29 Vitamin D deficiency 98526297 Active 2022 Chela Calvinis [place] 3 14:04:29 Preinfarct ion syndrome 9049525 Active Chela [place] 3 14:04:29 Migraine 15917156 Active 2022 Chela Korin [place] 3 14:04:29 Notes:Some problems listed i n Documents: #[id number], #[id number], #[id number] could not be added to this patient's chart. Please review these documents and add these problems to the patient's chart manually as needed. Problem Notes None recorded. Procedures Surgical History Date Name Laterality Status Provider Name and Address Organization Details Recorded Time cardiac catheterization completed R obin [facility] & [place] 3 08:15:10 Other completed Ruddy Acharya, DNP, EMULSION COATER, FLATTENING PRESS OPERATOR-C [address] [facility], [place], [address] , [facility] & [place] 3 10:33:42 esophagogastroduodenoscopy completed Sonia Jensen [facility] & [place] 4 10:05:16 Colonoscopy completed Sonia Jensen [facility] & [place] 4 10:05:25 procedure on duodenum completed [place] in [facility] & [place] 4 08:12:56 Imaging Results None recorded. Procedure [...] Updated DateTime 5 180.34 cm 51.3 kg/m2 299273. 99 g 99.1 [degF] 78 /min 148 mm[Hg] 85 mm[Hg] Marleni AMADOR - [place] - [place] & [place] 5 14:25:10 Date Recorded Body height Body temperature Heart rate Body mass index (BMI) Body weight Systolic blood pressure Diastolic blood pressure Provider Name and Address Organization Details Last Updated DateTime 5 180.34 cm 97.8 [degF] 57 /min 48.5 kg/m2 516811. 71 g 133 mm[Hg] 83 mm[Hg] Marleni Camejo [facility] & [place] 5 15:00:25 Social History Question Answer Notes LastModified by [employer] Details LastModified Time Tobacco Smoking Status Former Smoker Chela murray, PERRY Hollis [facility] & [place] 04/11/2023 08:53:09 Do You Have An Advance [...] Functional Status Question Answer Note LastModified by [employer] Details LastModified Time Do you use any [...] anxious, or unable to sleep at night)? [id number] Information not available 04/11/2023 Family History Relationship [...] Reflux/GERD Y High Cholesterol Y Heart Attack ([place]) Y Heart Disease Y Headaches Y Hypertension Y Obstructive Sleep Apnea Y Immunizations Vaccine Type Date Status Note Provider Nam e and Address Organization Details Recorded Time Influenza, split virus, quadrivalent, preservative 0 completed Chela Langley null, [place] [facility] & [place] 10/13/2023 14:04:35 Influenza, split virus, quadrivalent, preservative 2 completed Chela Langle[place] [facility] & [place] 10/13/2023 14:04:35 Past Encounters Encounter ID Performer Location Encounter Start Date Encounter Closed Date Diagnosis/Indication Diagnosis SNOMED-CT Code Diagnosis ICD10 Code Diagnosis Note [id number] MD GABI Quinones [facility] [address] [place] [address],[address] [address] 09/02/2022 13:24:44 09/02/2022 14:19:15 Cyst of scalp 507649087 L72.9 57-year-ol d male with 2 scalp cysts that he would like to have removed. I have reviewed the procedure with him including the risks, benefits, complicati ons and alternativ es. He had an opportunit y to ask questions have them answered. He is scheduled for an office surgery next week for removal of these. [id number] MD GABI Quinones [facility] [address] [place] [address] 09/09/2022 09:20:57 09/09/2022 09:49:42 Mass of subcutaneous tissue 7501729971 8762691 R22.9 patient was taken the procedure room [...] and review of pathology. Cyst of scalp 528281421 L72.9 57-year-ol d male with 2 scalp cysts that he would like to have removed. I have reviewed the procedure with him including the risks, benefits, complicati ons and alternativ es. He had an opportunit y to ask questions have them answered. He is scheduled for an office surgery next week for removal of these. [id number] MD GABI Quinones [facility] [address] [place] [address],[address] [address] 09/16/2022 09:56:17 09/16/2022 10:04:32 Postoperative visit 360761343 Z09 57-year-ol d male here for 1st postoperat jose visit. Incisions are well-heale d sutures removed. Pathology showed pilar cyst. I told him these were benign and nothing to worry about follow-up as needed. [id number] Ruddy Acharya, DNP, EMULSION COATER, FLATTENING PRESS OPERATOR-C [facility] [address] [place] [address] 01/02/2023 07:50:08 01/02/2023 12:22:27 Obesity 509647497 E66.9 The patient will be scheduled for [...] completed Disorder o f function of stomach 936952962 K31.89 Morbid obesity 150495062 E66.01 Unintentio nal weight gain 1966679438 34188 R63.5 Congestive heart failure 61165906 I50.9 Essential hypertension 76739143 I10 Hyperlipidemia 33788945 E78.5 Pain in bi lateral legs 3973545132 4981099 M79.604 Long-term current use of anticoagulant 988693393 Z79.01 [id number] [facility] [address] [address] 01/09/2023 07:59:23 01/09/2023 09:12:06 Pain of right ankle joint 3941790280 3583645 M25.571 Localized, primary osteoarthritis of the ankle and/or foot 994461337 M19.079 [id number] [facility] [address] [address] 04/11/2023 08:41:20 04/11/2023 09:14:48 Localized, primary osteoarthritis of the ankle and/or foot 041151987 M19.079 Osteoarthr itis of left knee joint 4685527347 92328 M17.12 [id number] [facility] [address] [place] [address] 9 07/14/2023 13:21:01 07/14/2023 14:48:05 Localized, primary osteoarthritis of the ankle and/or foot 393515531 M19.079 Osteoarthr itis of left knee joint 2297856009 68029 M17.12 [id number] STACEY COYNE NP [facility] [address] [place] [address] 9 10/13/2023 13:44:44 10/13/2023 14:33:08 Localized, primary osteoarthritis of the ankle and/or foot 451574978 M19.079 Osteoarthr itis of left knee joint 1590788964 58213 M17.12 Impingemen t syndrome of left shoulder region 6048222977 78786 M75.42 [id number] Stanislaw Medeiros MD [facility] [address] [place] [address] 9 11/10/2023 12:52:48 11/10/2023 13:46:16 Cervical radiculitis 23001766 M54.12 [id number] STACEY COYNE NP [facility] [address] [place] [address] 9 01/01/2024 08:58:27 01/01/2024 09:35:17 Pain of left shoulder joint 0277499820 9372284 M25.512 Shoulder g irdle weakness 885205519 M99.07 Injury of left shoulder 2296346611 0930582 S49.92XD [id number] [facility] [address] [place] [address] 9 01/12/2024 13:50:12 01/12/2024 14:15:53 Localized, primary osteoarthritis of the ankle and/or foot 039511077 M19.079 Osteoarthr itis of left knee joint 0876897573 67541 M17.12 [id number] [facility] [address] [place] [address] 04/12/2024 13:57:44 04/12/2024 14:31:31 Localized, primary osteoarthritis of the ankle and/or foot 102919960 M19.079 Osteoarthr itis of left knee joint 4595187918 45171 M17.12 [id number] Ruddy Acharya, DNP, EMULSION COATER, FLATTENING PRESS OPERATOR-C [facility] [address] [place] [address] 05/07/2024 09:59:25 05/07/2024 11:48:13 Congestive heart failure 60306047 I50.9 Essential hypertension 88098729 I10 Hyperlipidemia 62864867 E78.5 Iron deficiency 97180548 E61.1 Long-term current use of anticoagulant 708034562 Z79.01 Prediabetes 709655017 R7 3.03 Vitamin D deficiency 347 34851 E55.9 Morbid obesity 711966564 E66.01 The patient will be scheduled for [...] social distancing . Unintentio nal weight gain 6271590780 22448 R63.5 Pre-surger y evaluation 404932126 Z01.818 Disorder o f function of stomach 499435224 K31.89 [id number] MD GABI [facility] [address] [place] [address] 07/13/2024 08:04:01 07/13/2024 08:29:55 Localized, primary osteoarthritis of the ankle and/or foot 037853138 M19.079 Osteoarthr itis of left knee joint 7138339162 16540 M17.12 [id number] Jamee Ware M.D [facility] [address] [place] [address] 09/21/2024 12:50:34 09/21/2024 13:40:37 Preoperative pulmonary examination 274269230 Z01.811 Morbid obesity 195511069 E66.01 Obstructiv e sleep apnea of adult 8585445346 103 G47.33 [id number] VIRIDIANA ANGEL MD [facility] [address] [facility] [address] [place] [address] 10/13/2024 07:46:27 10/13/2024 14:13:28 Essential hypertension 30990899 I10 Congestive heart failure 10999867 I50.9 Morbid obesity 293371261 E66.01 Pre-surger y evaluation 150079415 Z01.818 Postoperative pain 08395 9007 G89.18 Patient will continue Lyrica for postoperat jose pain.Lisa nt also has hydrocodon e 7.5/325 mg prescribed b.i.d. Prophylact ic anticoagulation given 5070476193 32361 Z76.89 Patient is on chronic anticoagul ation [...] once they are discharged from the hospital. [id number] [facility] [address] [place] [address] 12/06/2024 12:54:18 12/06/2024 13:37:13 Localized, primary osteoarthritis of the ankle and/or foot 895098887 M19.079 Osteoarthr itis of left knee joint 3818485472 78352 M17.12 [id number] Ruddy Acharya DNP, FELISHA, FLATTENING PRESS OPERATOR-C [facility] [address] [facility] [address] [facility] [place] [address] 10/26/2024 07:59:19 10/26/2024 10:06:20 History of bariatric surgical procedure 585797435 Z98.84 The patient is doing well. The [...] plan and agree to comply. Essential hypertension 78940427 I10 Hyperlipidemia 32757875 E78.5 Iron deficiency 06202185 E61.1 Congestive heart failure 60129503 I50.9 Prediabetes 460024386 R7 3.03 Vitamin D deficiency 347 36684 E55.9 Morbid obesity 933052896 E66.01 [id number] Ruddy Acharya DNP, FELISHA, FLATTENING PRESS OPERATOR-C [facility] [address] [facility] [address] [facility] [place] [address] 11/26/2024 13:44:01 11/26/2024 14:56:49 History of bariatric surgical procedure 501149438 Z98.84 The patient is doing well. The [...] agree to comply. Intentiona l weight loss 899151297 R63.8 History of gastrectomy 012441064 Z90.3 Advised qid intake 50% protein 4010-1735 calories/d y less than 100 carbs/dy Long [...] to correct any vitamin deficienci es. At increas ed risk of nutritional deficit 646980191 Z91.89 Congestive heart failure 33530592 I50.9 Essential hypertension 87621716 I10 Hyperlipidemia 73968545 E78.5 Iron deficiency 87596607 E61.1 Vitamin D deficiency 347 90683 E55.9 Prediabetes 915167538 R7 3.03 [id number] MARIA DE [address]US [address], LD [facility] n [facility] [address] [facility] [address] [place] [address] 11/26/2024 14:50:10 11/26/2024 15:15:57 Morbid obesity 629536761 E66.01 BMI 51.3 wt loss 17.6# [id number] Ruddy Acharya, DNP, EMULSION COATER, FLATTENING PRESS OPERATOR-C [facility] n [facility] [address] [facility] [address] [place] [address] 01/24/2025 14:45:59 01/24/2025 15:26:50 History of bariatric surgical procedure 736114691 Z98.84 The patient is doing well. The [...] agree to comply. Intentiona l weight loss [id number] R63.8 History of gastrectomy 430776175 Z90.3 Advised qid intake 50% protein 9431-0692 calories/d y less than 100 carbs/dy Long [...] to correct any vitamin deficienci es. At [facility] risk of nutritional deficit [id number] Z91.89 Congestive heart failure [id number] I50.9 Essential hypertension 68100782 I10 Hyperlipidemia 86877407 E78.5 Iron deficiency 45616466 E61.1 Prediabetes 141766517 R7 3.03 Vitamin D deficiency 347 09018 E55.9 [id number] Stanislaw Medeiros MD Nuria albrecht [facility] [address] [place], [place] [address] 02/01/2025 10:36:27 02/01/2025 12:06:12 Osteoarthritis of right knee joint [id number] 65045 M17.11 Primary go narthrosis, bilateral 377402265 M17.0 Osteoarthr itis of joint of right ankle and/or foot [id number] 22645 M19.071 Health Concerns Section Related Observation LastModified by Organization Detai ls LastModified Time None Recorded Concern Status LastModified by Organization Details LastModified Time None Recorded Advance Directives Directive N: Payers Insurance Date Sequence Insurance Name Policy Number Policy Finn Covered Member ID Finn Member ID Guarantor Name 02/01/2025 2 [facility] Thomson [id number] Addy Thomson 04/09/2024 1 [facility] Addy Thomson [id number] Addy Thomson 03/04/2025 1 [facility] - DUAL ELIGIBLE (MEDICARE REPLACEMENT/A DVANTAGE - HMO) PREETHINP Addy Alix [id number] Addy Thomson 02/01/2025 2 MEDICAID-[facility] CHO[facility] - FFS/TRADITION AL Addy Thomson [id number] Addy Thomson 12/06/2024 1 [place] [id number] Addy Montelongo Alix [id number] Addy Thomson 01/26/2025 1 [place] Addy Jayda Alix [id number] Addy Thomson 02/20/2025 1 [facility] [place] DVANTAGE - HMO) [id number] Addy H Alix [id number] Addy Thomson Notes Date Note Type Note [...] life after Weight loss Surgery. Ruddy Acharya, DNP, EMULSION COATER, FLATTENING PRESS OPERATOR-C [address] [facility], [place], [address], [facility] [place] & [place] 11/26/2024 14:51:18 11/26/2024 text/html ADIME TemplateA: RADHA [...] . [address], LD [address] , [place], [address], [facility] & [place] 11/26/2024 15:15:32 12/06/2024 text/html 9.17.24- left kn ee and right ankle injectionsKnee injection helped 3 months and ankle injection helped 1.5 [id number] Stanislaw Medeiros MD [address] [facility],[address], [place], [address], [facility] & [place] 12/09/2024 16:12:01 01/24/2025 text/html Patient presents the [...] = 2038 kilo calories Ruddy Acharya, DNP, EMULSION COATER, FLATTENING PRESS OPERATOR-C [address] [facility], [place], [address], [facility] & [place] 01/24/2025 16:00:35 02/01/2025 text/html This 59 year [...] his pain. CHE1 Stanislaw Medeiros MD [address] [facility],[address], [place], [address], [facility] & [place] 02/02/2025 07:56:15
--- NOTE | 2025-03-28 11:52 | A.OFFVIS_ITS ---
[facility] Disclaimer: The information contained in this section may have been updated after the patient was seen, as this information can be updated by other users. Medical History Migraine History of chest pain CAD (coronary artery disease) HLD (hyperlipidemia) HTN (hypertension) Family History Other No significant family history Social History Smoking Status: Unknown if ever smoked alcohol intake: never current occupational status: other Travel in the last 8 weeks?: None PM Subjective & Objective Subjective Subjective:: Patient is a pleasant 59-year-old male who presents today for 1 month follow-up. Today he rates his pain at 3 out of 10. He denies any new trauma or injury. He does state that he still has the chronic back pain and still would like in future to progress forward to the intrathecal pump. Patient is still continuing to lose weight and does have a 6-month follow-up with that office coming up to see his total overall weight loss. Patient is currently managed with Gardena 7.5 mg twice a day from our office. He denies any side effects. His Julian has been reviewed and is appropriate. Review of Systems: General: No recent weight changes, no fever, no sleep disturbances Respiratory: No cough, no shortness of air, no recurring pulmonary infections Cardiovascular/peripheral vascular: No chest pain, no palpitations, no edema, no shortness of breath Gastrointestinal: No new onset incontinence, normal bowel movements reported Genitourinary: No new onset incontinence Musculoskeletal: Low back pain Psychiatric: [Normal mood/affect] Neurological: [Denies weakness in extremities], [denies balance issues] Pain at rest (0-10 scale): 3 Objective Objective:: Physical Exam: General: Alert and oriented x3, no acute distress, pleasant and cooperative Lungs: Respirations even and unlabored, symmetrical chest expansion Eyes: PERRL Musculoskeletal: Flexion and extension of lumbar [spine] somewhat guarded secondary to pain, [antalgic gait noted] Neurological: Speech clear, no gross sensory deficit Has patient had previous pain injection?: No Conservative treatment options previously tried: Prescription medications Length of treatment: Longer than 12 weeks Meds Home Medications and Allergies Home Medications ?Medication ?Instructions ?Recorded ?Confirmed ?Type atorvastatin 40 mg tablet 40 mg PO HS 01/01/24 5 History cholecalciferol (vitamin D3) 1,250 1,250 mcg PO DAILY 01/01/24 02/24/25 History mcg (50,000 unit) capsule clopidogrel 75 mg tablet 75 mg PO DAILY 01/01/2411/20 History lisinopril 40 mg tablet 40 mg PO DAILY 01/01/2411/20 History metoprolol succinate 100 mg 100 mg PO DAILY 01/01/24 0 02/24/25 History tablet,extended release 24 hr pregabalin 150 mg capsule 150 - 300 mg PO BID 01/01/24 02/24/25 History tramadol 50 mg tablet 50 mg PO Q6HP PRN Pain 02/0102/24/25 History hydrocodone 5 mg-acetaminophen 325 1 tab PO BID 15 day s #30 tabs 05/28/24 02/24/25 Rx mg tablet naloxone 4 mg/actuation nasal spray 4 mg intranasal Q2 M PRN opioid 06/03/24 02/24/25 Rx overdose #2 ea hydrocodone 7.5 mg-acetaminophen 1 tab PO BID #60 tabs 02/24/25 Rx 325 mg tablet New Prescriptions to Start Prescriptions: Allergies Allergy/AdvReac Type Severity Reaction Status Date / Time No Known Allergies Allergy Verified 01/01/24 15:21 Assessment and Plan *Assessment and plan (1) Lumbar radiculopathy: Status: Acute Category: Medical Code(s): M54.16 - Radiculopathy, lumbar region (2) Degenerative disc disease, lumbar: Status: Acute Category: Medical Code(s): M51.369 - Other intervertebral disc degeneration, lumbar region without mention of lumbar back pain or lower extremity pain Plan I will refill the patient's Gardena and provide a 1 month supply of this medication. Patient will return to clinic in 1 month for reevaluation of symptoms and plan of care. I did also discuss with patient that I do believe he would still be a very beneficial candidate of the pump trial and that we can proceed forward with this option at a later date that we would just verify his updated BMI. Patient agrees with this plan of care. Risks and benefits of the medication have been explained in detail to the patient. The patient does understand the risk of dependence on the medication when given over a prolonged period. Patient has been advised of risks of oversedation with the prescribed medication. Narcan has been offered to the paitent in the event of oversedation. Patient has been advised that a family member should also be educated regarding administration of Narcan. The patient has been advised to consult with his/her primary care provider and pharmacist regarding drug-drug interaction of medications currently prescribed. Patient has been prescribed a controlled substance after being counseled on the medication, medication safety, and possible side effects. Opioid contract was reviewed and signed by the patient, and that they have agreed to all of the terms set forth by our compliance program. A UDS is needed to verify patient's compliance with our office pain contract. This is ordered based off specific treatments related to chronic pain with the potential to abuse certain medications. Patient has been instructed to contact the clinic with any concerns before the next appointment. Dr. Thomas has reviewed this note and agrees with this plan of care. This note was dictated using voice recognition software and make contain errors or omissions.
[2025-03-28 13:03] VITALS: BP 122/69; PULSE 70; RESP 14; O2SAT 94; BMI 44.6
== END 2025-03-28 23:59 | disposition home or self-care (01) ==
PROVIDERS: PCP Nurse Practitioner Family; Visit Provider Nurse Practitioner Family
DX: M51.16 Intervertebral disc disorders with radiculopathy, lumbar region (principal)
CPT/HCPCS: 99212; G0463

== ENCOUNTER 2025-04-27 09:30 | Outpatient (POV) | payer MEDICARE, SELFPAY ==
--- OUTSIDE RECORDS SUMMARY | 2025-04-27 09:34 | XMS_ITS | Clinical Summary ---
Author Organization [facility] Address [address] [place] [address] Care Team Providers Care Medical Economics Consultant Name Role Phone Unavailable Primary Care Provider Unavailabl e Social History Tobacco Use Types Packs/Day Years Used Date Smoking Tobacco: Never Assessed Sex and Gender Information Value Date Recorded Sex Assigned at Not on file Legal Sex Male 2:45 PM EST Gender Identity Not on file Sexual Orientation Not on file Plan of Treatment Health Maintenance Due Date Last Done Comments COLOGUARD 1966 FIT 1966 HEP C SCREENING 1966 SIGMOIDOSCOPY 1966 ANNUAL WELLNESS EXAM 1969 DTAP/TDAP/TD VACCINE (1 - Tdap) 1985 Shingles Vaccine (Shingrix) (1 of 2) 2016 INFLUENZA VACCINE (#1) 2025 2, 08/15/2020 COLONOSCOPY 09/25/2033 09/25/2023 Colorectal Screening Combination 09/25/2033 HEP A VACCINE Aged Out No longer elig ible based on patient's age to complete this topic HIB VACCINE Aged Out No longer eligi ble based on patient's age to complete this topic ROTOVIRUS VACCINE Aged Out No longer eligible based on patient's age to complete this topic [facility] [employer] [place]
--- OUTSIDE RECORDS SUMMARY | 2025-04-27 09:34 | XMS_ITS | Data Portability ---
Author Organization [place] - [facility] & [facility] ADMIN Address [address] [place] [id number] Care Team Providers Care Furnace Builder Name Role Phone LANDEN IYER Primary Care Provider [phone] Assessment Encounter Date Assessment Date Assessment LastModified by Organization Details LastModified Time 04/26/2025 04/26/2025 A total of 5 minutes was spent with the pt today. Recommendations: 1. Increase protein to 90 g per day 2. Get back to tracking meal intakes 3. Add in additional physical activity as tolerated such as chair exercises 3-4x/week 4. F/U with RD as needed Pt doing well overall. Addressed concerns today. Pt was reassured at today's visit. Pt verbally agreed to recommendations and goals. Denied further questions/concerns . RDN will monitor weight loss, labs, meds, and lifestyle modifications. Will f/up as scheduled or PRN. [email or web address] Not available 04/26/2025 09:57:26 Plan of Treatment Reminders Order Date Submit Date Provider Last Modified By Organization Details Last Modified Time Details Appointments INJ ONLY 15 2024 09:15A M Stanislaw Medeiros MD Not available Not available Not available OV EST 20 2024 10:20A M Ruddy Acharya, DNP, MACHINE MAINTENANCE SUPERVISOR, PUBLIC ADDRESS SYSTEM OPERATOR-C Not available Not available Not available Lab iron + TIBC + ferritin, serum 2024 025 DRAGAN [facility], [address], [address], [place], [address], 04/26/2025 09:27:58 folate, serum 2024 025 DRAGAN [facility], [address], [address], [place], [address], 04/26/2025 09:28:02 vitamin D, 25-hydrox y, total, serum 2024 025 DRAGAN [facility], [address], [address], [place], [address], 04/26/2025 09:27:57 HbA1c (hemoglob in A1c), blood 2024 025 DRAGAN [facility], [address], [address], [place], [address], 04/26/2025 09:28:01 TSH + free T4, serum 2024 025 DRAGAN [facility], [address], [address], [place], [address], 04/26/2025 09:27:59 copper, serum or plasma 2024 025 DRAGAN [facility], [address], [address], [place], [address], 04/26/2025 09:28:00 selenium, quantitat jose, blood 2024 025 DRAGAN [facility], [address], [address], [place], [address], 04/26/2025 09:27:58 zinc, serum or plasma 2024 025 DRAGAN [facility], [address], [address], [place], [address], 04/26/2025 09:28:00 vitamin E, serum 2024 025 DRAGAN [facility], [address], [address], [place], [address], 04/26/2025 09:27:58 vitamin A (retinol) , serum 2024 025 DRAGAN [facility], [address], [address], [place], [address], 04/26/2025 09:28:00 prealbumi n, serum 2024 025 DRAGAN [facility], [address], [address], [place], [address], 04/26/2025 09:27:57 thiamine, QN, blood 2024 025 DRAGAN [facility], [address], [address], [place], [address], 04/26/2025 09:27:59 methylmal linh, QN, serum or plasma 2024 025 DRAGAN [facility], [address], [address], [place], [address], 04/26/2025 09:28:01 CBC w/ auto diff 2024 025 DRAGAN [facility], [address], [address], [place], [address], 04/26/2025 09:28:01 CMP, serum or plasma 2024 025 DRAGAN [facility], [address], [address], [place], [address], 04/26/2025 09:27:57 lipid panel, serum 2024 025 DRAGAN [facility], [address], [address], [place], [address], 04/26/2025 09:27:58 vitamin D, 25-hydrox y, total, serum 2024 025 [email or web address] [facility], [address], [address], [place], [address], 01/31/2025 15:07:46 HbA1c (hemoglob in A1c), blood 2024 025 [email or web address] [facility], [address], [address], [place], [address], 01/31/2025 15:07:46 copper, serum or plasma 2024 025 [email or web address] [facility], [address], [address], [place], [address], 01/31/2025 15:07:45 selenium, quantitat jose, blood 2024 025 [facility], [address], [address], [place], [address], 01/31/2025 15:07:45 zinc, serum or plasma 2024 025 [email or web address] [facility], [address], [address], [place], [address], 01/31/2025 15:07:45 iron + TIBC + ferritin, serum 2024 025 [email or web address] [facility], [address], [address], [place], [address], 01/31/2025 15:07:45 folate, serum 2024 [email or web address] [facility], [address], [address], [place], [address], 01/31/2025 15:07:46 vitamin E, serum 2024 025 [facility], [address], [address], [place], [address], 01/31/2025 15:07:46 vitamin A (retinol) , serum 2024 025 [email or web address] [facility], [address], [address], [place], [address], 01/31/2025 15:07:46 prealbumi n, serum 2024 025 [email or web address] [facility], [address], [address], [place], [address], 01/31/2025 15:07:46 thiamine, QN, blood 2024 025 [email or web address] [facility], [address], [address], [place], [address], 01/31/2025 15:07:46 methylmal linh, QN, serum or plasma 2024 025 [email or web address] [facility], [address], [address], [place], [address], 01/31/2025 15:07:46 CBC w/ auto diff 2024 025 [email or web address] [facility], [address], [address], [place], [address], 01/31/2025 15:07:46 CMP, serum or plasma 2024 025 [email or web address] [facility], [address], [address], [place], [address], 01/31/2025 15:07:46 TSH + free T4, serum 2024 025 [email or web address] [facility], [address], [address], [place], [address], 01/31/2025 15:07:47 lipid panel, serum 2024 025 [facility], [address], [address], [place], [address], 01/31/2025 15:07:47 Referral None recorded. Procedures None recorded. Surgeries None recorded. Imaging XR, knee 2024 025 [email or web address] [facility], [address] [place] [address], [place], [address], 02/03/2025 07:36:03 Medication Orders Kenalog 10 mg/mL suspensio n for injection 2024 025 [email or web address] Not available 02/03/2025 07:36:03 bupivacai ne HCl 0.5 % (5 mg/mL) injection solution 2024 025 Not available 02/03/2025 07:36:03 Kenalog 10 mg/mL suspensio n for injection 2024 025 [email or web address] Not available 02/03/2025 07:36:03 bupivacai ne HCl 0.5 % (5 mg/mL) injection solution 2024 025 [email or web address] Not available 02/03/2025 07:36:03 Kenalog 10 mg/mL suspensio n for injection 2023 [email or web address], [address], 01/24/2025 14:58:37 bupivacai ne HCl 0.5 % (5 mg/mL) injection solution 2023 [email or web address], [address], 01/24/2025 14:58:29 Kenalog 10 mg/mL suspensio n for injection 2023 025 [email or web address] Not available 01/24/2025 14:58:37 bupivacai ne HCl 0.5 % (5 mg/mL) injection solution 2023 025 [email or web address] Not available 01/24/2025 14:58:29 Patient TargetsNo targets recorded. Patient InstructionsNo instructions recorded. Reason for Referral None Reported. Results Created Date Observation Date Name Description Value Unit Range Abnormal Flag Note LastModifiedBy Organization Detail LastModifiedTime 11/26/1911/27/2024 FE+TI BC+FE R iron bind.cap.(TI BC) 254 ug/dL 250-45 0 normal Not Available [facility] ([facility]) [address] [place], [address], 12/03/2024 03:37:23 11/26/19 25 11/27/2024 FE+TI BC+FE R UIBC 221 ug/dL 111-34 3 normal Not Available [facility] ([facility]) [address] [place], [address], 12/03/2024 03:37:23 11/26/19 25 11/27/2024 FE+TI BC+FE R iron 33 ug/dL 38-169 below low normal Not Available [facility] ([facility]) [address] [place], [address], 12/03/2024 03:37:23 11/26/19 25 11/27/2024 FE+TI BC+FE R iron saturation 13 % 15-55 below low normal Not Available [facility] ([facility]) [address] [place], [address], 12/03/2024 03:37:23 11/26/19 25 11/27/2024 FE+TI BC+FE R ferritin 154 NG/mL 30-400 normal Not Available [facility] ([facility]) [address] [place], [address], 12/03/2024 03:37:23 11/26/19 25 11/27/2024 TSH+F REE T4 TSH 2.920 uIU/m L 0.450- 4.500 normal Not Available [facility] ([facility]) [address] [place], [address], 12/03/2024 03:37:24 11/26/19 25 11/27/2024 TSH+F REE T4 T4,free(dire ct) 1.44 NG/dL 0.82-1 .77 normal Not Available [facility] ([facility]) [address] [place], [address], 12/03/2024 03:37:24 11/26/19 25 11/27/2024 CBC WITH DIFFE RENTI AL/PL ATELE T WBC 9.0 x10e3 /uL 3.4-10 .8 normal Not Available [facility] ([facility]) [address] [place], [address], 12/03/2024 03:37:25 11/26/19 25 11/27/2024 CBC WITH DIFFE RENTI AL/PL ATELE T RBC 5.49 x10e6 /uL 4.14-5 .80 normal Not Available [facility] ([facility]) [address] [place], [address], 12/03/2024 03:37:25 11/26/19 25 11/27/2024 CBC WITH DIFFE RENTI AL/PL ATELE T hemoglobin 15.4 g/dL 13.0-1 7.7 normal Not Available [facility] ([facility]) [address] [place], [address], 12/03/2024 03:37:25 11/26/19 25 11/27/2024 CBC WITH DIFFE RENTI AL/PL ATELE T hematocrit 48.5 % 37.5-5 1.0 normal Not Available [facility] ([facility]) [address] [place], [address], 12/03/2024 03:37:25 11/26/19 25 11/27/2024 CBC WITH DIFFE RENTI AL/PL ATELE T MCV 88 fL 79-97 normal Not Available [facility] ([facility]) [address] [place], [address], 12/03/2024 03:37:25 11/26/19 25 11/27/2024 CBC WITH DIFFE RENTI AL/PL ATELE T MCH 28.1 pg 26.6-3 3.0 normal Not Available [facility] ([facility]) [address] [facility], [place], [address], 12/03/2024 03:37:25 11/26/19 25 11/27/2024 CBC WITH DIFFE RENTI AL/PL ATELE T MCHC 31.8 g/dL 31.5-3 5.7 normal Not Available [facility] ([facility]) [address] [facility], [place], [address], 12/03/2024 03:37:25 11/26/19 25 11/27/2024 CBC WITH DIFFE RENTI AL/PL ATELE T RDW 13.4 % 11.6-1 5.4 Not Available [facility] ([facility]) [address] [place], [address], 12/03/2024 03:37:25 11/26/19 25 11/27/2024 CBC WITH DIFFE RENTI AL/PL ATELE T platelets 253 x10e3 /uL 150-45 0 normal Not Available [facility] ([facility]) [address] [place], [address], 12/03/2024 03:37:25 11/26/19 25 11/27/2024 CBC WITH DIFFE RENTI AL/PL ATELE T neutrophils 72 % not estab. normal Not Available [facility] ([facility]) [address] [place], [address], 12/03/2024 03:37:25 11/26/19 25 11/27/2024 CBC WITH DIFFE RENTI AL/PL ATELE T lymphs 19 % not estab. normal Not Available [facility] ([facility]) [address] [place], [address], 12/03/2024 03:37:25 11/26/19 25 11/27/2024 CBC WITH DIFFE RENTI AL/PL ATELE T monocytes 7 % not estab. normal Not Available [facility] ([facility]) [address] [place], [address], 12/03/2024 03:37:25 11/26/19 25 11/27/2024 CBC WITH DIFFE RENTI AL/PL ATELE T eos 2 % not estab. normal Not Available [facility] ([facility]) [address] [place], [address], 12/03/2024 03:37:25 11/26/19 25 11/27/2024 CBC WITH DIFFE RENTI AL/PL ATELE T basos 0 % not estab. normal Not Available [facility] ([facility]) [address] [place], [address], 12/03/2024 03:37:25 11/26/19 25 11/27/2024 CBC WITH DIFFE RENTI AL/PL ATELE T immature cells PUBLIC ADDRESS SYSTEM OPERATOR Not Available [facility] ([facility]) [address] [place], [address], 12/03/2024 03:37:25 11/26/19 25 11/27/2024 CBC WITH DIFFE RENTI AL/PL ATELE T neutrophils (absolute) 6.4 x10e3 /uL 1.4-7. 0 normal Not Available [facility] ([facility]) [address] [place], [address], 12/03/2024 03:37:25 11/26/19 25 11/27/2024 CBC WITH DIFFE RENTI AL/PL ATELE T lymphs (absolute) 1.7 x10e3 /uL 0.7-3. 1 normal Not Available [facility] ([facility]) [address] [place], [address], 12/03/2024 03:37:25 11/26/19 25 11/27/2024 CBC WITH DIFFE RENTI AL/PL ATELE T monocytes(ab solute) 0.7 x10e3 /uL 0.1-0. 9 normal Not Available [facility] ([facility]) [address] [facility], [place], [address], 12/03/2024 03:37:25 11/26/19 25 11/27/2024 CBC WITH DIFFE RENTI AL/PL ATELE T eos (absolute) 0.2 x10e3 /uL 0.0-0. 4 normal Not Available [facility] ([facility]) [address] [facility], [place], [address], 12/03/2024 03:37:25 11/26/19 25 11/27/2024 CBC WITH DIFFE RENTI AL/PL ATELE T baso (absolute) 0.0 x10e3 /uL 0.0-0. 2 normal Not Available [facility] ([facility]) [address] [place], [address], 12/03/2024 03:37:25 11/26/19 25 11/27/2024 CBC WITH DIFFE RENTI AL/PL ATELE T immature granulocytes 0 % not estab. Not Available [facility] ([facility]) [address] [facility], [place], [address], 12/03/2024 03:37:25 11/26/19 25 11/27/2024 CBC WITH DIFFE RENTI AL/PL ATELE T immature grans (abs) 0.0 x10e3 /uL 0.0-0. 1 Not Available [facility] ([facility]) [address] [facility], [place], [address], 12/03/2024 03:37:25 11/26/19 25 11/27/2024 CBC WITH DIFFE RENTI AL/PL ATELE T NRBC PUBLIC ADDRESS SYSTEM OPERATOR Not Available [facility] ([facility]) [address], [place], [address], 12/03/2024 03:37:25 11/26/19 25 11/27/2024 CBC WITH DIFFE KATIA AL/PL LYNDSAYLE T hematology comments: PUBLIC ADDRESS SYSTEM OPERATOR Not Available [facility] ([facility]) [address] [facility], [place], [address], 12/03/2024 03:37:25 11/26/19 25 11/27/2024 COMP. METAB OLIC PANEL (14) glucose 92 mg/dL 70-99 normal Not Available [facility] ([facility]) [address] [place], [address], 12/03/2024 03:37:26 11/26/19 25 11/27/2024 COMP. METAB OLIC PANEL (14) BUN 15 mg/dL 6-24 normal Not Available [facility] ([facility]) [address] [place], [address], 12/03/2024 03:37:26 11/26/19 25 11/27/2024 COMP. METAB OLIC PANEL (14) creatinine 0.72 mg/dL 0.76-1 .27 below low normal Not Available [facility] ([facility]) [address] [place], [address], 12/03/2024 03:37:26 11/26/19 25 11/27/2024 COMP. METAB OLIC PANEL (14) eGFR 106 mL/mi n/1.7 3 >59 normal Not Available [facility] ([facility]) [address] [place], [address], 12/03/2024 03:37:26 11/26/19 25 11/27/2024 COMP. METAB OLIC PANEL (14) BUN/creatini ne ratio 21 9-20 above high normal Not Available [facility] ([facility]) [address] [place], [address], 12/03/2024 03:37:26 11/26/19 25 11/27/2024 COMP. METAB OLIC PANEL (14) sodium 140 mmol/ L 134-14 4 normal Not Available [facility] ([facility]) [address] [place], [address], 12/03/2024 03:37:26 11/26/19 25 11/27/2024 COMP. METAB OLIC PANEL (14) potassium 3.7 mmol/ L 3.5-5. 2 normal Not Available [facility] ([facility]) [address] [place], [address], 12/03/2024 03:37:26 11/26/19 25 11/27/2024 COMP. METAB OLIC PANEL (14) chloride 97 mmol/ L 96-106 normal Not Available [facility] ([facility]) [address] [place], [address], 12/03/2024 03:37:26 11/26/19 25 11/27/2024 COMP. METAB OLIC PANEL (14) carbon dioxide, total 27 mmol/ L 20-29 normal Not Available [facility] ([facility]) [address] [place], [address], 12/03/2024 03:37:26 11/26/19 25 11/27/2024 COMP. METAB OLIC PANEL (14) calcium 9.3 mg/dL 8.7-10 .2 normal Not Available [facility] ([facility]) [address] [place], [address], 12/03/2024 03:37:26 11/26/19 25 11/27/2024 COMP. METAB OLIC PANEL (14) protein, total 7.3 g/dL 6.0-8. 5 normal Not Available [facility] ([facility]) [address] [place], [address], 12/03/2024 03:37:26 11/26/19 25 11/27/2024 COMP. METAB OLIC PANEL (14) albumin 4.3 g/dL 3.8-4. 9 normal Not Available [facility] ([facility]) [address] [place], [address], 12/03/2024 03:37:26 11/26/19 25 11/27/2024 COMP. METAB OLIC PANEL (14) globulin, total 3.0 g/dL 1.5-4. 5 Not Available [facility] ([facility]) [address] [place], [address], 12/03/2024 03:37:26 11/26/19 25 11/27/2024 COMP. METAB OLIC PANEL (14) bilirubin, total 0.8 mg/dL 0.0-1. 2 normal Not Available [facility] ([facility]) [address] [place], [address], 12/03/2024 03:37:26 11/26/19 25 11/27/2024 COMP. METAB OLIC PANEL (14) alkaline phosphatase 81 IU/L 44-121 normal Not Available [facility]) [address] [place], [address], 12/03/2024 03:37:26 11/26/19 25 11/27/2024 COMP. METAB OLIC PANEL (14) AST (SGOT) 22 IU/L 0-40 normal Not Available [facility] ([facility]) [address] [place], [address], 12/03/2024 03:37:26 11/26/19 25 11/27/2024 COMP. METAB OLIC PANEL (14) ALT (SGPT) 23 IU/L 0-44 normal Not Available [facility] ([facility]) [address] [place], [address], 12/03/2024 03:37:26 11/26/19 25 11/27/2024 LIPID PANEL cholesterol, total 168 mg/dL 100-19 9 normal Not Available [facility] ([facility]) [address] [place], [address], 12/03/2024 03:37:27 11/26/19 25 11/27/2024 LIPID PANEL triglyceride s 183 mg/dL 0-149 above high normal Not Available [facility] ([facility]) [address] [place], [address], 12/03/2024 03:37:27 11/26/19 25 11/27/2024 LIPID PANEL HDL cholesterol 24 mg/dL >39 below low normal Not Available [facility] ([facility]) [address] [place], [address], 12/03/2024 03:37:27 11/26/19 25 11/27/2024 LIPID PANEL VLDL cholesterol trey 33 mg/dL 5-40 Not Available [facility] ([facility]) [address] [place], [address], 12/03/2024 03:37:27 11/26/19 25 11/27/2024 LIPID PANEL LDL chol calc ([facility]) 111 mg/dL 0-99 above high normal Not Available [facility] ([facility]) [address] [place], [address], 12/03/2024 03:37:27 11/26/19 25 11/27/2024 LIPID PANEL LDL calc comment: PUBLIC ADDRESS SYSTEM OPERATOR Not Available [facility] ([facility]) [address] [place], [address], 12/03/2024 03:37:27 11/26/19 25 12/02/2024 VITAM IN E vitamin E(alpha tocopherol) 8.2 mg/L 7.0-25 .1 Not Available [facility] ([facility]) [address] [place], [address], 12/03/2024 03:37:28 01/31/12/02/2024 VITAM IN E vitamin E(gamma tocopherol) 0.8 mg/L 0.5-5. 5 Refer ence inter vals for alpha and gamma -toco phero l deter mined from [facility] Nut[facility] tion Exami natio n Surve y, 2004- 2005. Indiv idual s with alpha -toco phero l level s less than 5.0 mg/L are consi dered vitam in E defic ient. Not Available [facility] ([facility]) [address] [facility], [place], [address], 12/03/2024 03:37:28 11/26/19 25 11/27/2024 HEMOG LOBIN A1C hemoglobin A1C 5.8 % 4.8-5. 6 above high normal Predi abete s: 5.7 - 6.4 Diabe cecille: >6.4 Glyce rhona contr ol for adult s with diabe cecille: <7.0 Not Available [facility] ([facility]) [address] [facility], [place], [address], 12/03/2024 03:37:29 11/26/19 25 11/27/2024 FOLAT E (FOLI C ACID) , SERUM folate (folic acid), serum 9.0 NG/mL >3.0 normal A serum folat e michele ntrat ion of less than 3.1 ng/mL is consi dered to repre sent clini trey defic iency . Not Available [facility] ([facility]) [address] [facility], [place], [address], 12/03/2024 03:37:30 11/26/19 25 12/02/2024 VITAM IN A, SERUM vitamin A 33.5 [...] Drug Admin istra tion. Not Available [facility] ([facility]) [address] [facility], [place], [address], 12/03/2024 03:37:31 11/26/19 25 11/27/2024 VITAM IN [...] um and D. Baylee acosta [place]: [facility] . 2. Marcela argueta MF, Brigid packer [place], Jing off-F shyam i CARCAMO, et al. Evalu ation , treat ment, and preve ntion of vitam in D defic iency : an Endoc rine Socie ty clini trey pract ice guide line. JCEM. 2010; 96(7) :1911 -30. Not Available [facility] ([facility]) [address] [facility], [place], [address], 12/03/2024 03:37:32 11/26/19 25 12/01/2024 VITAM IN B1 (THIA MINE) , BLOOD vit. B1, whole blood 186.1 nmol/ L 66.5-2 00.0 Not Available [facility] ([facility]) [address] [facility], [place], [address], 12/03/2024 03:37:33 11/26/19 25 11/30/2024 METHY LMALO ARLETTE ACID, SERUM methylmaloni c acid, serum 134 nmol/ L 0-378 Not Available [facility] ([facility]) [address] [place], [address], 12/03/2024 03:37:33 11/26/19 25 11/29/2024 COPPE R, SERUM OR PLASM A copper, serum or plasma 114 ug/dL 69-132 Detec tion Limit = 5 Not Available [facility] ([facility]) [address] [place], [address], 12/03/2024 03:37:34 11/26/19 25 11/29/2024 ZINC, PLASM A OR SERUM zinc, plasma or serum 62 ug/dL 44-115 normal Detec tion Limit = 5 Not Available [facility] ([facility]) [address] [place], [address], 12/03/2024 03:37:35 11/26/19 25 11/27/2024 PREAL BUMIN prealbumin 16 mg/dL 10-36 Not Available [facility] ([facility]) [address] [place], [address], 12/03/2024 03:37:36 11/26/19 25 12/02/2024 SELEN IUM, BLOOD selenium, blood 126 ug/L 100-34 0 Detec tion Limit = 10 Not Available [facility] ([facility]) [address] [place], [address], 12/03/2024 03:37:37 01/25/20 25 01/25/2025 FE+TI BC+FE R iron bind.cap.(TI BC) 229 ug/dL 250-45 0 below low normal Not Available [facility] ([facility]) [address] [place], [address], 01/31/2025 16:14:00 01/25/20 25 01/25/2025 FE+TI BC+FE R UIBC 201 ug/dL 111-34 3 normal Not Available [facility] ([facility]) [address] [place], [address], 01/31/2025 16:14:00 01/25/20 25 01/25/2025 FE+TI BC+FE R iron 28 ug/dL 38-169 below low normal Not Available [facility] ([facility]) [address] [place], [address], 01/31/2025 16:14:00 01/25/20 25 01/25/2025 FE+TI BC+FE R iron saturation 12 % 15-55 below low normal Not Available [facility] ([facility]) [address] [place], [address], 01/31/2025 16:14:00 01/25/20 25 01/25/2025 FE+TI BC+FE R ferritin 148 NG/mL 30-400 normal Not Available [facility] ([facility]) [address] [place], [address], 01/31/2025 16:14:00 01/25/20 25 01/25/2025 TSH+F REE T4 TSH 2.470 uIU/m L 0.450- 4.500 normal Not Available [facility] ([facility]) [address] [place], [address], 01/31/2025 16:14:01 01/25/20 25 01/25/2025 TSH+F REE T4 T4,free(dire ct) 1.37 NG/dL 0.82-1 .77 normal Not Available [facility] ([facility]) [address] [place], [address], 01/31/2025 16:14:01 01/25/20 25 01/25/2025 CBC WITH DIFFE RENTI AL/PL ATELE T WBC 8.6 x10e3 /uL 3.4-10 .8 normal Not Available [facility] ([facility]) [address] [facility], [place], [address], 01/31/2025 16:14:02 01/25/20 25 01/25/2025 CBC WITH DIFFE RENTI AL/PL ATELE T RBC 5.17 x10e6 /uL 4.14-5 .80 normal Not Available [facility] ([facility]) [address] [facility], [place], [address], 01/31/2025 16:14:02 01/25/20 25 01/25/2025 CBC WITH DIFFE RENTI AL/PL ATELE T hemoglobin 14.2 g/dL 13.0-1 7.7 normal Not Available [facility] ([facility]) [address] [facility], [place], [address], 01/31/2025 16:14:02 01/25/20 25 01/25/2025 CBC WITH DIFFE RENTI AL/PL ATELE T hematocrit 44.5 % 37.5-5 1.0 normal Not Available [facility] ([facility]) [address] [facility], [place], [address], 01/31/2025 16:14:02 01/25/20 25 01/25/2025 CBC WITH DIFFE RENTI AL/PL ATELE T MCV 86 fL 79-97 normal Not Available [facility] ([facility]) [address] [place], [address], 01/31/2025 16:14:02 01/25/20 25 01/25/2025 CBC WITH DIFFE RENTI AL/PL ATELE T MCH 27.5 pg 26.6-3 3.0 normal Not Available [facility] ([facility]) [address] [facility], [place], [address], 01/31/2025 16:14:02 01/25/20 25 01/25/2025 CBC WITH DIFFE RENTI AL/PL ATELE T MCHC 31.9 g/dL 31.5-3 5.7 normal Not Available [facility] ([facility]) [address] [facility], [place], [address], 01/31/2025 16:14:02 01/25/20 25 01/25/2025 CBC WITH DIFFE RENTI AL/PL ATELE T RDW 14.3 % 11.6-1 5.4 Not Available [facility] [facility]) [address] [facility], [place], [address], 01/31/2025 16:14:02 01/25/20 25 01/25/2025 CBC WITH DIFFE RENTI AL/PL ATELE T platelets 265 x10e3 /uL 150-45 0 normal Not Available [facility] ([facility]) [address] [facility], [place], [address], 01/31/2025 16:14:02 01/25/20 25 01/25/2025 CBC WITH DIFFE RENTI AL/PL ATELE T neutrophils 71 % not estab. normal Not Available [facility] ([facility]) [address] [facility], [place], [address], 01/31/2025 16:14:02 01/25/20 25 01/25/2025 CBC WITH DIFFE RENTI AL/PL ATELE T lymphs 19 % not estab. normal Not Available [facility] ([facility]) [address] [facility], [place], [address], 01/31/2025 16:14:02 01/25/20 25 01/25/2025 CBC WITH DIFFE RENTI AL/PL ATELE T monocytes 7 % not estab. normal Not Available [facility] ([facility]) [address] [facility], [place], [address], 01/31/2025 16:14:02 01/25/20 25 01/25/2025 CBC WITH DIFFE RENTI AL/PL ATELE T eos 2 % not estab. normal Not Available [facility] ([facility]) [address] [facility], [place], [address], 01/31/2025 16:14:02 01/25/20 25 01/25/2025 CBC WITH DIFFE RENTI AL/PL ATELE T basos 1 % not estab. normal Not Available [facility] (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) [address] [place], [address], 01/31/2025 16:14:02 01/25/20 25 01/25/2025 CBC WITH DIFFE RENTI AL/PL ATELE T neutrophils (absolute) 6.1 x10e3 /uL 1.4-7. 0 normal Not Available [facility] ([facility]) [address] [place], [address], 01/31/2025 16:14:02 01/25/20 25 01/25/2025 CBC WITH DIFFE RENTI AL/PL ATELE T lymphs (absolute) 1.6 x10e3 /uL 0.7-3. 1 normal Not Available [facility] ([facility]) [address] [place], [address], 01/31/2025 16:14:02 01/25/20 25 01/25/2025 CBC WITH DIFFE RENTI AL/PL ATELE T monocytes(ab solute) 0.6 x10e3 /uL 0.1-0. 9 normal Not Available [facility] ([facility]) [address] [place], [address], 01/31/2025 16:14:02 01/25/20 25 01/25/2025 CBC WITH DIFFE RENTI AL/PL ATELE T eos (absolute) 0.2 x10e3 /uL 0.0-0. 4 normal Not Available [facility] ([facility]) [address] [facility], [address], 01/31/2025 16:14:02 01/25/20 25 01/25/2025 CBC WITH DIFFE RENTI AL/PL ATELE T baso (absolute) 0.0 x10e3 /uL 0.0-0. 2 normal Not Available [facility] ([facility]) [address] [facility], [place], [address], 01/31/2025 16:14:02 01/25/20 25 01/25/2025 CBC WITH DIFFE RENTI AL/PL ATELE T immature granulocytes 0 % not estab. Not Available [facility] ([facility]) [address] [facility], [place], [address], 01/31/2025 16:14:02 01/25/20 25 01/25/2025 CBC WITH DIFFE RENTI AL/PL ATELE T immature grans (abs) 0.0 x10e3 /uL 0.0-0. 1 Not Available [facility] ([facility]) [address] [facility], [place], [address], 01/31/2025 16:14:02 01/25/20 25 01/25/2025 CBC WITH DIFFE RENTI AL/PL ATELE T NRBC PUBLIC ADDRESS SYSTEM OPERATOR Not Available [facility] ([facility]) [address] [facility], [place], [address], 01/31/2025 16:14:02 01/25/20 25 01/25/2025 CBC WITH DIFFE RENTI AL/PL ATELE T hematology comments: PUBLIC ADDRESS SYSTEM OPERATOR Not Available [facility] ([facility]) [address] [facility], [place], [address], 01/31/2025 16:14:02 01/25/20 25 01/25/2025 COMP. METAB OLIC PANEL (14) glucose 88 mg/dL 70-99 normal Not Available [facility] ([facility]) [address] [facility], [place], [address], 01/31/2025 16:14:04 01/25/20 25 01/25/2025 COMP. METAB OLIC PANEL (14) BUN 13 mg/dL 6-24 normal Not Available [facility] ([facility]) [address] [facility], [place], [address], 01/31/2025 16:14:04 01/25/20 25 01/25/2025 COMP. METAB OLIC PANEL (14) creatinine 0.64 mg/dL 0.76-1 .27 below low normal Not Available [facility] ([facility]) [address] [facility], [place], [address], 01/31/2025 16:14:04 01/25/20 25 01/25/2025 COMP. METAB OLIC PANEL (14) eGFR 110 mL/mi n/1.7 3 >59 normal Not Available [facility] ([facility]) [address] [facility], [place], [address], 01/31/2025 16:14:04 01/25/20 25 01/25/2025 COMP. METAB OLIC PANEL (14) BUN/creatini ne ratio 20 9-20 normal Not Available [facility] ([facility]) [address] [place], [address], 01/31/2025 16:14:04 01/25/20 25 01/25/2025 COMP. METAB OLIC PANEL (14) sodium 142 mmol/ L 134-14 4 normal Not Available [facility] ([facility]) [address] [facility], [place], [address], 01/31/2025 16:14:04 01/25/20 25 01/25/2025 COMP. METAB OLIC PANEL (14) potassium 3.4 mmol/ L 3.5-5. 2 below low normal Not Available [facility] ([facility]) [address] [facility], [place], [address], 01/31/2025 16:14:04 01/25/20 25 01/25/2025 COMP. METAB OLIC PANEL (14) chloride 100 mmol/ L 96-106 normal Not Available [facility] ([facility]) [address] [place], [address], 01/31/2025 16:14:04 01/25/20 25 01/25/2025 COMP. METAB OLIC PANEL (14) carbon dioxide, total 28 mmol/ L 20-29 normal Not Available [facility] ([facility]) [address] [place], [address], 01/31/2025 16:14:04 01/25/20 25 01/25/2025 COMP. METAB OLIC PANEL (14) calcium 8.8 mg/dL 8.7-10 .2 normal Not Available [facility] ([facility]) [address] [place], [address], 01/31/2025 16:14:04 01/25/20 25 01/25/2025 COMP. METAB OLIC PANEL (14) protein, total 6.5 g/dL 6.0-8. 5 normal Not Available [facility] ([facility]) [address] [place], [address], 01/31/2025 16:14:04 01/25/20 25 01/25/2025 COMP. METAB OLIC PANEL (14) albumin 4.0 g/dL 3.8-4. 9 normal Not Available [facility] ([facility]) [address] [place], [address], 01/31/2025 16:14:04 01/25/20 25 01/25/2025 COMP. METAB OLIC PANEL (14) globulin, total 2.5 g/dL 1.5-4. 5 Not Available [facility] ([facility]) [address] [place], [address], 01/31/2025 16:14:04 01/25/20 25 01/25/2025 COMP. METAB OLIC PANEL (14) bilirubin, total 0.7 mg/dL 0.0-1. 2 normal Not Available [facility] ([facility]) [address] [place], [address], 01/31/2025 16:14:04 01/25/20 25 01/25/2025 COMP. METAB OLIC PANEL (14) alkaline phosphatase 76 IU/L 44-121 normal Not Available [facility] ([facility]) [address] [place], [address], 01/31/2025 16:14:04 01/25/20 25 01/25/2025 COMP. METAB OLIC PANEL (14) AST (SGOT) 24 IU/L 0-40 normal Not Available [facility] ([facility]) [address] [place], [address], 01/31/2025 16:14:04 01/25/20 25 01/25/2025 COMP. METAB OLIC PANEL (14) ALT (SGPT) 20 IU/L 0-44 normal Not Available [facility] ([facility]) [address] [place], [address], 01/31/2025 16:14:04 01/25/20 25 01/25/2025 LIPID PANEL cholesterol, total 147 mg/dL 100-19 9 normal Not Available [facility] ([facility]) [address] [place], [address], 01/31/2025 16:14:05 01/25/20 25 01/25/2025 LIPID PANEL triglyceride s 168 mg/dL 0-149 above high normal Not Available [facility] ([facility]) [address] [place], [address], 01/31/2025 16:14:05 01/25/20 25 01/25/2025 LIPID PANEL HDL cholesterol 21 mg/dL >39 below low normal Not Available [facility] ([facility]) [address] [place], [address], 01/31/2025 16:14:05 01/25/20 25 01/25/2025 LIPID PANEL VLDL cholesterol trey 30 mg/dL 5-40 Not Available [facility] ([facility]) [address] [place], [address], 01/31/2025 16:14:05 01/25/20 25 01/25/2025 LIPID PANEL LDL chol calc ([facility]) 96 mg/dL 0-99 Not Available [facility] ([facility]) [address] [place], [address], 01/31/2025 16:14:05 01/25/20 25 01/25/2025 LIPID PANEL LDL calc comment: PUBLIC ADDRESS SYSTEM OPERATOR Not Available [facility] ([facility]) [address] [facility], [place], [address], 01/31/2025 16:14:05 01/25/20 25 01/27/2025 VITAM IN E vitamin E(alpha tocopherol) 7.9 mg/L 7.0-25 .1 Not Available [facility] ([facility]) [address] [facility], [place], [address], 01/31/2025 16:14:06 01/25/20 25 01/27/2025 VITAM IN [...] in E defic ient. Not Available [facility] ([facility]) [address] [place], [address], 01/31/2025 16:14:06 01/25/20 25 01/25/2025 HEMOG LOBIN A1C hemoglobin A1C 5.8 % 4.8-5. 6 above high normal Predi abete s: 5.7 - 6.4 Diabe cecille: >6.4 Glyce rhona contr ol for adult s with diabe cecille: <7.0 Not Available [facility] ([facility]) [address] [facility], [place], [address], 01/31/2025 16:14:07 01/25/20 25 01/25/2025 FOLAT E (FOLI C ACID) , SERUM folate (folic acid), serum 12.2 NG/mL >3.0 normal A serum folat e michele ntrat ion of less than 3.1 ng/mL is consi dered to repre sent clini trey defic iency . Not Available [facility] ([facility]) [address] [facility], [place], [address], 01/31/2025 16:14:09 01/25/20 25 01/27/2025 VITAM IN [...] Drug Admin istra tion. Not Available [facility] ([facility]) [address] [facility], [place], [address], 01/31/2025 16:14:10 01/25/20 25 01/25/2025 VITAM IN [...] um and D. Baylee acosta [place]: The [facility] Press . 2. Marcela argueta MF, Brigid packer [place], Jing off-F errar i CARCAMO, et al. Evalu ation , treat ment, and preve ntion of vitam in D defic iency : an Endoc rine Socie ty clini trey pract ice guide line. JCEM. 2010; 96(7) :1911 -30. Not Available [facility] ([facility]) [address] [place], [address], 01/31/2025 16:14:11 01/25/20 25 01/27/2025 VITAM IN B1 (THIA MINE) , BLOOD vit. B1, whole blood 192.8 nmol/ L 66.5-2 00.0 Not Available [facility] ([facility]) [address] [place], [address], 01/31/2025 16:14:12 01/25/20 25 01/31/2025 METHY LMALO ARLETTE ACID, SERUM methylmaloni c acid, serum 164 nmol/ L 0-378 Not Available [facility] ([facility]) [address] [place], [address], 01/31/2025 16:14:13 01/25/20 25 01/28/2025 COPPE R, SERUM OR PLASM A copper, serum or plasma 107 ug/dL 69-132 Detec tion Limit = 5 Not Available [facility] ([facility]) [address] [place], [address], 01/31/2025 16:14:14 01/25/20 25 01/28/2025 ZINC, PLASM A OR SERUM zinc, plasma or serum 47 ug/dL 44-115 normal Detec tion Limit = 5 Not Available [facility] ([facility]) [address] [facility], [place], [address], 01/31/2025 16:14:15 01/25/20 25 01/25/2025 PREAL BUMIN prealbumin 14 mg/dL 10-36 Not Available [facility] ([facility]) [address] [facility], [place], [address], 01/31/2025 16:14:16 01/25/20 25 01/26/2025 SELEN IUM, BLOOD selenium, blood 137 ug/L 100-34 0 Detec tion Limit = 10 Not Available [facility] ([facility]) [address] [facility], [place], [address], 01/31/2025 16:14:18 02/02/20 25 XR, knee No observ ation record ed. DRAGAN Evangelista [address] , [place], [address], 02/01/2025 11:40:02 Result Notes None recorded. Problems Name Problem SNOMED Code Status Onset Date Resolution Date Notes Provider Name and Address Organization Details Recorded Time Postoperat jose pain 086517025 Active 2023 MARIANA Rosen [address] [facility], [place], [address] , [place] - [facility] - [place] & [place] 4 09:18:44 Cyst of scalp 770295041 Active 2021 Chela Langley null, [place] - [facility] - [place] & [place] 3 14:04:29 Mass of subcutaneo us tissue 8707677883587 9102 Active 2021 Chela Langley null, [place] [facility] [place] & [place] 3 14:04:29 Morbid obesity 864230005 Active 2018 Chela Langley null, [place] [facility] [place] & [place] 3 14:04:00 Unintentio nal weight gain 4684122772719 04 Active 2022 Chela Calvinis null, [place] [facility] [place] & [place] 3 14:04:29 Disorder of function of stomach 083313432 Active 2022 Chela Calvinis null[place] 3 14:04:29 Hyperlipid emia 21320167 Active 2022 Chela Calvinis null[place] [facility] [place] 3 14:04:29 Essential hypertensi on 43442414 Active 2019 Chela Calvinis null, [place] [facility] [place] & [place] 3 14:04:01 Pain in bilateral legs 9625064026483 9108 Active 2022 Chela Langley null, [place] [facility] [place] 3 14:04:29 Congestive heart failure 71798538 Active 2021 Chela Langle[place] null, [place] [facility] [place] 3 14:04:01 Long-term current use of anticoagul ant 830871367 Active 2022 Chela Langley null, [place] [facility] [place] 3 14:04:30 Degenerati on of lumbar interverte bral disc 16865415 Active 2021 Chela Langley null, [place] [facility] [place] 3 14:04:00 Compressio n of lumbar nerve root 700647139 Active 2021 Chela Langley null, [place] [facility] [place] 3 14:04:00 Hypertensi ve disorder 64794415 Active 2018 Chela Calvinis null, [place] [facility] [place] 3 14:04:01 History of cardiac catheteriz ation 0574398003091 0 Active Chela Langle[place] null[place] [facility] [place] 3 14:04:01 Prediabete s 185226082 Active 2021 Chela Korin null, [place] [facility] [place] 3 14:04:01 Iron deficiency 84451038 Active 2022 Chela Langley null, [place]is [facility] - [place] & [place] 3 14:04:29 Vitamin D deficiency 45577276 Active 2022 Chela Langley null, PERRY Hollis [facility] - [place] & [place] 3 14:04:29 Preinfarct ion syndrome 5314676 Active Chela Langley null, [place] Hollis [facility] - [place] & [place] 3 14:04:29 Migraine 02575207 Active 2022 Chela Langley null, PERRY Hollis [facility] - [facility] & [place] 3 14:04:29 Notes:Some problems listed i n Documents: #[id number], #[id number], #[id number], #[id number] could not be added to this patient's chart. Please review these documents and add these problems to the patient's chart manually as needed. Problem Notes None recorded. Procedures Surgical History Date Name Laterality Status Provider Name and Address Organization Details Recorded Time cardiac catheterization completed R obin Ghazal Hollis [facility] - [place] & [place] 3 08:15:10 Other completed Ruddy Acharya, DNP, MACHINE MAINTENANCE SUPERVISOR, PUBLIC ADDRESS SYSTEM OPERATOR-C [address] [facility], [place], [address] , [place] - [place] - [place] & [place] 3 10:33:42 esophagogastroduodenoscopy completed Sonia Jensen [place] - [place] - [place] & [place] 4 10:05:16 Colonoscopy completed Sonia Jensen [place] - [facility] - [place] & [place] 4 10:05:25 procedure on duodenum completed Band[place] in [place] - [facility] - [place] & [place] 4 08:12:56 Imaging Results None recorded. Procedure [...] completed Not Available Not Available Not Available Iron (ferrous sulfate) 325 mg (65 mg iron) tablet Take 1 tablet every day by oral route. active Not Available Not Available No t Available metoprolol succinate ER 50 mg tablet,exte [...] omeprazole 20 mg capsule,del ayed release TAKE 1 CAPSULE BY MOUTH EVERY DAY active Not Available Not Available No t Available aspirin 81 mg chewable tablet 81 mg by oral route. 12/31 completed Not Available Not Available Not Available bumetanide 1 mg tablet TAKE ONE (1) TABLET TWICE A DAY BY ORAL ROUTE FOR 30 DAYS. active Not Available Not Available No t [...] Not Available Not Available No t Available Vitamin C active Not Available Not Effie ilable Not Available aspirin 81mg 01/24 completed Not Available Not Available Not Available vitamin A active Not Available Not Effie ilable Not Available calcium active Not Available Not Avail able Not Available B Complex active Not Available Not Effie ilable Not Available clopidogrel 01/24 completed Not Available Not Available Not Available Vitamin D active Not Available Not Effie ilable Not Available multivitami n active Not Available Not Available Not Available peg [...] DAYS THEN ONCE DAILY FOR FIVE DAYS 04/26 completed Not Available Not Available Not Available naloxone 4 mg/actuatio n nasal spray [...] and Address Organization Details Last Updated DateTime 180.34 cm 97.8 [degF] 57 /min 48.5 kg/m2 117270. 71 g 133 mm[Hg] 83 mm[Hg] Marleni Camejo [facility] & [place] 15:00:25 Date Recorded Body height Body mass index (BMI) Body weight Body temperature Heart rate Oxygen saturation Oxygen saturation in Arterial blood by Pulse oximetry Systolic blood pressure Diastolic blood pressure Provider Name and Address Organization Details Last Updated DateTime 180.34 cm 44.1 kg/m2 503132. 99 g 97.4 [degF] 65 /min 98 % 98 % 137 mm[Hg] 86 mm[Hg] Sonia Jensen [facility] & [place] 09:14:36 Social History Question Answer Notes LastModified by Organizat ion Details LastModified Time Tobacco Smoking Status Former Smoker Chela murray [facility] & [place] 04/11/2023 08:53:09 Do You Have An Advance [...] anxious, or unable to sleep at night)? [id number] Information not available 04/11/2023 Family History Relationship Description Onset Age of this Age Resolved Age Notes LastModified by Organization Details LastModified Time Mother Diabetes mellitus [email or web address] Not available 10/2024 09:05:43 Mother Heart disease [email or web address] Not available 06/28 10:17:14 Mother Disorder of endocrine system pt. added direct ly (09/14) [email or web address] Not available 09/14/2024 12:19:58 Father Heart disease CHART_MERGE Not available 06/28 10:17:14 Father Essential hypertension [email or web address] Not available 0 04/26/2025 09:05:43 Brother Heart disease CHART_MERGE Not available 06/28 [...] Reflux/GERD Y High Cholesterol Y Heart Attack (NE) Y Heart Disease Y Headaches Y Obstructive Sleep Apnea Y Hypertension Y Immunizations Vaccine Type Date Status Note Provider Nam e and Address Organization Details Recorded Time Influenza, split virus, quadrivalent, preservative 0 completed PERRY Lewis - [place] & [place] 10/13/2023 14:04:35 Influenza, split virus, quadrivalent, preservative 2 completed PERRY Lewis [facility] - [place] & [place] 10/13/2023 14:04:35 Past Encounters Encounter ID Performer Location Encounter Start Date Encounter Closed Date Diagnosis/Indication Diagnosis SNOMED-CT Code Diagnosis ICD10 Code Diagnosis Note [id number] MD GABI [facility] [address] [place] [address],[place] [phone] 09/02/2022 13:24:44 09/02/2022 14:19:15 Cyst of scalp 529559865 L72.9 57-year-ol d male with 2 scalp cysts that he would like to have removed. I have reviewed the procedure with him including the risks, benefits, complicati ons and alternativ es. He had an opportunit y to ask questions have them answered. He is scheduled for an office surgery next week for removal of these. [id number] MD GABI [facility] [address] [place] [address],[address] [address] 09/09/2022 09:20:57 09/09/2022 09:49:42 Mass of subcutaneous tissue 1853117385 1320643 R22.9 patient was taken the procedure room [...] and review of pathology. Cyst of scalp 023925249 L72.9 57-year-ol d male with 2 scalp cysts that he would like to have removed. I have reviewed the procedure with him including the risks, benefits, complicati ons and alternativ es. He had an opportunit y to ask questions have them answered. He is scheduled for an office surgery next week for removal of these. [id number] MD GABI [facility] [address] [place] [id number] 09/16/2022 09:56:17 09/16/2022 10:04:32 Postoperative visit 816568314 Z09 57-year-ol d male here for 1st postoperat jose visit. Incisions are well-heale d sutures removed. Pathology showed pilar cyst. I told him these were benign and nothing to worry about follow-up as needed. [id number] Ruddy Acharya, DNP, MACHINE MAINTENANCE SUPERVISOR, PUBLIC ADDRESS SYSTEM OPERATOR-C [facility] [address] [facility] [address] [place] [address] 01/02/2023 07:50:08 01/02/2023 12:22:27 Obesity 938888112 E66.9 The patient will be scheduled for [...] completed Disorder o f function of stomach 671630591 K31.89 Morbid obesity 565632780 E66.01 Unintentio nal weight gain 4326047843 37229 R63.5 Congestive heart failure 67511733 I50.9 Essential hypertension 72392599 I10 Hyperlipidemia 32133420 E78.5 Pain in bi lateral legs 5695370084 3524629 M79.604 Long-term current use of anticoagulant 885293636 Z79.01 [id number] MD GABI [facility] [address] [place] [address] 9 01/09/2023 07:59:23 01/09/2023 09:12:06 Pain of right ankle joint 7198809069 5072771 M25.571 Localized, primary osteoarthritis of the ankle and/or foot 116184046 M19.079 [id number] STACEY COYNE NP [facility] [place] [address] 9 04/11/2023 08:41:20 04/11/2023 09:14:48 Localized, primary osteoarthritis of the ankle and/or foot 140325852 M19.079 Osteoarthr itis of left knee joint 7050571794 69703 M17.12 [id number] STACEY COYNE NP [facility] [place] [address] 9 07/14/2023 13:21:01 07/14/2023 14:48:05 Localized, primary osteoarthritis of the ankle and/or foot 500000667 M19.079 Osteoarthr itis of left knee joint 6362348498 86500 M17.12 [id number] STACEY COYNE NP [facility] [place] [address] 9 10/13/2023 13:44:44 10/13/2023 14:33:08 Localized, primary osteoarthritis of the ankle and/or foot 381971546 M19.079 Osteoarthr itis of left knee joint 4235697540 94735 M17.12 Impingemen t syndrome of left shoulder region 9601051120 33938 M75.42 [id number] Stanislaw Medeiros MD [facility] [place] [address] 9 11/10/2023 12:52:48 11/10/2023 13:46:16 Cervical radiculitis 89794264 M54.12 [id number] [facility] [address] [place] [address] 01/01/2024 08:58:27 01/01/2024 09:35:17 Pain of left shoulder joint 6399280184 8268599 M25.512 Shoulder g irdle weakness 951425466 M99.07 Injury of left shoulder 3001226543 3552233 S49.92XD [id number] [facility] [address] [place] [id number] 01/12/2024 13:50:12 01/12/2024 14:15:53 Localized, primary osteoarthritis of the ankle and/or foot 465500277 M19.079 Osteoarthr itis of left knee joint 9223411904 27465 M17.12 [id number] [facility] [address] [place] [phone] 04/12/2024 13:57:44 04/12/2024 14:31:31 Localized, primary osteoarthritis of the ankle and/or foot 141145708 M19.079 Osteoarthr itis of left knee joint 9213956776 21350 M17.12 [id number] Ruddy Acharya, DNP, MACHINE MAINTENANCE SUPERVISOR, PUBLIC ADDRESS SYSTEM OPERATOR-C [facility] [address] [facility] [address] [place] [address] 05/07/2024 09:59:25 05/07/2024 11:48:13 Congestive heart failure 79829533 I50.9 Essential hypertension 76354469 I10 Hyperlipidemia 87083073 E78.5 Iron deficiency 80807249 E61.1 Long-term current use of anticoagulant 936351392 Z79.01 Prediabetes 988721835 R7 3.03 Vitamin D deficiency 347 28851 E55.9 Morbid obesity 634475985 E66.01 The patient will be scheduled for [...] social distancing . Unintentio nal weight gain 7012698422 61036 R63.5 Pre-surger y evaluation 656601354 Z01.818 Disorder o f function of stomach 822106225 K31.89 [id number] Stanislaw Medeiros MD [facility] [address] [place] [id number] 07/13/2024 08:04:01 07/13/2024 08:29:55 Localized, primary osteoarthritis of the ankle and/or foot 359248360 M19.079 Osteoarthr itis of left knee joint 2288461520 96525 M17.12 [id number] Jamee Ware M.D [facility] [address] [place] [address] [address] [place] [id number] 09/21/2024 12:50:34 09/21/2024 13:40:37 Preoperative pulmonary examination 164427861 Z01.811 Morbid obesity 641312328 E66.01 Obstructiv e sleep apnea of adult 8347320897 103 G47.33 [id number] MD [facility] [address] [facility] [address] [place] [address] 10/13/2024 07:46:27 10/13/2024 14:13:28 Essential hypertension 51605133 I10 Congestive heart failure 04122160 I50.9 Morbid obesity 795909517 E66.01 Pre-surger y evaluation 235151365 Z01.818 Postoperative pain 33760 9007 G89.18 Patient will continue Lyrica for postoperat jose pain.Lisa gonzalez also has hydrocodon e 7.5/325 mg prescribed b.i.d. Prophylact ic anticoagulation given [id number] 77640 Z76.89 Patient is on chronic anticoagul ation [...] once they are discharged from the hospital. [id number] STACEY COYNE NP [facility] [address] [place] [address] 12/06/2024 12:54:18 12/06/2024 13:37:13 Localized, primary osteoarthritis of the ankle and/or foot 369781286 M19.079 Osteoarthr itis of left knee joint 3262572060 45091 M17.12 [id number] Ruddy Acharya, DNP, MACHINE MAINTENANCE SUPERVISOR, PUBLIC ADDRESS SYSTEM OPERATOR-C [facility] Bariatric s and Adv Surg [address] [facility] [address] [place] [address] 10/26/2024 07:59:19 10/26/2024 10:06:20 History of bariatric surgical procedure 373133522 Z98.84 The patient is doing well. The [...] [facility] they are to make sure that the [...] plan and agree to comply. Essential hypertension 50638746 I10 Hyperlipidemia 29346665 E78.5 Iron deficiency 92573980 E61.1 Congestive heart failure 07127057 I50.9 Prediabetes 510150024 R7 3.03 Vitamin D deficiency 347 29464 E55.9 Morbid obesity 098396933 E66.01 [id number] Ruddy Acharya, DNP, MACHINE MAINTENANCE SUPERVISOR, PUBLIC ADDRESS SYSTEM OPERATOR-C [facility] Bariatric s and Adv Surg [address] [facility] [address] [place] [address] 11/26/2024 13:44:01 11/26/2024 14:56:49 History of bariatric surgical procedure 324038072 Z98.84 The patient is doing well. The [...] choose to have them drawn [facility] they are to make sure that the [...] agree to comply. Intentiona l weight loss 420301865 R63.8 History of gastrectomy 978327145 Z90.3 Advised qid intake 50% protein 3847-8364 calories/d y less than 100 carbs/dy Long [...] to correct any vitamin deficienci es. At [facility] risk of nutritional deficit 637433755 Z91.89 Congestive heart failure 00445622 I50.9 Essential hypertension 58599961 I10 Hyperlipidemia 30741767 E78.5 Iron deficiency 04647275 E61.1 Vitamin D deficiency 347 26113 E55.9 Prediabetes 411417963 R7 3.[id number], LD [facility] Bariatric s and Adv Surg [address] [facility] [address] [place] [address] 11/26/2024 14:50:10 11/26/2024 15:15:57 Morbid obesity 679775799 E66.01 BMI 51.3 wt loss 17.6# [id number] Ruddy Acharya, DNP, MACHINE MAINTENANCE SUPERVISOR, PUBLIC ADDRESS SYSTEM OPERATOR-C [facility] n Bariatric s and Adv Surg [address] [facility] [address] [place] [address] 01/24/2025 14:45:59 01/24/2025 15:26:50 History of bariatric surgical procedure 584430293 Z98.84 The patient is doing well. The [...] choose to have them drawn [facility] they are to make sure that the [...] agree to comply. Intentiona l weight loss 585626885 R63.8 History of gastrectomy 753415387 Z90.3 Advised qid intake 50% protein 1272-7771 calories/d y less than 100 carbs/dy Long [...] to correct any vitamin deficienci es. At [facility] risk of nutritional deficit 413856004 Z91.89 Congestive heart failure 20275435 I50.9 Essential hypertension 08704711 I10 Hyperlipidemia 36216888 E78.5 Iron deficiency 89942309 E61.1 Prediabetes 090276812 R7 3.03 Vitamin D deficiency 347 22004 E55.9 [id number] Stanislaw Medeiros MD MV Amafarhat albrecht [facility] [address] [place] [address] 02/01/2025 10:36:27 02/01/2025 12:06:12 Osteoarthritis of right knee joint 3478121508 36631 M17.11 Primary go narthrosis, bilateral 405223276 M17.0 Osteoarthr itis of joint of right ankle and/or foot 4806439371 84114 M19.628 [id number] Ruddy Acharya, DNP, MACHINE MAINTENANCE SUPERVISOR, PUBLIC ADDRESS SYSTEM OPERATOR-C [facility] Bariatric s and Adv Surg [address] [facility] [address] [place] [address] 04/26/2025 09:04:17 04/26/2025 09:43:29 History of bariatric surgical procedure 884425147 Z98.84 Intentiona l weight loss 390971145 R63.8 History of gastrectomy 316542755 Z90.3 Advised qid intake 50% protein 4145-4318 calories/d y less than 100 carbs/dyLo ng discussion today of InBody results including PBF(percen t body fat) SMM (skeletal muscle mass) Visceral fat level level BMR Segmental Fat Analysis and Segmental Lean Analysis.E ncouraged pt to take minimal calories as per BMR and to anticipate changes in SMM and PBF values not just total weight.Fol low-up with Repeat NIDHI in 3mth suggested. he will see dietitian today. Patient is status post bariatric surgery and at increased risk for vitamin deficienci es and malnutriti on. Bariatric vitamin panel ordered today. Patient will be contacted to correct any vitamin deficienci es. At [facility] risk of nutritional deficit 819321262 Z91.89 Congestive heart failure 07513802 I50.9 Essential hypertension 24629451 I10 Hyperlipidemia 89252275 E78.5 Iron deficiency 00073484 E61.1 Long-term current use of anticoagulant 510925305 Z79.01 Prediabetes 261618694 R7 3.03 Vitamin D deficiency [id number] [facility] n Bariatric s and Adv Surg [address] [facility] [address] [facility] [place] [address] 04/26/2025 09:34:05 04/26/2025 10:14:28 Diet education 54524976 Z71.3 Health Concerns Section Related Observation LastModified by Organization Detai ls LastModified Time None Recorded Concern Status LastModified by Organization Details LastModified Time None Recorded Advance Directives Directive N: Payers Insurance Date Sequence Insurance Name Policy Number Policy Finn Covered Member ID Finn Member ID Guarantor Name 04/26/2025 1 [facility] [id number] Addy Thomson [id number] Addy Thomson 02/01/2025 2 [facility] [place] - [id number] Addy Thomson [id number] Addy Thomson 04/09/2024 1 [employer] ([place] Addy Thomson [id number] Addy Thomson 04/26/2025 1 [facility] - DUAL ELIGIBLE (MEDICARE REPLACEMENT/A DVANTAGE - HMO) [id number] Addy Thomson [id number] Addy Thomson 02/01/2025 2 MEDICAID-[facility] HEALTH CHOICES - FFS/TRADITION AL Addy Thomson [id number] Addy Thomson 12/06/2024 1 [place] ([place]MO[place] [id number] Addy Thomson [id number] Addy Thomson 01/26/2025 1 [place] Addy Thomson [id number] Addy Thomson 02/20/2025 1 [facility] (MEDIC[place] REPLAC[place]/A DVANTAGE - HMO) [id number] Addy Thomson [id number] Addy Thomson Notes Date Note Type Note Provider Name and Address Organization Details Recorded Time 12/06/2024 text/html 9.17.24- left kn ee and right ankle injectionsKnee injection helped 3 months and ankle injection helped 1.5 [id number] Stanislaw Medeiros MD [address] [place] [address],[address], [place], [address], [facility] & [place] 12/09/2024 16:12:01 01/24/2025 text/html Patient presents the office today for routine 3 month follow-up status post bariatric gastric duodenal switch ROBOTIC ASSISTED performed on 2023. Patient doing well. Reports q.i.d. small meal intake. Reports 80 g/dy protein intake and good hydration.Patient is drinking 64 ounces of water a day.Daily Calories 1000Taking routine vitamins as advised. Hx of Iron and Vit D deficiencyHeartburn/ gastroesophageal reflux: deniesPt Denies : abdominal pain, prandial [...] = 2038 kilo calories Ruddy Acharya, DNP, MACHINE MAINTENANCE SUPERVISOR, PUBLIC ADDRESS SYSTEM OPERATOR-C [address] [facility], [place], [address], [facility] & [place] 01/24/2025 16:00:35 02/01/2025 text/html This 59 year [...] his pain. CHE1 Stanislaw Medeiros MD [address] [facility],[address], [place], [address], [facility] - [facility] & [place] 02/02/2025 07:56:15 04/26/2025 text/html Patient presents the office today for routine 6 month follow-up status post bariatric gastric duodenal switch ROBOTIC ASSISTED performed on 2023. Patient doing well. Reports q.i.d. small meal intake. Reports >70g/dy protein intake and good hydration.Patient is drinking 64 ounces of water a day.Daily Calories 1500-2000Taking routine vitamins as advised. Hx of Iron and Vit D deficiencyHeartburn/ gastroesophageal reflux: deniesPt Denies : abdominal pain, prandial issues Nausea, Vomiting, bowel or bladder issuesTotal Weight loss Since last office visit has been 31.1 lbsPt is happy with their quality of life after Weight loss Surgery.he had labs drawn at local hospital in late March.Today's InBody reveals a skeletal muscle mass = 95.2 lb,body fat mass = 141.9 lb,BMI = 44.2Percent body fat = 44.8Basal Metabolic Rate = 2081 kilo calories Ruddy Acharya, DNP, MACHINE MAINTENANCE SUPERVISOR, PUBLIC ADDRESS SYSTEM OPERATOR-C [address] , [place], [address], [facility] & [place] 04/26/2025 09:30:39 04/26/2025 text/html A: RADHA met w/Jeff Thomson for 6 month f/up via office visit s/p Favian Cullen Pt weight at MD Consult: 417.1#Current Weight: 316.5#Total Weight Change: -100.6#Notes on weight: Today's InBody reveals a skeletal muscle mass = 95.2 lb,body fat mass = 141.9 lb,BMI = 44.2Percent body fat = 44.8Basal Metabolic Rate = 2081 kilo calories Signs/SymptomsN/V/C/ D: denies Pertinent Labs/Meds/Vitamin regimen: Vit D, vit C, Vit A, MVI, iron, b-complex Physical activity: walking, mow, weed eat Tracking food/beverages consumed: not tracking Est. daily kcal intake: 0073-0870 Est. daily protein intake: 70+ gm Est. daily fluid intake: 64 oz Meal Pattern: protein shake for breakfast, snack, supper 2-3x/dayveggies, grains, fruits ARUN LEONE, [address] , [place], [address], [facility] & [place] 04/26/2025 09:57:39
--- OUTSIDE RECORDS SUMMARY | 2025-04-27 09:34 | XMS_ITS | Continuity of Care Document ---
Author Organization [place] - [place] [facility] & [facility] Bariatrics and Adv Surg Address [address] [facility] [address] [place] [address] Care Team Providers Care Supervisor Parking Lot Name Role Phone LANDEN IYER Primary Care Provider Assessment No assessment recorded. Plan of Treatment Reminders Order Date Submit Date Provider Last Modified By Organization Details Last Modified Time Details Appointments INJ ONLY 15 2024 09:15A M Stanislaw Medeiros MD Not available Not available Not available OV EST 20 2024 10:20A M Ruddy Acharya, DNP, NIGHT ASSISTANT, METER ATTENDANT-C Not available Not available Not available Lab iron + TIBC + ferritin , serum 2024 025 [facility], [address], [address], [place], [address], 04/26/2025 09:27:58 folate, serum 2024 025 [facility], [address], [address], [place], [address], 04/26/2025 09:28:02 vitamin D, 25-hydro xy, total, serum 2024 025 [facility], [address], [address], [place], [address], 04/26/2025 09:27:57 HbA1c (hemoglo bin A1c), blood 2024 025 [facility], [address], [address], [place], [address], 04/26/2025 09:28:01 TSH + free T4, serum 2024 025 [facility], [address], [address], [place], [address], 04/26/2025 09:27:59 copper, serum or plasma 2024 025 [facility], [address], [address], [place], [address], 04/26/2025 09:28:00 selenium , quantita tive, blood 2024 025 [facility], [address], [address], [place], [address], 04/26/2025 09:27:58 zinc, serum or plasma 2024 025 [facility], [address], [address], [place], [address], 04/26/2025 09:28:00 vitamin E, serum 2024 025 [facility], [address], [address], [place], [address], 04/26/2025 09:27:58 vitamin A (retinol ), serum 2024 025 [facility], [address], [address], [place], [address], 04/26/2025 09:28:00 prealbum in, serum 2024 025 [facility], [address], [address], [place], [address], 04/26/2025 09:27:57 thiamine , QN, blood 2024 025 [facility], [address], [address], [place], [address], 04/26/2025 09:27:59 methylma lonate, QN, serum or plasma 2024 025 [facility], [address], [address], [place], [address], 04/26/2025 09:28:01 CBC w/ auto diff 2024 025 [facility], [address], [address], [place], [address], 04/26/2025 09:28:01 CMP, serum or plasma 2024 025 [facility], [address], [address], [place], [address], 04/26/2025 09:27:57 lipid panel, serum 2024 025 [facility], [address], [address], [place], [address], 04/26/2025 09:27:58 Referral None recorded . Procedures None recorded . Surgeries None recorded . Imaging None recorded . Medication Orders None recorded . Patient TargetsNo targets recorded. Patient InstructionsNo instructions recorded. Reason for Referral None Reported. Problems Name Problem SNOMED Code Status Onset Date Resolution Date Notes Provider Name and Address Organization Details Recorded Time Postoperat jose pain 939535601 Active 2023 MARIANA Rosen [address], [place], [address] , [facility] & [place] 4 09:18:44 Cyst of scalp 830864143 Active 2021 Chela murray, [place] - [facility] & [place] 3 14:04:29 Mass of subcutaneo tissue 7651368040227 9102 Active 2021 Chela Korin null[place] [place] 3 14:04:29 Morbid obesity 144213196 Active 2018 Chela Kor[place] null[place] 3 14:04:00 Unintentio nal weight gain 2923062579167 04 Active 2022 Chela [place] 3 14:04:29 Disorder of function of stomach 722428743 Active 2022 Chela Kor[place] [place] 3 14:04:29 Hyperlipid emia 41930946 Active 2022 Chela [place] 3 14:04:29 Essential hypertensi on 83468198 Active 2019 Chela Korin null[place] - [facility] - [place] & [place] 3 14:04:01 Pain in bilateral legs 0655124114922 9108 Active 2022 Chela [place] null[place] [facility] - [place] & [place] 3 14:04:29 Congestive heart failure 49725557 Active 2021 Chela Kor[place] 3 14:04:01 Long-term current use of anticoagul ant 627711818 Active 2022 Chela [place] 3 14:04:30 Degenerati on of lumbar interverte bral disc 56693108 Active 2021 Chela Langle[place] null[place] 3 14:04:00 Compressio n of lumbar nerve root 742376254 Active 2021 Chela [place] null[place] [facility] [place] 3 14:04:00 Hypertensi ve disorder 87512082 Active 2018 Chela [place] [facility] [place] 3 14:04:01 History of cardiac catheteriz ation 3150523290164 0 Active Chela [place]angle[place] null, [place] - [facility] - [facility] & [place] 3 14:04:01 Prediabete s 911527861 Active 2021 Chela Calvinis null[place] - [facility] - [facility] & [place] 3 14:04:01 Iron deficiency 90850178 Active 2022 Chela Calvinis null[place] - [facility] - [facility] & [place] 3 14:04:29 Vitamin D deficiency 31562106 Active 2022 Chela Calvinis null[place] - [facility] - [facility] & [place] 3 14:04:29 Preinfarct ion syndrome 3033768 Active Chela [place] null[place] - [facility] - [facility] & [place] 3 14:04:29 Migraine 06511280 Active 2022 Chela [place]angley null[place] - [facility] - [facility] & [place] 3 14:04:29 Notes:Some problems listed i n Documents: #[id number], #[id number], #[id number], #[id number] could not be added to this patient's chart. Please review these documents and add these problems to the patient's chart manually as needed. Problem Notes None recorded. Procedures Surgical History Date Name Laterality Status Provider Name and Address Organization Details Recorded Time [facility] [place] & [place] 3 08:15:10 Other completed Ruddy Acharya, DNP, NIGHT ASSISTANT, METER ATTENDANT-C [address], [place], [address] , [place] - [facility] - [facility] & [place] 3 10:33:42 esophagogastroduodenoscopy completed Sonia Jensen [place] - [facility] - [facility] & [place] 4 10:05:16 Colonoscopy completed Sonia AMADOR - [facility] - [place] & [place] 4 10:05:25 procedure on duodenum completed [place] in [place] - [facility] & [place] 4 08:12:56 Imaging Results None recorded. Procedure [...] Available Not Available pantoprazol e 40 mg tablet,magre yed release 40 mg by oral route. [...] Details Last Updated DateTime 5 180.34 cm 44.1 kg/m2 348472. 99 g 97.4 [degF] 65 /min 98 % 98 % 137 mm[Hg] 86 mm[Hg] Sonia Jensen [facility] & [place] 09:14:36 Social History Question Answer Notes LastModified by Organizat ion Details LastModified Time Tobacco Smoking Status Former Smoker Chela Langley terri [place] [facility] & [place] 04/11/2023 08:53:09 Do You Have An Advance [...] anxious, or unable to sleep at night)? [id number] Information not available 04/11/2023 Family History Relationship Description Onset Age of this Age Resolved Age Notes LastModified by Organization Details LastModified Time Mother Diabetes mellitus [email or web address] Not available 10/2024 09:05:43 Mother Heart disease [email or web address] Not available 06/28 10:17:14 Mother Disorder of endocrine system pt. added direct ly (09/14) [email or web address] Not available 09/14/2024 12:19:58 Father Heart disease CHART_MERGE Not available 06/28 10:17:14 Father Essential hypertension [email or web address] Not available 0 04/26/2025 09:05:43 Brother Heart [...] Reflux/GERD Y High Cholesterol Y Heart Attack (RI) Y Heart Disease Y Headaches Y Hypertension Y Obstructive Sleep Apnea Y Immunizations Vaccine Type Date Status Note Provider Nam e and Address Organization Details Recorded Time Influenza, split virus, quadrivalent, preservative 0 completed Chela murray, P[place] - [facility] - [place] & [place] 10/13/2023 14:04:35 Influenza, split virus, quadrivalent, preservative 2 completed Chela murray, [place] - [facility] - [place] & [place] 10/13/2023 14:04:35 Past Encounters Encounter ID Performer Location Encounter Start Date Encounter Closed Date Diagnosis/Indication Diagnosis SNOMED-CT Code Diagnosis ICD10 Code Diagnosis Note [id number] Ruddy Acharya, DNP, NIGHT ASSISTANT, METER ATTENDANT-C [facility] Bariatric s and Adv Surg [address] [facility] [address] [place] [address] 04/26/2025 09:04:17 04/26/2025 09:43:29 History of bariatric surgical procedure 083012924 Z98.84 Intentiona l weight loss 271387468 R63.8 History of gastrectomy 959608622 Z90.3 Advised qid intake 50% protein 8365-6882 calories/d y less than 100 carbs/dyLo ng [...] to correct any vitamin deficienci es. [facility] risk of nutritional deficit 917996110 Z91.89 Congestive heart failure 44713598 I50.9 Essential hypertension 61669912 I10 Hyperlipidemia 24571458 E78.5 Iron deficiency 40566386 E61.1 Long-term current use of anticoagulant 560844598 Z79.01 Prediabetes 367350926 R7 3.03 Vitamin D deficiency [id number] [facility] n Bariatric s and Adv Surg [address] [facility] [address] [place] [address] 04/26/2025 09:34:05 04/26/2025 10:14:28 Diet education 62176723 Z71.3 Health Concerns Section Related Observation LastModified by Organization Detai ls LastModified Time None Recorded Concern Status LastModified by Organization Details LastModified Time None Recorded Payers Encounter Date Sequence Insurance Name Policy Number Policy Finn Covered Member ID Finn Member ID Guarantor Name 04/26/2025 1 [facility] [id number] Addy H Alix [id number] Addy Thomson Notes Date Note Type Note Provider Name and Address Organization Details Recorded Time 04/26/2025 text/html Patient presents the office today [...] = 2081 kilo calories Ruddy Acharya, DNP, NIGHT ASSISTANT, METER ATTENDANT-C [address] [facility], [place], [address], [facility] - [place] & [place] 04/26/2025 09:30:39 04/26/2025 text/html A: RADHA met w/Jeff Thomson for 6 month f/up via office visit s/p Favian Cullen Pt weight at MD Consult: 417.1#Current Weight: 316.5#Total Weight Change: -100.6#Notes on weight: Today's InBody reveals a skeletal muscle mass = 95.2 lb,body fat mass = 141.9 lb,BMI = 44.2Percent body fat = 44.8Basal Metabolic Rate = 2081 kilo calories Signs/SymptomsN/V /C/D: denies Pertinent Labs/Meds/Vitamin regimen: Vit D, vit C, Vit A, MVI, iron, b-complex Physical activity: walking, mow, weed eat Tracking food/beverages consumed: not tracking Est. daily kcal intake: 0301-9161 Est. daily protein intake: 70+ gm Est. daily fluid intake: 64 oz Meal Pattern: protein shake for breakfast, snack, supper 2-3x/dayveggies, grains, fruits ARUN LEONE, [address], [place], [address], [facility] - [place] - [place] & [place] 04/26/2025 09:57:39
--- OUTSIDE RECORDS SUMMARY | 2025-04-27 09:34 | XMS_ITS | Clinical Summary ---
Author Organization [facility] Address [address] [place] [address] Care Team Providers Care Fruit Buyer Name Role Phone Pcp, None MD Primary Care Provider [phone] Allergies No known active allergies Medications No known medications Active Problems Problem Noted Date Diagnosed Date Wrist pain, right 04/04/2016 Family History Medical History Relation Name Comments Hypertension Brother Diabetes Daughter Hypertension Father Diabetes Mother Hypertension Mother Relation Name Status Comments Brother Daughter Father Mother Social History Tobacco Use Types Packs/Day Years Used Date Smoking Tobacco: Never Alcohol Use Standard Drinks/Week Comments No 0 (1 standard drink = 0.6 oz pur e alcohol) Sex and Gender Information Value Date Recorded Sex Assigned at Not on file Legal Sex Male 9:59 PM EDT Gender Identity Not on file Sexual Orientation Not on file Last Filed Vital Signs Vital Sign Reading Time Taken Comments Blood Pressure 168/106 04/04/2016 1:29 PM EDT Pulse - - Temperature - - Respiratory Rate - - Oxygen Saturation - - Inhaled Oxygen Concentration - - Weight 136.1 kg (300 lb) 04/04/2016 1:29 PM EDT Height 180.3 cm (5' 11 ) 04/04/2016 1:29 PM EDT Body Mass Index 41.84 04/04/2016 1:29 PM EDT Plan of Treatment Health Maintenance Due Date Last Done Comments DTap,Tdap,and Td (1 - Tdap) 1977 Colonoscopy 2011 PSA YEARLY 2016 Pneumococcal 50+ (1 of 1 - PCV) 2016 Shingrix (#1) 2016 Influenza Vaccine (Season Ended) 2025 RSV Vaccine (60+ or ) (1 - 1-dose 75+ series) 2041 HPV Aged Out No longer eligi ble based on patient's age to complete this topic Meningococcal conjugate jeanna nt 4 (MCV4) Aged Out No longer eligible b ased on patient's age to complete this topic RSV Immunization (<20 months) Aged Out No longer eligible based on patient's age to complete this topic Insurance SELF INSURED Care Teams Fruit Buyer Relationship Specialty Start Date End Date Pcp, Ayush, PCP - General Internal Medicine 04/02/16
--- OUTSIDE RECORDS SUMMARY | 2025-04-27 09:34 | XMS_ITS | Referral Summary ---
Author Organization [facility] Address [address] [place] [address] Care Team Providers Care Concert Promoter Name Role Phone Pcp, None MD Primary Care Provider [phone] Allergies No known active allergies Medications No known medications Active Problems Problem Noted Date Diagnosed Date Wrist pain, right 04/04/2016 Social History Tobacco Use Types Packs/Day Years [...] 04/04/2016 1:29 PM EDT Plan of Treatment Not on file Insurance SELF INSURED Care Teams Concert Promoter Relationship Specialty Start Date End Date Pcp, None, PCP - General Internal Medicine 04/02/16
--- OUTSIDE RECORDS SUMMARY | 2025-04-27 09:35 | XMS_ITS | Data Portability ---
Author Organization [facility] Address [address] [place] [address] Assessment Encounter Date Assessment Date Assessment LastModified by Organization Details LastModified Time 04/14/2024 04/14/2024 -Medications were reviewed and any necessary updates and renewals were made, patient instructed to complete as prescribed. -The potential side effects of medications were discussed. -Counseling was done on care goals and ways to prevent future hospitalizatio ns. -Further treatment per orders listed below. Not available 04/14/2024 09:24:10 Plan of Treatment Reminders Order Date Submit Date Provider Last Modified By Organization Details Last Modified Time Details Appointments Follow Up 20 2024 09:40A Winsome Negrete, FELISHA Not available Not available Not available Lab drug screen, 14 drugs (detectim ed), urine 2024 025 DRAGAN [facility], [address], [place] [address], [place], [address], 04/06/2025 09:14:34 cobalamin and folate panel, serum 2024 025 DRAGAN [facility], [address], [place] [address], [place], [address], 01/07/2025 10:12:28 retic count, blood 2024 025 DRAGAN [facility], [address], [place] [address], [place], [address], 01/07/2025 10:12:34 vitamin K1, serum or plasma 2024 025 DRAGAN [facility], [address], [place] [address], [place], [address], 01/07/2025 10:12:32 HbA1c (hemoglob in A1c), blood 2024 025 DRAGAN [facility], [address], [place] [address], [place], [address], 01/07/2025 10:12:30 TSH + free T4, serum 2024 025 DRAGAN [facility], [address], [place], [place], [address], 01/07/2025 10:12:20 lipid panel, serum 2024 025 DRAGAN [facility], [address], [place] [address], [place], [address], 01/07/2025 10:12:25 vitamin D, 25-hydrox y, total, serum 2024 025 DRAGAN [facility], [address], [place] [address], [place], [address], 01/04/2025 07:14:39 vitamin C, serum 2024 025 DRAGAN [facility], [address], [place] [address], [place], [address], 01/07/2025 10:12:31 CBC w/ auto diff 2024 025 DRAGAN [facility], [address], [place] [address], [place], [address], 01/07/2025 10:12:21 TIBC (total iron-bind ing capacity) , serum 2024 025 DRAGAN [facility], [address], [place], [place], [address], 01/07/2025 10:12:26 ferritin, serum or plasma 2024 025 DRAGAN [facility], [address], [place], [place], [address], 01/07/2025 10:12:33 CMP, serum or plasma 2024 025 DRAGAN [facility], [address], [place] [address], [place], [address], 01/07/2025 10:12:23 unlisted lab - complianc e drug anabell, no THC 2023 024 DRAGAN [facility], [address], [place] [address], [place], [address], 10/06/2024 22:07:10 HbA1c (hemoglob in A1c), blood 2023 024 DRAGAN [facility], [address], [place] [address], [place], [address], 09/30/2024 07:19:17 CBC w/ auto diff 2023 024 DRAGAN [facility], [address], [place], [place], [address], 09/30/2024 07:19:15 lipid panel, serum 2023 024 DRAGAN [facility], [address], [place], [place], [address], 09/30/2024 07:19:17 CMP, serum or plasma 2023 024 DRAGAN [facility], [address], [place], [place], [address], 09/30/2024 07:19:16 TSH + free T4, serum 2023 024 DRAGAN [facility], [address], [place] [address], [place], [address], 09/30/2024 07:19:14 vitamin D, 25-hydrox y, total, serum 2023 024 DRAGAN [facility], [address], [place] [address], [place], [address], 09/30/2024 07:19:18 unlisted lab - complianc e drug anabell, no THC 2023 024 DRAGAN [facility], [address], [place] [address], [place], [address], 05/18/2024 14:12:40 Referral cardiolog ist referral - Needs seen sooner than 04/28/24 - that's appt he was given during discharge from [facility] 2023 024 [email or web address] Paddy Ochoa MD, Juan A Dragan Ricardo, [place], [address], 05/14/2024 08:47:36 Procedures cerumen removal using irrigatio n (PROC) 2023 024 Not available 04/14/2024 09:36:15 Surgeries None recorded. Imaging None recorded. Medication Orders pregabali n 300 mg capsule 2024 025 [facility], [address] [place] [address] , [place], [place], [id number], 04/01/2025 16:03:48 clopidogr el 75 mg tablet 2024 025 [facility] [address] [place] [address] , [place], [place], [id number], 03/22/2025 09:55:38 aspirin 81 mg tablet,de layed release 2024 025 [facility] [address] [place] [address] , [place], [place], [id number], 03/22/2025 09:55:38 pregabali n 300 mg capsule 2024 025 [facility] [address] [place] [address] , [place], [place], [id number], 12/28/2024 16:01:37 isosorbid e mononitra te ER 30 mg tablet,ex tended release 24 hr 2024 025 [facility], [address] [place] [address] , [place], [place], [id number], 03/22/2025 09:55:39 lisinopri l 40 mg tablet 2024 025 [facility], [address] [place] [address] , [place], [place], [id number], 03/22/2025 09:55:36 metoprolo l succinate ER 100 mg tablet,ex tended release 24 hr 2024 025 [facility], [address] [place] [address] , [place], [place], [id number], 12/29/2024 09:14:11 aspirin 81 mg tablet,de layed release 2023 024 [facility], [address] [place] [address], [address], 09/29/2024 08:40:06 Lyrica 300 mg capsule 2023 024 [facility], [address] [place] [address] , [place], [place], [id number], 11/30/2024 18:20:43 isosorbid e mononitra te ER 30 mg tablet,ex tended release 24 hr 2023 024 [facility], [address] [place] [address], [address], 09/29/2024 08:40:08 lisinopri l 40 mg tablet 2023 024 [facility], [address] [place] [address], [address], 09/29/2024 08:40:08 metoprolo l succinate ER 100 mg tablet,ex tended release 24 hr [address], [address], 09/29/2024 08:40:06 clopidogr el 75 mg tablet [address], [address], 09/29/2024 08:40:09 bumetanid e 1 mg tablet [address], [address], 09/29/2024 08:40:07 atorvasta tin 40 mg tablet [address], [address], 12/28/2024 15:40:34 sumatript an 100 mg tablet 2023 024 [facility], [address] [place] [address], [address], 09/29/2024 08:40:07 Lyrica 300 mg capsule [address], [address], 05/10/2024 08:44:12 Lyrica 300 mg capsule [address], [address], 04/14/2024 10:06:31 cefdinir 300 mg capsule [address] [facility], [address] [place] [address], [place], [address], 12/28/2024 15:40:31 Patient TargetsNo targets recorded. Patient Instructions Encounter Date Encounter Id Patient Instructions Last Modified By Organization Details Last Modified Time 04/14/2024 [id number] body mass index: care instructions Not available 04/14/2024 09:35:33 learning about healthy weight Not available 04/14/2024 09:35:33 three minute wal k test* Not available 04/14/2024 09:36:15 05/10/2024 [id number] body mass index: care instructions Not available 05/10/2024 08:44:10 learning about healthy weight Not available 05/10/2024 08:44:10 09/29/2024 [id number] body mass index: care instructions Not available 09/29/2024 08:40:04 learning about healthy weight Not available 09/29/2024 08:40:05 12/28/2024 [id number] body mass index: care instructions Not available 12/30/2024 04:57:47 learning about healthy weight Not available 12/30/2024 04:57:47 03/30/2025 [id number] controlled substance agreement* Not available 03/30/2025 08:36:36 Reason for Referral Pot Maker Referral for An shaista pectoris Needs seen sooner than 04/28/24 - that's appt he was given during discharge from [facility] Referring Physician: Yeimy Negrete, Family Medicine, Encounter Date: 04/14/2024 Results Created Date Observation Date Name Description Value Unit Range Abnormal Flag Note LastModifiedBy Organization Detail LastModifiedTime 05/10/2005/18/2024 COMPL IANCE DRUG ANABELL , NO THC summary report (summary) FINAL ===== ===== ===== ===== ===== ===== ===== ===== ===== ===== ===== ===== ===== === TOXAS SURE COMP DRUG ANABELL SIS,N O THC,U R ===== ===== ===== ===== ===== ===== ===== ===== ===== ===== ===== ===== ===== === Test Resul t Flag Units Drug Prese nt Prega balin PRESE NT Aceta minop hen PRESE NT ===== ===== ===== ===== ===== ===== ===== ===== ===== ===== ===== ===== ===== === Test Resul t Flag Units Ref Range Creat inine 109 mg/dL >=20 ===== ===== ===== ===== ===== ===== ===== ===== ===== ===== ===== ===== ===== === Decla red Medic ation s: Medic ation list was not provi ded. ===== ===== ===== ===== ===== ===== ===== ===== ===== ===== ===== ===== ===== === For clini trey consu ltati on, pleas e call . ===== ===== ===== ===== ===== ===== ===== ===== ===== ===== ===== ===== ===== === Not Available [facility] ([facility]) [address], [place], [address], 05/18/2024 14:12:40 05/10/20 24 05/18/2024 COMPL IANCE DRUG ANABELL , NO THC pdf . Not Available [facility] ([facility]) [address] [place], [address], 05/18/2024 14:12:40 09/29/20 24 09/30/2024 TSH+F REE T4 TSH 3.580 uIU/m L 0.450- 4.500 normal Not Available [facility] ([facility]) [address] [place], [address], 09/30/2024 07:19:14 09/29/2009/30/2024 TSH+F REE T4 T4,free(dire ct) 1.23 NG/dL 0.82-1 .77 normal Not Available [facility] ([facility]) [address] [place], [address], 09/30/2024 07:19:14 09/29/20 24 09/30/2024 CBC WITH DIFFE RENTI AL/PL ATELE T WBC 9.7 x10e3 /uL 3.4-10 .8 normal Not Available [facility] ([facility]) [address] [place], [address], 09/30/2024 07:19:15 09/29/20 24 09/30/2024 CBC WITH DIFFE RENTI AL/PL ATELE T RBC 5.27 x10e6 /uL 4.14-5 .80 normal Not Available [facility] ([facility]) [address] [place], [address], 09/30/2024 07:19:15 09/29/2009/30/2024 CBC WITH DIFFE RENTI AL/PL ATELE T hemoglobin 15.1 g/dL 13.0-1 7.7 normal Not Available [facility] ([facility]) [address] [place], [address], 09/30/2024 07:19:15 09/29/20 24 09/30/2024 CBC WITH DIFFE RENTI AL/PL ATELE T hematocrit 45.9 % 37.5-5 1.0 normal Not Available [facility] ([facility]) [address] [facility], [place], [address], 09/30/2024 07:19:15 09/29/20 24 09/30/2024 CBC WITH DIFFE RENTI AL/PL ATELE T MCV 87 fL 79-97 normal Not Available [facility] ([facility]) [address] [facility], [place], [address], 09/30/2024 07:19:15 09/29/2009/30/2024 CBC WITH DIFFE RENTI AL/PL ATELE T MCH 28.7 pg 26.6-3 3.0 normal Not Available [facility] ([facility]) [address] [facility], [place], [address], 09/30/2024 07:19:15 09/29/20 24 09/30/2024 CBC WITH DIFFE RENTI AL/PL ATELE T MCHC 32.9 g/dL 31.5-3 5.7 normal Not Available [facility] ([facility]) [address] [facility], [place], [address], 09/30/2024 07:19:15 09/29/20 24 09/30/2024 CBC WITH DIFFE RENTI AL/PL ATELE T RDW 14.5 % 11.6-1 5.4 Not Available [facility] ([facility]) [address] [place], [address], 09/30/2024 07:19:15 09/29/20 24 09/30/2024 CBC WITH DIFFE RENTI AL/PL ATELE T platelets 251 x10e3 /uL 150-45 0 normal Not Available [facility] ([facility]) [address] [place], [address], 09/30/2024 07:19:15 09/29/20 24 09/30/2024 CBC WITH DIFFE RENTI AL/PL ATELE T neutrophils 72 % not estab. normal Not Available [facility] ([facility]) [address] [facility], [place], [address], 09/30/2024 07:19:15 09/29/20 24 09/30/2024 CBC WITH DIFFE RENTI AL/PL ATELE T lymphs 15 % not estab. normal Not Available [facility] ([facility]) [address] [facility], [place], [address], 09/30/2024 07:19:15 09/29/20 24 09/30/2024 CBC WITH DIFFE RENTI AL/PL ATELE T monocytes 7 % not estab. normal Not Available [facility] ([facility]) [address] [facility], [place], [address], 09/30/2024 07:19:15 09/29/20 24 09/30/2024 CBC WITH DIFFE RENTI AL/PL ATELE T eos 5 % not estab. normal Not Available [facility] ([facility]) [address] [facility], [place], [address], 09/30/2024 07:19:15 09/29/20 24 09/30/2024 CBC WITH DIFFE RENTI AL/PL ATELE T basos 1 % not estab. normal Not Available [facility] ([facility]) [address] [facility], [place], [address], 09/30/2024 07:19:15 09/29/20 24 09/30/2024 CBC WITH DIFFE RENTI AL/PL ATELE T immature cells SALES ORDER PROCESSOR Not Available [facility] ([facility]) [address] [facility], [place], [address], 09/30/2024 07:19:15 09/29/20 24 09/30/2024 CBC WITH DIFFE RENTI AL/PL ATELE T neutrophils (absolute) 7.0 x10e3 /uL 1.4-7. 0 normal Not Available [facility] ([facility]) [address] [facility], [place], [address], 09/30/2024 07:19:15 09/29/20 24 09/30/2024 CBC WITH DIFFE RENTI AL/PL ATELE T lymphs (absolute) 1.4 x10e3 /uL 0.7-3. 1 normal Not Available [facility] ([facility]) [address] [facility], [place], [address], 09/30/2024 07:19:15 09/29/20 24 09/30/2024 CBC WITH DIFFE RENTI AL/PL ATELE T monocytes(ab solute) 0.7 x10e3 /uL 0.1-0. 9 normal Not Available [facility] ([facility]) [address] [facility], [place], [address], 09/30/2024 07:19:15 09/29/20 24 09/30/2024 CBC WITH DIFFE RENTI AL/PL ATELE T eos (absolute) 0.5 x10e3 /uL 0.0-0. 4 above high normal Not Available [facility] ([facility]) [address] [facility], [place], [address], 09/30/2024 07:19:15 09/29/20 24 09/30/2024 CBC WITH DIFFE RENTI AL/PL ATELE T baso (absolute) 0.1 x10e3 /uL 0.0-0. 2 normal Not Available [facility] ([facility]) [address] [facility], [place], [address], 09/30/2024 07:19:15 09/29/20 24 09/30/2024 CBC WITH DIFFE RENTI AL/PL ATELE T immature granulocytes 0 % not estab. Not Available [facility] ([facility]) [address] [facility], [place], [address], 09/30/2024 07:19:15 12/04/09/30/2024 CBC WITH DIFFE RENTI AL/PL ATELE T immature grans (abs) 0.0 x10e3 /uL 0.0-0. 1 Not Available [facility] ([facility]) [address] [facility], [place], [address], 09/30/2024 07:19:15 09/29/20 24 09/30/2024 CBC WITH DIFFE RENTI AL/PL ATELE T NRBC SALES ORDER PROCESSOR Not Available [facility] ([facility]) [address] [facility], [place], [address], 09/30/2024 07:19:15 09/29/2009/30/2024 CBC WITH DIFFE RENTI AL/PL ATELE T hematology comments: SALES ORDER PROCESSOR Not Available [facility] ([facility]) [address] [facility], [place], [address], 09/30/2024 07:19:15 09/29/20 24 09/30/2024 COMP. METAB OLIC PANEL (14) glucose 95 mg/dL 70-99 normal Not Available [facility] ([facility]) [address] [facility], [place], [address], 09/30/2024 07:19:16 09/29/20 24 09/30/2024 COMP. METAB OLIC PANEL (14) BUN 16 mg/dL 6-24 normal Not Available [facility] ([facility]) [address] [facility], [place], [address], 09/30/2024 07:19:16 09/29/20 24 09/30/2024 COMP. METAB OLIC PANEL (14) creatinine 0.84 mg/dL 0.76-1 .27 normal Not Available [facility] ([facility]) [address] [facility], [place], [address], 09/30/2024 07:19:16 09/29/20 24 09/30/2024 COMP. METAB OLIC PANEL (14) eGFR 101 mL/mi n/1.7 3 >59 normal Not Available [facility] ([facility]) [address] [place], [address], 09/30/2024 07:19:16 09/29/20 24 09/30/2024 COMP. METAB OLIC PANEL (14) BUN/creatini ne ratio 19 9-20 normal Not Available [facility] ([facility]) [address] [place], [address], 09/30/2024 07:19:16 09/29/20 24 09/30/2024 COMP. METAB OLIC PANEL (14) sodium 142 mmol/ L 134-14 4 normal Not Available [facility] ([facility]) [address] [place], [address], 09/30/2024 07:19:16 09/29/20 24 09/30/2024 COMP. METAB OLIC PANEL (14) potassium 4.8 mmol/ L 3.5-5. 2 normal Not Available [facility] ([facility]) [address] [place], [address], 09/30/2024 07:19:16 09/29/20 24 09/30/2024 COMP. METAB OLIC PANEL (14) chloride 98 mmol/ L 96-106 normal Not Available [facility] ([facility]) [address] [place], [address], 09/30/2024 07:19:16 09/29/20 24 09/30/2024 COMP. METAB OLIC PANEL (14) carbon dioxide, total 32 mmol/ L 20-29 above high normal Not Available [facility] ([facility]) [address] [facility] [place], [address], 09/30/2024 07:19:16 09/29/20 24 09/30/2024 COMP. METAB OLIC PANEL (14) calcium 9.2 mg/dL 8.7-10 .2 normal Not Available [facility] ([facility]) [address] [place], [address], 09/30/2024 07:19:16 09/29/20 24 09/30/2024 COMP. METAB OLIC PANEL (14) protein, total 7.2 g/dL 6.0-8. 5 normal Not Available [facility] ([facility]) [address] [place], [address], 09/30/2024 07:19:16 09/29/20 24 09/30/2024 COMP. METAB OLIC PANEL (14) albumin 4.3 g/dL 3.8-4. 9 normal Not Available [facility] ([facility]) [address] [place], [address], 09/30/2024 07:19:16 09/29/20 24 09/30/2024 COMP. METAB OLIC PANEL (14) globulin, total 2.9 g/dL 1.5-4. 5 Not Available [facility] ([facility]) [address] [place], [address], 09/30/2024 07:19:16 09/29/20 24 09/30/2024 COMP. METAB OLIC PANEL (14) bilirubin, total 0.6 mg/dL 0.0-1. 2 normal Not Available [facility] ([facility]) [address] [place], [address], 09/30/2024 07:19:16 09/29/20 24 09/30/2024 COMP. METAB OLIC PANEL (14) alkaline phosphatase 86 IU/L 44-121 normal Not Available [facility] ([facility]) [address] [place], [address], 09/30/2024 07:19:16 09/29/20 24 09/30/2024 COMP. METAB OLIC PANEL (14) AST (SGOT) 19 IU/L 0-40 normal Not Available [facility] ([facility]) [address] [place], [address], 09/30/2024 07:19:16 09/29/20 24 09/30/2024 COMP. METAB OLIC PANEL (14) ALT (SGPT) 24 IU/L 0-44 normal Not Available [facility] ([facility]) [address] [facility] [place], [address], 09/30/2024 07:19:16 09/29/20 24 09/30/2024 LIPID PANEL cholesterol, total 179 mg/dL 100-19 9 normal Not Available [facility] ([facility]) [address] [facility] [place], [address], 09/30/2024 07:19:17 09/29/20 24 09/30/2024 LIPID PANEL triglyceride s 195 mg/dL 0-149 above high normal Not Available [facility] ([facility]) [address] [place], [address], 09/30/2024 07:19:17 09/29/20 24 09/30/2024 LIPID PANEL HDL cholesterol 27 mg/dL >39 below low normal Not Available [facility] ([facility]) [address] [facility] [place], [address], 09/30/2024 07:19:17 09/29/20 24 09/30/2024 LIPID PANEL VLDL cholesterol trey 35 mg/dL 5-40 Not Available [facility] ([facility]) [address] [place], [address], 09/30/2024 07:19:17 09/29/20 24 09/30/2024 LIPID PANEL LDL chol calc ([facility]) 117 mg/dL 0-99 above high normal Not Available [facility] ([facility]) [address] [place], [address], 09/30/2024 07:19:17 09/29/20 24 09/30/2024 LIPID PANEL LDL calc comment: SALES ORDER PROCESSOR Not Available [facility] ([facility]) [address] [place], [address], 09/30/2024 07:19:17 09/29/20 24 09/30/2024 HEMOG LOBIN A1C hemoglobin A1C 5.9 % 4.8-5. 6 above high normal Predi abete s: 5.7 - 6.4 Diabe cecille: >6.4 Glyce rhona contr ol for adult s with diabe cecille: <7.0 Not Available [facility] ([facility]) [address] [facility], [place], [address], 09/30/2024 07:19:17 09/29/20 24 09/30/2024 VITAM IN D, 25-HY DROXY vitamin D, 25-hydroxy 49.7 NG/mL 30.0-1 00.0 Vitam in D defic [...] um and D. Baylee acosta [place]: The [facility] Press . 2. Marcela argueta MF, Brigid packer [place], Jing off-F errar i CARCAMO, et al. Evalu ation , treat ment, and preve ntion of vitam in D defic iency : an Endoc rine Socie ty clini trey pract ice guide line. JCEM. 2010; 96(7) :1911 -30. Not Available [facility] ([facility]) [address] [facility], [place], [address], 09/30/2024 07:19:18 09/29/20 24 10/06/2024 COMPL IANCE DRUG ANABELL , NO THC summary report (summary) FINAL ===== ===== ===== ===== ===== ===== ===== ===== ===== ===== ===== ===== ===== === TOXAS SURE COMP DRUG ANABELL SIS,N O THC,U R ===== ===== ===== ===== ===== ===== ===== ===== ===== ===== ===== ===== ===== === Test Resul t Flag Units Drug Prese nt Alcoh ol, Ethyl 0.020 g/dL Sourc es of ethyl alcoh ol inclu de alcoh olic bever ages or as a ferme ntati on produ ct of gluco se; gluco se was not detec shayan in this speci men. Ethyl alcoh ol resul t shoul d be inter prete d in the arnaldo xt of all avail able clini trey and behav ioral infor matio n. Johnson codon e 286 ng/mg creat Johnson morph one 175 ng/mg creat Dihyd rocod eine 66 ng/mg creat Norhy droco done 299 ng/mg creat Sourc es of hydro codon e inclu de sched uled presc ripti on medic ation s. Johnson morph one, dihyd rocod eine and norhy droco done are expec shayan metab olite s of hydro codon e. Johnson morph one and dihyd rocod eine are also avail able as sched uled presc ripti on medic ation s. Prega balin PRESE NT Aceta minop hen PRESE NT Metop rolol PRESE NT ===== ===== ===== ===== ===== ===== ===== ===== ===== ===== ===== ===== ===== === Test Resul t Flag Units Ref Range Creat inine 146 mg/dL >=20 ===== ===== ===== ===== ===== ===== ===== ===== ===== ===== ===== ===== ===== === Decla red Medic ation s: Medic ation list was not provi ded. ===== ===== ===== ===== ===== ===== ===== ===== ===== ===== ===== ===== ===== === For clini trey consu ltati on, pleas e call . ===== ===== ===== ===== ===== ===== ===== ===== ===== ===== ===== ===== ===== === Not Available [facility] ([facility]) [address] [facility], [place], [address], 10/06/2024 22:07:10 09/29/20 24 10/06/2024 COMPL IANCE DRUG ANABELL , NO THC pdf . Not Available [facility] ([facility]) [address] [facility], [place], [address], 10/06/2024 22:07:10 12/30/19 25 01/04/2025 VITAM IN D, 25-HY DROXY vitamin D, 25-hydroxy 36.0 NG/mL 30.0-1 00.0 Vitam in D defic [...] Baylee acosta [place]: The [facility] [employer] . 2. Holic k MF, Brigid ey [place], Jing off-F errar i CARCAMO, et al. Evalu ation , treat ment, and preve ntion of vitam in D defic iency : an Endoc rine Socie ty clini trey pract ice guide line. JCEM. 2010; 96(7) :1911 -30. Not Available [facility] ([facility]) [address] [facility], [place], [address], 01/04/2025 07:14:39 12/30/1912/29/2024 MINESH EN AUTHO RIZAT ION written authorizatio n Kerri t Minesh en Autho rizat ion Recei wendy. Autho rizat ion recei wendy from MINESH EN REQUE ST 12-29 Logge d by Kvng Luna an Not Available [facility] ([facility]) [address] [facility], [place], [address], 01/04/2025 07:14:40 12/30/19 25 12/30/2024 TSH+F REE T4 TSH 3.300 uIU/m L 0.450- 4.500 normal Not Available [facility] ([facility]) [address] [facility], [place], [address], 01/07/2025 10:12:19 12/30/19 25 12/30/2024 TSH+F REE T4 T4,free(dire ct) 1.53 NG/dL 0.82-1 .77 normal Not Available [facility] ([facility]) [address] [place], [address], 01/07/2025 10:12:19 12/30/19 25 12/30/2024 CBC WITH DIFFE RENTI AL/PL ATELE T WBC 7.9 x10e3 /uL 3.4-10 .8 normal Not Available [facility] ([facility]) [address] [place], [address], 01/07/2025 10:12:21 12/30/19 25 12/30/2024 CBC WITH DIFFE RENTI AL/PL ATELE T RBC 5.48 x10e6 /uL 4.14-5 .80 normal Not Available [facility] ([facility]) [address] [place], [address], 01/07/2025 10:12:21 12/30/19 25 12/30/2024 CBC WITH DIFFE RENTI AL/PL ATELE T hemoglobin 15.6 g/dL 13.0-1 7.7 normal Not Available [facility] ([facility]) [address] [place], [address], 01/07/2025 10:12:21 12/30/19 25 12/30/2024 CBC WITH DIFFE RENTI AL/PL ATELE T hematocrit 47.8 % 37.5-5 1.0 normal Not Available [facility] ([facility]) [address] [place], [address], 01/07/2025 10:12:21 12/30/19 25 12/30/2024 CBC WITH DIFFE RENTI AL/PL ATELE T MCV 87 fL 79-97 normal Not Available [facility] ([facility]) [address] [place], [address], 01/07/2025 10:12:21 12/30/19 25 12/30/2024 CBC WITH DIFFE RENTI AL/PL ATELE T MCH 28.5 pg 26.6-3 3.0 normal Not Available [facility] ([facility]) [address] [place], [address], 01/07/2025 10:12:21 12/30/19 25 12/30/2024 CBC WITH DIFFE RENTI AL/PL ATELE T MCHC 32.6 g/dL 31.5-3 5.7 normal Not Available [facility] ([facility]) [address] [place], [address], 01/07/2025 10:12:21 12/30/19 25 12/30/2024 CBC WITH DIFFE RENTI AL/PL ATELE T RDW 14.3 % 11.6-1 5.4 Not Available [facility] ([facility]) [address] [facility], [place], [address], 01/07/2025 10:12:21 12/30/19 25 12/30/2024 CBC WITH DIFFE RENTI AL/PL ATELE T platelets 240 x10e3 /uL 150-45 0 normal Not Available [facility] ([facility]) [address] [facility], [place], [address], 01/07/2025 10:12:21 12/30/19 25 12/30/2024 CBC WITH DIFFE RENTI AL/PL ATELE T neutrophils 68 % not estab. normal Not Available [facility] ([facility]) [address] [facility], [place], [address], 01/07/2025 10:12:21 12/30/19 25 12/30/2024 CBC WITH DIFFE RENTI AL/PL ATELE T lymphs 22 % not estab. normal Not Available [facility] ([facility]) [address] [facility], [place], [address], 01/07/2025 10:12:21 12/30/19 25 12/30/2024 CBC WITH DIFFE RENTI AL/PL ATELE T monocytes 6 % not estab. normal Not Available [facility] ([facility]) [address] [facility], [place], [address], 01/07/2025 10:12:21 12/30/19 25 12/30/2024 CBC WITH DIFFE RENTI AL/PL ATELE T eos 3 % not estab. normal Not Available [facility] ([facility]) [address] [facility], [place], [address], 01/07/2025 10:12:21 12/30/19 25 12/30/2024 CBC WITH DIFFE RENTI AL/PL ATELE T basos 1 % not estab. 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 0 normal Not Available [facility] ([facility]) [address] [place], [address], 01/07/2025 10:12:21 12/30/19 25 12/30/2024 CBC WITH DIFFE RENTI AL/PL ATELE T lymphs (absolute) 1.7 x10e3 /uL 0.7-3. 1 normal Not Available [facility] ([facility]) [address] [place], [address], 01/07/2025 10:12:21 12/30/19 25 12/30/2024 CBC WITH DIFFE RENTI AL/PL ATELE T monocytes(ab solute) 0.5 x10e3 /uL 0.1-0. 9 normal Not Available [facility] ([facility]) [address] [place], [address], 01/07/2025 10:12:21 12/30/19 25 12/30/2024 CBC WITH DIFFE RENTI AL/PL ATELE T eos (absolute) 0.2 x10e3 /uL 0.0-0. 4 normal Not Available [facility] ([facility]) [address] [place], [address], 01/07/2025 10:12:21 12/30/19 25 12/30/2024 CBC WITH DIFFE RENTI AL/PL ATELE T baso (absolute) 0.0 x10e3 /uL 0.0-0. 2 normal Not Available [facility] ([facility]) [address] [facility], [place], [address], 01/07/2025 10:12:21 12/30/19 25 12/30/2024 CBC WITH DIFFE RENTI AL/PL ATELE T immature granulocytes 0 % not estab. Not Available [facility] ([facility]) [address] [facility], [place], [address], 01/07/2025 10:12:21 12/30/19 25 12/30/2024 CBC WITH DIFFE RENTI AL/PL ATELE T immature grans (abs) 0.0 x10e3 /uL 0.0-0. 1 Not Available [facility] ([facility]) [address] [facility], [place], [address], 01/07/2025 10:12:21 12/30/19 25 12/30/2024 CBC WITH DIFFE RENTI AL/PL ATELE T NRBC SALES ORDER PROCESSOR Not Available [facility] ([facility]) [address] [facility], [place], [address], 01/07/2025 10:12:21 12/30/19 25 12/30/2024 CBC WITH DIFFE RENTI AL/PL ATELE T hematology comments: SALES ORDER PROCESSOR Not Available [facility] ([facility]) [address] [facility], [place], [address], 01/07/2025 10:12:21 12/30/19 25 12/30/2024 COMP. METAB OLIC PANEL (14) glucose 97 mg/dL 70-99 normal Not Available [facility] ([facility]) [address] [place], [address], 01/07/2025 10:12:23 12/30/19 25 12/30/2024 COMP. METAB OLIC PANEL (14) BUN 13 mg/dL 6-24 normal Not Available [facility] ([facility]) [address] [facility] [place], [address], 01/07/2025 10:12:23 12/30/19 25 12/30/2024 COMP. METAB OLIC PANEL (14) creatinine 0.72 mg/dL 0.76-1 .27 below low normal Not Available [facility] ([facility]) [address] [facility], [place], [address], 01/07/2025 10:12:23 12/30/19 25 12/30/2024 COMP. METAB OLIC PANEL (14) eGFR 106 mL/mi n/1.7 3 >59 normal Not Available [facility] ([facility]) [address] [facility], [place], [address], 01/07/2025 10:12:23 12/30/19 25 12/30/2024 COMP. METAB OLIC PANEL (14) BUN/creatini ne ratio 18 9-20 normal Not Available [facility] ([facility]) [address] [facility] [place], [address], 01/07/2025 10:12:23 12/30/19 25 12/30/2024 COMP. METAB OLIC PANEL (14) sodium 143 mmol/ L 134-14 4 normal Not Available [facility] ([facility]) [address] [place], [address], 01/07/2025 10:12:23 12/30/19 25 12/30/2024 COMP. METAB OLIC PANEL (14) potassium 3.6 mmol/ L 3.5-5. 2 normal Not Available [facility] ([facility]) [address] [place], [address], 01/07/2025 10:12:23 12/30/19 25 12/30/2024 COMP. METAB OLIC PANEL (14) chloride 100 mmol/ L 96-106 normal Not Available [facility] ([facility]) [address] [place], [address], 01/07/2025 10:12:23 12/30/19 25 12/30/2024 COMP. METAB OLIC PANEL (14) carbon dioxide, total 27 mmol/ L 20-29 normal Not Available [facility] ([facility]) [address] [facility] [place], [address], 01/07/2025 10:12:23 12/30/19 25 12/30/2024 COMP. METAB OLIC PANEL (14) calcium 9.1 mg/dL 8.7-10 .2 normal Not Available [facility] ([facility]) [address] [facility] [place], [address], 01/07/2025 10:12:23 12/30/19 25 12/30/2024 COMP. METAB OLIC PANEL (14) protein, total 6.8 g/dL 6.0-8. 5 normal Not Available [facility] ([facility]) [address] [facility] [place], [address], 01/07/2025 10:12:23 12/30/19 25 12/30/2024 COMP. METAB OLIC PANEL (14) albumin 4.1 g/dL 3.8-4. 9 normal Not Available [facility] ([facility]) [address] [facility] [place], [address], 01/07/2025 10:12:23 12/30/19 25 12/30/2024 COMP. METAB OLIC PANEL (14) globulin, total 2.7 g/dL 1.5-4. 5 Not Available [facility] ([facility]) [address] [facility] [place], [address], 01/07/2025 10:12:23 12/30/19 25 12/30/2024 COMP. METAB OLIC PANEL (14) bilirubin, total 0.9 mg/dL 0.0-1. 2 normal Not Available [facility] ([facility]) [address] [facility] [place], [address], 01/07/2025 10:12:23 12/30/19 25 12/30/2024 COMP. METAB OLIC PANEL (14) alkaline phosphatase 85 IU/L 44-121 normal Not Available [facility] ([facility]) [address] [facility], [place], [address], 01/07/2025 10:12:23 12/30/19 25 12/30/2024 COMP. METAB OLIC PANEL (14) AST (SGOT) 20 IU/L 0-40 normal Not Available [facility] ([facility]) [address] [facility] [place], [address], 01/07/2025 10:12:23 12/30/19 25 12/30/2024 COMP. METAB OLIC PANEL (14) ALT (SGPT) 20 IU/L 0-44 normal Not Available [facility] ([facility]) [address] [place], [address], 01/07/2025 10:12:23 12/30/19 25 12/30/2024 LIPID PANEL cholesterol, total 166 mg/dL 100-19 9 normal Not Available [facility] ([facility]) [address] [place], [address], 01/07/2025 10:12:24 12/30/19 25 12/30/2024 LIPID PANEL triglyceride s 185 mg/dL 0-149 above high normal Not Available [facility] ([facility]) [address] [facility], [place], [address], 01/07/2025 10:12:24 12/30/19 25 12/30/2024 LIPID PANEL HDL cholesterol 23 mg/dL >39 below low normal Not Available [facility] ([facility]) [address] [place], [address], 01/07/2025 10:12:24 12/30/19 25 12/30/2024 LIPID PANEL VLDL cholesterol trey 33 mg/dL 5-40 Not Available [facility] ([facility]) [address] [place], [address], 01/07/2025 10:12:24 12/30/19 25 12/30/2024 LIPID PANEL LDL chol calc ([facility]) 110 mg/dL 0-99 above high normal Not Available [facility] ([facility]) [address] [place], [address], 01/07/2025 10:12:24 12/30/19 25 12/30/2024 LIPID PANEL LDL calc comment: SALES ORDER PROCESSOR Not Available [facility] ([facility]) [address] [place], [address], 01/07/2025 10:12:24 12/30/19 25 12/30/2024 IRON AND TIBC iron bind.cap.(TI BC) 216 ug/dL 250-45 0 below low normal Not Available [facility] ([facility]) [address] [place], [address], 01/07/2025 10:12:26 12/30/19 25 12/30/2024 IRON AND TIBC UIBC 143 ug/dL 111-34 3 normal Not Available [facility] ([facility]) [address] [place], [address], 01/07/2025 10:12:26 12/30/19 25 12/30/2024 IRON AND TIBC iron 73 ug/dL 38-169 normal Not Available [facility] ([facility]) [address] [place], [address], 01/07/2025 10:12:26 12/30/19 25 12/30/2024 IRON AND TIBC iron saturation 34 % 15-55 normal Not Available [facility] ([facility]) [address] [place], [address], 01/07/2025 10:12:26 12/30/19 25 12/30/2024 PT AND PTT INR 1.2 0.9-1. 2 Refer ence inter luisa is for non-a ntico agula shayan patie nts. Sugge sted INR thera peuti c range for Vitam in K antag onist thera py: Stand babita Dose (mode rate inten sity thera peuti c range ): 2.0 - 3.0 Highe r inten sity thera peuti c range 2.5 - 3.5 Not Available [facility] ([facility]) [address] [place], [address], 01/07/2025 10:12:27 12/30/19 25 12/30/2024 PT AND PTT prothrombin time 12.6 sec 9.1-12 .0 above high normal Not Available [facility] ([facility]) [address] [facility], [place], [address], 01/07/2025 10:12:27 12/30/19 25 12/30/2024 PT AND PTT APTT 30 sec 24-33 normal This test has not been valid ated for monit oring unfra ction ated hepar in thera py. aPTT- based thera peuti c range s for unfra ction ated hepar in thera py have not been estab merrill carrera For gener al guide lines on Hepar in monit oring , refer to the [facility] suzanne of [facility]. Not Available [facility] ([facility]) [address] [facility], [place], [address], 01/07/2025 10:12:27 12/30/19 25 12/30/2024 VITAM IN B12 AND FOLAT E vitamin B12 630 pg/mL 232-12 45 normal Not Available [facility] ([facility]) [address] [facility], [place], [address], 01/07/2025 10:12:28 12/30/19 25 12/30/2024 VITAM IN B12 AND FOLAT E folate (folic acid), serum 12.2 NG/mL >3.0 normal A serum folat e michele ntrat ion of less than 3.1 ng/mL is consi dered to repre sent clini trey defic iency . Not Available [facility] ([facility]) [address] [place], [address], 01/07/2025 10:12:28 12/30/19 25 12/30/2024 HEMOG LOBIN A1C hemoglobin A1C 5.7 % 4.8-5. 6 above high normal Predi abete s: 5.7 - 6.4 Diabe cecille: >6.4 Glyce rhona contr ol for adult s with diabe cecille: <7.0 Not Available [facility] ([facility]) [address] [facility], [place], [address], 01/07/2025 10:12:30 12/30/19 25 01/03/2025 VITAM IN C vitamin C 1.2 mg/dL 0.4-2. 0 Vitam in C defic iency is gener ally defin ed as plasm a michele ntrat ions less than 0.2 mg/dL and level s betwe en 0.2 and 0.4 mg/dL are consi dered low. Not Available [facility] ([facility]) [address] [place], [address], 01/07/2025 10:12:31 12/30/19 25 01/07/2025 VITAM IN K1 vitamin K1 <0.10 NG/mL 0.10-2 .20 below low normal Not Available [facility] ([facility]) [address] [place], [address], 01/07/2025 10:12:32 12/30/19 25 12/30/2024 KALA TIN ferritin 133 NG/mL 30-400 normal Not Available [facility] ([facility]) [address] [facility], [place], [address], 01/07/2025 10:12:33 12/30/19 25 12/30/2024 RETIC ULOCY TE COUNT reticulocyte count 0.9 % 0.6-2. 6 Not Available [facility] ([facility]) [address], [place], [address], 01/07/2025 10:12:34 03/30/20 25 04/06/2025 COMPL IANCE DRUG ANABELL SIS, UR summary report (summary) FINAL ===== ===== ===== ===== ===== ===== ===== ===== ===== ===== ===== ===== ===== === TOXAS SURE COMP DRUG ANABELL SIS,U R ===== ===== ===== ===== ===== ===== ===== ===== ===== ===== ===== ===== ===== === Test Resul t Flag Units Drug Prese nt Prega balin PRESE NT Aceta minop hen PRESE NT Metop rolol PRESE NT ===== ===== ===== ===== ===== ===== ===== ===== ===== ===== ===== ===== ===== === Test Resul t Flag Units Ref Range Creat inine 137 mg/dL >=20 ===== ===== ===== ===== ===== ===== ===== ===== ===== ===== ===== ===== ===== === Decla red Medic ation s: Medic ation list was not provi ded. ===== ===== ===== ===== ===== ===== ===== ===== ===== ===== ===== ===== ===== === For clini trey consu ltati on, pleas e call . ===== ===== ===== ===== ===== ===== ===== ===== ===== ===== ===== ===== ===== === Not Available [facility] ([facility]) [address] [facility], [place], [address], 04/06/2025 09:14:34 03/30/2004/06/2025 COMPL IANCE DRUG ANABELL SIS, UR pdf . Not Available [facility] ([facility]) [address] [facility], [place], [address], 04/06/2025 09:14:34 Result Notes None recorded. Problems Name Problem SNOMED Code Status Onset Date Resolution Date Notes Provider Name and Address Organization Details Recorded Time Hypertens jose disorder 24126188 Completed 201806/13/2020 Yeimy Negrete, [employer] [address], [place], [address] , [place] - [facility] 0 18:09:00 Long-term drug therapy Active 2018 Not Available [facility] 3 15:41:08 Morbid obesity 085397961 Active 2018 Not Available [facility] 3 15:41:08 Essential hypertens ion 86584232 Active 2019 Not Available [facility] 3 15:41:08 Degenerat ion of lumbar intervert ebral disc 74666793 Active 2021 Not Available [facility] 3 15:41:08 Congestiv e heart failure 45102061 Active 2021 Not Available [facility] 3 15:41:08 Compressi on of lumbar nerve root 890035261 Active 2021 Not Available [facility] 3 15:41:08 History of cardiac catheteri zation 46466985381 100 Active Niesha murray, [place] - [facility] 3 15:53:21 Prediabet es 343958301 Active 2021 Not Available [facility] 3 15:41:08 Migraine 87214150 Active 2022 Not Available [facility] 3 15:41:08 Hyperlipi demia 52774624 Active 2023 Yeimy Negrete, [employer] [employer] [address], [place], [address] , [place] - [facility] 4 08:30:17 Oxygen saturatio n below reference range 579935790 Active 2023 Yeimy Negrete, [employer] [employer], [place], [address] , [place] - [facility] 4 09:39:18 History of myocardia l infarctio n 370668940 Active 2024 Yeimy Negrete, [employer] [employer], [place], [address] , [place] [facility] 5 04:55:57 Stable angina 908969383 Active 2024 Yeimy Negrete, [employer] [employer], [place], [address] , [place] [facility] 5 04:55:58 History of bariatric surgical procedure 698458981 Active 2024 Yeimy Negrete [employer] [employer] [address], [place], [address] , [place] [facility] 5 04:57:26 Notes:Some problems listed i n Documents: #[id number], #[id number] could not be added to this patient's chart. Please review these documents and add these problems to the patient's chart manually as needed. Problem Notes Documentation Provider Name and Address Organization Details Recorded Time Pot Maker Consult Note : [facility] Consultation REPORT #: [id number] REPORT STATUS: Signed DATE: 04/06/24 TIME: 1145 PATIENT: RHIANNA THOMSON UNIT #: [id number] ROOM/BED: 220-A AGE: 58 SEX: M ATTEND: Lake LEE,Leroy Portillo ADM AUTHOR: Sam Eagle APRN * ALL edits or amendments must be made on the electronic/computer document * History of Present Illness Date of Service: 04/06/24 Requesting Clinician: Dr. Leroy Noonan MD. Reason for consult: Angina pectoris. Chief complaint: Chest pain. HPI: Rhianna is a 58-year-old male with a history significant for hypertension, hyperlipidemia, obesity, gastroesophageal reflux disease, coronary artery disease and obstructive sleep apnea. The patient is on hospital day two. We have been consulted with in regards to the patient's angina pectoris. The patient presented to the [facility] Emergency Department with complaints of chest pain that began over the weekend, worsening yesterday. The patient had substernal chest pain with associated shortness of breath and swelling in his lower extremities. The patient reports that the edema has been going on for some time. The patient reports that he is hypoxic at home with oxygen saturation as low as 68% by pulse oximetry, rising to 88% to 90% on 2 liters/minute of oxygen. The patient's primary agricultural equipment test engineer is Dr. Ochoa. The patient had a left heart catheterization in July 2023 which did not show any obstructive coronary artery disease. Today, the patient reports that he continues to have shortness of breath, with relatively minimal exertion. The patient's chest discomfort has subsided substantially. The patient still has swelling in his lower extremities. Medications: Home Medications: Medication Dose/Rte/Freq Days Qty Entered Last Max Daily Dose Reviewed ASPIRIN (ASPIRIN EC) 81 MG PO DAILY 08/12/23 04/05/24 Strength: 81 MG TABLET 908 2328 METOPROLOL SUCCINATE 100 MG PO DAILY 08/12/23 04/05/24 (TOPROL XL) 09 233 (TOPROL XL) Strength: 100 MG TAB BUMETANIDE 1 MG PO DAILY 08/12/23 04/05/24 Strength: 1 MG TABLET 909 2328 NITROGLYCERIN 0.4 MG SL UD 08/12/23 04/05/24 (NITROQUICK) 910 2327 Strength: 0.4 MG TAB.SUBL CLOPIDOGREL (PLAVIX) 75 MG PO DAILY 08/12/23 04/05/24 Strength: 75 MG TABLET 0911 233 ATORVASTATIN CALCIUM 40 MG PO HS 08/12/23 04/05/24 (LIPITOR) 0911 232 Strength: 40 MG TABLET PREGABALIN (LYRICA) 300 MG PO DAILY 08/12/23 04/05/24 Strength: 150 MG CAPSULE 0912 9 LISINOPRIL 40 MG PO DAILY 08/22/22 04/05/24 Strength: 40 MG TABLET 1642 2329 Current Hospital Medications: Sig/Bessie Start time Last Medication Dose Route Stop Time Status Admin Atorvastatin Calcium 40 MG HS 04/06 2100 AC PO Clopidogrel Bisulfate 75 MG DAILY 04/06 1100 AC 04/06 PO 1138 Metoprolol Succinate 100 MG DAILY 04/06 1100 AC 04/06 PO 1139 Pregabalin 300 MG DAILY 04/06 1100 AC 04/06 PO 1138 Aspirin 81 MG DAILY 04/06 1038 AC 04/06 PO 1139 Bumetanide 1 MG DAILY 04/06 1038 AC 04/06 PO 1139 Lisinopril 40 MG DAILY 04/06 1037 AC 04/06 PO 1139 Pantoprazole Sodium 40 MG DAILY 04/06 0900 AC 04/06 IV 1000 Acetaminophen 975 MG Q6HP PRN 04/05 2030 AC PO Al Hydrox/Mg Hydrox/ 30 ML Q4HP PRN 04/05 2030 AC Simethicone PO Docusate Sodium 100 MG BIDP PRN 04/05 2030 AC PO Lactated Ringer's 1,000 ML UD 04/05 2030 AC 04/05 IV 2312 Magnesium Hydroxide 30 ML DP PRN 04/05 2030 AC PO Melatonin 3 MG HSP PRN 04/05 2030 AC PO Ondansetron HCl 4 MG Q8HP PRN 04/05 2030 AC IV Sodium Chloride 10 ML PRN PRN 04/05 2030 AC IV Nitroglycerin 0 .STK-MED ONE 04/05 2002 DCr .ROUTE Aspirin 0 .STK-MED ONE 04/05 1927 DC .ROUTE Allergies: Coded Allergies: No Known Drug Allergies (. 04/05/24) Problem List SAFE-T Triage Screening: Yes Past Medical/Social History Past medical history: Reports: coronary artery disease, GERD, hyperlipidemia, hypertension. Additional surgical history: wrist surgery Family history: Reports: coronary artery disease. 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 Review of Systems Respiratory: Reports: ALEJO (dyspnea on exertion), SOB. Denies: hemoptysis, non productive cough, productive cough (sputum), wheezing. Cardiovascular: Reports: chest pain, dyspnea on exertion, orthopnea. Denies: palpitations, parox nocturnal dyspnea. Systems reviewed negative: Allergy/Immun, Constitutional, Endocrine, ENT, Eyes , GI, , Heme, Musculoskeletal, Neuro, Psych, Skin Objective Physical Exam VS/I O: Vital Signs Result Date Time Pulse Ox 97 04/06 1143 B/P 139/76 04/06 1143 O2 Delivery CANNULA 04/06 114 Temp 97.9 04/06 1143 Pulse 75 04/06 1143 Resp 20 04/06 1143 24 hour I O ending at 0700: 04/06 0700 04/05 1900 Intake Total Output Total 1 Balance -1 Output, Urine 1 Patient 172.713 kg Weight General appearance: alert, awake, no acute distress, conversant, face symmetrical, MS normal, oriented, obese Head/Eyes: atraumatic, normocephalic ENT: normal pharynx, moist mucosal membranes Neck: no bruit/NL carotids, no JVD, supple/no meningismus Cardiovascular: normal capillary refill, regular rate and rhythm, normal heart sounds, no gallop, no heave, no murmur, no rub Respiratory: symmetric expansion, decreased breath sounds Abdomen: soft, non-tender Abdomen quadrants: LLQ normal bowel sounds, LUQ normal bowel sounds, RLQ normal bowel sounds, RUQ normal bowel sounds Extremities: moves all, normal capillary refill, no calf tenderness, no clubbing , no cyanosis, no evidence of DVT, edema (BLE) Neuro/CONSTRUCTION CONTRACTOR: alert, oriented X 3, normal speech Skin: dry, normal color, warm Psychiatry: normal affect, normal judgment/insight, normal mood Results Findings/Data: Laboratory Tests: 04/06 04/05 04/05 04/05 04/05 0553 2310 3 3 1926 Chemistry Sodium (136 - 145 mmol/L) 140 Potassium (3.5 - 5.1 mmol/L) 4.0 Chloride (98 - 107 mmol/L) 99 Carbon Dioxide (24 - 33 mmol/L) 38 *H Anion Gap (10 - 20 mmol/L) 7.0 *L BUN (7 - 18 mg/dL) 10 Creatinine (0.70 - 1.30 mg/dl) 0.74 Est GFR (CKD-EPI 2020) (>60 mL/min) 106 BUN/Creatinine Ratio (12 - 20) 13 Glucose (70 - 99 mg/dL) 92 Calculated Osmolality (272 - 288 mOSM/kg) 277 Calcium (8.5 - 10.1 mg/dL) 8.4 *L Total Bilirubin (0.2 - 1.0 mg/dL) 0.8 AST (15 - 37 U/L) 21 ALT (16 - 63 U/L) 34 Total Alk Phosphatase (46 - 116 U/L) 80 Troponin I (<77 pg/mL) 73 76 B-Natriuretic Peptide (0 - 100 pg/mL) <20 Total Protein (6.4 - 8.2 g/dL) 6.9 Albumin (3.4 - 5.0 g/dL) 3.3 *L Globulin (1.5 - 4.0 g/dL) 3.6 Albumin/Globulin Ratio (0.5 - 2.0) 0.9 Triglycerides (< 150 mg/dL) 145 Cholesterol (< 200 mg/dL) 154 LDL Cholesterol (< 100 mg/dl) 96 HDL Cholesterol (> 60 mg/dl) 29 *L Coagulation D-Dimer (0 - 400 DDUng/mL) 192 Hematology WBC (4.5 - 13.0 10e3/uL) 9.3 RBC (4.10 - 5.70 10e6/uL) 5.21 Hgb (12.0 - 16.9 g/dl) 14.2 Hct (36.0 - 49.0 %) 47.2 MCV (78.0 - 98.0 fL) 91 MCH (25.0 - 35.0 Pg) 27.3 MCHC (31.0 - 36.0 g/dL) 30.1 *L RDW (11.0 - 15.0 %) 14.5 Plt Count (150 - 400 10e3/uL) 241 Neut % (Auto) (35 - 75 %) 76 *H Cobb % (Auto) (0 - 15 %) 7 Nucleat RBC Rel Count (/100 WBC) 0.0 Neut # (Auto) (1.50 - 8.00 x1000/uL) 7.06 Immature Gran % (0 - 1) 0 Lymphocytes % (10 - 50 %) 13 Eosinophils % (0 - 5 %) 4 Basophils % (0 - 5 %) 0 Immature Gran # (0 - 0.05 x1000/uL) 0.02 Lymphocytes # (1.20 - 5.20 x1000/uL) 1.23 Monocytes # (0.30 - 0.90 x1000/uL) 0.62 Eosinophils # (0.00 - 0.50 x1000/uL) 0.37 Basophils # (0.00 - 0.30 x1000/uL) 0.04 04/05 1926 Chemistry Sodium (136 - 145 mmol/L) 141 Potassium (3.5 - 5.1 mmol/L) 4.0 Chloride (98 - 107 mmol/L) 98 Carbon Dioxide (24 - 33 mmol/L) 41 *H Anion Gap (10 - 20 mmol/L) 6.0 *L BUN (7 - 18 mg/dL) 11 Creatinine (0.70 - 1.30 mg/dl) 0.76 Est GFR (CKD-EPI 2020) (>60 mL/min) 105 BUN/Creatinine Ratio (12 - 20) 14 Glucose (70 - 99 mg/dL) 97 Calculated Osmolality (272 - 288 mOSM/kg) 279 Calcium (8.5 - 10.1 mg/dL) 8.3 *L Troponin I (<77 pg/mL) 77 Coagulation PT (9.4 - 11.6 seconds) 10.9 INR (0.9 - 1.1) 1.0 APTT (21 - 33 seconds) 26 Hematology WBC (4.5 - 13.0 10e3/uL) 9.6 RBC (4.10 - 5.70 10e6/uL) 5.06 Hgb (12.0 - 16.9 g/dl) 13.8 Hct (36.0 - 49.0 %) 45.0 MCV (78.0 - 98.0 fL) 89 MCH (25.0 - 35.0 Pg) 27.3 MCHC (31.0 - 36.0 g/dL) 30.7 *L RDW (11.0 - 15.0 %) 14.5 Plt Count (150 - 400 10e3/uL) 248 Neut % (Auto) (35 - 75 %) 73 Cobb % (Auto) (0 - 15 %) 7 Nucleat RBC Rel Count (/100 WBC) 0.0 Neut # (Auto) (1.50 - 8.00 x1000/uL) 7.05 Immature Gran % (0 - 1) 0 Lymphocytes % (10 - 50 %) 15 Eosinophils % (0 - 5 %) 4 Basophils % (0 - 5 %) 1 Immature Gran # (0 - 0.05 x1000/uL) 0.02 Lymphocytes # (1.20 - 5.20 x1000/uL) 1.46 Monocytes # (0.30 - 0.90 x1000/uL) 0.71 Eosinophils # (0.00 - 0.50 x1000/uL) 0.34 Basophils # (0.00 - 0.30 x1000/uL) 0.06 Recent Impressions: RADIOLOGY - CHEST PORTABLE 04/05 1932 Report Impression - Status: SIGNED Entered: 04/05/20242024 IMPRESSION: No acute disease. Electronically Signed by: Parker Brooks MD Impression By: VASHTI MENSAH Results: labs reviewed, EKG personally reviewed, EKG - abnormal findings, EKG - Significant findings, rhythm personally rev'd Telemetry Interpretation: Telemetry: Normal sinus rhythm with a rate of 84 beats per minute. EKG reveals sinus rhythm with to PACs, rate of 76 beats per minute, low voltage, poor R-wave progression, abnormal EKG. Risk-A Risk Assessment Cardiac Risk Factors: Hypertension, High Cholesterol, Lack of physical activity Diagnosis, Assessment Plan Dx/Assessment/Plan: Impression and plan: - Angina pectoris. The patient's angina has resolved. No planned invasive cardiovascular testing. The patient's weight precludes stress testing or cardiac catheterization. Offered transfer to a tertiary care facility, patient declined in favor of medical management and outpatient evaluation with his primary agricultural equipment test engineer, Dr. Ochoa. Continue Plavix, aspirin, metoprolol, atorvastatin, and lisinopril. - Acute on chronic heart failure, presumed diastolic. Awaiting echocardiogram. Hold bumetanide. Start furosemide intravenously. Monitor intake and output laboratory studies. - Essential hypertension. Goal blood pressure less than 140/90. Titrate antihypertensives to meet goal. - Hyperlipidemia. Goal LDL for this patient is less than 70 mg/dL. Continue atorvastatin. - Defer remaining care to the hospitalist team. As always, we appreciate the opportunity by consultation on your patients. - - History and physical by Sam Eagle APRN, 20 minutes. History and physical reviewed by myself and amended as necessary, and medical decision-making is my own, Dr. Denzel Vázquez MD, 25 minutes. at 1655 at 1630 RPT #: [id number] END OF REPORT CC'ed Logic: Attending Provider: LAKE MCKEON Referring Provider: PHYSICIAN NO Consulting Provider: CADEN SCHUSTER; KINJAL EATON Admitting Provider: LAKE Negrete APRN [address], [place], [address], [place] - [facility] 06/02/2024 07:53:45 Procedures Surgical History Date Name Laterality Status Provider Name and Address Organization Details Recorded Time 10/18/20 24 bariatric operative procedure completed Ria Galindo [place] - [facility] 12/28/2024 14:48:28 04/14/20 24 Cerumen Removal completed Yeimy Negrete APRN [address], [place], [address], [place] - [facility] 04/14/2024 10:07:10 04/14/20 24 Medication Reconcilliation completed Aidee Rojas [place] - [facility] 04/14/2024 08:55:55 09/25/20 23 Colonoscopy completed Ria Galindo [place] - [facility] 10/10/2023 09:20:48 10/29/19 23 cardiac catheterization completed Ria Galindo [place] - [facility] 11/26/2022 11:00:44 09/11/20 22 Cerumen Removal completed Yeimy Negrete APRN [address], [place], [address], [place] - [facility] 09/17/2022 12:10:56 08/26/20 22 Medication Reconcilliation completed Ria Galindo [place] - [facility] 08/26/2022 07:50:02 05/02/20 20 Diastolic B/P greater than or equal to 90 mm Hg completed Ria [place]osey [place] - [facility] 05/02/2020 12:00:02 05/02/20 20 Systolic B/P greater than or equal to 140 mm Hg completed Ria Galindo [place] - [facility] 05/02/2020 12:00:08 09/29/20 19 Diastolic B/P less than 80 mm Hg completed Ria [place] - [facility] 09/29/2019 16:37:22 09/29/20 19 Systolic B/P 130-139 mm Hg completed Ria Galindo [place] - [facility] 09/29/2019 16:37:35 Imaging Results None recorded. Procedure Notes None recorded. Medical Equipment None Reported. Allergies Allergen ID Allergen Name Allergen Category Reaction Reaction Severity Criticality Documentation Date Start Date Code Code System Note Provider Name and Address Organization Details Recorded Time 149956 No known allergy (situatio n) Not available Not available Not available Not available 08/12/2023 19894 6003 SNOMED Niesha murray, [place] - [facility] 3 15:49:05 No known drug allergies Medications Name Sig Start Date Stop Date Status Note LastModified by Organization Details LastModified Time cyclobenz aprine 10 mg tablet TAKE 1 TABLET BY MOUTH THREE (3) TIMES DAILY NEEDED 08/26 completed Not Available Not Available Not Available amoxicill in 500 mg capsule TAKE TWO (2) CAPSULES EVERY 12 HOURS BY ORAL ROUTE FOR 14 DAYS. 12/28 completed Not Available Not Available Not Available atorvasta tin 40 mg tablet TAKE ONE (1) TABLET (40 MG) BY ORAL ROUTE ONCE DAILY AT BED TIME 12/28 completed Stopped after EGD prior to Gastric Sleeve as advised by pharmaci st when he was given medicati on for stomach followin g EGD Not Available Not Available Not Available methocarb abi 500 mg tablet Take 1 tablet 3 times a day by oral route for 30 days. 11/26 completed Not Available Not Available Not Available clonidine HCl 0.1 mg tablet TAKE ONE (1) TABLET FOR BLOOD PRESSURE GREATER THAN 160/100 MAY REPEAT DOSE IN 30 MINUTES IF REMAINS ELEVATED . 06/04 completed Not Available Not Available Not Available metoprolo l succinate ER 50 mg tablet,ex tended release 24 hr Take 1 tablet every day by oral route as directed for 30 days. 04/16 completed Not Available Not Available Not Available hydrochlo rothiazid e 50 mg tablet Take 1 tablet every day by oral route for 30 days. 04/24 completed Not Available Not Available Not Available clarithro mycin 500 mg tablet TAKE ONE (1) TABLET EVERY 12 HOURS BY ORAL ROUTE FOR 14 DAYS. 03/30 completed Not Available Not Available Not Available sumatript an 100 mg tablet TAKE ONE (1) TABLET BY MOUTH AT ONSET OF MIGRAINE , MAY REPEAT IN TWO (2) HOURS IF NEEDED (MAX TWO (2) TABS/24 HOURS) active Not Available Not Available No t Available lisinopri l 20 mg tablet TAKE 1 TABLET BY MOUTH EVERY DAY 06/19 completed Not Available Not Available Not Available prednison e 20 mg tablet TAKE 1 TABLET BY MOUTH TWICE DAILY 07/11 completed Not Available Not Available Not Available isosorbid e mononitra te ER 30 mg tablet,ex tended release 24 hr TAKE ONE TABLET BY MOUTH EVERY MORNING active Not Available Not Available No t Available metoprolo l succinate ER 100 mg tablet,ex tended release 24 hr TAKE ONE TABLET BY MOUTH EVERY DAY active Not Available Not Available No t Available phentermi ne 37.5 mg tablet Take 1 tablet every day by oral route. 04/24 completed Not Available Not Available Not Available clopidogr el 75 mg tablet TAKE ONE TABLET BY MOUTH EVERY DAY active Not Available Not Available No t Available amlodipin e 5 mg tablet TAKE ONE (1) TABLET BY ORAL ROUTE ONCE DAILY 10/[address] larose stopped Not Available Not Available Not Available sulfameth oxazole 800 mg-trimet hoprim 160 mg tablet Take 2 tablets every 12 hours by oral route for 10 days. 03/01 completed Not Available Not Available Not Available aspirin 81 mg tablet,de layed release TAKE ONE TABLET BY MOUTH EVERY DAY active Not Available Not Available No t Available tramadol 50 mg tablet TAKE ONE (1) TABLET EVERY SIX (6) HOURS BY ORAL ROUTE NEEDED FOR 30 DAYS. 05/10 completed Not Available Not Available Not Available ceftriaxo ne 1 gram solution for injection Take 1 g by injectio n route. 12/08 completed Not Available Not Available Not Available famotidin e 20 mg tablet TAKE 1 TABLET BY MOUTH TWICE DAILY active Not Available Not Available No t Available ascorbic acid (vitamin C) 500 mg tablet 500 mg by oral route. active Not Available Not Available No t Available hydrocodo ne 7.5 mg-acetam inophen 325 mg tablet TAKE ONE TABLET BY MOUTH TWICE DAILY active Not Available Not Available No t Available cephalexi n 500 mg capsule Take 1 capsule every 6 hours by oral route. 12/08 completed Not Available Not Available Not Available cyanocoba alfa (vit B-12) 1,000 mcg/mL injection solution INJECT ONE (1) ML EVERY WEEK BY SUBCUTAN EOUS ROUTE FOR 42 DAYS. active Not Available Not Available No t Available ferrous sulfate 325 mg (65 mg iron) tablet Take 325 mg by oral route. 02/08 completed Not Available Not Available Not Available BD Luer-Ailyn Syringe 3 mL 25 gauge x 1 DIRECTED active Not Available Not Available No t Available nitroglyc deondre 0.4 mg sublingua l tablet PLACE ONE (1) TABLET UNDER TONGUE EVERY FIVE (5) MINUTES UNTIL CHEST PAIN RESOLVES (MAX THREE (3) TABS WITHIN 15 MINUTES) active Not Available Not Available No t Available gabapenti n 300 mg capsule Take 1 capsule 3 times a day by oral route for 30 days. 12/10 completed Not Available Not Available Not Available omeprazol e 20 mg capsule,d elayed release TAKE 1 CAPSULE BY MOUTH EVERY DAY active Not Available Not Available No t Available aspirin 81 mg chewable tablet Chew 81 mg by oral route. 05/10 completed Not Available Not Available Not Available bumetanid e 1 mg tablet TAKE ONE (1) TABLET TWICE A DAY BY ORAL ROUTE FOR 30 DAYS. active Not Available Not Available No t Available hydrochlo rothiazid e 25 mg tablet Take 1 tablet every day by oral route for 30 days. 07/17 completed Not Available Not Available Not Available mupirocin 2 % topical ointment APPLY A SMALL AMOUNT TO THE AFFECTED AREA BY TOPICAL ROUTE THREE (3) TIMES PER DAY 11/26 completed Not Available Not Available Not Available furosemid e 20 mg tablet TAKE ONE (1) TABLET (20 MG) BY ORAL ROUTE ONCE DAILY 08/26 completed Not Available Not Available Not Available methylpre dnisolone 4 mg tablets in a dose pack TAKE ONE (1) DOSE PACKET BY ORAL ROUTE. 02/08 completed Not Available Not Available Not Available celecoxib 100 mg capsule 12/28 completed Not Available Not Available Not Available lisinopri l 40 mg tablet TAKE ONE TABLET BY MOUTH EVERY DAY active Not Available Not Available No t Available cefdinir 300 mg capsule TAKE ONE (1) CAPSULE EVERY 12 HOURS BY ORAL ROUTE FOR 10 DAYS. 12/28 completed Not Available Not Available Not Available enoxapari n 60 mg/0.6 mL subcutane ous syringe 12/28 completed Not Available Not Available Not Available pregabali n 75 mg capsule Take by oral route for 30 days. 01/07 completed Not Available Not Available Not Available pregabali n 150 mg capsule TAKE TWO (2) CAPSULES BY MOUTH TWICE A DAY 05/10 completed Not Available Not Available Not Available pregabali n 300 mg capsule TAKE ONE CAPSULE BY MOUTH TWICE DAILY active Not Available Not Available No t Available peg 3350-elec trolytes 236 gram-22.7 4 gram-6.74 gram-5.86 gram solution MIX AND TAKE DIRECTED 12/28 completed Not Available Not Available Not Available cholecalc iferol (vitamin D3) 1,250 mcg (50,000 unit) capsule TAKE ONE (1) CAPSULE EVERY WEEK BY ORAL ROUTE. active Not Available Not Available No t Available melatonin 5 mg tablet TAKE ONE (1) TABLET EVERY DAY BY ORAL ROUTE AT BEDTIME FOR 30 DAYS. 08/26 completed Not Available Not Available Not Available potassium chloride ER 20 mEq tablet,ex tended release TAKE ONE TABLET BY MOUTH TWICE DAILY FOR FIVE DAYS THEN ONCE DAILY FOR FIVE DAYS active Not Available Not Available No t Available naloxone 4 mg/actuat ion nasal spray FOUR (4) MG INTRANAS ALLY EVERY TWO (2) MINUTES NEEDED FOR OPIOID OVERDOSE ; SPRAY ONE (1) DOSE INTO ONE NOSTRIL; ALTERNAT E NOSTRILS WEEKLY EACH DOSE UNTIL HELP ARRIVES active Not Available Not Available No t Available Wegovy 0.25 mg/0.5 mL subcutane ous pen injector 04/14 completed Not Available Not Available Not Available aspirin 81 mg capsule Take 1 capsule every day by oral route. 04/09 completed Not Available Not Available Not Available Vitals Date Recorded Body height Body mass index (BMI) Body weight Heart rate Oxygen saturation Oxygen saturation in Arterial blood by Pulse oximetry Respiratory rate Systolic And Diastolic Provider Name and Address Organization Details Last Updated DateTime 180.34 cm 49 kg/m2 719491. 92 g 76 /min 96 % 96 % 18 /min 148/80 mm[Hg] Ria Galindo [place] - [facility] 5 14:56:20 Date Recorded Body height Body mass index (BMI) Body weight Oxygen saturation Oxygen saturation in Arterial blood by Pulse oximetry Respiratory rate Heart rate Systolic And Diastolic Provider Name and Address Organization Details Last Updated DateTime 5 180.34 cm 45.3 kg/m2 978335. 52 g 97 % 97 % 18 /min 80 /min 142/72 mm[Hg] Ria Galindo [place] - [facility] 5 08:29:01 Date Recorded Oxygen saturation Oxygen saturation in Arterial blood by Pulse oximetry Provider Name and Address Organization Details Last Updated DateTime 04/14/2024 84 % 84 % Yeimy Negrete, FELISHA [address], [place], [address], [place] - [facility] 04/14/2024 10:09:20 Date Recorded Body height Body mass index (BMI) Body weight Body temperature Heart rate Oxygen saturation Oxygen saturation in Arterial blood by Pulse oximetry Respiratory rate Systolic And Diastolic Provider Name and Address Organization Details Last Updated DateTime 4 180.34 cm 58.6 kg/m2 483296. 8 g 98.1 [degF] 66 /min 92 % 92 % 18 /min 148/90 mm[Hg] Aidee Rojas [place] - [facility] 4 09:05:14 Date Recorded Body height Body mass index (BMI) Body weight Body temperature Heart rate Oxygen saturation Oxygen saturation in Arterial blood by Pulse oximetry Respiratory rate Systolic And Diastolic Provider Name and Address Organization Details Last Updated DateTime 4 180.34 cm 61.2 kg/m2 025947. 05 g 98.3 [degF] 91 /min 92 % 92 % 2 /min 144/88 mm[Hg] Penelope Aide [place] - [facility] 4 08:25:17 Date Recorded Body height Body mass index (BMI) Body weight Heart rate Respiratory rate Systolic And Diastolic Provider Name and Address Organization Details Last Updated DateTime 4 180.34 cm 60.3 kg/m2 205872. 9 g 70 /min 20 /min 162/88 mm[Hg] Jameel Rodriguez [place] - [facility] 4 08:11:57 Social History Question Answer Notes LastModified by Organizat ion Details LastModified Time Tobacco Smoking Status Never Smoker Keeley Plascencia [facility], [place] - [facility] 11/28/2017 13:41:08 Do You Have An Advance Directive? No Information not available 11/28/2017 Do You Wear A Helmet When Biking? No [email or web address] Information not available 11/28/2017 Are You Blind Or Do You Have Difficulty Seeing? No [email or web address] Information not available 11/28/2017 What Is Your Level Of Caffeine Consumption? Occasional [email or web address] Information not available 11/28/2017 How Much Tobacco Do You Chew? None [email or web address] Information not available 11/28/2017 Are You Deaf Or Do You Have Serious Difficulty Hearing? No [email or web address] Information not available 11/28/2017 What Type Of Diet Are You Following? REGULAR [email or web address] Information not available 11/28/2017 Which Illicit Or Recreational Drugs Have You Used? None [email or web address] Information not available 11/28/2017 Hard Of Hearing Or Deaf In One Or Both Ears? No [email or web address] Information not available 11/28/2017 Legally Blind In One Or Both Eyes? No Information no t available 11/28/2017 Live Alone Or With Others? With Others Information not available 11/28/2017 What Was The Date Of Your Most Recent Tobacco Screening? 03/30/2025 [email or web address] Information not available 03/30/2025 How Many Children Do You Have? 2 [email or web address] Information not available 11/28/2017 What Is Your Relationship Status? [email or web address] Information not available 11/28/2017 Seat Belts Used Routinely Yes Information not available 11/28/2017 Smoke Alarm In Home Yes [email or web address] Information not available 11/28/2017 Are You Passively Exposed To Smoke? Yes [email or web address] Information no t available 11/28/2017 How Much Tobacco Do You Smoke? No Information not available 11/28/2017 General Stress Level Medium [email or web address] Information not available 11/28/2017 Do You Have Difficulty Walking Or Climbing Stairs? No [email or web address] Information not available 11/28/2017 Sex: Male Functional Status Question Answer Note LastModified by Organizat ion Details LastModified Time What is your level of alcohol consumption? None [email or web address] Information not available 11/28/2017 Are you currently employed? Yes [email or web address] Information not available 11/28/2017 Are you able to walk? YESASSIST [email or web address] Information not available 11/28/2017 Do you have difficulty doing errands alone? No [email or web address] Information not available 11/28/2017 Are you able to care for yourself? 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 No Information not available 11/28/2017 What is your exercise level? Occasional [email or web address] Information not available 11/28/2017 Mental Status Question Answer Note LastModified by Organization D etails LastModified Time Do you have difficulty concentrating, remembering or making decisions? No Information no t available 11/28/2017 Family History Relationship Description Onset Age of this Age Resolved Age Notes LastModified by Organization Details LastModified Time Mother Diabetes mellitus [email or web address] Not available 2017 13:39:18 Mother Myocardial infarction [email or web address] Not available 11/28 13:40:06 Father Hypertensive disorder [email or web address] Not available 2017 13:39:32 Father Myocardial infarction [email or web address] Not available 11/28 13:40:06 Brother Myocardial infarction [email or web address] Not available 11/28 13:40:06 Notes:Wilms Tumor--Nephew Medical History Condition Response Hyperlipidemia N Hypertension Y Immunizations Vaccine Type Date Status Note Provider Nam e and Address Organization Details Recorded Time Influenza, split virus, quadrivalent, preservative 0 completed Ria Geagley null, [place] - [facility] 08/15/2020 17:47:30 Influenza, split virus, quadrivalent, preservative 2 completed Ria Geagley null, [place] - [facility] 08/26/2022 11:29:46 Tdap 4 completed Ria Geagley null, [place] - [facility] 10/01/2024 11:17:04 Past Encounters Encounter ID Performer Location Encounter Start Date Encounter Closed Date Diagnosis/Indication Diagnosis SNOMED-CT Code Diagnosis ICD10 Code Diagnosis Note [id number] [facility] [address] [place] [address] 09/06/2011 00:00:00 [id number] [facility] [address] [place] [address] 09/06/2011 00:00:00 [id number] Deondre Waterman PA-C [facility] [address] [place] [address] 11/28/2017 13:18:29 11/28/2017 15:05:05 Body mass index 40+ - severely obese 512250859 Z68.43 Pain in le ft lower limb 538789828 M79.605 Injury of lower leg 1256 40381 S89.92XA Edema of l ower extremity 016384950 R60.0 [id number] Deondre Waterman PA-C [facility] [address] [place] [address] 12/01/2017 13:52:12 12/01/2017 14:06:43 Body mass index 40+ - severely obese 386132829 Z68.43 Pain in le ft lower limb 500381396 M79.605 Injury of lower leg 1256 31089 S89.92XA [id number] Deondre Waterman PA-C [facility] [address] [place] [address] 12/05/2017 15:01:30 12/05/2017 16:03:08 Body mass index 40+ - severely obese 155095033 Z68.43 Pain in le ft lower limb 833363332 M79.605 Injury of lower leg 1256 12768 S89.92XA [id number] Deondre Waterman PA-C [facility] [address] [place] [address] 12/08/2017 13:53:44 12/08/2017 14:07:46 Cellulitis of lower limb 795122108 L03.752 [id number] FELISHA [place] [address] [place] [address] 03/01/2019 12:40:53 03/01/2019 15:45:06 Essential hypertension 54145537 I10 Follicular cysts of skin and subcutaneous tissue 516686922 L72.9 Excessive cerumen in ear canal 604686893 H61.21 [id number] Waqar Andre APRN [address] [place] [address] 03/16/2019 15:44:54 03/16/2019 16:33:29 Essential hypertension 57283457 I10 [id number] Waqar Andre [employer] [address] [place] [address] 04/16/2019 13:06:30 04/16/2019 14:58:16 Essential hypertension 09693695 I10 Body mass index 30+ - obesity 192806348 Z68.39 Abnormal weight gain 161 843039 R63.5 [id number] Waqar Andre APRN [address] [place] [address] 05/14/2019 08:09:45 05/14/2019 08:58:09 Abnormal weight gain 179923144 R63.5 [id number] Yeimy Negrete [address] [place] [address] 09/29/2019 16:23:24 09/29/2019 16:47:57 Essential hypertension 52628960 I10 Patient to return for fasting labs and to set up an appointmen t with Cece to discuss Adipex. Body mass index 40+ - severely obese 997649416 Z68.43 Endocrine/ metabolic screening 190186711 Z13.228 Screening for malignant neoplasm of prostate 885432764 Z12.5 [id number] Cece Bran APRN [address] [place] [address] 10/07/2019 15:59:00 10/07/2019 17:36:31 Morbid obesity 216471079 E66.01 Hypertensive disorder 38 228254 I10 Long-term drug therapy 492680703 Z79.899 Wants to lose weight 170 055549 Z71.3 [id number] Klarissa Garcia, MS, RD, LD [place] [employer] [address] [place] [address] [place] [address] 12/01/2019 14:24:35 12/01/2019 14:58:45 Morbid obesity 053173535 E66.01 [id number] Cece Bran APRN [address] [place] [address] 12/21/2019 15:59:24 12/21/2019 18:01:06 Morbid obesity 465014482 E66.01 Long-term drug therapy 572497139 Z79.899 Hypertensive disorder 38 853089 I10 [id number] Yeimy Negrete APRN [address] [place] [address] 05/02/2020 11:41:04 05/02/2020 12:16:48 Essential hypertension 19890522 I10 Last labs 09/2019. Instructed to check BP's at home regularly daily over next several days. Follow-up as needed or in 6 months. [id number] Yeimy Negrete APRN [address] [place] [address] 05/19/2020 15:11:45 05/19/2020 15:47:31 Essential hypertension 11723119 I10 Last labs 09/2019. Instructed to check BP's at home regularly daily over next several days. Instructed to return next week for fasting labs. Will add HCTZ today to try and lower BP further as well as eliminate any swelling of extremitie s. Endocrine/ metabolic screening 712753590 Z13.808 [id number] Yeimy Negrete APRN [address] [place] [address] 06/13/2020 17:58:42 06/13/2020 18:25:01 Essential hypertension 29920481 I10 Will increase HCTZ today to try and lower BP further. Morbid obesity 900044026 E66.01 Recent labs on 05/29/20. Follow-up in 1 month. Drug of abuse screen 897 33829 Z02.83 [id number] Yeimy Negrete APRN [address] [place] [address] 07/17/2020 16:12:42 07/17/2020 16:27:18 Morbid obesity 784045566 E66.01 Recent labs on 05/29/20. Follow-up in 1 month. [id number] Yeimy Negrete APRN [address] [place] [address] 08/15/2020 17:11:09 08/15/2020 17:48:41 Morbid obesity 604179947 E66.01 Administra tion of influenza vaccine 85570145 Z23 Essential hypertension 75977752 I10 Advised to be checking BP at home. Reports missed doses. Advised on importance of taking BP medication daily as prescribed . Advised to hold Adipex for BP's greater than 150/90 - patient agreeable. [id number] Yeimy Negrete APRN [address] [place] [address] 04/24/2021 16:28:42 04/24/2021 17:30:07 Essential hypertension 31926783 I10 Uncontroll ed - Advised to be checking BP at home and keep log to bring to F/U visit. Reports missed doses. Advised on importance of taking BP medication daily as prescribed . Morbid obesity 252529381 E66.01 Dyspnea 640493657 R06.00 Insomnia 669994696 G47.0 0 Chest pain 26388195 R07. 9 Refer to Cardiology for further workup - needs stress test, echocardio gram, etc. Has seen Dr. Larose in past so will refer back to him. Advised to go to ER for chest pain lasting longer than 5 minutes - patient verbalized understand ing. Dizziness [id number] R42 [id number] Yeimy Negrete APRN [address] [place] [address] 06/04/2022 15:23:15 06/04/2022 16:06:35 Essential hypertension 53551760 I10 Uncontroll ed - Advised to be checking BP at home and keep log to bring to F/U visit. Advised on importance of taking BP medication daily as prescribed . Go to ER for any chest pain or shortness of breath. Patient verbalized understand ing. Morbid obesity 118149696 E66.01 Body mass index 40+ - severely obese 916788535 Z68.43 Low back pain 757115426 M54.50 Discussed I could not give him NSAID's or steroids at this point with his BP as high as it is. Advised on X-ray today and to use muscle relaxer as needed. Return in 2 weeks and if BP under control, will consider other medication options. Patient verbalized understand ing. Insect bite - wound 1944 07412 T14.8XXA F/U PRN if no improvemen t/worsenin g. Edema of l ower extremity 458772833 R60.0 Advised weight is likely contributi ng to this as well as elevated BP - advised on taking Lasix that he has at home, although he says he only takes it as needed due to increased urination. [id number] Yeimy Negrete APRN [address] [place] [address] 06/18/2022 16:01:59 06/18/2022 16:44:16 Essential hypertension 40337038 I10 Uncontroll ed, increased Lisinopril to 40mg - Advised to be checking BP at home and keep log to bring to F/U visit in 2 weeks. Advised on importance of taking BP medication daily as prescribed . Go to ER for any chest pain or shortness of breath. Patient verbalized understand ing. Morbid obesity 646808608 E66.01 Discussed that back pain is exacerbate d by the excess weight and it is important to work on incorporat ing a healthy diet and physical activity as tolerated to help. Degenerati on of lumbar intervertebral disc 20570990 M51.36 Start tramadol - discussed NSAID's not a good choice due to significan tly elevated BP; F/U 2 weeks [id number] Yeimy Negrete APRN [address] [place] [address] 08/26/2022 10:33:45 08/26/2022 11:26:43 Influenza vaccine needed 7184144578 106 Z23 Lesion of scalp 21873238 91 00 L98.9 Referred for excision Congestive heart failure 18980005 I50.9 Continue medication as RX'd by Dr. Larose - continue to follow with Cardiology and have stress test as scheduled. Essential hypertension 34920242 I10 Uncontroll ed today, admits he just left pain management and has not taken BP medication today. Continue to F/U with Cardiology and go to ER if remaining elevated when he checks at home. Patient verbalized understand ing. [id number] Yeimy Negrete APRN [address] [place] [address] 09/11/2022 13:40:28 09/11/2022 15:10:01 Compression of lumbar nerve root 328627877 G54.4 Referred - advised to continue to F/U with Dr. Thomas on 09/25. Impacted c erumen in left ear 5445933883 919133 H61.22 Removed with irrigation - symptoms improved [id number] Yeimy Negrete APRN [address] [place] [address] 10/11/2022 10:17:34 10/11/2022 10:48:19 Compression of lumbar nerve root 848043920 G54.4 Referred to pain management and got 2nd injection this past Friday - advised to continue to F/U with Dr. Thomas for scheduled appointmen ts Degenerati on of lumbar intervertebral disc 63657169 M51.36 Continue seeing pain management as scheduled for injections Screening for malignant neoplasm of colon 638179888 Z12.11 Referred for screening Colonoscop y since has never had one Constipation 79439352 K5 9.00 Advised to try OTC Colace - referred for screening colonoscop y since hasn't had one completed ever and he is 57 Y/O Long-term drug therapy 426275035 Z79.899 NEEDS UDS and CSA updated - didn't realize until he left office - will plan to get at F/U visit Essential hypertension 66956302 I10 Well-contr olled - will be seeing Dr. Vázquez on 10/29 to discuss another heart cath/stent ing if needed. [id number] Yeimy Negrete APRN [address] [place] [address] 11/26/2022 10:48:31 11/26/2022 11:54:56 Compression of lumbar nerve root 405309438 G54.4 Stop Gabapentin , Start Lyrica; F/U 2 weeks. History of cardiac catheterization 1431793164 [address] 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 [id number] Yeimy Negrete APRN [address] [place] [address] 12/10/2022 09:51:12 12/10/2022 11:00:36 Long-term drug therapy 916760329 Z79.899 Essential hypertension 22234883 I10 Well-contr olled - will be seeing Dr. 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 Pain in right foot 05560 05933 84044 M79.671 Will call with results and discuss further evaluation if needed [id number] Yeimy Negrete APRN [address] [place] [address] 01/07/2023 09:10:57 01/07/2023 09:58:48 Compression of lumbar nerve root 960536550 G54.4 Increase Lyrica to 150mg BID - F/U 1 month. Essential hypertension 44221329 I10 Well-contr olled - continues to see Dr. Vázquez for follow-up Body mass index 40+ - severely obese 293040548 Z68.43 Morbid obesity 413237527 E66.01 Discussed that back pain is exacerbate d by the excess weight and it is important to work on incorporat ing a healthy diet and physical activity as tolerated to help. 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 He has seen bariatric surgery and is in process of getting surgery scheduled. Compressio n of lumbar nerve root 746964148 G54.4 Well-contr olled; Refills sent [id number] Yeimy Negrete APRN [address] [place] [address] 05/13/2023 14:41:49 05/13/2023 15:08:56 Body mass index 40+ - severely obese 023954583 Z68.43 Morbid obesity 882099340 E66.01 Discussed that back pain is exacerbate d by the excess weight and it is important to work on incorporat ing a healthy diet and physical activity as tolerated to help. He has seen bariatric surgery and is in process of getting surgery scheduled. Screening for malignant neoplasm of colon 616264872 Z12.11 Referred for screening Colonoscop y since has never had one Migraine 33475792 G43.90 9 Try Imitrex - discussed coming back for labs/possi ble CT of head if needed if no improvemen t or if worsening [id number] Yeimy Negrete APRN [address] [place] [address] 06/11/2023 12:08:18 06/11/2023 12:35:36 Migraine 08747678 G43.909 Discussed I feel the migraines/ headaches are related to heart/epis odes he has had ongoing Chest pain 83551119 R07. 9 Refer to Cardiology for further workup - needs new stress test, echocardio gram, etc. Has seen Dr. Larose in past so will refer back to him. Advised to go to ER for chest pain lasting longer than 5 minutes - patient verbalized understand ing. Congestive heart failure 03312560 I50.9 Continue medication as RX'd by Dr. Larose - continue to follow with Cardiology and have stress test as scheduled. [id number] Yeimy Negrete APRN [address] [place] [address] 07/11/2023 08:33:01 07/11/2023 09:36:03 Compression of lumbar nerve root 841263713 G54.4 Well-contr olled; Refills sent Body mass index 40+ - severely obese 674498525 Z68.43 Discussed we will try Wegovy to see if that will help with weight loss. Discussed possible side effects of medication . F/U 1 month. Morbid obesity 638899979 E66.01 Discussed that back pain is exacerbate d by the excess weight and it is important to work on incorporat ing a healthy diet and physical activity as tolerated to help. He has seen bariatric surgery and is in process of getting surgery scheduled. Long-term current use of drug therapy 457858342 Z79.899 Degenerati on of lumbar intervertebral disc 16074193 M51.36 Continue seeing pain management /Neurosurg cristofer as scheduled for injections Prediabetes 874798760 R7 3.03 [id number] Yeimy Negrete APRN [address] [place] [address] 10/10/2023 09:08:41 10/10/2023 09:46:30 Degeneration of lumbar intervertebral disc 50487724 M51.36 Continue seeing pain management /Neurosurg cristofer as scheduled for injections Long-term current use of drug therapy 200903252 Z79.899 Compressio n of lumbar nerve root 607153963 G54.4 Increase to 2 capsules at night, still in 1 in AM. F/U 1 month. Pain of le ft shoulder joint 6517376504 5802918 M25.512 Will call with X-ray results - going to go ahead and send Ortho referral since going there on Friday for bilateral knee injections Body mass index 40+ - severely obese 452197229 Z68.43 Morbid obesity 907900897 E66.01 Discussed that back pain is exacerbate d by the excess weight and it is important to work on incorporat ing a healthy diet and physical activity as tolerated to help. He has seen bariatric surgery and is in process of getting surgery scheduled. [id number] Yeimy Negrete APRN [address] [place] [address] 12/26/2023 14:03:44 12/26/2023 14:29:43 Body mass index 40+ - severely obese 813910319 Z68.43 New referral sent since switched insurance and other weight loss clinic[facility] does not take new insurance Morbid obesity 527938672 E66.01 Discussed that back pain/leg pain is exacerbate d by the excess weight and it is important to work on incorporat ing a healthy diet and physical activity as tolerated to help. He has seen bariatric surgery and was in process of getting surgery scheduled until insurance switched. Degenerati on of lumbar intervertebral disc 08780558 M51.36 Switch to Tramadol, Stop Lyrica; Continue seeing pain management /Neurosurg cristofer as scheduled for injections [id number] FELISAH Saldana[address] [place] [address] 02/09/2024 08:02:31 02/09/2024 08:46:26 Degeneration of lumbar intervertebral disc 51572399 M51.36 Tramadol ineffectiv e, gabapentin also ineffectiv e - caused drowsiness ; Lyrica has been what has helped the most will restart that today. See plan below. Long-term drug therapy 978122784 Z79.899 Compressio n of lumbar nerve root 847327305 G54.4 Restart Lyrica - increase to 2 capsules in AM and 2 capsules in PM Morbid obesity 908226733 E66.01 Discussed that back pain/leg pain is exacerbate d by the excess weight and it is important to work on incorporat ing a healthy diet and physical activity as tolerated to help. He has seen bariatric surgery and was in process of getting surgery scheduled until insurance switched. Body mass index 40+ - severely obese 862934491 Z68.43 Reports went to bariatric surgery consult - they will not cover surgical interventi ons Congestive heart failure 78338711 I50.9 Well-contr olled; continues to follow with Cardiology Essential hypertension 37793917 I10 Slightly elevated - follows with Cardiology ; reports normal when checked at home with cuff Migraine 07624725 G43.90 9 Well-contr olled Prediabetes 528184097 R7 3.03 Hyperlipidemia 30312714 E78.5 [id number] Yeimy Negrete APRN [address] [place] [address] 04/14/2024 08:53:04 04/14/2024 10:03:35 Body mass index 40+ - severely obese 716873503 Z68.43 Morbid obesity 156423255 E66.01 Discussed that back pain/leg pain is exacerbate d by the excess weight and it is important to work on incorporat ing a healthy diet and physical activity as tolerated to help. He has seen bariatric surgery and was in process of getting surgery scheduled until insurance switched. Angina pectoris 75682748 0 I20.9 Will attempt to get Cardiology appt. sooner than April 28 - sent STAT referral as below Oxygen sat uration below reference range 772793908 R79.81 Portable O2 necessary - will place order. F/U 1 month or sooner if needed Congestive heart failure 54629544 I50.9 Well-contr olled; continues to follow with Cardiology Compressio n of lumbar nerve root 928191020 G54.4 Changed to 300mg BID so insurance will pay (was 150mg x2 BID) - Well-contr olled with current medication Impacted c erumen of bilateral ears 2396079201 120865 H61.23 Cerumen removed - bloody drainage from left ear - once TM visualized was erythemato us/bulging . Will prescribe abx as below for left OM. Acute left otitis media 189398564 H66.92 [id number] Yeimy Negrete APRN [address] [place] [address] 05/10/2024 08:12:19 05/10/2024 08:48:04 Compression of lumbar nerve root 258744330 G54.4 Well-contr olled with current medication Long-term current use of drug therapy 832966461 Z79.899 Body mass index 40+ - severely obese 356925390 Z68.44 Morbid obesity 417291677 E66.01 Discussed that back pain/leg pain is exacerbate d by the excess weight and it is important to work on incorporat ing a healthy diet and physical activity as tolerated to help. He has seen bariatric surgery and is again in process of getting surgery scheduled until insurance switched. Degenerati on of lumbar intervertebral disc 59619741 M51.36 See plan above [id number] Yeimy Negrtee APRN [address] [place] [address] 09/29/2024 08:05:00 09/29/2024 21:16:38 Hyperlipidemia 55990314 E78.5 Will call with results. Prediabetes 493901603 R7 3.03 A1C: 6.2 on 02/09/24. Will call with results. Morbid obesity 171618753 E66.01 Discussed healthy diet and encouraged regular exercise Body mass index 40+ - severely obese 326085626 Z68.44 Essential hypertension 67097988 I10 Significan tly elevated - follows with Cardiology and last seen 6 mos ago -encourage d to schedule f/u appt; reports normal when checked at home with cuff. Discussed the need to increase bp medication , but pt does not want to increase medication at this time. Discussed potential risks of not increasing bp medication and elevated bp persists. Pt states he will call to notify if BP is continued to be elevated at home. Vitamin D deficiency 347 41612 E55.9 Will call with results. Congestive heart failure 04150041 I50.9 Well-contr olled; continues to follow with Cardiology Compressio n of lumbar nerve root 051075367 G54.4 Well-contr olled with current medication Migraine 90657372 G43.90 9 Well-contr olled Long-term current use of drug therapy 431586285 Z79.899 History of myocardial infarction 589858085 I25.2 Refills. Denies any new adverse cardiac events. Stable angina 980241935 I20.89 Well-contr olled. Refills Coronary arteriosclerosis 09939868 I25.10 Refills. Administra tion of diphtheria, pertussis, and tetanus vaccine 119378416 Z23 Vaccine given today. [id number] Yeimy Negrete APRN [address] [place] [address] 12/28/2024 14:23:45 12/28/2024 15:50:45 Morbid obesity 054585794 E66.01 Discussed continued healthy diet since bariatric surgery and encouraged regular exercise once tolerated Hyperlipidemia 61713926 E78.5 Will call with results. Easy bruising 180790763 R58 Will call with results - multiple labs ordered today Vitamin C deficiency anemia 223595657 D53.2 Iron defic iency anemia 44628736 D50.9 History of - will call with results Compressio n of lumbar nerve root 080653342 G54.4 Well-contr olled with current medication Essential hypertension 33509552 I10 Slightly elevated in office today, but reports has been WNL when checking at home and has been improving with weight loss; continues to follow with Cardiology Dr. Vázquez History of myocardial infarction 151189763 I25.2 Refills. Denies any new adverse cardiac events. Stable angina 783494300 I20.89 Well-contr olled. Refills Prediabetes 815631804 R7 3.03 A1C: 5.9 on 09/29/24. Will call with results. Vitamin D deficiency 347 22243 E55.9 Will call with results. Long-term drug therapy 663349096 Z79.899 Congestive heart failure 01237047 I50.9 Well-contr olled; continues to follow with Cardiology Body mass index 40+ - severely obese 373758300 Z68.42 Has lost 81 lbs. since having gastric sleeve surgery History of bariatric surgical procedure 241381069 Z98.84 [id number] Yeimy Negrete APRN [address] [place] [address] 03/30/2025 08:18:07 03/30/2025 08:53:45 Long-term drug therapy 266458227 Z79.899 Compressio n of lumbar nerve root 135692960 G54.4 Well-contr olled with current medication Health Concerns Section Related Observation LastModified by Organization Detai ls LastModified Time None Recorded Concern Status LastModified by Organization Details LastModified Time None Recorded Advance Directives Directive N: Payers Insurance Date Sequence Insurance Name Policy Number Policy Finn Covered Member ID Finn Member ID Guarantor Name 01/05/2025 1 [facility] PL[facility] (MEDICARE REPLACEMENT/A DVANTAGE - HMO) [id number] Rhianna Thomson [id number] Rhianna Thomson 03/01/2019 1 [place] [id number] Rhianna Alix [id number] Rhianna Jayda Alix 11/28/2017 2 [place] Lito Montelongo Alix [id number] Rhianna H [place] 03/01/2024 1 [employer] Rhianna Jayda Alix [id number] Rhianna Jayda [place] 03/30/[address] [facility] - DUAL ELIGIBLE (MEDICARE REPLACEMENT/A DVANTAGE - HMO) [id number] Rhianna H Alix [id number] Rhianna H Alix 03/30/[address] [id number] Rhianna H Alix [id number] Rhianna H Alix 12/22/2023 1 [place] [id number] Rhianna H Alix [id number] Rhianna Jayda [place] 03/27/2025 [place] [facility] [place] [id number] Rhianna H Alix [id number] Rhianna H Alix 12/28/2024 1 [place] [id number] Rhianna H Alix [id number] Rhianna H Alix 01/05/2025 2 [place] Rhianna H [place] [id number] Rhianna H Alix 03/30/[address] [facility] (MEDICARE REPLACEMENT/A DVANTAGE - HMO) [id number] Rhianna Jayda Alix [id number] Rhianna H Alix Notes Date Note Type Note Provider Name and Address Organization Details Recorded Time 04/14/2024 text/html Rhianna is a 58 year old male that presents today for hospital follow-up (Admitted 04/05/24 - 04/07/24). He states they drained a lot of fluid off of him while there and he also had issues with low O2. He has been followed by Cardiology (Dr. Larose) for years for CHF and has had multiple heart catheterizations in the past. He was not able to see Dr. 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 He reports they did an Echo while in the hospital, but he did not get any results. He has an appt. with Dr. Larose on April 28, but continues with intermittent chest pain and would like to see him sooner. He is also having more difficulty breathing. O2 at rest in office is 92%, he reports during walking test in hospital it dropped to 83%. His daughter states they would like him to have portable O2. He will wake in the night with chest pain when his O2 drops too low. He complains of ear pain, worse in left ear. States hearing is muffled and starting to become painful - has been ongoing for several days. Yeimy EldridgeFELISHA gaytan [address], [place], [address], [facility] 04/14/2024 10:09:59 05/10/2024 text/html Rhianna is a 58 year old male who is here for a 3 month follow-up on chronic pain. He reports pain is well-controlled with current medication. No acute complaints today. He is being seen by bariatric surgery again and in process of getting scheduled for gastric sleeve. Last UDS: 05/10/24Last EMMANUEL: 05/10/24Controlled Substance Agreement on File: YES Yeimy NegreteFELISHA [address], [place], [address], [facility] 05/10/2024 08:46:09 09/29/2024 text/html Rhianna is a 59 year old male who presents for follow-up for HLD, prediabetes, hypertension, and morbid obesity. Chronic conditions reviewed with patient and remain stable at this time. Patient states he is fasting for labs. Reports he is doing well managing chronic health conditions. Presents with significantly elevated bp today in office and states that he takes blood pressures regularly at home and they are usually 140s/80s. Denies chest pain, soa, and severe headache. Needs medications refilled today. Yeimy CadenFELISHA gaytan [address], [place], [address], [place] [facility] 09/29/2024 09:20:33 12/28/2024 text/html Rhianna is a 59 year old male who is here for a follow-up on obesity, HTN, HLD as well as multiple other chronic conditions. All chronic conditions reviewed with patient and chronic conditions remain stable. He is due for labs but is not fasting and plans to return. He had gastric sleeve surgery on 10/18/24. He complains of new onset of bruising. He had labs in 2024 that showed he was low on iron and Vitamin C - he was put on an iron supplement twice daily as well as Vitamin C supplement daily. He cannot identify that he was bumped into anything or injured himself in any way that could be causing it. He denies increased shortness of breath (had some prior to surgery), only when lays down on back for period of time but has improved since weight loss (has lost over 80 lbs. since surgery). Last UDS: 12/28/24Last EMMANUEL: 12/28/24Controlled Substance Agreement on File: YES Yeimy Negrete APRN [address], [place], [address], [employer] 12/30/2024 05:00:35 03/30/2025 text/html Rhianna is a 59 year old male who is here for a 3 month follow-up on chronic back pain. He reports back pain is well-controlled with current medication and he does see pain management as well - they are contemplating doing pain pump in back at next visit in 1 month. He is needing medication refills today. No acute complaints. He continues to lose weight after gastric sleeve and continues to follow diet as instructed. Last UDS: 03/30/25Last EMMANUEL: 03/30/25Controlled Substance Agreement on File: YES Yeimy Negrete APRN [address], [place], [address], [employer] [place] [facility] 03/30/2025 08:46:59
--- OUTSIDE RECORDS SUMMARY | 2025-04-27 09:35 | XMS_ITS | Clinical Summary ---
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 Name Role Phone Unavailable Primary Care Provider Unavailabl e Social History Tobacco Use Types Packs/Day Years Used Date Smoking Tobacco: Never Assessed Sex and Gender Information Value Date Recorded Sex Assigned at Not on file Legal Sex Male 9:23 AM EST Gender Identity Not on file Sexual Orientation Not on file Plan of Treatment Health Maintenance Due Date Last Done Comments Annual Wellness Exam 1969 DTaP/TDaP/Td (1 - Tdap) 1985 Hepatitis B Vaccine (1 of 3 - 19+ 3-dose series) 1985 Cologuard 2011 Colon Cancer Screening 2011 Colonoscopy 2011 FIT 2011 Sigmoidoscopy 2011 Virtual Colonography 2011 Pneumococcal Vaccine 50+ (1 of 1 - PCV) 2016 Zoster (1 of 2) 2016 COVID-19 Vaccine (2023-2 5 season) 2024 Influenza Vaccine (#1) 2025 Meningococcal B Vaccine Aged Out No l onger eligible based on patient's age to complete this topic
--- NOTE | 2025-04-27 09:42 | EXP.PAIN.SOA ---
[facility] Disclaimer: The information contained in this section may have been updated after the patient was seen, as this information can be updated by other users. Medical History Migraine History of chest pain CAD (coronary artery disease) HLD (hyperlipidemia) HTN (hypertension) Family History Other No significant family history Social History Smoking Status: Unknown if ever smoked alcohol intake: never current occupational status: other Travel in the last 8 weeks?: None Have you lived/traveled outside [place] in past 30 days?: No Contact w/someone who lives/traveled outside US past 30 days?: No Exposure to someone with infectious disease in past 14 days?: No Do you have a fever (greater than 100.4 F or 38 C)?: No Have you tested positive for COVID-19?: No Exposed to someone with COVID-19 in past 14 days?: No Do you have a sore throat?: No Do you have a cough?: No Do you have any weakness?: No Do you have any diarrhea?: No Are you experiencing any unusual bleeding?: No Do you have any muscle aches/pain?: No Do you have any abdominal pain?: No Are you experiencing loss of taste or smell?: No PM Subjective & Objective Subjective Subjective:: Patient is a pleasant 59-year-old male who presents today for his 1 month follow-up with medication refill. Today he rates his pain a 2 out of 10. He denies any new changes. Patient is currently managed with 7.5 mg [place] twice a day. He he states this is still working well. His Julian has been reviewed and is appropriate. review of Systems: General: No recent weight changes, no fever, no sleep disturbances Respiratory: No cough, no shortness of air, no recurring pulmonary infections Cardiovascular/peripheral vascular: No chest pain, no palpitations, no edema, no shortness of breath Gastrointestinal: No new onset incontinence, normal bowel movements reported Genitourinary: No new onset incontinence Musculoskeletal: Low back pain Psychiatric: [Normal mood/affect] Neurological: [Denies weakness in extremities], [denies balance issues] Pain at rest (0-10 scale): 2 Objective Objective:: Physical Exam: General: Alert and oriented x3, no acute distress, pleasant and cooperative Lungs: Respirations even and unlabored, symmetrical chest expansion Eyes: PERRL Musculoskeletal: Flexion and extension of lumbar [spine] somewhat guarded secondary to pain, [antalgic gait noted] Neurological: Speech clear, no gross sensory deficit Has patient had previous pain injection?: No Conservative treatment options previously tried: Prescription medications Length of treatment: Longer than 12 weeks Meds Home Medications and Allergies Home Medications ?Medication ?Instructions ?Recorded ?Confirmed ?Type atorvastatin 40 mg tablet 40 mg PO HS 01/01/24 03/28/25 History cholecalciferol (vitamin D3) 1,250 1,250 mcg PO DAILY 01/01/24 03/28/25 History mcg (50,000 unit) capsule clopidogrel 75 mg tablet 75 mg PO DAILY 01/01/24 03/28/25 History lisinopril 40 mg tablet 40 mg PO DAILY 01/01/24 03/28/25 History metoprolol succinate 100 mg 100 mg PO DAILY 01/01/24 03/28/25 History tablet,extended release 24 hr pregabalin 150 mg capsule 150 - 300 mg PO BID 01/01/24 03/28/25 History tramadol 50 mg tablet 50 mg PO Q6HP PRN Pain 02/02/24 03/28/25 History hydrocodone 5 mg-acetaminophen 325 1 tab PO BID 15 days #30 tabs 05/28/24 03/28/25 Rx mg tablet naloxone 4 mg/actuation nasal spray 4 mg intranasal Q2M PRN opioid 06/03/24 03/28/25 Rx overdose #2 ea hydrocodone 7.5 mg-acetaminophen 1 tab PO BID #60 tabs 03/28/25 Rx 325 mg tablet New Prescriptions to Start Prescriptions: Allergies Allergy/AdvReac Type Severity Reaction Status Date / Time No Known Allergies Allergy Verified 01/01/24 15:21 Assessment and Plan *Assessment and plan (1) Degenerative disc disease, lumbar: Status: Acute Category: Medical Code(s): M51.369 - Other intervertebral disc degeneration, lumbar region without mention of lumbar back pain or lower extremity pain (2) Lumbar radiculopathy: Status: Acute Category: Medical Code(s): M54.16 - Radiculopathy, lumbar region (3) Chronic pain syndrome: Status: Acute Category: Medical Code(s): G89.4 - Chronic pain syndrome Plan I will refill the patient's [place] to provide a 1 month supply of this medication. Patient will return to clinic in 1 month. Risks and benefits of the medication have been explained in detail to the patient. The patient does understand the risk of dependence on the medication when given over a prolonged period. Patient has been advised of risks of oversedation with the prescribed medication. Narcan has been offered to the paitent in the event of oversedation. Patient has been advised that a family member should also be educated regarding administration of Narcan. The patient has been advised to consult with his/her primary care provider and pharmacist regarding drug-drug interaction of medications currently prescribed. Patient has been prescribed a controlled substance after being counseled on the medication, medication safety, and possible side effects. Opioid contract was reviewed and signed by the patient, and that they have agreed to all of the terms set forth by our compliance program. A UDS is needed to verify patient's compliance with our office pain contract. This is ordered based off specific treatments related to chronic pain with the potential to abuse certain medications. Patient has been instructed to contact the clinic with any concerns before the next appointment. Dr. Thomas has reviewed this note and agrees with this plan of care. This note was dictated using voice recognition software and make contain errors or omissions.
[2025-04-27 10:19] VITALS: BP 118/62; PULSE 50; RESP 14; O2SAT 96; BMI 43.9
== END 2025-04-27 23:59 | disposition home or self-care (01) ==
PROVIDERS: PCP Nurse Practitioner Family; Visit Provider Nurse Practitioner Family
DX: M51.16 Intervertebral disc disorders with radiculopathy, lumbar region (principal); G89.4 Chronic pain syndrome; Z79.891 Long term (current) use of opiate analgesic
CPT/HCPCS: 99212; G0463

== ENCOUNTER 2025-06-01 09:26 | Outpatient (POV) | payer MEDICARE, SELFPAY ==
--- OUTSIDE RECORDS SUMMARY | 2025-06-01 09:29 | XMS_ITS | Clinical Summary ---
Author Organization [facility] Address [address] [place] [address] Phone Care Team Providers Care Buying Agent Name Role Phone Unavailable Primary Care Provider [...]
--- OUTSIDE RECORDS SUMMARY | 2025-06-01 09:29 | XMS_ITS | Referral Summary ---
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
--- OUTSIDE RECORDS SUMMARY | 2025-06-01 09:29 | XMS_ITS | Clinical Summary ---
Author Organization [facility] Address [address] [place] [address] Care Team Providers Care Assembly Line Brazer Name Role Phone Pcp, None MD Primary Care Provider [phone] Allergies No known active allergies Medications No [...] PCV) 2016 Shingrix (#1) 2016 Influenza Vaccine (#1) 2025 RSV Vaccine (60+ or ) (1 [...] this topic Insurance [employer] Care Teams Assembly Line Brazer Relationship Specialty Start Date End Date Pcp, Ayush, PCP - General Internal Medicine 04/02/16
--- OUTSIDE RECORDS SUMMARY | 2025-06-01 09:29 | XMS_ITS | Clinical Summary ---
Author Organization [facility] Address [address] [place] [address] Care Team Providers Care Supervisor Operations Name Role Phone Unavailable Primary Care Provider [...] patient's age to complete this topic [facility] [place]
[2025-06-01 09:38] VITALS: BP 107/60; PULSE 59; RESP 18; O2SAT 95; BMI 41.8
--- NOTE | 2025-06-01 10:46 | EXP.PAIN.SOA ---
[facility] Disclaimer: The information contained in this section may have been updated after the patient was seen, as this information can be updated by other users. Medical History Migraine History of chest pain CAD (coronary artery disease) HLD (hyperlipidemia) HTN (hypertension) Family History Other No significant family history Social History Smoking Status: Unknown if ever smoked alcohol intake: never current occupational status: other Travel in the last 8 weeks?: None PM Subjective & Objective Subjective Subjective:: Patient is a pleasant 59-year-old male who presents today for medication refill and follow-up. He does rate his pain a 3 out of 10. He does state that he has had a couple falls over the last month. He denies any specific injury but does state that he has been having increased back pain that does radiate up. Patient is With [place] 7.5 mg twice a day from our office. He denies any side effects. His Julian has been reviewed and is appropriate. Review of Systems: General: No recent weight changes, no fever, no sleep disturbances Respiratory: No cough, no shortness of air, no recurring pulmonary infections Cardiovascular/peripheral vascular: No chest pain, no palpitations, no edema, no shortness of breath Gastrointestinal: No new onset incontinence, normal bowel movements reported Genitourinary: No new onset incontinence Musculoskeletal: Low back pain Psychiatric: [Normal mood/affect] Neurological: [Denies weakness in extremities], [denies balance issues] Pain at rest (0-10 scale): 3 Objective Objective:: Physical Exam: General: Alert and oriented x3, no acute distress, pleasant and cooperative Lungs: Respirations even and unlabored, symmetrical chest expansion Eyes: PERRL Musculoskeletal: Flexion and extension of lumbar [spine] somewhat guarded secondary to pain, [antalgic gait noted] Neurological: Speech clear, no gross sensory deficit Has patient had previous pain injection?: No Conservative treatment options previously tried: Prescription medications Length of treatment: Longer than 12 weeks Meds Home Medications and Allergies Home Medications ?Medication ?Instructions ?Recorded ?Confirmed ?Type atorvastatin 40 mg tablet 40 mg PO HS 01/01/24 06/01/25 History cholecalciferol (vitamin D3) 1,250 1,250 mcg PO DAILY 01/01/24 06/01/25 History mcg (50,000 unit) capsule clopidogrel 75 mg tablet 75 mg PO DAILY 01/01/24 06/01/25 History lisinopril 40 mg tablet 40 mg PO DAILY 01/01/24 06/01/25 History metoprolol succinate 100 mg 100 mg PO DAILY 01/01/24 06/01/25 History tablet,extended release 24 hr pregabalin 150 mg capsule 150 - 300 mg PO BID 01/01/24 06/01/25 History tramadol 50 mg tablet 50 mg PO Q6HP PRN Pain 02/02/24 06/01/25 History naloxone 4 mg/actuation nasal spray 4 mg intranasal Q2M PRN opioid 06/03/24 06/01/25 Rx overdose #2 ea hydrocodone 7.5 mg-acetaminophen 1 tab PO BID #60 tabs 04/27/25 06/01/25 Rx 325 mg tablet New Prescriptions to Start Prescriptions: Allergies Allergy/AdvReac Type Severity Reaction Status Date / Time No Known Allergies Allergy Verified 01/01/24 15:21 Assessment and Plan *Assessment and plan (1) Degenerative disc disease, lumbar: Status: Acute Category: Medical Code(s): M51.369 - Other intervertebral disc degeneration, lumbar region without mention of lumbar back pain or lower extremity pain Plan Due to the patient's recent falls and increasing back pain I would like to order x-ray imaging of his lumbar spine to rule out any fractures. Patient is agreeable to this. We did discuss the possibility of ordering advanced imaging in future. Patient will be refilled on his [place] and follow-up in 1 month for reevaluation of symptoms and plan of care. Risks and benefits of the medication have been explained in detail to the patient. The patient does understand the risk of dependence on the medication when given over a prolonged period. Patient has been advised of risks of oversedation with the prescribed medication. Narcan has been offered to the paitent in the event of oversedation. Patient has been advised that a family member should also be educated regarding administration of Narcan. The patient has been advised to consult with his/her primary care provider and pharmacist regarding drug-drug interaction of medications currently prescribed. Patient has been prescribed a controlled substance after being counseled on the medication, medication safety, and possible side effects. Opioid contract was reviewed and signed by the patient, and that they have agreed to all of the terms set forth by our compliance program. A UDS is needed to verify patient's compliance with our office pain contract. This is ordered based off specific treatments related to chronic pain with the potential to abuse certain medications. Patient has been instructed to contact the clinic with any concerns before the next appointment. Dr. Thomas has reviewed this note and agrees with this plan of care. This note was dictated using voice recognition software and make contain errors or omissions.
== END 2025-06-01 23:59 | disposition home or self-care (01) ==
PROVIDERS: PCP Nurse Practitioner Family; Visit Provider Nurse Practitioner Family
DX: M51.360 Other intervertebral disc degeneration, lumbar region with discogenic back pain only (principal); Z79.891 Long term (current) use of opiate analgesic
CPT/HCPCS: 72100; 99212; G0463